=== PATIENT | female | born 1965 | race Caucasian/White ===

== ENCOUNTER 2020-11-19 19:19 | Emergency (ER) | payer MEDICARE, SELFPAY ==
--- NOTE | ~2020-11-19 | CT_ITS ---
EXAMINATION: CT abdomen pelvis w con DATE: 11/19/2020 22:54 INDICATION: Left buttock lump. TECHNIQUE: Computed tomography (CT) of the abdomen and pelvis was performed with 100 mL Omnipaque 350 intravenous contrast. Automated exposure control and iterative reconstruction technique were employe d. The dose-length product was 886.44 mGy-cm. COMPARISON: None. FINDINGS: The visualized portions of the lung bases demonstrate mild atelectasis. No pleural effusion . The heart size is normal. No pericardial effusion. The liver demonstrates focal steatosis at the ga llbladder fossa. There is a 13 mm low-attenuation lesion at posterior aspect of right hepatic lobe. T here are changes of cholecystectomy. The spleen, pancreas, and adrenal glands are normal. There is a 4 mm cyst in right kidney. Left kidney is normal. There is diverticulosis of the colon without eviden ce of diverticulitis. There are multiple ventral hernias containing fat. There is a lumboperitoneal s leroy. There are changes of posterior fusion procedure from thoracic spine to the sacrum and iliac bon es. There are changes of anterior fusion procedure from L1 to S1. There is a large distribution of fa t stranding superficial to the sacrum, consistent with fat necrosis. IMPRESSION: 1. Large distribution of fat stranding superficial to the sacrum, consistent with fat necrosis. 2. Multiple ventral hernias containing fat. 3. 13 mm low-attenuation lesion in posterior aspect of right hepatic lobe, which may be focal steatos is or scarring given the location. Consider abdomen CT with contrast in 6 months. Reviewed, dictated and finalized at location A. IMPRESSION: 1. Large distribution of fat stranding superficial to the sacrum, consistent wi th fat necrosis. 2. Multiple ventral hernias containing fat. 3. 13 mm low-attenuation lesion in posterior aspect of right hepatic lobe, whic h may be focal steatosis or scarring given the location. Consider abdomen CT wi th contrast in 6 months.
[2020-11-19 19:27] VITALS: BP 162/96; PULSE 82; RESP 16; TEMP 37.3; O2SAT 100
[2020-11-19] MEDS: MORPHINE SULFATE (*CRX) 4 MG/ML INJ IV PUSH (22:10)
[2020-11-19 22:16] LABS: Basophils Percent Auto 0.3 % (0.2-1.2); Eosinophils Absolute Auto 0.7 K/mm3 (0-0.3); Eosinophils Percent Auto 6.1 % (0-4.4); Hematocrit 38.6 % (37.0-47.0); Hemoglobin 12.5 g/dL (12.0-15.0); Immature Granulocyte Absolute 0.04 K/mm3 (0.00-0.031); Immature Granulocyte Percent A 0.3 % (0-0.5); Immature Platelet Fraction Pct 3.4 % (0.9-11.2); Lymphocytes Absolute Auto 3.22 K/mm3 (0.9-3.2); Lymphocytes Percent Auto 27.2 % (18.3-44.2); Mean Corpuscular HGB Conc 32.4 g/dl (32-36); Mean Corpuscular Hemoglobin 29.6 pg (26-34); Mean Corpuscular Volume 91.3 fl (80-100); Monocytes Absolute Auto 0.7 K/mm3 (0.1-0.6); Monocytes Percent Auto 5.5 % (2.6-8.5); Neutrophils Absolute Auto 7.2 K/mm3 (1.3-6.7); Neutrophils Percent Auto 60.6 % (45.5-73.1); Platelet Count Result 286 k/mm3 (150-375); Red Blood Count 4.23 M/mm3 (4.2-5.4); Red Cell Distribution Width 13.3 % (11.5-14.5); White Blood Count 11.9 K/mm3 (4.5-10.0)
[2020-11-19 22:32] LABS: Lactic Acid Reflex 0.9 mmol/L (0.7-2.1)
[2020-11-19 22:37] LABS: Alanine Aminotransferase 11 U/L (4-35); Albumin Level 3.9 g/dL (3.5-5.1); Alkaline Phosphatase 108 U/L (38-126); Anion Gap 8 mmol/L (8-16); Aspartate Amino Transferase 18 U/L (14-36); Bilirubin,Total 0.5 mg/dL (0.2-1.3); Blood Urea Nitrogen 10 mg/dL (7-17); Calcium 9.3 mg/dL (8.4-10.2); Carbon Dioxide 24 mmol/L (22-30); Chloride 109 mmol/L (98-107); Estimated CRCL calculation 90 ml/min; Estimated Glomerular Filt Rate > 60; Glucose 101 mg/dL (65-110); Potassium 3.9 mmol/L (3.4-5.0); Sodium 141 mmol/L (137-145)
--- NOTE | 2020-11-19 23:27 | ED.GENADULT ---
HPI - General Adult General Chief complaint: Unspecified Stated complaint: MRSA on buttock Time Seen by Provider: 11/19/20 21:03 History of Present Illness HPI narrative: Patient 55-year-old female presents emerged department with chief complaint of swelling in her gluteal area. Patient reports she had an abscess in her right gluteal region that was spontaneously draining patient reports is been treated for MRSA but those areas become more painful lately. Patient also reports in her sacral area she has had another area of swelling the patient reports that she has had no trauma to the area and denies redness of that area. Patient reports that she is supposed to see her doctors over in [place] but is currently living with a family member and has no form of transportation to [place]. Related Data Allergies Allergy/AdvReac Type Severity Reaction Status Date / Time latex Allergy Unknown Verified 11/19/20 19:33 topiramate [From Topamax] Allergy Unknown Verified 11/19/20 19:33 Review of Systems Review of Systems: A 10 system review of systems was completed on the patient and is negative except for what is stated in the HPI. Nursing and ancillary documentation was reviewed. Exam Narrative: GENERAL: Well-appearing, well-nourished, and in no acute distress. HEAD: Normocephalic, atraumatic. EYES: PERRLA and EOMI. ENT: Nares clear, no rhinorrhea or epistaxis. Mucous membranes moist. NECK: Supple. CHEST: Clear to auscultation. No respiratory distress. HEART: Regular rate and rhythm. No murmur heard. Normal peripheral pulses. ABDOMEN: Soft, nontender, nondistended, normal active bowel sounds. : The right gluteal area there is a wound that is approximately 2 cm in length that is healing there is some slight erythema in the area. In the sacral area there is a tender soft tissue nodule at the area of the sacrum there is no fluctuance present EXTREMITIES: Normal range of motion. No edema. SKIN: Warm, dry, no rash. NEURO: No focal deficits. Alert and oriented x3. PSYCH: Normal mood and affect. Course Course Emergency Course: CT scan of the abdomen pelvis showed evidence of fat necrosis in the soft tissue around the sacrum. There is no signs of abscess Vital Signs Vital signs: Vital Signs Temperature 37.3 C 11/19/20 19:27 Pulse Rate 82 11/19/20 19:27 Respiratory Rate 16 11/19/20 19:27 Blood Pressure 162/96 H 11/19/20 19:27 Pulse Oximetry 100 11/19/20 19:27 Temperature 37.3 C 11/19/20 19:27 Pulse Rate 82 11/19/20 19:27 Respiratory Rate 16 11/19/20 19:27 Blood Pressure 162/96 H 11/19/20 19:27 Pulse Oximetry 100 11/19/20 19:27 Medical Decision Making Vital Signs Vital Signs: Vital Signs Temperature 37.3 C 11/19/20 19:27 Pulse Rate 82 11/19/20 19:27 Respiratory Rate 16 11/19/20 19:27 Blood Pressure 162/96 H 11/19/20 19:27 Pulse Oximetry 100 11/19/20 19:27 Temperature 37.3 C 11/19/20 19:27 Pulse Rate 82 11/19/20 19:27 Respiratory Rate 16 11/19/20 19:27 Blood Pressure 162/96 H 11/19/20 19:27 Pulse Oximetry 100 11/19/20 19:27 Lab Data Result diagrams: 11/19/20 22:05 11/19/20 22:05 Labs: Lab Results 11/19/20 11/19/20 11/19/20 Range/Units 22:05 22:05 22:05 WBC 11.9 H (4.5-10.0) K/mm3 RBC 4.23 (4.2-5.4) M/mm3 Hgb 12.5 (12.0-15.0) g/dL Hct 38.6 (37.0-47.0) % MCV 91.3 (80-100) fl MCH 29.6 (26-34) pg MCHC 32.4 (32-36) g/dl RDW 13.3 (11.5-14.5) % Plt Count 286 (150-375) k/mm3 MPV 10.0 (7.4-10.4) fl Immature Gran % (Auto) 0.3 (0-0.5) % Neut % (Auto) 60.6 (45.5-73.1) % Lymph % (Auto) 27.2 (18.3-44.2) % [place] % (Auto) 5.5 (2.6-8.5) % Eos % (Auto) 6.1 H (0-4.4) % Baso % (Auto) 0.3 (0.2-1.2) % Lymph # (Auto) 3.22 H (0.9-3.2) K/mm3 [place] # (Auto) 0.7 H (0.1-0.6) K/mm3 Eos # (Auto) 0.7 H (0-0.3) K/mm3 Baso # (Auto) 0.0 (0.0-0.
[2020-11-19] MEDS: HYDROmorphone HCL INJ (*CRX) 1 MG/ML SYR IV PUSH (23:37)
[2020-11-19 23:40] VITALS: BP 122/60; PULSE 78; RESP 18; O2SAT 99
== END 2020-11-19 23:41 | disposition home or self-care (01) ==
PROVIDERS: Emergency Provider Emergency Medicine; PCP Internal Medicine Rheumatology
DX: L03.317 Cellulitis of buttock (principal); M79.89 Other specified soft tissue disorders
CPT/HCPCS: 36415; 74177; 80053; 83605; 85025; 85055; 96374; 96375; 99284; J1170; J2270; Q9967

== ENCOUNTER 2020-12-29 19:45 | Inpatient (IN) | payer MEDICARE, MEDICAID, SELFPAY ==
[2020-12-29] VITALS (17 sets, daily range): BP systolic 105–133; BP diastolic 69–111; PULSE 115–129; RESP 10–19; TEMP 36.8; O2SAT 92–98
--- NOTE | ~2020-12-29 | CT_ITS ---
EXAMINATION: CT BRAIN W/O DATE: 12/29/2020 21:02 INDICATION: Status post fall. Headache. TECHNIQUE: Computed tomography (CT) of the head was performed without intravenous contrast. The dose- length product was 605.33 mGy-cm. Automated exposure control and iterative reconstruction technique w ere employed. COMPARISON: No prior studies for comparison. FINDINGS: Normal brain parenchymal volume for age. Normal green-white differentiation. No acute intrac ranial hemorrhage, infarction, mass or mass effect. No ventriculomegaly or midline shift. Midline sagittal images demonstrate a normal corpus callosum, c raniovertebral junction and sella turcica. Basilar cisterns are patent. Paranasal sinuses and mastoids are pneumatized. No depressed skull fractures. There is hyperostosis f rontalis. IMPRESSION: 1. No acute intracranial abnormality. Reviewed, dictated and finalized at location A.
--- NOTE | ~2020-12-29 | XR_ITS ---
XR sacrum coccyx min 2V 12/29/2020 21:05 Indication: Status post fall. Low back pain. Procedure: 3 views of the lumbar spine Comparison: No prior studies for comparison. Findings: There are Harmon rods and spinal fusion changes extending from the lower thoracic spine through the sacrum with laminectomy changes at multiple levels. There is bone graft mass laterally i n the upper and mid lumbar spine. There is a spinal infusion catheter identified, partially visualize d. Generalized osteopenia. Sacral foramen are symmetric. No pelvic rings grossly intact. No acute fra cture is identified. Impression: 1: No acute bone or joint abnormality. Reviewed, dictated and finalized at location A. Impression: 1: No acute bone or joint abnormality.
--- NOTE | ~2020-12-29 | CT_ITS ---
EXAMINATION: CT cervical spine wo con DATE: 12/29/2020 21:02 INDICATION: Neck pain after fall TECHNIQUE: Computed tomography (CT) of the cervical spine was performed without intravenous contrast. The dose-length product was 385 mGy-cm. Automated exposure control and iterative reconstruction tech nique were employed. COMPARISON: None FINDINGS: Anterior cervical fusion and discectomy are present at C4-C7. Mild degenerative disc diseas e at C3-4. Odontoid process within normal limits. No acute fracture or traumatic malalignment. Cranio vertebral junction are normal. No evidence for perched facet. There is mild emphysema. No significant paraspinal soft tissue abnormality. IMPRESSION: 1. No acute abnormality of the cervical spine. Reviewed, dictated and finalized at location A.
--- NOTE | 2020-12-29 20:35 | ECG_ITS ---
Measurements Intervals [place] Rate: 129 P: 62 AK: 110 QRS: -28 QRSD: 78 T: 62 QT: 334 QTc: 490 Interpretive Statements SINUS TACHYCARDIA WITH SHORT AK INTERVAL EARLY PRECORDIAL R/S TRANSITION INFERIOR INFARCT, AGE INDETERMINATE BORDERLINE ST-T WAVE ABNORMALITY- HIGH LATERAL LEADS BASELINE WANDER- I, II ABNORMAL ECG Electronically Signed On 12-30-2020 5:22:57 CDT by Shelton Brown D.O.
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
--- NOTE | 2020-12-29 20:54 | PC.NURSE ---
PT is at [facility].
[2020-12-29 22:05] LABS: Basophils Absolute Auto 0.1 K/mm3 (0.0-0.1); Basophils Percent Auto 0.3 % (0.2-1.2); Eosinophils Absolute Auto 0.2 K/mm3 (0-0.3); Hematocrit 52.8 % (37.0-47.0); Immature Granulocyte Absolute 0.12 K/mm3 (0.00-0.031); Immature Granulocyte Percent A 0.6 % (0-0.5); Lymphocytes Absolute Auto 2.46 K/mm3 (0.9-3.2); Mean Corpuscular HGB Conc 32.2 g/dl (32-36); Mean Corpuscular Volume 93.3 fl (80-100); Mean Platelet Volume 10.4 fl (7.4-10.4); Monocytes Absolute Auto 1.5 K/mm3 (0.1-0.6); Monocytes Percent Auto 7.1 % (2.6-8.5); Neutrophils Absolute Auto 16.1 K/mm3 (1.3-6.7); Platelet Count Result 389 k/mm3 (150-375); Red Blood Count 5.66 M/mm3 (4.2-5.4); Red Cell Distribution Width 13.6 % (11.5-14.5); White Blood Count 20.4 K/mm3 (4.5-10.0)
[2020-12-29] MEDS: LACTATED RINGERS 1,000 ML 999 ML IV CONT (22:07)
[2020-12-29 22:25] LABS: Alanine Aminotransferase 56 U/L (4-35); Alkaline Phosphatase 159 U/L (38-126); Anion Gap 21 mmol/L (8-16); Aspartate Amino Transferase 206 U/L (14-36); Bilirubin,Total 0.8 mg/dL (0.2-1.3); Blood Urea Nitrogen 37 mg/dL (7-17); Calcium 9.5 mg/dL (8.4-10.2); Carbon Dioxide 17 mmol/L (22-30); Chloride 102 mmol/L (98-107); Estimated CRCL calculation 18 ml/min; Estimated Glomerular Filt Rate 12; Glucose 221 mg/dL (65-110); Potassium 6.1 mmol/L (3.4-5.0); Sodium 140 mmol/L (137-145)
[2020-12-29 22:39] LABS: Add Urine Microscopic? YES; Appearance Urine Cloudy (Clear); Bacteria Urine Trace /hpf; Bilirubin Urine Negative (Negative); Blood Urine 3+ (Negative); Color Urine Amber (Yellow); Glucose Urine UA 1+ mg/dL (Negative); Ketones Urine Negative (Negative); Leukocyte Esterase Ur 1+ LEU/UL (Negative); Mucus Urine Rare /lpf; Nitrate Urine Negative (Negative); Protein Urine 2+ mg/dL (Negative); Squamous Epithelial Cell Urine Moderate /hpf (Few); Urobilinogen Urine Negative mg/dL (<2.0); WBC Clumps Urine Present /HPF; WBC Urine 31-50 /hpf
[2020-12-29 22:41] LABS: Amphetamine Screen Urine Negative (Negative); Barbiturate Screen Urine Negative (Negative); Benzodiazepines Screen Urine Negative (Negative); Cannabinoid Screen Urine Negative (Negative); Cocaine Screen Urine Negative (Negative); Methadone Screen Urine Negative (Negative); Opiate Screen Urine Positive (Negative); Phencyclidine Screen Urine Negative (Negative)
--- NOTE | 2020-12-29 22:43 | PC.NURSE ---
critical lab reported to Dr Goode and Charge Nurse
[2020-12-29 23:16] LABS: Creatine Kinase 15551 U/L (30-135)
[2020-12-29 23:17] LABS: Glucose Point of Care 208 mg/dl (65-105)
[2020-12-29] MEDS: SODIUM BICARBONATE 8.4% 50 MEQ/50 ML SYRINGE IV PUSH (23:20)
[2020-12-29] MEDS: FUROSEMIDE INJ 40 MG/4 ML VIAL 20 MG IV PUSH (23:21)
[2020-12-29] MEDS: SODIUM CHLORIDE 0.9% IV 1,000 ML 999 ML IV CONT ×2 (23:21)
[2020-12-29] MEDS: INSULIN HUMAN REGULAR (*BKC) 100 UNITS/ML IV PUSH (23:21)
[2020-12-29] MEDS: DEXTROSE 50% 25 GM/50 ML SYRINGE IV PUSH (23:21)
[2020-12-29 23:32] LABS: Ethanol < 10 mg/dL (<10)
[2020-12-29 23:42] LABS: Acetaminophen < 10 ug/mL (10-30)
[2020-12-30] VITALS (19 sets, daily range): BP systolic 103–134; BP diastolic 63–90; PULSE 88–136; RESP 12–22; TEMP 36–36.9; O2SAT 94–98; BMI 29.1
[2020-12-30] MEDS: ASPIRIN 81 MG CHEWABLE TABLET 324 MG PO (00:54)
--- NOTE | 2020-12-30 01:40 | PC.NURSE ---
Attempted x3 to obtain blood for labs - unsuccessful - called lab to attempt.
--- NOTE | 2020-12-30 02:08 | PC.NURSE ---
see incident report for fall information.
--- NOTE | 2020-12-30 02:36 | PC.NURSE ---
Dr huizar aware of pt fall.
[2020-12-30 03:04] LABS: Anion Gap 16 mmol/L (8-16); Blood Urea Nitrogen 39 mg/dL (7-17); Calcium 8.6 mg/dL (8.4-10.2); Carbon Dioxide 16 mmol/L (22-30); Chloride 108 mmol/L (98-107); Estimated CRCL calculation 21 ml/min; Estimated Glomerular Filt Rate 15; Glucose 244 mg/dL (65-110); Potassium 5.4 mmol/L (3.4-5.0); Sodium 140 mmol/L (137-145)
[2020-12-30 03:04] LABS: Troponin I 0.064 ng/mL (0.000-0.034)
--- NOTE | 2020-12-30 03:16 | ADMGEN ---
This patient, Susannah Garza, was admitted to IMU Room 232-01. Patient/family oriented to hospital policies and general routines including ID bracelet, bed and alarms, visiting hours, pain management, procedures, bathroom and other care routines, personal items, smoking policy, room service/diet, and visiting hours. Information on how to activate the Rapid Response Team has been discussed. Patient/Family are encouraged to report perceived risks to care and to ask questions if they do not understand what they are told or what they should do. Mary MOORE approx [phone]
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
[2020-12-30 04:09] LABS: Alveolar/Arterial O2 Gradient 35.7 mmHg; Base Excess ABG -5.6 mEq/l (+/-2.0); Fractional Inspired Oxygen 21 %; HCO3 ABG 19.5 mEq/l (22.0-26.0); Methemoglobin ABG 0.3 %THb (0-1.5); Oxygen Content ABG 18.2 %vol (16.0-22.0); Oxygen Saturation ABG 93.3 % (95.0-100.0); Oxyhemoglobin 92.4 % THb (90.0-100.0); PCO2 ABG 36.8 mmHg (35.0-45.0); PO2 FiO2 Ratio Arterial Blood 3.33 %; Reduced Hemoglobin 6.3 %THb (0-5.0); pH ABG 7.342 (7.350-7.450)
[2020-12-30 04:10] LABS: Device ROOM AIR; Modified Allen's Test Pass; Site Drawn RIGHT RADIAL
[2020-12-30] MEDS: SODIUM BICARBONATE 8.4% 150 MEQ in DEXTROSE 5% 1,000 ML 950 ML 50 MEQ IV CONT (04:39)
[2020-12-30] MEDS: SODIUM CHLORIDE 0.9% IV 1,000 ML 999 ML IV CONT (04:40)
[2020-12-30] MEDS: SODIUM CHLORIDE 0.9% IV 1,000 ML 150 ML IV CONT ×2 (04:40→22:44)
[2020-12-30 05:16] LABS: Basophils Percent Auto 0.2 % (0.2-1.2); Eosinophils Absolute Auto 0.3 K/mm3 (0-0.3); Eosinophils Percent Auto 2.2 % (0-4.4); Hematocrit 41.5 % (37.0-47.0); Hemoglobin 13.3 g/dL (12.0-15.0); Immature Granulocyte Absolute 0.07 K/mm3 (0.00-0.031); Immature Granulocyte Percent A 0.5 % (0-0.5); Lymphocytes Absolute Auto 2.54 K/mm3 (0.9-3.2); Lymphocytes Percent Auto 18.6 % (18.3-44.2); Mean Corpuscular Hemoglobin 29.7 pg (26-34); Mean Corpuscular Volume 92.6 fl (80-100); Monocytes Absolute Auto 1.2 K/mm3 (0.1-0.6); Monocytes Percent Auto 8.8 % (2.6-8.5); Neutrophils Absolute Auto 9.5 K/mm3 (1.3-6.7); Neutrophils Percent Auto 69.7 % (45.5-73.1); Platelet Count Result 259 k/mm3 (150-375); Red Blood Count 4.48 M/mm3 (4.2-5.4); Red Cell Distribution Width 13.5 % (11.5-14.5); White Blood Count 13.7 K/mm3 (4.5-10.0)
[2020-12-30 05:33] LABS: Anion Gap 12 mmol/L (8-16); Blood Urea Nitrogen 38 mg/dL (7-17); Calcium 7.5 mg/dL (8.4-10.2); Carbon Dioxide 21 mmol/L (22-30); Chloride 106 mmol/L (98-107); Estimated CRCL calculation 24 ml/min; Estimated Glomerular Filt Rate 17; Glucose 176 mg/dL (65-110); Potassium 5.1 mmol/L (3.4-5.0); Sodium 139 mmol/L (137-145)
[2020-12-30 05:34] LABS: Alanine Aminotransferase 58 U/L (4-35); Albumin Level 3.3 g/dL (3.5-5.1); Alkaline Phosphatase 97 U/L (38-126); Aspartate Amino Transferase 240 U/L (14-36); Bilirubin,Total 0.2 mg/dL (0.2-1.3)
[2020-12-30 06:36] LABS: Hepatitis B Surface Antigen Negative (Negative)
[2020-12-30 06:42] LABS: HAV RESULT Negative (Negative); Hepatitis B Core IgM Result Negative (Negative)
[2020-12-30 06:53] LABS: Hepatitis C Virus Antibody Negative (Negative)
[2020-12-30 06:56] LABS: Creatine Kinase 15754 U/L (30-135)
[2020-12-30 08:53] LABS: Hemoglobin A1C 6.2 % (<5.7)
[2020-12-30 09:08] LABS: Glucose Point of Care 156 mg/dl (65-105)
[2020-12-30] MEDS: FAMOTIDINE 20 MG/2 ML VIAL IV PUSH ×2 (09:21→22:43)
[2020-12-30] MEDS: HEPARIN SODIUM 5,000 UNITS/ML VIAL 5000 UNITS SUB-Q ×3 (09:21→22:43)
[2020-12-30 13:42] LABS: Glucose Point of Care 158 mg/dl (65-105)
--- NOTE | 2020-12-30 14:11 | PM.IMPN ---
Progress Note: A&P Assessment and Plan (1) UTI (urinary tract infection): Code(s): N39.0 - Urinary tract infection, site not specified Status: Acute Assessment and Plan: per patient, she had some urinary frequency inc and lower abdominal pain will treat as symptomatic UTI - continue ctx, day 2, follow urine cultures (2) ROLY (acute kidney injury): Code(s): N17.9 - Acute kidney failure, unspecified Status: Acute Assessment and Plan: related to rhabdomyloysis, m/l continue IV hydration at 150/hr (3) Rhabdomyolysis: Qualifiers: Rhabdomyolysis type: non-traumatic Qualified Code(s): M62.82 - Rhabdomyolysis Code(s): M62.82 - Rhabdomyolysis Status: Acute Assessment and Plan: iv hydration as above (4) Acute hyperkalemia: Code(s): E87.5 - Hyperkalemia Status: Acute Assessment and Plan: resolved (5) Bacteriuria with pyuria: Code(s): R82.71 - Bacteriuria; R82.81 - Pyuria Status: Acute Assessment and Plan: ctx as above (6) Transaminitis: Code(s): R74.01 - Elevation of levels of liver transaminase levels Status: Acute Assessment and Plan: hepatitis panel negative so far may be related to acute inflammation just had Abdomen CT 11/19, showing steatosis - may benefit from US if not improving LFTs (7) Type 2 diabetes mellitus with hyperglycemia: Qualifiers: Diabetes mellitus superintendent terminal insulin use: unspecified superintendent terminal insulin use status Qualified Code(s): E11.65 - Type 2 diabetes mellitus with hyperglycemia Code(s): E11.65 - Type 2 diabetes mellitus with hyperglycemia Status: Acute (8) Toxic metabolic encephalopathy: Code(s): G92 - Toxic encephalopathy Status: Acute Assessment and Plan: resolving - pt likely at baseline, AOx4, and able to recount medical problems coherently Additional Plan pt says she had a fall at home - ct of head, cervical, sacrum, coccyx all negative likely precipitating event for rhabdo, and ensuing roly - currently treated with IVF, improving concurrent symptomatic UTI treated with CTX Transaminitis w/ benign abdominal exam & neg hepatitis panel; may need to obtain US - but previously documented steatosis Time Spent With Patient Time with patient: less than 15 minutes Subjective Date/time seen: 12/30/20 14:11 AOx4, pain symptoms getting better. Able to bear weight on both LE denies fevers chills abdominal pain or dysuria Review of Systems Review of Systems: All systems reviewed & are unremarkable except as noted in HPI and below Exam Const: General: no acute distress Neck: Neck: no JVD Resp: Effort & Inspection: normal respiratory effort Auscultation: clear to auscultation bilaterally Cardio: Rate: regular rate Rhythm: regular rhythm Objective Data Vital Signs Vital Signs: Vital Signs - 24 hr 12/29/20 19:46 12/29/20 21:57 12/29/20 22:00 Temperature 98.3 F Pulse Rate 127 H 129 H 128 H Respiratory Rate 19 13 10 L Blood Pressure 133/111 H Pulse Oximetry 95 12/29/20 22:01 12/29/20 22:15 12/29/20 22:30 Temperature Pulse Rate 127 H 129 H 129 H Respiratory Rate 12 14 Blood Pressure 105/69 Pulse Oximetry 95 12/29/20 22:36 12/29/20 22:37 12/29/20 22:44 Temperature Pulse Rate 128 H 128 H Respiratory Rate 12 Blood Pressure 117/80 Pulse Oximetry 12/29/20 22:45 12/29/20 22:46 12/29/20 23:00 Temperature Pulse Rate 125 H 125 H 125 H Respiratory Rate 18 Blood Pressure 119/92 H Pulse Oximetry 92 92 12/29/20 23:01 12/29/20 23:15 12/29/20 23:16 Temperature Pulse Rate 125 H 124 H 125 H Respiratory Rate Blood Pressure 124/95 H Pulse Oximetry 98 97 12/29/20 23:30 12/29/20 23:45 12/30/20 00:00 Temperature Pulse Rate 121 H 115 H 115 H Respiratory Rate 17 Blood Pressure Pulse Oximetry 95 12/30/20 00:15 12/30/20 00:30 12/30/20 00:45 Temperat
--- NOTE | 2020-12-30 16:20 | PM.CNNEP ---
Assessment and Plan Assessment and plan (1) ROLY (acute kidney injury): Code(s): N17.9 - Acute kidney failure, unspecified Status: Acute Assessment and Plan: presumably due to prerenal factors and rhabdomyolysis likely worsened by use of ARB. agree with IVF hydration follow repeat CPK may need to consider bicarb fluids but would continue current fluids for now follow trend of repeat labs and UOP (2) Hyperkalemia: Code(s): E87.5 - Hyperkalemia Status: Acute Assessment and Plan: due to ROLY, rhabdomyolysis, and use of losartan improved s/p medical therapy follow trend (3) Rhabdomyolysis: Qualifiers: Rhabdomyolysis type: non-traumatic Qualified Code(s): M62.82 - Rhabdomyolysis Code(s): M62.82 - Rhabdomyolysis Status: Acute Assessment and Plan: likely due to being found down on ground follow trend of CPK continue IVF hydration watch K+, Ca++, and Phos may need to consider urinary alkalinization if renal function worsens (4) Altered mental status: Code(s): R41.82 - Altered mental status, unspecified Status: Acute Assessment and Plan: due to medications(?) mentation seems to be improving (5) UTI (urinary tract infection): Code(s): N39.0 - Urinary tract infection, site not specified Status: Acute Assessment and Plan: as evidence of urinalysis follow-up on culture results (6) Diabetes: Code(s): E11.9 - Type 2 diabetes mellitus without complications Status: Acute Assessment and Plan: follow accuchecks glycemic control Will continue to follow. History of Present Illness Reason for Consult Consult date: 12/30/20 Reason for consult: acute renal failure Chief Complaint Chief complaint: hyperkalemia,rhabdomyolyis,roly,uti,elevated tropon History of Present Illness Narrative: The patient is a 55-year-old female with past medical history as outlined below who presented to [facility] ER from fall following a fall. Most of the information I have obtained is from review of the electronic medical record as the patient cannot recall specific details/ events that led to her presentation and subsequent admission to [facility]. Apparently, the patient has been having fluctuating living arrangements for last several months if not longer and recently moved in with her daughter a few weeks ago. Given her generalized weakness and debility, the patient most likely really needs to be in a group home or nursing facility but she does not have insurance and has not entirely clear if the patient would be willing to move into a nursing facility. In any case, over the weekend, she recently started medications that she received via mail ( chronic home medications? ) And this apparently caused significant lethargy and somnolence. Due to this change in mental status, she apparently rolled out of bed and was found on the floor. It is not a tire Geraldine clear how long she was down on the floor but reports state that she was only down for may be a few hours. What medications she received via mail, what they were for, and what they were in general is not entirely clear at all. Do the a for mentioned fall than acute mental status changes, she presented to [facility] Emergency room for further evaluation. Workup and evaluation emergency room demonstrated the patient to be hemodynamically stable but she was quite altered /lethargic on presentation. She could not give any details of how she ended up in the hospital, how she ended up on the floor, when this event occurred, or for that matter what medications that she took over the weekend. Head CT scan did not demonstrate any acute intracranial pathology but routine blood test demonstrated a significant decline in her kidney function in association with hyperkalemia. Her CBC was unremarkable but given the change in her mental status
[2020-12-30 16:54] LABS: Glucose Point of Care 154 mg/dl (65-105)
[2020-12-30 20:48] LABS: Glucose Point of Care 151 mg/dl (65-105)
[2020-12-31] VITALS (16 sets, daily range): BP systolic 117–144; BP diastolic 74–80; PULSE 95–113; RESP 12–20; TEMP 36.2–36.7; O2SAT 94–98
[2020-12-31 05:08] LABS: Basophils Percent Auto 0.2 % (0.2-1.2); Eosinophils Absolute Auto 0.2 K/mm3 (0-0.3); Eosinophils Percent Auto 1.6 % (0-4.4); Hematocrit 38.9 % (37.0-47.0); Hemoglobin 12.8 g/dL (12.0-15.0); Immature Granulocyte Absolute 0.06 K/mm3 (0.00-0.031); Immature Granulocyte Percent A 0.5 % (0-0.5); Lymphocytes Absolute Auto 2.55 K/mm3 (0.9-3.2); Lymphocytes Percent Auto 21.6 % (18.3-44.2); Mean Corpuscular HGB Conc 32.9 g/dl (32-36); Mean Corpuscular Hemoglobin 29.6 pg (26-34); Mean Platelet Volume 10.1 fl (7.4-10.4); Monocytes Absolute Auto 0.9 K/mm3 (0.1-0.6); Monocytes Percent Auto 7.2 % (2.6-8.5); Neutrophils Absolute Auto 8.1 K/mm3 (1.3-6.7); Neutrophils Percent Auto 68.9 % (45.5-73.1); Platelet Count Result 246 k/mm3 (150-375); Red Blood Count 4.32 M/mm3 (4.2-5.4); Red Cell Distribution Width 13.7 % (11.5-14.5); White Blood Count 11.8 K/mm3 (4.5-10.0)
[2020-12-31] MEDS: HEPARIN SODIUM 5,000 UNITS/ML VIAL 5000 UNITS SUB-Q ×3 (05:11→20:21)
[2020-12-31 05:25] LABS: Alanine Aminotransferase 65 U/L (4-35); Albumin Level 3.4 g/dL (3.5-5.1); Alkaline Phosphatase 113 U/L (38-126); Anion Gap 10 mmol/L (8-16); Aspartate Amino Transferase 142 U/L (14-36); Bilirubin,Total 0.6 mg/dL (0.2-1.3); Blood Urea Nitrogen 33 mg/dL (7-17); Calcium 7.8 mg/dL (8.4-10.2); Carbon Dioxide 21 mmol/L (22-30); Chloride 104 mmol/L (98-107); Estimated CRCL calculation 45 ml/min; Estimated Glomerular Filt Rate 36; Glucose 155 mg/dL (65-110); Magnesium 1.5 mg/dL (1.6-2.3); Phosphorus 3.5 mg/dL (2.5-4.5); Potassium 4.3 mmol/L (3.4-5.0); Sodium 135 mmol/L (137-145)
[2020-12-31 06:59] LABS: Thyroid Stimulating Hormone Reflex 0.426 uIU/mL (0.465-4.68)
[2020-12-31 07:06] LABS: Creatine Kinase 6687 U/L (30-135)
[2020-12-31 07:40] LABS: Free T4 Free Thyroxine Reflex 1.27 ng/dL (0.78-2.19)
--- NOTE | 2020-12-31 07:56 | PM.IMPN ---
Progress Note: A&P Assessment and Plan (1) UTI (urinary tract infection): Code(s): N39.0 - Urinary tract infection, site not specified Status: Acute Assessment and Plan: per patient, she had some urinary frequency inc and lower abdominal pain will treat as symptomatic UTI - continue ctx, day 3, follow urine cultures (2) ROLY (acute kidney injury): Code(s): N17.9 - Acute kidney failure, unspecified Status: Acute Assessment and Plan: related to rhabdomyloysis, m/l continue IV hydration at 150/hr (3) Rhabdomyolysis: Qualifiers: Rhabdomyolysis type: non-traumatic Qualified Code(s): M62.82 - Rhabdomyolysis Code(s): M62.82 - Rhabdomyolysis Status: Acute Assessment and Plan: iv hydration as above (4) Acute hyperkalemia: Code(s): E87.5 - Hyperkalemia Status: Acute Assessment and Plan: resolved (5) Bacteriuria with pyuria: Code(s): R82.71 - Bacteriuria; R82.81 - Pyuria Status: Acute Assessment and Plan: ctx as above (6) Transaminitis: Code(s): R74.01 - Elevation of levels of liver transaminase levels Status: Acute Assessment and Plan: hepatitis panel negative so far may be related to acute inflammation just had Abdomen CT 11/19, showing steatosis - may benefit from US, however LFTs improving (7) Type 2 diabetes mellitus with hyperglycemia: Qualifiers: Diabetes mellitus care home insulin use: unspecified lobsterman insulin use status Qualified Code(s): E11.65 - Type 2 diabetes mellitus with hyperglycemia Code(s): E11.65 - Type 2 diabetes mellitus with hyperglycemia Status: Acute (8) Toxic metabolic encephalopathy: Code(s): G92 - Toxic encephalopathy Status: Acute Assessment and Plan: resolving - pt likely at baseline, AOx4, and able to recount medical problems coherently Additional Plan pt says she had a fall at home - ct of head, cervical, sacrum, coccyx all negative likely precipitating event for rhabdo, and ensuing roly - currently treated with IVF, improving, renal function approaching baseline concurrent symptomatic UTI treated with CTX, pending urine culture Transaminitis w/ benign abdominal exam & neg hepatitis panel; may need to obtain US - but previously documented steatosis and also improving with hydration - may be related to inflammatory process Time Spent With Patient Time with patient: less than 15 minutes Subjective Date/time seen: 12/31/20 07:56 making good amt urine resting comfortably in bed no acute medical complaints Review of Systems Review of Systems: All systems reviewed & are unremarkable except as noted in HPI and below Exam Const: General: no acute distress Neck: Neck: no JVD Resp: Effort & Inspection: normal respiratory effort Auscultation: clear to auscultation bilaterally Cardio: Rate: regular rate Rhythm: regular rhythm GI: GI Palp: Yes Soft to palpation and No Tenderness to palpation present (GI) Objective Data Vital Signs Vital Signs: Vital Signs - 24 hr 12/30/20 08:00 12/30/20 10:00 12/30/20 12:00 Temperature 97.6 F 96.8 F L Pulse Rate 104 H 116 H 116 H Respiratory Rate 18 18 Blood Pressure 118/73 120/73 Pulse Oximetry 95 95 12/30/20 14:00 12/30/20 16:00 12/30/20 18:00 Temperature 97.2 F L Pulse Rate 117 H 119 H 114 H Respiratory Rate 22 H Blood Pressure 103/79 Pulse Oximetry 94 12/30/20 20:00 12/30/20 22:00 12/30/20 23:17 Temperature 97.6 F 98.0 F Pulse Rate 106 H 100 102 H Respiratory Rate 18 18 Blood Pressure 115/73 119/63 Pulse Oximetry 94 97 12/31/20 00:00 12/31/20 02:00 12/31/20 04:00 Temperature 97.8 F Pulse Rate 113 H 107 H 112 H Respiratory Rate 18 Blood Pressure 117/78 Pulse Oximetry 97 12/31/20 06:00 Temperature Pulse Rate 108 H Respiratory Rate Blood Pressure Pulse Oximetry Intake/Output Intake/Output: Intake & Output 09
[2020-12-31 08:07] LABS: Glucose Point of Care 158 mg/dl (65-105)
[2020-12-31] MEDS: MAGNESIUM SULF 2 GM/WATER 50ML 2 GM/50 ML BAG IVPB (08:30)
[2020-12-31] MEDS: FAMOTIDINE 20 MG/2 ML VIAL IV PUSH ×2 (08:34→20:21)
--- NOTE | 2020-12-31 10:08 | P.PNNP_ITS ---
Progress Note: A&P Assessment and Plan (1) ROLY (acute kidney injury): Code(s): N17.9 - Acute kidney failure, unspecified Status: Acute Assessment and Plan: * presumably due to prerenal factors and rhabdomyolysis * likely worsened by use of ARB. * continue IVF hydration for another 24 hours * follow trend of repeat labs and UOP (2) Hyperkalemia: Code(s): E87.5 - Hyperkalemia Status: Acute Assessment and Plan: * due to ROLY, rhabdomyolysis, and use of losartan * improved s/p medical therapy * follow trend (3) Rhabdomyolysis: Qualifiers: Rhabdomyolysis type: non-traumatic Qualified Code(s): M62.82 - Rhabdomyolysis Code(s): M62.82 - Rhabdomyolysis Status: Acute Assessment and Plan: * likely due to being found down on ground * follow trend of CPK - improving * continue IVF hydration for another day * watch K+, Ca++, and Phos (4) Altered mental status: Code(s): R41.82 - Altered mental status, unspecified Status: Acute Assessment and Plan: * due to medications(?) * mentation seems to be improving (5) UTI (urinary tract infection): Code(s): N39.0 - Urinary tract infection, site not specified Status: Acute Assessment and Plan: * suggestive by admission urinalysis * follow-up on culture results (6) Diabetes: Code(s): E11.9 - Type 2 diabetes mellitus without complications Status: Acute Assessment and Plan: * follow accuchecks * glycemic control Will continue to follow. Subjective Date/time seen: 12/31/20 10:08 Appears to be doing reasonably well at the time my visit; renal function improving with stable electrolytes; mentation seems a bit better as well; no issues/events overnight or earlier this AM. Exam Narrative: General: WD/WN female in NAD Heart: normal S1 and S2; no rub Lungs: clear to auscultation Abdomen: soft, nontender, nondistended, positive bowel sounds Extremities: no cyanosis or clubbing; trace edema Skin: warm and dry Objective Data Vital Signs Vital Signs: Vital Signs Temp Pulse Resp BP Pulse Ox 12/31/20 08:43 36.2 C L 107 H 12 122/75 95 12/31/20 06:00 108 H 12/31/20 04:00 36.6 C 112 H 18 117/78 97 12/31/20 02:00 107 H 12/31/20 00:00 113 H 12/30/20 23:17 36.7 C 102 H 18 119/63 97 12/30/20 22:00 100 12/30/20 20:00 36.4 C 106 H 18 115/73 94 12/30/20 18:00 114 H 12/30/20 16:00 36.2 C L 119 H 22 H 103/79 94 12/30/20 14:00 117 H 12/30/20 12:00 36.0 C L 116 H 18 120/73 95 Intake/Output Intake/Output: Intake & Output 12/28/20 12/29/20 12/30/20 12/31/20 23:59 23:59 23:59 23:59 Intake Total 1000 4760 100 Output Total 1000 600 Balance 1000 3760 -500 Meds/Results Medications: Active Medications Generic Name Dose Route Start Last Admin Trade Name Freq PRN Reason Stop Dose Admin Dextrose 12.5 gm 12/30/20 04:58 Dextrose 50% 25 Gm/50 Ml Syringe IV PUSH PRN PRN Hypoglycemia Protocol Famotidine 20 mg 12/30/20 09:00 12/31/20 08:34 Famotidine 20 Mg/2 Ml Vial IV PUSH 20 mg
--- NOTE | 2020-12-31 10:08 | PM.PNNEP ---
Progress Note: A&P Assessment and Plan (1) ROLY (acute kidney injury): Code(s): N17.9 - Acute kidney failure, unspecified Status: Acute Assessment and Plan: presumably due to prerenal factors and rhabdomyolysis likely worsened by use of ARB. continue IVF hydration for another 24 hours follow trend of repeat labs and UOP (2) Hyperkalemia: Code(s): E87.5 - Hyperkalemia Status: Acute Assessment and Plan: due to ROLY, rhabdomyolysis, and use of losartan improved s/p medical therapy follow trend (3) Rhabdomyolysis: Qualifiers: Rhabdomyolysis type: non-traumatic Qualified Code(s): M62.82 - Rhabdomyolysis Code(s): M62.82 - Rhabdomyolysis Status: Acute Assessment and Plan: likely due to being found down on ground follow trend of CPK - improving continue IVF hydration for another day watch K+, Ca++, and Phos (4) Altered mental status: Code(s): R41.82 - Altered mental status, unspecified Status: Acute Assessment and Plan: due to medications(?) mentation seems to be improving (5) UTI (urinary tract infection): Code(s): N39.0 - Urinary tract infection, site not specified Status: Acute Assessment and Plan: suggestive by admission urinalysis follow-up on culture results (6) Diabetes: Code(s): E11.9 - Type 2 diabetes mellitus without complications Status: Acute Assessment and Plan: follow accuchecks glycemic control Will continue to follow. Subjective Date/time seen: 12/31/20 10:08 Appears to be doing reasonably well at the time my visit; renal function improving with stable electrolytes; mentation seems a bit better as well; no issues/events overnight or earlier this AM. Exam Narrative: General: WD/WN female in NAD Heart: normal S1 and S2; no rub Lungs: clear to auscultation Abdomen: soft, nontender, nondistended, positive bowel sounds Extremities: no cyanosis or clubbing; trace edema Skin: warm and dry Objective Data Vital Signs Vital Signs: Vital Signs Temp Pulse Resp BP Pulse Ox 12/31/20 08:43 36.2 C L 107 H 12 122/75 95 12/31/20 06:00 108 H 12/31/20 04:00 36.6 C 112 H 18 117/78 97 12/31/20 02:00 107 H 12/31/20 00:00 113 H 12/30/20 23:17 36.7 C 102 H 18 119/63 97 12/30/20 22:00 100 12/30/20 20:00 36.4 C 106 H 18 115/73 94 12/30/20 18:00 114 H 12/30/20 16:00 36.2 C L 119 H 22 H 103/79 94 12/30/20 14:00 117 H 12/30/20 12:00 36.0 C L 116 H 18 120/73 95 Intake/Output Intake/Output: Intake & Output 12/28/20 12/29/20 12/30/20 12/31/20 23:59 23:59 23:59 23:59 Intake Total 1000 4760 100 Output Total 1000 600 Balance 1000 3760 -500 Meds/Results Medications: Active Medications Generic Name Dose Route Start Last Admin Trade Name Freq PRN Reason Stop Dose Admin Dextrose 12.5 gm 12/30/20 04:58 Dextrose 50% 25 Gm/50 Ml Syringe IV PUSH PRN PRN Hypoglycemia Protocol Famotidine 20 mg 12/30/20 09:00 12/31/20 08:34 Famotidine 20 Mg/2 Ml Vial IV PUSH 20 mg Q12HR CURRY Administration Glucagon 1 mg 12/30/20 04:58 Glucagon For Inj 1 Mg Vial IM PRN PRN Hypoglycemia Protocol Glucose 15 gm 12/30/20 04:58 Glucose Oral Gel 15 Gm Of Glucse In 37.5 Gm Tube PO PRN PRN Hypoglycemia Protocol Heparin Sodium (Porcine) 5,000 units 12/30/20 08:15 12/31/20 05:11 Heparin Sodium 5,000 Units/Ml Vial SUB-Q 5,000 units Q8HR CURRY Administration Sodium Bicarbonate 150 meq/ 1,100 mls @ 50 mls/hr 12/29/20 23:25 12/31/20 08:28 Dextrose IV CONT Not Given .Q22H CURRY Sodium Chloride 1,000 mls @ 150 mls/hr 12/29/20 23:55 12/31/20 08:36 Normal Saline Iv IV CONT Not Given .Q6H40M CURRY Ceftriaxone Sodium/Dextrose 1 gm in 50 mls @ 100 mls/hr 12/30/20 21:00 12/30/20 22:43 Rocephin 1 Gm/D5w 50 Ml
[2020-12-31 12:32] LABS: Glucose Point of Care 224 mg/dl (65-105)
[2020-12-31] MEDS: INSULIN ASPART (*BKC) 100 UNITS/ML SUB-Q (12:52)
[2020-12-31] MEDS: SODIUM CHLORIDE 0.9% IV 1,000 ML 150 ML IV CONT ×2 (13:06→20:24)
--- NOTE | 2020-12-31 14:56 | PCOTNOTE ---
Attempted OT treatment, despite education patient reports to tired to participate today with therapy, reports will participate tomorrow. Will follow.
[2020-12-31 16:25] LABS: Glucose Point of Care 142 mg/dl (65-105)
[2020-12-31] MEDS: SODIUM BICARBONATE 8.4% 150 MEQ in DEXTROSE 5% 1,000 ML 950 ML 50 MEQ IV CONT (17:22)
[2020-12-31 20:11] LABS: Glucose Point of Care 176 mg/dl (65-105)
[2021-01-01] VITALS (16 sets, daily range): BP systolic 143–175; BP diastolic 81–92; PULSE 89–114; RESP 18–22; TEMP 35.7–36.7; O2SAT 97–100
[2021-01-01] MEDS: HEPARIN SODIUM 5,000 UNITS/ML VIAL 5000 UNITS SUB-Q ×3 (05:51→20:35)
[2021-01-01] MEDS: SODIUM CHLORIDE 0.9% IV 1,000 ML 150 ML IV CONT ×3 (05:51→19:13)
[2021-01-01 07:02] LABS: Basophils Percent Auto 0.1 % (0.2-1.2); Eosinophils Absolute Auto 0.2 K/mm3 (0-0.3); Eosinophils Percent Auto 2.5 % (0-4.4); Hematocrit 34.1 % (37.0-47.0); Hemoglobin 11.3 g/dL (12.0-15.0); Immature Granulocyte Absolute 0.03 K/mm3 (0.00-0.031); Immature Granulocyte Percent A 0.4 % (0-0.5); Lymphocytes Absolute Auto 1.67 K/mm3 (0.9-3.2); Lymphocytes Percent Auto 23.5 % (18.3-44.2); Mean Corpuscular HGB Conc 33.1 g/dl (32-36); Mean Corpuscular Hemoglobin 29.3 pg (26-34); Mean Corpuscular Volume 88.3 fl (80-100); Mean Platelet Volume 10.1 fl (7.4-10.4); Monocytes Absolute Auto 0.6 K/mm3 (0.1-0.6); Monocytes Percent Auto 7.7 % (2.6-8.5); Neutrophils Absolute Auto 4.7 K/mm3 (1.3-6.7); Neutrophils Percent Auto 65.8 % (45.5-73.1); Platelet Count Result 199 k/mm3 (150-375); Red Blood Count 3.86 M/mm3 (4.2-5.4); Red Cell Distribution Width 13.4 % (11.5-14.5); White Blood Count 7.1 K/mm3 (4.5-10.0)
[2021-01-01 07:20] LABS: Alanine Aminotransferase 54 U/L (4-35); Alkaline Phosphatase 101 U/L (38-126); Anion Gap 7 mmol/L (8-16); Aspartate Amino Transferase 78 U/L (14-36); Bilirubin,Total 0.4 mg/dL (0.2-1.3); Blood Urea Nitrogen 18 mg/dL (7-17); Calcium 8.1 mg/dL (8.4-10.2); Carbon Dioxide 26 mmol/L (22-30); Chloride 107 mmol/L (98-107); Creatine Kinase 1585 U/L (30-135); Estimated CRCL calculation 66 ml/min; Estimated Glomerular Filt Rate 58; Glucose 181 mg/dL (65-110); Magnesium 2.2 mg/dL (1.6-2.3); Phosphorus 2.8 mg/dL (2.5-4.5); Sodium 140 mmol/L (137-145)
[2021-01-01 08:47] LABS: Glucose Point of Care 187 mg/dl (65-105)
[2021-01-01] MEDS: FAMOTIDINE 20 MG/2 ML VIAL IV PUSH ×2 (08:56→20:35)
--- NOTE | 2021-01-01 09:21 | PM.IMPN ---
Progress Note: A&P Assessment and Plan (1) UTI (urinary tract infection): Code(s): N39.0 - Urinary tract infection, site not specified Status: Acute Assessment and Plan: per patient, she had some urinary frequency inc and lower abdominal pain will treat as symptomatic UTI - continue ctx, day 4, follow urine cultures (2) ROLY (acute kidney injury): Code(s): N17.9 - Acute kidney failure, unspecified Status: Acute Assessment and Plan: related to rhabdomyloysis, m/l continue IV hydration at 150/hr (3) Rhabdomyolysis: Qualifiers: Rhabdomyolysis type: non-traumatic Qualified Code(s): M62.82 - Rhabdomyolysis Code(s): M62.82 - Rhabdomyolysis Status: Acute Assessment and Plan: iv hydration as above (4) Acute hyperkalemia: Code(s): E87.5 - Hyperkalemia Status: Acute Assessment and Plan: resolved (5) Bacteriuria with pyuria: Code(s): R82.71 - Bacteriuria; R82.81 - Pyuria Status: Acute Assessment and Plan: ctx as above (6) Transaminitis: Code(s): R74.01 - Elevation of levels of liver transaminase levels Status: Acute Assessment and Plan: hepatitis panel negative so far may be related to acute inflammation just had Abdomen CT 11/19, showing steatosis - may benefit from US, however LFTs improving (7) Type 2 diabetes mellitus with hyperglycemia: Qualifiers: Diabetes mellitus group home insulin use: unspecified termination clerk insulin use status Qualified Code(s): E11.65 - Type 2 diabetes mellitus with hyperglycemia Code(s): E11.65 - Type 2 diabetes mellitus with hyperglycemia Status: Acute (8) Toxic metabolic encephalopathy: Code(s): G92 - Toxic encephalopathy Status: Acute Assessment and Plan: resolving - pt likely at baseline, AOx4, and able to recount medical problems coherently Additional Plan improving pain, may be able to d/c soon care coordination on board, may be able to help find a good place for her Time Spent With Patient Time with patient: less than 15 minutes Subjective Date/time seen: 01/01/21 09:21 resting comfortably no acute complaints Review of Systems Review of Systems: All systems reviewed & are unremarkable except as noted in HPI and below Exam Const: General: no acute distress Neck: Neck: no JVD Resp: Effort & Inspection: normal respiratory effort Auscultation: clear to auscultation bilaterally Cardio: Rate: regular rate Rhythm: regular rhythm GI: GI Palp: Yes Soft to palpation and No Tenderness to palpation present (GI) Objective Data Vital Signs Vital Signs: Vital Signs - 24 hr 12/31/20 10:00 12/31/20 12:00 12/31/20 13:09 Temperature 97.8 F Pulse Rate 100 99 102 H Respiratory Rate 17 Blood Pressure 126/74 Pulse Oximetry 95 97 12/31/20 14:00 12/31/20 16:00 12/31/20 17:22 Temperature 97.6 F Pulse Rate 109 H 103 H 95 Respiratory Rate 20 Blood Pressure 132/77 Pulse Oximetry 95 98 12/31/20 18:00 12/31/20 20:00 12/31/20 22:00 Temperature 98.0 F Pulse Rate 106 H 112 H 105 H Respiratory Rate 18 Blood Pressure 144/80 H Pulse Oximetry 94 12/31/20 23:08 01/01/21 00:00 01/01/21 02:00 Temperature 97.8 F Pulse Rate 109 H 114 H Respiratory Rate 20 Blood Pressure 151/85 H Pulse Oximetry 95 97 01/01/21 04:00 01/01/21 06:00 01/01/21 09:02 Temperature 98.0 F 96.2 F L Pulse Rate 103 H 112 H 106 H Respiratory Rate 20 18 Blood Pressure 170/87 H 143/83 H Pulse Oximetry 97 99 Intake/Output Intake/Output: Intake & Output 12/29/20 12/30/20 12/31/20 01/01/21 23:59 23:59 23:59 23:59 Intake Total 1000 4810 4190.0 1200 Output Total 1000 1225 1500 Balance 1000 3810 2965.0 -300 Meds/Results Medications: Active Medications Generic Name Dose Route Start Last Admin Trade Name Freq PRN Reason Stop Dose Admin Dextrose 12.5 gm 12/30/20 04:58 Dextrose 50% 25 G
[2021-01-01 12:22] LABS: Glucose Point of Care 194 mg/dl (65-105)
[2021-01-01] MEDS: ACETAMINOPHEN 325 MG TABLET 650 MG PO (12:47)
[2021-01-01] MEDS: oxyCODONE HCL (*CRX) 5 MG TAB IR 15 MG PO ×2 (15:32→22:39)
[2021-01-01] MEDS: SODIUM BICARBONATE 8.4% 150 MEQ in DEXTROSE 5% 1,000 ML 950 ML 50 MEQ IV CONT (15:36)
--- NOTE | 2021-01-01 16:10 | PM.PNNEP ---
Progress Note: A&P Assessment and Plan (1) ROLY (acute kidney injury): Code(s): N17.9 - Acute kidney failure, unspecified Status: Acute Assessment and Plan: resolving presumably due to prerenal factors and rhabdomyolysis likely worsened by use of ARB. wean off IVFs follow trend of repeat labs and UOP (2) Hyperkalemia: Code(s): E87.5 - Hyperkalemia Status: Acute Assessment and Plan: due to ROLY, rhabdomyolysis, and use of losartan improved s/p medical therapy follow trend (3) Rhabdomyolysis: Qualifiers: Rhabdomyolysis type: non-traumatic Qualified Code(s): M62.82 - Rhabdomyolysis Code(s): M62.82 - Rhabdomyolysis Status: Acute Assessment and Plan: likely due to being found down on ground follow trend of CPK - improving wean off IVFs watch K+, Ca++, and Phos (4) Altered mental status: Code(s): R41.82 - Altered mental status, unspecified Status: Acute Assessment and Plan: due to medications(?) mentation seems to be improving (5) UTI (urinary tract infection): Code(s): N39.0 - Urinary tract infection, site not specified Status: Acute Assessment and Plan: suggestive by admission urinalysis however, culture results [place] (6) Diabetes: Code(s): E11.9 - Type 2 diabetes mellitus without complications Status: Acute Assessment and Plan: follow accuchecks glycemic control Not much else to offer --will continue to follow from a distance. Subjective Date/time seen: 01/01/21 16:10 No acute complaints voiced at the time of my visit; no issues/events overnight or earlier this AM; no apparent distress to report. Exam Narrative: General: WD/WN female in NAD Heart: normal S1 and S2; no rub Lungs: clear to auscultation Abdomen: soft, nontender, nondistended, positive bowel sounds Extremities: no cyanosis or clubbing; trace edema Skin: warm and intact Objective Data Vital Signs Vital Signs: Vital Signs Temp Pulse Resp BP Pulse Ox 01/01/21 16:00 96 01/01/21 14:00 104 H 01/01/21 12:27 36.4 C 97 20 173/84 H 98 01/01/21 12:00 106 H 01/01/21 10:00 105 H 01/01/21 09:02 35.7 C L 106 H 18 143/83 H 99 01/01/21 08:00 109 H 01/01/21 06:00 112 H 01/01/21 04:00 36.7 C 103 H 20 170/87 H 97 01/01/21 02:00 114 H 01/01/21 00:00 36.6 C 109 H 20 151/85 H 97 12/31/20 23:08 95 12/31/20 22:00 105 H 12/31/20 20:00 36.7 C 112 H 18 144/80 H 94 Intake/Output Intake/Output: Intake & Output 12/29/20 12/30/20 12/31/20 01/01/21 23:59 23:59 23:59 23:59 Intake Total 1000 4810 4190.0 3780 Output Total 1000 1225 3750 Balance 1000 3810 2965.0 30 Meds/Results Medications: Active Medications Generic Name Dose Route Start Last Admin Trade Name Freq PRN Reason Stop Dose Admin Acetaminophen 650 mg 01/01/21 12:37 01/01/21 12:47 Acetaminophen 325 Mg Tablet PO 650 mg Q6H PRN Administration Mild Pain (1-3) or Fever Dextrose 12.5 gm 12/30/20 04:58 Dextrose 50% 25 Gm/50 Ml Syringe IV PUSH PRN PRN Hypoglycemia Protocol Famotidine 20 mg 12/30/20 09:00 01/01/21 08:56 Famotidine 20 Mg/2 Ml Vial IV PUSH 20 mg Q12HR CURRY Administration Glucagon 1 mg 12/30/20 04:58 Glucagon For Inj 1 Mg Vial IM PRN PRN Hypoglycemia Protocol Glucose 15 gm 12/30/20 04:58 Glucose Oral Gel 15 Gm Of Glucse In 37.5 Gm Tube PO PRN PRN Hypoglycemia Protocol Heparin Sodium (Porcine) 5,000 units 12/30/20 08:15 01/01/21 15:31 Heparin Sodium 5,000 Units/Ml Vial SUB-Q 5,000 units Q8HR CURRY Administration Sodium Bicarbonate 150 meq/ 1,100 mls @ 50 mls/hr 12/29/20 23:25 01/01/21 15:36 Dextrose IV CONT 50 mls/hr .Q22H CURRY Administration Sodium Chloride 1,000 mls @ 150 mls/hr 12/29/20 23:55 01/01/21 12:45 Normal Sa
[2021-01-01 17:15] LABS: Glucose Point of Care 151 mg/dl (65-105)
[2021-01-01 20:20] LABS: Glucose Point of Care 197 mg/dl (65-105)
[2021-01-01] MEDS: hydrALAZINE HCL 20 MG/ML VIAL 10 MG IV PUSH (20:35)
[2021-01-02] VITALS (17 sets, daily range): BP systolic 155–183; BP diastolic 78–90; PULSE 75–104; RESP 16–20; TEMP 36.1–36.6; O2SAT 94–99
--- NOTE | 2021-01-02 00:15 | PC.NURSE ---
Spoke with Dr. Treviño for she gave an order for 40 of lasix
[2021-01-02] MEDS: FUROSEMIDE INJ 40 MG/4 ML VIAL IV PUSH (00:58)
[2021-01-02] MEDS: SODIUM CHLORIDE 0.9% IV 1,000 ML 150 ML IV CONT ×3 (00:58→20:27)
[2021-01-02 05:07] LABS: Basophils Percent Auto 0.2 % (0.2-1.2); Eosinophils Absolute Auto 0.3 K/mm3 (0-0.3); Hemoglobin 12.1 g/dL (12.0-15.0); Immature Granulocyte Absolute 0.09 K/mm3 (0.00-0.031); Lymphocytes Absolute Auto 2.39 K/mm3 (0.9-3.2); Lymphocytes Percent Auto 27.4 % (18.3-44.2); Mean Corpuscular HGB Conc 32.7 g/dl (32-36); Mean Corpuscular Hemoglobin 29.7 pg (26-34); Mean Corpuscular Volume 90.7 fl (80-100); Mean Platelet Volume 9.8 fl (7.4-10.4); Monocytes Absolute Auto 0.8 K/mm3 (0.1-0.6); Monocytes Percent Auto 9.5 % (2.6-8.5); Neutrophils Absolute Auto 5.1 K/mm3 (1.3-6.7); Neutrophils Percent Auto 58.9 % (45.5-73.1); Platelet Count Result 214 k/mm3 (150-375); Red Blood Count 4.08 M/mm3 (4.2-5.4); Red Cell Distribution Width 13.3 % (11.5-14.5); White Blood Count 8.7 K/mm3 (4.5-10.0)
[2021-01-02] MEDS: HEPARIN SODIUM 5,000 UNITS/ML VIAL 5000 UNITS SUB-Q ×3 (05:22→20:27)
[2021-01-02 05:38] LABS: Alanine Aminotransferase 60 U/L (4-35); Albumin Level 3.3 g/dL (3.5-5.1); Alkaline Phosphatase 98 U/L (38-126); Anion Gap 9 mmol/L (8-16); Aspartate Amino Transferase 62 U/L (14-36); Bilirubin,Total 0.5 mg/dL (0.2-1.3); Blood Urea Nitrogen 12 mg/dL (7-17); Calcium 8.5 mg/dL (8.4-10.2); Carbon Dioxide 30 mmol/L (22-30); Chloride 101 mmol/L (98-107); Creatine Kinase 759 U/L (30-135); Estimated CRCL calculation 81 ml/min; Estimated Glomerular Filt Rate > 60; Glucose 164 mg/dL (65-110); Magnesium 1.7 mg/dL (1.6-2.3); Phosphorus 3.4 mg/dL (2.5-4.5); Potassium 3.1 mmol/L (3.4-5.0); Sodium 140 mmol/L (137-145)
--- NOTE | 2021-01-02 07:45 | PM.IMPN ---
Progress Note: A&P Assessment and Plan (1) UTI (urinary tract infection): Code(s): N39.0 - Urinary tract infection, site not specified Status: Acute Assessment and Plan: per patient, she had some urinary frequency inc and lower abdominal pain will treat as symptomatic UTI - continue ctx, urine cultures not growing anything, consider switching to po abx (2) ROLY (acute kidney injury): Code(s): N17.9 - Acute kidney failure, unspecified Status: Acute Assessment and Plan: related to rhabdomyloysis, m/l continue IV hydration at 150/hr (3) Rhabdomyolysis: Qualifiers: Rhabdomyolysis type: non-traumatic Qualified Code(s): M62.82 - Rhabdomyolysis Code(s): M62.82 - Rhabdomyolysis Status: Acute Assessment and Plan: iv hydration as above (4) Acute hyperkalemia: Code(s): E87.5 - Hyperkalemia Status: Acute Assessment and Plan: resolved (5) Bacteriuria with pyuria: Code(s): R82.71 - Bacteriuria; R82.81 - Pyuria Status: Acute Assessment and Plan: ctx as above (6) Transaminitis: Code(s): R74.01 - Elevation of levels of liver transaminase levels Status: Acute Assessment and Plan: hepatitis panel negative so far may be related to acute inflammation just had Abdomen CT 11/19, showing steatosis - may benefit from US, however LFTs improving (7) Type 2 diabetes mellitus with hyperglycemia: Qualifiers: Diabetes mellitus supervisor intermediates insulin use: unspecified supervisor intermediates insulin use status Qualified Code(s): E11.65 - Type 2 diabetes mellitus with hyperglycemia Code(s): E11.65 - Type 2 diabetes mellitus with hyperglycemia Status: Acute (8) Toxic metabolic encephalopathy: Code(s): G92 - Toxic encephalopathy Status: Acute Assessment and Plan: resolving - pt likely at baseline, AOx4, and able to recount medical problems coherently Additional Plan tylenol for migraine - she says this is a freequent problem for her, tyakes oxycodone at home possibly switch from IV ceftriaxone to po abx rhabdo getting better with IV hydration care coordination for post hospital planning - family not willing to continue taking care of her Time Spent With Patient Time with patient: less than 15 minutes Subjective Date/time seen: 01/02/21 07:45 no acute complaints no urinary symtpoms, fever or chills Review of Systems Review of Systems: All systems reviewed & are unremarkable except as noted in HPI and below Exam Const: General: no acute distress Neck: Neck: no JVD Resp: Effort & Inspection: normal respiratory effort Auscultation: clear to auscultation bilaterally Cardio: Rate: regular rate Rhythm: regular rhythm GI: GI Palp: Yes Soft to palpation and No Tenderness to palpation present (GI) Objective Data Vital Signs Vital Signs: Vital Signs - 24 hr 01/01/21 08:00 01/01/21 09:02 01/01/21 10:00 Temperature 96.2 F L Pulse Rate 109 H 106 H 105 H Respiratory Rate 18 Blood Pressure 143/83 H Pulse Oximetry 99 01/01/21 12:00 01/01/21 12:27 01/01/21 14:00 Temperature 97.6 F Pulse Rate 106 H 97 104 H Respiratory Rate 20 Blood Pressure 173/84 H Pulse Oximetry 98 01/01/21 16:00 01/01/21 17:24 01/01/21 18:00 Temperature 97.3 F L Pulse Rate 96 99 89 Respiratory Rate 22 H Blood Pressure 173/92 H Pulse Oximetry 100 01/01/21 19:52 01/01/21 20:00 01/01/21 22:00 Temperature 97.9 F Pulse Rate 91 100 107 H Respiratory Rate 20 Blood Pressure 175/81 H Pulse Oximetry 97 01/02/21 00:00 01/02/21 02:00 01/02/21 04:00 Temperature 97.6 F 97.8 F Pulse Rate 93 104 H 97 Respiratory Rate 18 20 Blood Pressure 177/83 H 162/90 H Pulse Oximetry 97 99 01/02/21 06:00 Temperature Pulse Rate 96 Respiratory Rate Blood Pressure Pulse Oximetry Intake/Output Intake/Output: Intake & Output 12/30/20 12/31/20 01/01/21 01/02/21 23
[2021-01-02 08:11] LABS: Glucose Point of Care 180 mg/dl (65-105)
[2021-01-02] MEDS: POTASSIUM CHLORIDE 20 MEQ TABLET 40 MEQ PO (08:15)
[2021-01-02] MEDS: FAMOTIDINE 20 MG/2 ML VIAL IV PUSH ×2 (08:15→20:27)
[2021-01-02] MEDS: oxyCODONE HCL (*CRX) 5 MG TAB IR 15 MG PO ×3 (08:17→20:27)
[2021-01-02 11:46] LABS: Glucose Point of Care 189 mg/dl (65-105)
--- NOTE | 2021-01-02 14:29 | PC.NURSE ---
On 01/02/21, the student, [Lito Quispe ], provided care and completed [facility] documentation on this patient. I have reviewed the student's documentation and agree with the findings.
--- NOTE | 2021-01-02 14:42 | ECG_ITS ---
Measurements Intervals [place] Rate: 95 P: 50 NH: 122 QRS: -27 QRSD: 87 T: 0 QT: 324 QTc: 408 Interpretive Statements SINUS RHYTHM INFERIOR INFARCT, AGE INDETERMINATE NONSPECIFIC T-WAVE ABNORMALITY- ANTEROLATERAL LEADS BASELINE ARTIFACT- I, III, AVR, AVL, AVF, V1-V6 ABNORMAL ECG Electronically Signed On 01-02-2021 16:30:51 CDT by Shelton Brown D.O.
[2021-01-02] MEDS: ONDANSETRON INJ 4 MG/2 ML VIAL IV PUSH ×2 (17:25→20:28)
[2021-01-02 17:42] LABS: Glucose Point of Care 138 mg/dl (65-105)
[2021-01-02] MEDS: diphenhydrAMINE HCl CAP 25 MG CAPSULE 50 MG PO (20:28)
[2021-01-02 20:41] LABS: Glucose Point of Care 138 mg/dl (65-105)
[2021-01-02] MEDS: METOPROLOL TARTRATE 50 MG TAB PO (21:05)
[2021-01-03] VITALS (17 sets, daily range): BP systolic 146–180; BP diastolic 72–96; PULSE 68–94; RESP 14–20; TEMP 36.5–36.8; O2SAT 96–99
[2021-01-03] MEDS: oxyCODONE HCL (*CRX) 5 MG TAB IR 15 MG PO ×4 (03:08→21:19)
[2021-01-03] MEDS: SODIUM CHLORIDE 0.9% IV 1,000 ML 150 ML IV CONT ×2 (03:11→12:40)
[2021-01-03] MEDS: ONDANSETRON INJ 4 MG/2 ML VIAL IV PUSH ×2 (03:22→10:07)
[2021-01-03 04:49] LABS: Basophils Percent Auto 0.2 % (0.2-1.2); Eosinophils Absolute Auto 0.4 K/mm3 (0-0.3); Eosinophils Percent Auto 4.3 % (0-4.4); Hemoglobin 10.8 g/dL (12.0-15.0); Immature Granulocyte Absolute 0.07 K/mm3 (0.00-0.031); Immature Granulocyte Percent A 0.8 % (0-0.5); Lymphocytes Absolute Auto 2.85 K/mm3 (0.9-3.2); Lymphocytes Percent Auto 34.2 % (18.3-44.2); Mean Corpuscular HGB Conc 32.7 g/dl (32-36); Mean Corpuscular Hemoglobin 29.9 pg (26-34); Mean Corpuscular Volume 91.4 fl (80-100); Mean Platelet Volume 9.8 fl (7.4-10.4); Monocytes Absolute Auto 0.7 K/mm3 (0.1-0.6); Monocytes Percent Auto 8.6 % (2.6-8.5); Neutrophils Absolute Auto 4.3 K/mm3 (1.3-6.7); Neutrophils Percent Auto 51.9 % (45.5-73.1); Platelet Count Result 199 k/mm3 (150-375); Red Blood Count 3.61 M/mm3 (4.2-5.4); Red Cell Distribution Width 13.3 % (11.5-14.5); White Blood Count 8.3 K/mm3 (4.5-10.0)
[2021-01-03 05:08] LABS: Alanine Aminotransferase 45 U/L (4-35); Albumin Level 2.8 g/dL (3.5-5.1); Alkaline Phosphatase 73 U/L (38-126); Anion Gap 5 mmol/L (8-16); Aspartate Amino Transferase 40 U/L (14-36); Bilirubin,Total 0.3 mg/dL (0.2-1.3); Blood Urea Nitrogen 9 mg/dL (7-17); Calcium 8.4 mg/dL (8.4-10.2); Carbon Dioxide 29 mmol/L (22-30); Chloride 106 mmol/L (98-107); Estimated CRCL calculation 82 ml/min; Estimated Glomerular Filt Rate > 60; Glucose 140 mg/dL (65-110); Magnesium 1.5 mg/dL (1.6-2.3); Phosphorus 4.2 mg/dL (2.5-4.5); Potassium 3.4 mmol/L (3.4-5.0); Sodium 140 mmol/L (137-145)
[2021-01-03 05:16] LABS: Creatine Kinase 334 U/L (30-135)
[2021-01-03] MEDS: HEPARIN SODIUM 5,000 UNITS/ML VIAL 5000 UNITS SUB-Q ×3 (05:30→21:17)
[2021-01-03] MEDS: ACETAMINOPHEN 325 MG TABLET 650 MG PO (06:18)
[2021-01-03] MEDS: FAMOTIDINE 20 MG/2 ML VIAL IV PUSH ×2 (08:36→21:17)
[2021-01-03] MEDS: METOPROLOL TARTRATE 50 MG TAB PO ×2 (08:36→21:18)
[2021-01-03] MEDS: LOSARTAN POTASSIUM 100 MG TABLET PO (08:36)
[2021-01-03 08:58] LABS: Glucose Point of Care 129 mg/dl (65-105)
--- NOTE | 2021-01-03 10:50 | PCDIET ---
Weekly nutritional screen. Patient is tolerating current diet with adequate intake. No weight loss reported. No nutritional needs at this time.
[2021-01-03 11:42] LABS: Glucose Point of Care 178 mg/dl (65-105)
--- NOTE | 2021-01-03 15:01 | PM.DS ---
DS: Admitting Diagnosis Discharge Date January 03, 2021 Admitting Diagnosis Acute kidney injury, rhabdomyolysis, fall DS: Discharge Diagnosis Discharge Diagnosis (1) Rhabdomyolysis: Qualifiers: Rhabdomyolysis type: non-traumatic Qualified Code(s): M62.82 - Rhabdomyolysis Code(s): M62.82 - Rhabdomyolysis Status: Acute (2) ROLY (acute kidney injury): Code(s): N17.9 - Acute kidney failure, unspecified Status: Acute DS: Summary Hospital Course Hospital Course: Patient is a 55-year-old female with past medical history of high blood pressure, dyslipidemia, diabetes and chronic pain presenting to the emergency room following a fall. Appears to be a mechanical fall, and it does not appear the patient was down for excessive period of time. However on workup at [facility], found to have rhabdomyolysis and acute kidney injury. She was also found to have urinary tract infection. This was treated empirically for 5 days with IV ceftriaxone, which was switched to Bactrim on discharge, to complete a 10 day course. She was altered on admission, however after treatment for her urinary tract infection, her mentation is baseline. She is able to engage in meaningful conversation without any difficulty at this point. Nephrology service was consulted for rhabdomyolysis, and with IV hydration, the creatinine kinase dropped from about 15,000 on admission to 300 approximately at the time of discharge. ROLY also resolved with treatment of rhabdomyolysis. Patient continued to have migraine headaches, while she was admitted, this is an ongoing problem for the patient. She says she takes oxycodone at home, and this was continued, while here. Of note patient has a complicated social situation, and has been living with various acquaintances in the vicinity over the last few months. This is causing her great deal stress, and her family was contacted while she was admitted here and do not feel as though they can take care of her. They are asking for her to be sent to a nursing facility. Care coordination help contact [facility], they are willing to accept the patient, and we will send her there. Discharged to rehab center with follow-up with primary care and completing 5 more days of UTI treatment. Also another bag or so of IV fluids running at 150 cc/hour or so to finish rhabdomyolysis treatment. Will have her obtain creatinine kinase before she sees her PCP. Status at Discharge Functional status at discharge: uses cane/walker Overall status at discharge: patient is progressing back to baseline Time Spent with Patient Time attestation: Total time spent providing and/or coordinating discharge services: Time spent: Less than 30 minutes Exam Const: General: no acute distress Neck: Neck: no JVD Resp: Effort & Inspection: normal respiratory effort Auscultation: clear to auscultation bilaterally Cardio: Rate: regular rate Rhythm: regular rhythm GI: GI Palp: Yes Soft to palpation and No Tenderness to palpation present (GI) DS: Data Data Completed and Pending Labs on day of discharge: Labs from last 24 hours 01/03/21 01/03/21 01/03/21 11:14 07:53 04:37 WBC 8.3 RBC 3.61 L Hgb 10.8 L Hct 33.0 L MCV 91.4 MCH 29.9 MCHC 32.7 RDW 13.3 Plt Count 199 MPV 9.8 Immature Gran % (Auto) 0.8 H Neut % (Auto) 51.9 Lymph % (Auto) 34.2 Bremer % (Auto) 8.6 H Eos % (Auto) 4.3 Baso % (Auto) 0.2 Lymph # (Auto) 2.85 Bremer # (Auto) 0.7 H Eos # (Auto) 0.4 H Baso # (Auto) 0.0 Abs Immat Gran (auto) 0.07 H Absolute Neuts (auto) 4.3 Absolute Nucleated RBC 0.0 Nucleated RBC % 0.0 Sodium Potassium Chloride Carbon Dioxide Anion Gap BUN Creatinine Estim Creat Clear Calc Estimated GFR Glucose POC Capillary Glucose 178 H 129 H Calcium Phosphorus Magnesium Total Bilirubin AST ALT Al
[2021-01-03 16:13] LABS: EDCOVIDSCREEN Negative (Negative)
[2021-01-03 16:58] LABS: Glucose Point of Care 159 mg/dl (65-105)
[2021-01-03 22:08] LABS: Glucose Point of Care 121 mg/dl (65-105)
[2021-01-03] MEDS: diphenhydrAMINE HCl CAP 25 MG CAPSULE 50 MG PO (22:51)
[2021-01-04] VITALS: BP 164/95; PULSE 80; RESP 20; TEMP 36.6; O2SAT 97
== END 2021-01-04 01:30 | DRG 557 ==
LOC: ANHED 23:53 → ANHIMU 12-30 06:39
PROVIDERS: Internal Medicine Nephrology; Admitting Provider Internal Medicine; Emergency Provider Emergency Medicine; PCP Internal Medicine Rheumatology; Visit Provider Internal Medicine
DX: M62.82 Rhabdomyolysis (principal); G92 Toxic encephalopathy; N17.9 Acute kidney failure, unspecified; N39.0 Urinary tract infection, site not specified; T50.911A Poisoning by multiple unspecified drugs, medicaments and biological substances, accidental (unintentional), initial encounter; Z20.822 Contact with and (suspected) exposure to COVID-19; E78.5 Hyperlipidemia, unspecified; G89.29 Other chronic pain; G43.909 Migraine, unspecified, not intractable, without status migrainosus; E87.5 Hyperkalemia; I10 Essential (primary) hypertension; W06.XXXA Fall from bed, initial encounter; F17.210 Nicotine dependence, cigarettes, uncomplicated; M54.9 Dorsalgia, unspecified; E11.65 Type 2 diabetes mellitus with hyperglycemia
CPT/HCPCS: 36415; 36600; 70450; 72125; 72220; 80048; 80053; 80074; 80076; 80307; 81001; 82375; 82550; 82805; 82948; 83036; 83050; 83735; 84100; 84439; 84443; 84480; 84484; 85025; 87086; 87426; 93005; 96361; 96365; 96375; 97110; 97116; 97161; 97165; 97530; 97535; 99285; A9270; C9803; J0360; J0696; J1644; J1815; J1940; J2405; J3475; J7030; J7070; J7120

== ENCOUNTER 2021-02-05 18:56 | Observation (INO) | payer MEDICARE, MEDICAID, SELFPAY ==
[2021-02-05] VITALS (8 sets, daily range): BP systolic 94–119; BP diastolic 60–86; PULSE 98–104; RESP 11–18; TEMP 37.2; O2SAT 91–100
--- NOTE | ~2021-02-05 | CT_ITS ---
EXAMINATION: CT abdomen pelvis wo con DATE: 02/05/2021 22:41 INDICATION: Nausea vomiting and abdominal pain TECHNIQUE: Computed tomography (CT) of the abdomen and pelvis was performed without intravenous contr ast. The dose-length product (DLP) was 930.01 mGy-cm. Automated exposure control and iterative recons truction technique were employed. COMPARISON: 11/19/2020 FINDINGS: There is atelectasis of the lung bases. The heart size is normal. The gallbladder is surgic ally absent. The liver, spleen, pancreas, and adrenal glands are normal. The kidneys are unremarkable . No pathologically enlarged abdominal or pelvic lymph nodes are identified. There is calcified ather osclerosis of the aorta and many of the other arteries. There is no free intraperitoneal gas. Liquid stool is present throughout the colon to the level of the rectum. A right femoral vein catheter ends with its tip in the common iliac vein. Again seen is a large area of fat necrosis superficial to the sacrum. There are changes of posterior fusion from the thoracic spine through the sacrum and iliac zain dani. Changes of anterior fusion are noted from L1 through S1. Again noted are multiple ventral hernia s containing fat IMPRESSION: 1. Liquid stool throughout the colon to the level of the rectum, consistent with diarrhea. Reviewed, dictated and finalized at location A. IMPRESSION: 1. Liquid stool throughout the colon to the level of the rectum, consistent wit h diarrhea.
--- NOTE | 2021-02-05 19:15 | PC.NURSE ---
Pt placed on 2L NC at this time.
--- NOTE | 2021-02-05 20:56 | PC.NURSE ---
RN at bedside to assist w/ central line placement. 2100 Site verified and ERP at bedside. 2102 R femoral accessed for central line. pt. tolerated well.
[2021-02-05] MEDS: SODIUM CHLORIDE 0.9% IV 1,000 ML 150 ML IV CONT (21:30)
[2021-02-05] MEDS: ONDANSETRON INJ 4 MG/2 ML VIAL IV PUSH (21:30)
[2021-02-05 21:43] LABS: Basophils Percent Auto 0.1 % (0.2-1.2); Eosinophils Absolute Auto 0.1 K/mm3 (0-0.3); Eosinophils Percent Auto 1.6 % (0-4.4); Hematocrit 36.3 % (37.0-47.0); Hemoglobin 12.2 g/dL (12.0-15.0); Immature Granulocyte Absolute 0.03 K/mm3 (0.00-0.031); Immature Granulocyte Percent A 0.3 % (0-0.5); Lymphocytes Absolute Auto 2.06 K/mm3 (0.9-3.2); Lymphocytes Percent Auto 22.8 % (18.3-44.2); Mean Corpuscular HGB Conc 33.6 g/dl (32-36); Mean Corpuscular Hemoglobin 30.1 pg (26-34); Mean Corpuscular Volume 89.6 fl (80-100); Mean Platelet Volume 9.9 fl (7.4-10.4); Monocytes Absolute Auto 0.8 K/mm3 (0.1-0.6); Monocytes Percent Auto 8.4 % (2.6-8.5); Neutrophils Percent Auto 66.8 % (45.5-73.1); Platelet Count Result 280 k/mm3 (150-375); Red Blood Count 4.05 M/mm3 (4.2-5.4); Red Cell Distribution Width 13.3 % (11.5-14.5)
[2021-02-05 21:53] LABS: Alanine Aminotransferase 17 U/L (4-35); Albumin Level 4.2 g/dL (3.5-5.1); Alkaline Phosphatase 107 U/L (38-126); Anion Gap 9 mmol/L (8-16); Aspartate Amino Transferase 16 U/L (14-36); Bilirubin,Total 0.6 mg/dL (0.2-1.3); Blood Urea Nitrogen 70 mg/dL (7-17); Carbon Dioxide 20 mmol/L (22-30); Chloride 103 mmol/L (98-107); Estimated CRCL calculation 41 ml/min; Estimated Glomerular Filt Rate 31; Glucose 175 mg/dL (65-110); Lactic Acid Reflex 1.5 mmol/L (0.7-2.1); Lipase 21 U/L (23-300); Potassium 4.4 mmol/L (3.4-5.0); Sodium 132 mmol/L (137-145)
--- NOTE | 2021-02-05 22:16 | ED.ABDPAIN ---
HPI - Abdominal Pain General Chief Complaint: Abdominal Pain Stated Complaint: N/V/D X 2 DAYS Time Seen by Provider: 02/05/21 19:14 Source: patient Mode of arrival: EMS Limitations: no limitations History of Present Illness HPI narrative: 55-year-old jail resident with a history of hypertension, diabetes hyperlipidemia was brought in with complaints of nausea, vomiting and diarrhea for last 3 days. She feels extremely weak and tired she denies any urinary symptoms. No history of fever or chills. No recent antibiotic use. Related Data Home Medications Medication Instructions Recorded Confirmed Fetzima 120 mg PO DAILY 12/31/20 12/31/20 atorvastatin 40 mg PO DAILY 12/31/20 12/31/20 cyclobenzaprine 10 mg PO TID PRN 12/31/20 12/31/20 hydroxyzine HCl 50 mg PO TID 12/31/20 12/31/20 losartan 100 mg PO DAILY 12/31/20 12/31/20 melatonin 10 mg PO HS PRN 12/31/20 12/31/20 metformin 750 mg PO DAILY 12/31/20 12/31/20 metoprolol tartrate 50 mg PO Q12H 12/31/20 12/31/20 ondansetron HCl [Zofran] 4 mg PO Q8H PRN 12/31/20 12/31/20 oxycodone 15 mg PO Q6H PRN 12/31/20 12/31/20 pregabalin 25 mg PO TID 12/31/20 12/31/20 trazodone 100 mg PO HS 12/31/20 12/31/20 Allergies Allergy/AdvReac Type Severity Reaction Status Date / Time latex Allergy Unknown Verified 02/05/21 19:18 topiramate [From Topamax] Allergy Unknown Verified 02/05/21 19:18 Review of Systems Review of Systems: All systems reviewed & are unremarkable except as noted in HPI and below Constitutional: Constitutional: Reports fatigue and Reports lethargy Eyes: Eyes: Reports no additional eye complaints ENT: Reports system reviewed and no additional complaints, except as documented Cardiovascular: Cardiovascular: Reports no additional cardiovascular complaints Respiratory: Respiratory: Reports no additional respiratory complaints Gastrointestinal: Gastrointestinal: Reports as per HPI Genitourinary: Genitourinary: Reports no additional female genitourinary complaints Integumentary/Breasts: Skin/Breast: Reports system reviewed and no additional complaints, except as docu Neurologic: Reports system reviewed and no additional complaints, except as documented PMFSH Past Medical History Medical History Chronic back pain Continuous tobacco abuse Diabetes mellitus Essential hypertension Hyperlipidemia Surgical History Surgical History History of abdominal surgery History of back surgery Family History Family History Other Unknown family medical history Social History Social History Social History: She is currently living with her daughter after living in transient life tell living with various acquaintances. She has smoked 1 pack of cigarettes per day since she was 16. She denies any alcohol use or drug use. Smoking packs per day: 1 Smoking cigarettes per day: 20.0 Years smoked: 40 Smoking pack-years: 40.00 Smoking status: Current every day smoker Alcohol intake: never Substance use: current Substance use type: opiates Spiritual care concerns: No Exam Narrative: GENERAL:ill appearing, well-nourished, and in no acute distress. HEAD: Normocephalic, atraumatic. EYES: PERRLA and EOMI. ENT: Nares clear, no rhinorrhea or epistaxis. Mucous membranes dry NECK: Supple. CHEST: Clear to auscultation. No respiratory distress. HEART: Regular rate and rhythm. No murmur heard. Normal peripheral pulses. ABDOMEN: Soft, nontender, nondistended, normal active bowel sounds. EXTREMITIES: Normal range of motion. No edema. SKIN: Warm, dry, no rash. NEURO: No focal deficits. Alert and oriented x3. PSYCH: Normal mood and affect. Procedures Central Line Placement Right Femoral: Central Line Date: 02/05/21 Discussed w/
[2021-02-05 22:35] LABS: Creatine Kinase 35 U/L (30-135)
[2021-02-06] VITALS (7 sets, daily range): BP systolic 105–123; BP diastolic 58–73; PULSE 75–103; RESP 13–20; TEMP 36.1–36.6; O2SAT 97–100; BMI 29.5
--- NOTE | 2021-02-06 00:23 | PC.NURSE ---
Room on [facility] not clean at this time. Report given to Svitlana, waiting for call back from unit prior to taking pt upstairs.
--- NOTE | 2021-02-06 01:36 | ADMGEN ---
This patient, Susannah Garza, was admitted to Medical Room 340-01. Patient/family oriented to hospital policies and general routines including ID bracelet, bed and alarms, visiting hours, pain management, procedures, bathroom and other care routines, personal items, smoking policy, room service/diet, and visiting hours. Information on how to activate the Rapid Response Team has been discussed. Patient/Family are encouraged to report perceived risks to care and to ask questions if they do not understand what they are told or what they should do.
[2021-02-06 02:03] LABS: Glucose Point of Care 140 mg/dl (65-105)
[2021-02-06] MEDS: SODIUM CHLORIDE 0.9% IV 1,000 ML 125 ML IV CONT ×3 (02:22→18:49)
[2021-02-06] MEDS: ONDANSETRON INJ 4 MG/2 ML VIAL IV PUSH ×2 (02:24→08:18)
--- NOTE | 2021-02-06 03:27 | PM.IMHP ---
H&P: HPI History of Present Illness Date/Time: 02/06/21 03:27 Chief Complaint: Nausea vomiting diarrhea weakness Narrative: This is a 55-year-old female who presents to the hospital with complaints of nausea vomiting and diarrhea for the past week and a half along with generalized weakness. No urinary symptoms. Has bowel movement 4-5 episodes per day. She has also been feeling nauseous and also had several episodes of vomiting. However she had been noted to be holding a trash can to her face due to potential a vomiting episode. She states she has been collapsing because of generalized weakness several times. And hence came to the ER for evaluation. She denies any fever chills. He also reports he has some abdominal pain diffusely present and feels little more bloated than usual. She was recently admitted for acute kidney injury and rhabdomyolysis with subsequent resolution of for ROLY. She was also treated with ceftriaxone IV for her UTI a month ago when she was admitted to the hospital. She had some tenuous social situation and was eventually discharged to a [facility] in the last admission. She currently states she came from home. However was brought in by EMS from a [facility]. In the ER she was noted to be mildly hyponatremic at 1:32 a.m. with creatinine of 1.7 baseline being [address] abdomen showed liquid stool throughout the colon to the level of rectum consistent with diarrhea. Review of Systems Review of Systems: - CONSTITUTIONAL: Denies weight loss, fever and chills. Reports generalized weakness - HEENT: Denies changes in vision and hearing - RESPIRATORY: Denies SOB and cough. - CV: Denies palpitations and CP. - GI: Reports abdominal pain, nausea, vomiting and diarrhea. - : Denies dysuria and urinary frequency. - MSK: Denies myalgia and joint pain. - SKIN: Denies rash and pruritus. - NEUROLOGICAL: Denies headache and syncope. Reports several episodes of collapse - PSYCHIATRIC: Denies recent changes in mood. Denies anxiety and depression. All systems reviewed & are unremarkable except as noted in HPI and below Constitutional: Constitutional: Reports fatigue and Reports weakness Neurologic: Reports weakness Endocrine: Endocrine: Reports fatigue PMFSH Past Medical History Medical History Chronic back pain Continuous tobacco abuse Diabetes mellitus Essential hypertension Hyperlipidemia Surgical History Surgical History History of abdominal surgery History of back surgery Family History Family History Other Unknown family medical history Social History Social History (Updated 02/06/21 @ 02:12 by Maria Elena Diaz RN) Social History: She is currently living with her daughter after living in transient life tell living with various acquaintances. She has smoked 1 pack of cigarettes per day since she was 16. She denies any alcohol use or drug use. Smoking packs per day: 1 Smoking cigarettes per day: 20.0 Years smoked: 40 Smoking pack-years: 40.00 Smoking status: Current every day smoker Tobacco type: cigarettes Alcohol intake: never Substance use: current Substance use type: opiates Living arrangements: [facility] Spiritual care concerns: No Meds Home Medications and Allergies Home Medications Medication Instructions Recorded Confirmed Type Fetzima 120 mg PO DAILY 12/31/20 02/06/21 History atorvastatin 40 mg PO DAILY 12/31/20 02/06/21 History cyclobenzaprine 10 mg PO TID PRN 12/31/20 02/06/21 History hydroxyzine HCl 50 mg PO TID 12/31/20 02/06/21 History losartan 100 mg PO DAILY 12/31/20 02/06/21 History melatonin 10 mg PO HS PRN 12/31/20 02/06/21 History metformin 750 mg PO DAILY 12/31/20 02/06/21 History metoprolol tartrate 50 mg PO Q12H 12/31/20 02/06/21 History ondansetron H
[2021-02-06] MEDS: oxyCODONE HCL (*CRX) 5 MG TAB IR 15 MG PO ×3 (03:54→20:18)
[2021-02-06] MEDS: clonazePAM (*CRX) 0.5 MG TABLET PO ×4 (05:53→23:55)
[2021-02-06 05:54] LABS: Basophils Percent Auto 0.3 % (0.2-1.2); Eosinophils Absolute Auto 0.2 K/mm3 (0-0.3); Eosinophils Percent Auto 2.4 % (0-4.4); Hematocrit 34.4 % (37.0-47.0); Hemoglobin 11.5 g/dL (12.0-15.0); Immature Granulocyte Absolute 0.01 K/mm3 (0.00-0.031); Immature Granulocyte Percent A 0.1 % (0-0.5); Lymphocytes Absolute Auto 2.21 K/mm3 (0.9-3.2); Lymphocytes Percent Auto 27.8 % (18.3-44.2); Mean Corpuscular HGB Conc 33.4 g/dl (32-36); Mean Corpuscular Hemoglobin 29.6 pg (26-34); Mean Corpuscular Volume 88.4 fl (80-100); Mean Platelet Volume 9.8 fl (7.4-10.4); Monocytes Absolute Auto 0.9 K/mm3 (0.1-0.6); Monocytes Percent Auto 10.7 % (2.6-8.5); Neutrophils Absolute Auto 4.7 K/mm3 (1.3-6.7); Neutrophils Percent Auto 58.7 % (45.5-73.1); Platelet Count Result 248 k/mm3 (150-375); Red Blood Count 3.89 M/mm3 (4.2-5.4); Red Cell Distribution Width 13.2 % (11.5-14.5); White Blood Count 7.9 K/mm3 (4.5-10.0)
[2021-02-06 06:09] LABS: Anion Gap 10 mmol/L (8-16); Blood Urea Nitrogen 55 mg/dL (7-17); Calcium 8.6 mg/dL (8.4-10.2); Carbon Dioxide 19 mmol/L (22-30); Chloride 109 mmol/L (98-107); Estimated CRCL calculation 55 ml/min; Estimated Glomerular Filt Rate 47; Glucose 129 mg/dL (65-110); Potassium 5.1 mmol/L (3.4-5.0); Sodium 138 mmol/L (137-145)
[2021-02-06 07:50] LABS: Glucose Point of Care 150 mg/dl (65-105)
[2021-02-06 08:11] LABS: Add Urine Microscopic? YES; Appearance Urine Cloudy (Clear); Bacteria Urine Trace /hpf; Bilirubin Urine Negative (Negative); Blood Urine Negative (Negative); Color Urine Yellow (Yellow); Glucose Urine UA Negative (Negative); Ketones Urine Negative (Negative); Leukocyte Esterase Ur 2+ LEU/UL (NEGATIVE); Mucus Urine Rare /lpf; Nitrate Urine Positive (Negative); Protein Urine Negative (Negative); RBC Urine 0-2 /hpf (0-2); Specific Grav Ur 1.016 (1.001-1.035); Squamous Epithelial Cell Urine Moderate /hpf (Few); Urobilinogen Urine Negative mg/dL (<2.0); WBC Urine 51-75 /hpf (0-3)
[2021-02-06] MEDS: PREGABALIN (*CRX) 25 MG CAPSULE PO ×3 (08:15→17:02)
[2021-02-06] MEDS: HEPARIN SODIUM 5,000 UNITS/ML VIAL 5000 UNITS SUB-Q ×2 (08:20→20:14)
[2021-02-06] MEDS: ATORVASTATIN 40 MG TABLET PO (08:20)
[2021-02-06] MEDS: hydrOXYzine HCL 25 MG TABLET 50 MG PO ×3 (08:20→17:01)
[2021-02-06] MEDS: METOPROLOL TARTRATE 50 MG TAB PO ×2 (08:20→20:15)
--- NOTE | 2021-02-06 09:39 | PM.IMPN ---
Progress Note: A&P Assessment and Plan (1) Acute dehydration: Code(s): E86.0 - Dehydration Status: Acute (2) Gastroenteritis: Code(s): K52.9 - Noninfective gastroenteritis and colitis, unspecified Status: Acute (3) Diabetes: Code(s): E11.9 - Type 2 diabetes mellitus without complications Status: Acute (4) ROLY (acute kidney injury): Code(s): N17.9 - Acute kidney failure, unspecified Status: Acute (5) Type 2 diabetes mellitus with hyperglycemia: Qualifiers: Diabetes mellitus parts counterman insulin use: unspecified parts counterman insulin use status Qualified Code(s): E11.65 - Type 2 diabetes mellitus with hyperglycemia Code(s): E11.65 - Type 2 diabetes mellitus with hyperglycemia Status: Acute Additional Plan # Abdominal pain nausea vomiting diarrhea likely acute gastroenteritis recent admission for UTI and antibiotic treatment will check stool studies. # Acute kidney injury creatinine 1.7 baseline creatinine 1 recent admission for acute kidney injury due to rhabdomyolysis IV hydration continue to monitor # Acute dehydration due to all above continue IV hydration # syncope/near syncope due to above # hard stick femoral line placed in the ER # Type 2 diabetes mellitus on RIYA hold metformin SSI # Hypertension hold losartan continue metoprolol # chronic back pain home medication # anxiety depression home medication # hyperlipidemia home medication check CK level # DVT prophylaxis heparin subQ # full code status Subjective Date/time seen: 02/06/21 09:39 Interval history: I agree with current assessment and plan; will continue to monitor. Objective Data Vital Signs Vital Signs: Vital Signs - 24 hr 02/05/21 19:01 02/05/21 19:15 02/05/21 19:16 Temperature 37.2 C 37.2 C Pulse Rate 104 H 102 H 101 H Respiratory Rate 18 12 13 Blood Pressure 94/70 L 107/72 107/72 Pulse Oximetry 91 97 96 02/05/21 20:38 02/05/21 21:02 02/05/21 21:32 Temperature Pulse Rate 100 100 100 Respiratory Rate 13 12 11 L Blood Pressure 95/60 L 110/79 119/83 Pulse Oximetry 98 100 97 02/05/21 22:02 02/05/21 23:20 02/06/21 01:15 Temperature Pulse Rate 98 100 103 H Respiratory Rate 15 14 13 Blood Pressure 119/86 115/84 105/70 Pulse Oximetry 99 100 100 02/06/21 01:54 02/06/21 05:55 02/06/21 08:20 Temperature 36.3 C L 36.6 C Pulse Rate 98 80 92 Respiratory Rate 20 18 Blood Pressure 123/73 115/62 Pulse Oximetry 97 98 Intake/Output Intake/Output: Intake & Output 02/03/21 02/04/21 02/05/21 02/06/21 23:59 23:59 23:59 23:59 Intake Total 1100 Output Total 375 350 Balance -375 750 Meds/Results Medications: Active Medications Generic Name Dose Route Start Last Admin Trade Name Freq PRN Reason Stop Dose Admin Acetaminophen 650 mg 02/05/21 23:05 Acetaminophen 325 Mg Tablet PO Q4H PRN Mild Pain (1-3) or Fever Acetaminophen 650 mg 02/06/21 03:34 Acetaminophen 325 Mg Tablet PO Q6H PRN Pain (Scale Score 1-3) Atorvastatin Calcium 40 mg 02/06/21 09:00 02/06/21 08:20 Atorvastatin 40 Mg Tablet PO 40 mg DAILY CURRY Administration Clonazepam 0.5 mg 02/06/21 06:00 02/06/21 05:53 Clonazepam (*Crx) 0.5 Mg Tablet PO 0.5 mg Q6HR CURRY Administration Cyclobenzaprine HCl 10 mg 02/06/21 03:34 Cyclobenzaprine Hcl 10 Mg Tablet PO TID PRN Pain, Moderate Dextrose 12.5 gm 02/06/21 00:44 Dextrose 50% 25 Gm/50 Ml Syringe IV PUSH PRN PRN Hypoglycemia Protocol Glucagon 1 mg 02/06/21 00:44 Glucagon For Inj 1 Mg Vial IM PRN PRN Hypoglycemia Protocol Glucose 15 gm 02/06/21 00:44 Glucose Oral Gel 15 Gm Of Glucse In 37.5 Gm Tube PO PRN PRN Hypoglycemia Protocol Heparin Sodium (Porcine) 5,000 units 02/06/21 09:00 02/06/21 08:20 Heparin Sodium 5,000 Units/Ml Vial SUB-Q 5,000 units Q12HR CURRY Administration Home Med 1 each
[2021-02-06 09:54] LABS: Potassium 4.4 mmol/L (3.4-5.0)
--- NOTE | 2021-02-06 11:29 | PCOTNOTE ---
Attempted OT evaluation, patient has a femoral line at this time, RN reports patient is confused and unable to participate at this time, evaluation not completed, will follow.
--- NOTE | 2021-02-06 11:41 | PCPTNOTE ---
Addendum entered by Vivien Wilkins, PT 02/06/21 18:07: Prior to seeing patient spoke with RN who stated it was okay to get patient up but she did not want her in a chair. RN also stated that pt was unsteady earlier that morning when getting up and almost fell. Original Note: On 02/06/21, the student, Manny Alas, provided care and completed [employer] documentation on this patient. I have reviewed the student's documentation and agree with the findings.
[2021-02-06 12:04] LABS: Glucose Point of Care 115 mg/dl (65-105)
[2021-02-06 16:41] LABS: Glucose Point of Care 108 mg/dl (65-105)
[2021-02-06] MEDS: traZODone HCL 50 MG TABLET 100 MG PO (20:14)
[2021-02-06 20:51] LABS: Glucose Point of Care 113 mg/dl (65-105)
[2021-02-07] VITALS (7 sets, daily range): BP systolic 104–123; BP diastolic 66–71; PULSE 71–96; RESP 18; TEMP 36.4–36.8; O2SAT 97–98
[2021-02-07] MEDS: SODIUM CHLORIDE 0.9% IV 1,000 ML 125 ML IV CONT ×2 (02:55→10:49)
[2021-02-07] MEDS: oxyCODONE HCL (*CRX) 5 MG TAB IR 15 MG PO ×4 (03:26→23:23)
[2021-02-07] MEDS: clonazePAM (*CRX) 0.5 MG TABLET PO ×4 (05:19→23:23)
[2021-02-07 06:23] LABS: Hematocrit 30.5 % (37.0-47.0); Hemoglobin 10.1 g/dL (12.0-15.0); Mean Corpuscular HGB Conc 33.1 g/dl (32-36); Mean Corpuscular Hemoglobin 29.8 pg (26-34); Mean Platelet Volume 9.9 fl (7.4-10.4); Platelet Count Result 203 k/mm3 (150-375); Red Blood Count 3.39 M/mm3 (4.2-5.4); Red Cell Distribution Width 13.3 % (11.5-14.5); White Blood Count 4.9 K/mm3 (4.5-10.0)
[2021-02-07 06:39] LABS: Sodium 139 mmol/L (137-145)
[2021-02-07 06:50] LABS: Anion Gap 5 mmol/L (8-16); Blood Urea Nitrogen 28 mg/dL (7-17); Calcium 8.4 mg/dL (8.4-10.2); Carbon Dioxide 20 mmol/L (22-30); Chloride 114 mmol/L (98-107); Estimated CRCL calculation 73 ml/min; Estimated Glomerular Filt Rate > 60; Glucose 94 mg/dL (65-110)
[2021-02-07] MEDS: HEPARIN SODIUM 5,000 UNITS/ML VIAL 5000 UNITS SUB-Q ×2 (08:13→20:30)
[2021-02-07] MEDS: hydrOXYzine HCL 25 MG TABLET 50 MG PO ×3 (08:13→16:48)
[2021-02-07] MEDS: ATORVASTATIN 40 MG TABLET PO (08:13)
[2021-02-07] MEDS: PREGABALIN (*CRX) 25 MG CAPSULE PO ×3 (08:15→16:48)
--- NOTE | 2021-02-07 08:22 | PCOTNOTE ---
Per nurse, Pt. still has femoral line, will follow-up for evaluation when removed
[2021-02-07] MEDS: METOPROLOL TARTRATE 50 MG TAB PO ×2 (10:48→20:31)
[2021-02-07 11:52] LABS: Glucose Point of Care 97 mg/dl (65-105)
[2021-02-07] MEDS: TOLNAFTATE 1% POWDER 45 GM BTL 1 APPLIC TOPICAL ×2 (12:08→20:35)
--- NOTE | 2021-02-07 12:22 | PM.IMPN ---
Progress Note: A&P Assessment and Plan (1) Acute dehydration: Code(s): E86.0 - Dehydration Status: Acute Assessment and Plan: S/p IVF Encourage po intake BUN improving Monitor (2) Gastroenteritis: Code(s): K52.9 - Noninfective gastroenteritis and colitis, unspecified Status: Acute Assessment and Plan: Stool studies pending (3) Diabetes: Code(s): E11.9 - Type 2 diabetes mellitus without complications Status: Acute (4) ROLY (acute kidney injury): Code(s): N17.9 - Acute kidney failure, unspecified Status: Acute Assessment and Plan: Creatinine 1.7 on admission, baseline creatinine 1, recent admission for acute kidney injury due to rhabdomyolysis IV hydration continue to monitor BUN improving, Cr wnl CK wnl Continue gentle hydration with IV Monitor (5) Type 2 diabetes mellitus with hyperglycemia: Qualifiers: Diabetes mellitus usp insulin use: unspecified long term care phlebotomist insulin use status Qualified Code(s): E11.65 - Type 2 diabetes mellitus with hyperglycemia Code(s): E11.65 - Type 2 diabetes mellitus with hyperglycemia Status: Acute Assessment and Plan: Last Hgb A1c 6.2 12/30/20 Hold orals SSI, accuchecks Monitor (6) Abdominal pain: Code(s): R10.9 - Unspecified abdominal pain Status: Acute Assessment and Plan: Suspect due to acute gastroenteritis Recent admission for UTI and antibiotic treatment Stool studies pending UC pending Additional Plan # syncope/near syncope due to above # Hypertension hold losartan continue metoprolol # chronic back pain home medication # anxiety depression home medication # hyperlipidemia home medication check CK level # DVT prophylaxis heparin subQ # full code status Subjective Date/time seen: 02/07/21 12:22 Interval history: 02/06 I agree with current assessment and plan; will continue to monitor. 02/07 pt seen and evaluated; nursing staff reports foul smelling urine; pt does endorse burning with urination; pt continues with fatigue and nausea; no vomiting; she is afebrile denies any chills Review of Systems Review of Systems: All systems reviewed & are unremarkable except as noted in HPI and below Exam Const: General: no acute distress, alert and awake Orientation/consciousness: patient oriented x3 HENMT: Head: normocephalic and atraumatic Ears: hearing grossly normal bilaterally Mouth: Yes Normal oral and palatal mucosa present Eyes: EOM: EOMs intact bilaterally Neck: Neck: full ROM, trachea midline and no JVD Resp: Effort & Inspection: normal respiratory effort Auscultation: clear to auscultation bilaterally Cardio: Jugular venous distension: no JVD Rate: regular rate Rhythm: regular rhythm Heart sounds: S1 normal heart sound present and S2 normal heart sound present GI: GI Palp: Yes Soft to palpation Percussion: Yes normal to percussion Auscultation: normal bowel sounds : General: Yes no CVA tenderness Skin: General skin exam: normal color Rashes: no rashes Neuro: General: patient oriented x3 Speech: normal speech Psych: Appearance: grossly normal Affect: normal affect Judgement: Good judgement present (Psych) Objective Data Vital Signs Vital Signs: Vital Signs - 24 hr 02/06/21 14:00 02/06/21 19:50 02/06/21 20:15 Temperature 36.1 C L 36.1 C L Pulse Rate 84 93 75 Respiratory Rate 18 16 Blood Pressure 108/58 L Pulse Oximetry 97 99 02/07/21 05:26 02/07/21 10:46 02/07/21 10:48 Temperature 36.8 C Pulse Rate 96 94 94 Respiratory Rate 18 Blood Pressure 117/66 121/71 Pulse Oximetry 98 Intake/Output Intake/Output: Intake & Output 02/04/21 02/05/21 02/06/21 02/07/21 23:59 23:59 23:59 23:59 Intake Total 3710 2170 Output Total 375 350 750 Balance -375 3360 1420 Meds/Results Medications: Active Medications Generic Name Dose Route Start Last Admin Trade Name Freq PRN Reason Stop D
[2021-02-07] MEDS: SODIUM CHLORIDE 0.9% IV 1,000 ML 50 ML IV CONT (12:57)
[2021-02-07 16:48] LABS: Glucose Point of Care 120 mg/dl (65-105)
[2021-02-07] MEDS: MELATONIN 5 MG TABLET 10 MG PO (20:33)
[2021-02-07 21:03] LABS: Glucose Point of Care 108 mg/dl (65-105)
[2021-02-07] MEDS: traZODone HCL 50 MG TABLET 100 MG PO (23:24)
[2021-02-08 05:49] VITALS: BP 106/52; PULSE 71; RESP 14; TEMP 36.6; O2SAT 97
[2021-02-08] MEDS: clonazePAM (*CRX) 0.5 MG TABLET PO ×2 (06:09→11:13)
[2021-02-08] MEDS: oxyCODONE HCL (*CRX) 5 MG TAB IR 15 MG PO ×2 (06:09→12:03)
[2021-02-08 06:13] LABS: Hematocrit 34.1 % (37.0-47.0); Hemoglobin 11.2 g/dL (12.0-15.0); Mean Corpuscular HGB Conc 32.8 g/dl (32-36); Mean Corpuscular Hemoglobin 30.7 pg (26-34); Mean Corpuscular Volume 93.4 fl (80-100); Mean Platelet Volume 9.7 fl (7.4-10.4); Platelet Count Result 199 k/mm3 (150-375); Red Blood Count 3.65 M/mm3 (4.2-5.4); Red Cell Distribution Width 13.2 % (11.5-14.5); White Blood Count 6.3 K/mm3 (4.5-10.0)
[2021-02-08 06:15] LABS: Anion Gap 8 mmol/L (8-16); Blood Urea Nitrogen 18 mg/dL (7-17); Calcium 9.1 mg/dL (8.4-10.2); Carbon Dioxide 19 mmol/L (22-30); Chloride 112 mmol/L (98-107); Estimated CRCL calculation 81 ml/min; Estimated Glomerular Filt Rate > 60; Glucose 102 mg/dL (65-110); Potassium 3.9 mmol/L (3.4-5.0); Sodium 139 mmol/L (137-145)
[2021-02-08 08:14] VITALS: PULSE 78
[2021-02-08] MEDS: METOPROLOL TARTRATE 50 MG TAB PO (08:14)
[2021-02-08] MEDS: PREGABALIN (*CRX) 25 MG CAPSULE PO ×2 (08:14→12:04)
[2021-02-08] MEDS: hydrOXYzine HCL 25 MG TABLET 50 MG PO ×2 (08:14→12:04)
[2021-02-08] MEDS: HEPARIN SODIUM 5,000 UNITS/ML VIAL 5000 UNITS SUB-Q (08:15)
[2021-02-08] MEDS: ATORVASTATIN 40 MG TABLET PO (08:15)
[2021-02-08] MEDS: TOLNAFTATE 1% POWDER 45 GM BTL 1 APPLIC TOPICAL (08:15)
[2021-02-08 09:02] LABS: Glucose Point of Care 102 mg/dl (65-105)
--- NOTE | 2021-02-08 09:07 | PM.DS ---
DS: Admitting Diagnosis Discharge Date 02/08/2021 Admitting Diagnosis Nausea vomiting diarrhea DS: Discharge Diagnosis Discharge Diagnosis (1) Acute dehydration: Code(s): E86.0 - Dehydration Status: Acute Assessment and Plan: S/p IVF Encourage po intake BUN improving Monitor (2) Gastroenteritis: Code(s): K52.9 - Noninfective gastroenteritis and colitis, unspecified Status: Acute Assessment and Plan: Stool studies pending could not be obtained (3) Diabetes: Code(s): E11.9 - Type 2 diabetes mellitus without complications Status: Acute Assessment and Plan: Resume metformin at discharge (4) ROLY (acute kidney injury): Code(s): N17.9 - Acute kidney failure, unspecified Status: Acute Assessment and Plan: Creatinine 1.7 on admission, baseline creatinine 1, recent admission for acute kidney injury due to rhabdomyolysis IV hydration continue to monitor BUN improving, Cr wnl CK wnl Continue gentle hydration with IV and resolve with this. Renal function back to normal (5) Type 2 diabetes mellitus with hyperglycemia: Qualifiers: Diabetes mellitus longterm insulin use: unspecified keno terminal operator insulin use status Qualified Code(s): E11.65 - Type 2 diabetes mellitus with hyperglycemia Code(s): E11.65 - Type 2 diabetes mellitus with hyperglycemia Status: Acute Assessment and Plan: Last Hgb A1c 6.2 12/30/20 Hold orals SSI, accuchecks Monitor (6) Abdominal pain: Code(s): R10.9 - Unspecified abdominal pain Status: Acute Assessment and Plan: Suspect due to acute gastroenteritis Recent admission for UTI and antibiotic treatment Stool studies pending Urine culture no growth (7) Hypertension: Code(s): I10 - Essential (primary) hypertension Status: Acute Assessment and Plan: On losartan at home which is on hold. Will stop losartan at discharge (8) Hyperlipidemia: Code(s): E78.5 - Hyperlipidemia, unspecified Status: Acute Assessment and Plan: Resume statin (9) Anxiety and depression: Code(s): F41.9 - Anxiety disorder, unspecified; F32.A - Depression, unspecified Status: Acute Assessment and Plan: Resume home medication (10) Chronic back pain: Code(s): M54.9 - Dorsalgia, unspecified; G89.29 - Other chronic pain Status: Acute Assessment and Plan: Resume home medication DS: Summary Hospital Course Hospital Course: See above Time Spent with Patient Time attestation: Total time spent providing and/or coordinating discharge services: 40 minutes Exam Narrative: GENERAL:ill appearing, well-nourished, and in no acute distress. HEAD: Normocephalic, atraumatic. EYES: PERRLA and EOMI. ENT: Nares clear, no rhinorrhea or epistaxis. Mucous membranes dry NECK: Supple. Nontender CHEST: Clear to auscultation. No respiratory distress. HEART: Regular rate and rhythm. No murmur heard. Normal peripheral pulses. ABDOMEN: Soft, nontender, nondistended, normal active bowel sounds. EXTREMITIES: Normal range of motion. No edema. SKIN: Warm, dry, no rash. NEURO: No focal deficits. Alert and oriented x3. PSYCH: Normal mood and affect. DS: Data Data Completed and Pending Labs on day of discharge: Labs from last 24 hours 02/08/21 02/08/21 02/08/21 08:19 05:13 05:13 WBC 6.3 RBC 3.65 L Hgb 11.2 L Hct 34.1 L MCV 93.4 MCH 30.7 MCHC 32.8 RDW 13.2 Plt Count 199 MPV 9.7 Sodium 139 Potassium 3.9 Chloride 112 H Carbon Dioxide 19 L Anion Gap 8 BUN 18 H D Creatinine 0.80 Estim Creat Clear Calc 81 Estimated GFR > 60 Glucose 102 POC Capillary Glucose 102 Calcium 9.1 02/07/21 02/07/21 02/07/21 19:22 16:42 11:48 WBC RBC Hgb Hct MCV MCH MCHC RDW Plt Count MPV Sodium Potassium Chloride Carbon Dioxide Anion
[2021-02-08 11:02] LABS: Add Urine Microscopic? YES; Appearance Urine Cloudy (Clear); Bacteria Urine Trace /hpf; Bilirubin Urine Negative (Negative); Blood Urine Negative (Negative); Color Urine Yellow (Yellow); Glucose Urine UA Negative (Negative); Ketones Urine Negative (Negative); Leukocyte Esterase Ur 3+ LEU/UL (NEGATIVE); Mucus Urine Rare /lpf; Nitrate Urine Negative (Negative); Protein Urine 1+ mg/dL (Negative); Specific Grav Ur 1.019 (1.001-1.035); Squamous Epithelial Cell Urine Many /hpf (Few); Transitional Epi Cells Urine Rare /hpf (None Seen); Urobilinogen Urine Negative mg/dL (<2.0); WBC Urine >75 /hpf (0-3)
[2021-02-08 11:21] LABS: Glucose Point of Care 99 mg/dl (65-105)
== END 2021-02-08 13:00 ==
LOC: ANHED 22:40 → ANH3MED 02-06 02:34
PROVIDERS: Nurse Practitioner Adult Health; Admitting Provider Internal Medicine; Emergency Provider Family Medicine; PCP Internal Medicine Rheumatology; Visit Provider Internal Medicine
DX: E86.0 Dehydration (principal); N17.9 Acute kidney failure, unspecified; K52.9 Noninfective gastroenteritis and colitis, unspecified; R35.0 Frequency of micturition; R30.0 Dysuria; E11.65 Type 2 diabetes mellitus with hyperglycemia; E78.5 Hyperlipidemia, unspecified; F17.210 Nicotine dependence, cigarettes, uncomplicated; F41.8 Other specified anxiety disorders; G89.29 Other chronic pain; I10 Essential (primary) hypertension; M54.9 Dorsalgia, unspecified; Z79.84 Long term (current) use of oral hypoglycemic drugs
CPT/HCPCS: 36415; 51701; 74176; 80048; 80053; 81001; 82550; 82948; 83605; 83690; 84132; 85025; 85027; 87015; 87045; 87086; 87088; 87269; 87272; 87324; 87427; 87493; 89055; 96361; 96372; 96374; 97161; 97166; 99285; A9270; C1751; G0378; J1644; J2405; J7030

== ENCOUNTER 2021-12-08 15:07 | Outpatient (CLI) | payer MEDICARE, MEDICAID, SELFPAY ==
--- NOTE | ~2021-12-08 | CT_ITS ---
EXAMINATION: CT lumbar spine wo con DATE: 12/08/2021 16:02 INDICATION: Numbness and pain radiating down the legs. TECHNIQUE: Computed tomography (CT) of the lumbar spine was performed without intravenous contrast. A utomated exposure control and iterative reconstruction technique were employed. The dose-length produ ct was 1411.74 mGy-cm. COMPARISON: None FINDINGS: There are changes of cholecystectomy. There is 3 degrees levocurvature of lower lumbar spin e. There is a chronic compression fracture of T10 with 1/5 loss of height. There are changes of anter ior fusion procedures from L1 to S1 with healed interbody bone graft. Intervertebral disc heights are normal in lower thoracic spine. There are changes of posterior fusion procedure from T9 to the sacru m and iliac bones. The L2 pedicles are absent. There is an intrathecal catheter with tip at L1-L2. Th ere are laminectomies from L1 to L5. The following disc levels are specifically discussed: L1-L2: There is no facet joint hypertrophy. There is no neural foraminal stenosis. There is no centra l canal stenosis. L2-L3: There is no facet joint hypertrophy. There is no neural foraminal stenosis. There is no centra l canal stenosis. L3-L4: There is no facet joint hypertrophy. There is no neural foraminal stenosis. There is no centra l canal stenosis. L4-L5: There is mild bilateral facet joint hypertrophy. There is no neural foraminal stenosis. There is no central canal stenosis. L5-S1: There is moderate left facet joint hypertrophy. There is mild left neural foraminal stenosis. There is no central canal stenosis. IMPRESSION: 1. Anterior fusion procedure from L1 to S1 and posterior fusion procedure from T9 to the sacrum and i liac bones. Reviewed, dictated and finalized at location A. IMPRESSION: 1. Anterior fusion procedure from L1 to S1 and posterior fusion procedure from T9 to the sacrum and iliac bones.
== END 2021-12-08 15:08 | disposition home or self-care (01) ==
DX: M54.16 Radiculopathy, lumbar region (principal); Z98.1 Arthrodesis status
CPT/HCPCS: 72131

== ENCOUNTER 2022-06-24 17:10 | Inpatient (IN) | payer MEDICARE, MEDICAID, SELFPAY ==
--- NOTE | ~2022-06-24 | CT_ITS ---
EXAMINATION: CTA brain carotid DATE: 06/26/2022 13:23 INDICATION: Aphasia. TECHNIQUE: Computed tomographic angiography (CTA) of the head was performed without and with 100 mL O mnipaque-350 intravenous contrast. CTA of the neck was performed with intravenous contrast. Automated exposure control and iterative reconstruction technique were employed. The dose-length product was 1 636.50 mGy-cm. Maximum intensity projection and volume rendered 3D-reconstructions were created by joaquin ngo technologist on a separate workstation. COMPARISON: Head CT 06/24/2022 FINDINGS: HEAD CTA: There is no intracranial hemorrhage, acute infarction, or abnormal intracranial mass lesion . The ventricles are normal in size. The orbits are normal. There is mild mucosal thickening in the p aranasal sinuses. There are surgical changes of the paranasal sinuses. The mastoid air cells are norm al. The vertebral arteries are codominant. There is no significant stenosis of basilar artery or the posterior cerebral arteries. There is no significant stenosis of the intracranial internal carotid ar teries or anterior or middle cerebral arteries. Anterior communicating artery is normal. The posterio r communicating arteries are normal. There is no aneurysm. NECK CTA: There is mild emphysema. There are no pathologically enlarged lymph nodes. There is no sign ificant stenosis of the vertebral arteries. There is mild plaque in proximal left internal carotid ar terri. There is 0% stenosis of the proximal right internal carotid artery relative to normal distal a rtery lumen diameter (NASCET criteria). There is 0% stenosis of the proximal left internal carotid ar terri relative to normal distal artery lumen diameter. There are changes of anterior fusion procedure from C4 to C7. There is moderate cervical spondylosis. IMPRESSION: 1. Normal brain. No aneurysm or significant intracranial arterial stenosis. 2. 0% stenosis of the proximal internal carotid arteries relative to normal distal artery lumen diame ters (NASCET criteria). Reviewed, dictated and finalized at location A. SCAPING AND GROUNDSKEEPING LABORER IMPRESSION: 1. Normal brain. No aneurysm or significant intracranial arterial stenosis. 2. 0% stenosis of the proximal internal carotid arteries relative to normal dis lisseth artery lumen diameters (NASCET criteria).
--- NOTE | ~2022-06-24 | CT_ITS ---
EXAMINATION: CT abdomen pelvis wo con DATE: 06/24/2022 18:45 INDICATION: abd pain TECHNIQUE: Computed tomography (CT) of the abdomen and pelvis was performed without intravenous contr ast. Automated exposure control and iterative reconstruction technique were employed. The dose-length product was 1300.20 mGy-cm. COMPARISON: 02/05/2021. FINDINGS: Lower thorax: Right middle lobe and lingular scarring. Dependent left lower lobe atelectasis. Liver: Enlarged and diffusely fatty infiltrated Biliary/Gallbladder: Gallbladder is absent. No bile duct dilation. Pancreas: Atrophy. Spleen: Normal. Adrenals:No mass. Kidneys: Right kidney malrotation. No mass, stone, or hydronephrosis. GI tract: No small or large bowel dilation. Normal appendix. Diverticulosis without diverticulitis. U ncomplicated rectosigmoid anastomosis. Mesentery/Peritoneum: No ascites, mass, or free air. Retroperitoneum: No mass. Atherosclerotic abdominal aortic and/or arterial calcifications. Pelvis: Uterus surgically absent. Decompressed urinary bladder.. Soft Tissues: Abandoned stimulator wire/catheter in the right lateral subcutaneous tissues and abdome n. Multiple uncomplicated appearing fat-containing ventral hernias. Persistent, perhaps slightly impr kayla fat necrosis superficial to the sacrum. Bones: No acute osseous finding. Extensive, uncomplicated appearing thoracolumbar fusion hardware. IMPRESSION: No acute abdominal pelvic process detected. Chronic and incidental findings detailed above. Reviewed, dictated and finalized at location K. S HAND SEWER IMPRESSION: No acute abdominal pelvic process detected. Chronic and incidental findings det myron above.
--- NOTE | ~2022-06-24 | CT_ITS ---
EXAMINATION: CT brain wo con DATE: 06/24/2022 18:41 INDICATION: slurred speech . TECHNIQUE: Computed tomography (CT) of the head was performed without intravenous contrast. The mA wa s adjusted according to patient size. Iterative reconstruction technique was employed. The dose-lengt h product was 605.33 mGy-cm. COMPARISON: 12/29/2020. FINDINGS: No acute intracranial hemorrhage or extra-axial fluid collection. No hydrocephalus, mass, or herniation. No acute ischemic infarct. Unremarkable dural venous sinus attenuation. No acute osseous abnormality. Prior left maxillary sinus surgery. Mild left maxillary and ethmoid mucosal thickening, the remaining aerated spaces are clear. Mild atrophy and chronic white matter change. Atherosclerotic intracranial calcification. IMPRESSION: No acute intracranial process. Reviewed, dictated and finalized at location K. N LUMBER GRADER
[2022-06-24 17:24] VITALS: BP 150/99; PULSE 96; RESP 20; TEMP 36.9; O2SAT 97
--- NOTE | 2022-06-24 17:31 | ECG_ITS ---
Measurements Intervals [place] Rate: 94 P: 48 NC: 132 QRS: -14 QRSD: 80 T: 6 QT: 348 QTc: 436 Interpretive Statements SINUS RHYTHM INFERIOR INFARCT, AGE INDETERMINATE BORDERLINE T WAVE ABNORMALITY- ANTERIOR LEADS BASELINE ARTIFACT- I, II, III, AVR, AVL ABNORMAL ECG COMPARED TO ECG 01/02/2021 14:54:37 NO SIGNIFICANT CHANGES Electronically Signed On 06-24-2022 18:59:44 LOADER OPERATOR by Shelton Brown D.O.
--- NOTE | 2022-06-24 17:49 | ED.GENADULT ---
HPI - General Adult General Chief complaint: Headache Stated complaint: headache Time Seen by Provider: 06/24/22 17:49 Source: patient and EMS Mode of arrival: EMS Limitations: no limitations History of Present Illness HPI narrative: Patient is 56 years old white female [facility] because of stuttering, migraine headache, abdominal pain, flareup of chronic back pain, sciatica. Patient reports at 9:30 AM start stuttering, history of similar symptoms numerous of time in the past and was told secondary to TIA. Patient have trouble sleeping for months. Patient reported having left frontal headaches similar to her previous history of migraine headache. She denied any fever, chills, vomiting, diarrhea, constipation, urinary symptoms, chest pain or shortness of breath. Related Data Home Medications Medication Instructions Recorded Confirmed atorvastatin 40 mg tablet 40 mg PO DAILY 12/31/20 02/06/21 cyclobenzaprine 10 mg tablet 10 mg PO TID PRN Pain, Moderate 12/31/20 02/06/21 hydroxyzine HCl 50 mg tablet 50 mg PO TID 12/31/20 02/06/21 levomilnacipran 120 mg capsule,24 120 mg PO DAILY 12/31/20 02/06/21 hr,extended release (Fetzima) melatonin 10 mg tablet 10 mg PO HS PRN Insomnia 12/31/20 02/06/21 metformin 750 mg tablet,extended 750 mg PO DAILY 12/31/20 02/06/21 release 24 hr metoprolol tartrate 50 mg tablet 50 mg PO Q12H 12/31/20 02/06/21 ondansetron HCl 4 mg tablet 4 mg PO Q8H PRN Nausea 12/31/20 02/06/21 (Zofran) oxycodone 15 mg tablet 15 mg PO Q6H PRN Pain, Severe 12/31/20 02/06/21 pregabalin 25 mg capsule 25 mg PO TID 12/31/20 02/06/21 trazodone 100 mg tablet 100 mg PO HS 12/31/20 02/06/21 acetaminophen 650 mg tablet 650 mg PO Q6H PRN Pain (Scale 02/06/21 02/06/21 Score 1-3) clonazepam 0.5 mg tablet 0.5 mg PO Q6H 02/06/21 02/06/21 Allergies Allergy/AdvReac Type Severity Reaction Status Date / Time latex Allergy Unknown Verified 02/06/21 01:43 topiramate [From Topamax] Allergy Unknown Verified 02/06/21 01:43 Review of Systems Review of Systems: All systems reviewed & are unremarkable except as noted in HPI and below PMFSH Past Medical History Medical History Chronic back pain Continuous tobacco abuse Diabetes mellitus Essential hypertension Hyperlipidemia Surgical History Surgical History History of abdominal surgery History of back surgery Family History Family History Other Unknown family medical history Social History Social History Social History: She is currently living with her daughter after living in transient life tell living with various acquaintances. She has smoked 1 pack of cigarettes per day since she was 16. She denies any alcohol use or drug use. Smoking packs per day: 1 Smoking cigarettes per day: 20.0 Years smoked: 40 Smoking pack-years: 40.00 Smoking status: Current every day smoker Tobacco type: cigarettes Alcohol intake: never Substance use: current Substance use type: opiates Living arrangements: prison Spiritual care concerns: No Exam Narrative: General appearance: Well-developed, well-nourished, intermittent stuttering Skin: Normal color Head: Normocephalic, nontraumatic Eyes: Clear conjunctiva ENT: Oropharynx normal, ears normal, nose normal Neck: Supple, nontender Chest and respiratory: Airway patent, no respiratory distress, no accessory muscle use Heart: Regular rate/rhythm Abdomen: Soft, diffuse abdominal pain, no organomegaly, quiet bowel sounds Vascular: Normal peripheral pulses, normal capillary refill. 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
[2022-06-24 18:01] LABS: Basophils Percent Auto 0.3 % (0.2-1.2); Eosinophils Absolute Auto 0.1 K/mm3 (0-0.3); Eosinophils Percent Auto 1.9 % (0-4.4); Hematocrit 37.8 % (37.0-47.0); Hemoglobin 12.7 g/dL (12.0-15.0); Immature Granulocyte Absolute 0.03 K/mm3 (0.00-0.031); Immature Granulocyte Percent A 0.4 % (0-0.5); Lymphocytes Absolute Auto 2.61 K/mm3 (0.9-3.2); Lymphocytes Percent Auto 35.1 % (18.3-44.2); Mean Corpuscular HGB Conc 33.6 g/dl (32-36); Mean Corpuscular Hemoglobin 29.7 pg (26-34); Mean Corpuscular Volume 88.3 fl (80-100); Mean Platelet Volume 9.8 fl (7.4-10.4); Monocytes Absolute Auto 0.5 K/mm3 (0.1-0.6); Monocytes Percent Auto 6.9 % (2.6-8.5); Neutrophils Absolute Auto 4.1 K/mm3 (1.3-6.7); Neutrophils Percent Auto 55.4 % (45.5-73.1); Platelet Count Result 250 k/mm3 (150-375); Red Blood Count 4.28 M/mm3 (4.2-5.4); Red Cell Distribution Width 13.1 % (11.5-14.5); White Blood Count 7.4 K/mm3 (4.5-10.0)
[2022-06-24 18:05] VITALS: BP 134/102; PULSE 96; RESP 14; O2SAT 97
[2022-06-24 18:06] LABS: Glucose Point of Care 194 mg/dl (65-105)
[2022-06-24] MEDS: SODIUM CHLORIDE 0.9% IV 1,000 ML 999 ML IV CONT (18:09)
[2022-06-24] MEDS: HYDROmorphone HCL INJ (*CRX) 1 MG/ML SYR 0.5 MG IV PUSH (18:10)
[2022-06-24] MEDS: diphenhydrAMINE HCl INJ 50 MG/ML VIAL IV PUSH (18:10)
[2022-06-24] MEDS: METOCLOPRAMIDE HCL INJ 10 MG/2 ML VIAL IV PUSH (18:10)
[2022-06-24 18:22] LABS: Alanine Aminotransferase 33 U/L (6-35); Albumin Level 4.2 g/dL (3.5-5.1); Alkaline Phosphatase 100 U/L (38-126); Anion Gap 7 mmol/L (8-16); Aspartate Amino Transferase 34 U/L (14-36); Bilirubin,Total 0.6 mg/dL (0.2-1.3); Blood Urea Nitrogen 13 mg/dL (7-17); Calcium 8.6 mg/dL (8.4-10.2); Carbon Dioxide 28 mmol/L (22-30); Chloride 104 mmol/L (98-107); Estimated CRCL calculation 128 ml/min; Estimated Glomerular Filt Rate > 60; Glucose 206 mg/dL (65-110); Potassium 4.6 mmol/L (3.4-5.0); Sodium 139 mmol/L (137-145)
[2022-06-24 18:27] LABS: Prothrombin Time 12.8 Seconds (11.1-14.7)
[2022-06-24 18:28] LABS: Partial Thromboplastin Time 27.9 SECONDS (22.3-36.8)
[2022-06-24 18:31] LABS: Troponin I < 0.012 ng/mL (0.000-0.034)
[2022-06-24 18:32] LABS: Appearance Urine Cloudy (Clear); Bacteria Urine 4+ /hpf; Bilirubin Urine Negative (Negative); Blood Urine Negative (Negative); Color Urine Yellow (Yellow); Glucose Urine UA Negative (Negative); Ketones Urine Trace mg/dL (Negative); Leukocyte Esterase Ur 3+ LEU/UL (Negative); Nitrate Urine Positive (Negative); Non Pathogenic Casts 0-2; Protein Urine 1+ mg/dL (Negative); RBC Urine 0-2 /hpf (0-2); Specific Grav Ur 1.025 (1.001-1.035); Squamous Epithelial Cell Urine Few /hpf (Few); WBC Urine >100 /hpf
[2022-06-24 18:47] LABS: Add Urine Microscopic? YES
[2022-06-24] MEDS: diazePAM INJ (*CRX) 10 MG/2 ML SYRINGE 5 MG IV PUSH (19:11)
[2022-06-24] MEDS: SODIUM CHLORIDE 0.9% IV 1,000 ML 125 ML IV CONT (19:50)
[2022-06-24 19:51] VITALS: BP 124/80; PULSE 86; RESP 18; O2SAT 96
--- NOTE | 2022-06-24 19:52 | PM.IMHP ---
H&P: HPI History of Present Illness Date/Time: 06/24/22 19:52 Chief Complaint: Stuttering Narrative: This is a 56-year-old female with past medical history significant for dyslipidemia, chronic pain syndrome, on chronic opioids, type diabetes mellitus, essential hypertension, chronic back pain. Patient is a [facility] resident she was brought to the emergency room due to tremors not feeling well stuttering anxious. Patient states that she has been having pain or burning with urination lower abdominal discomfort as well she has had the urgency, frequency and tenesmus, has had nausea but no vomiting, denies chills fevers or rigors. In emergency room patient was found to have a urinalysis positive for numerous WBCs present patient is been admitted for further evaluation management and treatment. Review of Systems Review of Systems: Generalize anxiety, tremors, stuttering, pain and burning with urination, urgency, frequency, tenesmus, nausea. Constitutional: Constitutional: Denies chills, Reports fatigue, Denies fever(s), Reports malaise, Reports poor appetite and Reports weakness Eyes: Eyes: Denies change in vision ENT: Denies dysphagia and Denies odynophagia Cardiovascular: Cardiovascular: Denies chest pain and Denies edema Respiratory: Respiratory: Denies chest congestion, Denies cough and Denies dyspnea Gastrointestinal: Gastrointestinal: Denies dyspepsia, Denies heartburn, Denies diarrhea, Denies loose stools, Reports nausea and Denies vomiting Genitourinary: Genitourinary: Reports nocturia, Reports dysuria, Reports urinary hesitancy and Reports urinary urgency Musculoskeletal: Musculoskeletal: Reports back pain Integumentary/Breasts: Skin/Breast: Denies rash Neurologic: Denies vertigo, Denies dizziness, Denies focal weakness and Denies Sensory deficit (Neuro) Psychiatric: Psychiatric: Reports no additional psychiatric complaints and Reports as per HPI Endocrine: Endocrine: Denies cold intolerance, Denies fatigue, Denies flushing, Denies heat intolerance, Denies polyphagia, Denies polydipsia and Denies palpitations Hematologic/Lymphatic: Hematologic/Lymphatic: Reports no additional hematologic/lymphatic complaints and Reports as per HPI Allergic/Immunologic: Allergic/Immunologic: Reports no additional allergic/immunologic complaints and Reports as per HPI PMF Past Medical History Medical History (Updated 06/24/22 @ 23:30 by Mao Treviño MD) Chronic back pain Continuous tobacco abuse Diabetes mellitus Essential hypertension Hyperlipidemia Surgical History Surgical History History of abdominal surgery History of back surgery Family History Family History Other Unknown family medical history Social History Social History Social History: She is currently living with her daughter after living in transient life tell living with various acquaintances. She has smoked 1 pack of cigarettes per day since she was 16. She denies any alcohol use or drug use. Smoking packs per day: 1.5 Smoking cigarettes per day: 30.0 Years smoked: 35 Smoking pack-years: 52.50 Smoking status: Former smoker Tobacco type: cigarettes Alcohol intake: never Substance use: never Substance use type: opiates Lack of Transportation: No Lack of Food: Never True Current Housing: I Have Housing Concerned About Future Housing: No Difficulty Paying Gas/Electric Bills: No Difficulty Paying for Meds: No Currently Unemployed: No Education: Don't Know Difficulty w/ Childcare or Family Care: No Living arrangements: [facility] Spiritual care concerns: No Meds Home Medications and Allergies Home Medications Medication Instructions Recorded Confirmed Type atorvastatin 40 mg tablet 40 mg PO DAILY 12/31/20 06/24/22 History hydroxyzine H
[2022-06-24 20:23] VITALS: BP 112/63; PULSE 83; RESP 18; TEMP 36.4; O2SAT 97
[2022-06-24 20:24] VITALS: BMI 34.4
--- NOTE | 2022-06-24 21:48 | PC.NURSE ---
This patient, Susannah Garza, was admitted to Medical Room 344-01. Patient/family oriented to hospital policies and general routines including ID bracelet, bed and alarms, visiting hours, pain management, procedures, bathroom and other care routines, personal items, smoking policy, room service/diet, and visiting hours. Information on how to activate the Rapid Response Team has been discussed. Patient/Family are encouraged to report perceived risks to care and to ask questions if they do not understand what they are told or what they should do.
[2022-06-24] MEDS: oxyCODONE HCL (*CRX) 5 MG TAB IR 10 MG PO (22:52)
[2022-06-25] VITALS (7 sets, daily range): BP systolic 130–153; BP diastolic 72–88; PULSE 71–94; RESP 16–18; TEMP 36.4–36.6; O2SAT 95–98
[2022-06-25] MEDS: PROPRANOLOL HCL 20 MG TABLET PO ×3 (00:05→20:14)
[2022-06-25] MEDS: traZODone HCL 50 MG TABLET PO ×2 (00:05→20:14)
[2022-06-25] MEDS: MELATONIN 5 MG TABLET 10 MG PO ×2 (01:29→20:14)
[2022-06-25] MEDS: SODIUM CHLORIDE 0.9% IV 1,000 ML 125 ML IV CONT ×3 (04:00→22:44)
[2022-06-25 08:30] LABS: Glucose Point of Care 160 mg/dl (65-105)
--- NOTE | 2022-06-25 08:31 | PM.IMPN ---
Progress Note: A&P Assessment and Plan (1) Urinary tract infection: Qualifiers: Urinary tract infection type: acute cystitis Hematuria presence: without hematuria Qualified Code(s): N30.00 - Acute cystitis without hematuria Code(s): N39.0 - Urinary tract infection, site not specified Status: Acute Assessment and Plan: UA positive nitrates, 3+ leukocytes, greater than 75 wbc's, 4+ bacteria, and rare epi cells. Suprapubic tenderness present on admission. Rocephin 1 g IV Q 24 hours and adjust per urine cultures Monitor for leukocytosis, WBC currently 7.4 without bandemia (2) Adult stuttering: Code(s): F98.5 - Adult onset fluency disorder Status: Acute Assessment and Plan: Patient presented with new onset of stuttering, that started yesterday at 0930. She has HTN, HLD, obesity and is a former smoker 52 pack-year history. She endorses mini-strokes. Rule out stroke: Head CT negative EKG SR with twave abnormality anterior leads A1c 6.8% Lipid panel triglycerides 298, LDL 62, HDL 26. Continue statin. Add lovaza Check MRI brain She denies head injury or new medications. She has h/o PTSD, anxiety, depression and is very tearful today and may have a psychological component. Continue current anti-anxiety and anti-depressant medications. H/O migraines and reports one prior episode of stuttering following starting Topamax 15 years ago. Consult Neurology for evaluation. Consult Speech for communication evaluation. (3) Anxiety and depression: Code(s): F41.9 - Anxiety disorder, unspecified; F32.A - Depression, unspecified Status: Chronic Assessment and Plan: Chronic, not in remission. Fetzima not on formulary; will have patient attempt to bring from home. Continue scheduled clonidine and propranolol. Increase hydroxyzine 25 mg TID. Consider Psychiatry evaluation. She denies suicidal ideation. She reports urge to hurt medical providers only when they don't believe that I'm hurting. Monitor mood. (4) Chronic back pain: Qualifiers: Back pain location: low back pain Sciatica presence: with sciatica Code(s): M54.9 - Dorsalgia, unspecified; G89.29 - Other chronic pain Status: Chronic Assessment and Plan: Continue home meds- tizanidine and oxycodone PRN (5) Hypertension: Qualifiers: Hypertension type: primary hypertension Qualified Code(s): I10 - Essential (primary) hypertension Code(s): I10 - Essential (primary) hypertension Status: Chronic Assessment and Plan: Continue propranolol Stable. (6) Diabetes: Qualifiers: Diabetes mellitus type: type 2 Diabetes mellitus residential insulin use: without exterminator use Diabetes mellitus complication status: with hyperglycemia Qualified Code(s): E11.65 - Type 2 diabetes mellitus with hyperglycemia Code(s): E11.9 - Type 2 diabetes mellitus without complications Status: Acute Assessment and Plan: Chronic, A1c 6.8%. Hold metformin inpatient. Accu-checks AC/HS with sliding scale insulin and hypoglycemic protocol. (7) Continuous tobacco abuse: Code(s): Z72.0 - Tobacco use Status: Chronic Assessment and Plan: Nicotine patch as needed Time Spent With Patient Time: 40 minutes time spent for patient assessment and education, treatment plan, review of imaging, labs, vitals and nursing documentation. Subjective Date/time seen: 06/25/22 08:31 Interval history: Patient found lying in bed sleeping. She c/o persistent stuttering and headache to the front on both sides. She reports headaches occur multiple times per week and typically improved with Excedrin or acetaminophen, however acetaminophen has not been working this hospital stay. She also reports being increasingly tearful for the past 3 months and does see a mental health provider, however she thinks this provider is out for [facility]
[2022-06-25] MEDS: ONDANSETRON INJ 4 MG/2 ML VIAL IV PUSH ×2 (09:15→22:42)
[2022-06-25] MEDS: ASCORBIC ACID 500 MG TABLET PO ×3 (09:17→16:13)
[2022-06-25] MEDS: ATORVASTATIN 40 MG TABLET PO (09:17)
[2022-06-25] MEDS: hydrOXYzine HCL 25 MG TABLET PO ×2 (09:17→16:13)
[2022-06-25] MEDS: GABAPENTIN 300 MG CAPSULE PO ×3 (09:17→16:13)
[2022-06-25] MEDS: MULTIVITAMINS THERAPEUTIC TAB (*BKC) 1 TABLET PO (09:18)
[2022-06-25] MEDS: oxyCODONE HCL (*CRX) 5 MG TAB IR 10 MG PO ×3 (09:18→22:42)
[2022-06-25] MEDS: clonazePAM (*CRX) 0.5 MG TABLET PO ×3 (09:18→16:13)
[2022-06-25 09:50] LABS: Cholesterol 127 mg/dL (0-200); HDL Direct 26 mg/dL; Triglycerides 298 mg/dL (<150)
[2022-06-25 10:00] LABS: LDL Cholesterol Direct 62 mg/dL
[2022-06-25 10:42] LABS: Hemoglobin A1C 6.8 % (<5.7)
[2022-06-25 12:54] LABS: Glucose Point of Care 146 mg/dl (65-105)
[2022-06-25] MEDS: TIZANIDINE HCL 2 MG TABLET PO (13:22)
[2022-06-25] MEDS: ACETAMINOPHEN 325 MG TABLET 650 MG PO ×2 (13:22→20:14)
[2022-06-25 17:12] LABS: Glucose Point of Care 163 mg/dl (65-105)
[2022-06-25] MEDS: ASPIRIN 81 MG ENTERIC TABLET PO (19:28)
[2022-06-25 20:24] LABS: Glucose Point of Care 207 mg/dl (65-105)
[2022-06-26] MEDS: ACETAMINOPHEN/ASPIRIN/CAFFEINE 250-250-65 MG TABLET 1 TABLET PO (03:55)
[2022-06-26] MEDS: ONDANSETRON INJ 4 MG/2 ML VIAL IV PUSH ×2 (03:58→07:54)
[2022-06-26 04:58] VITALS: BP 158/89; PULSE 79; RESP 18; TEMP 36.6; O2SAT 97
--- NOTE | 2022-06-26 08:09 | PM.IMPN ---
Progress Note: A&P Assessment and Plan (1) Urinary tract infection: Qualifiers: Hematuria presence: without hematuria Urinary tract infection type: acute cystitis Qualified Code(s): N30.00 - Acute cystitis without hematuria Code(s): N39.0 - Urinary tract infection, site not specified Status: Acute Assessment and Plan: UA positive nitrates, 3+ leukocytes, greater than 75 wbc's, 4+ bacteria, and rare epi cells. Suprapubic tenderness present on admission. Treated with IV rocephin initially. Urine culture shows 100,000 CFU e.coli ESBL. Changed to primaxin and found to be sensitive to Ertapenem on 06/26. Patient is stable at this time. Concerns for pyelonephritis due to CVA tenderness. Blood cultures drawn and pending. Can consider changing to DS Bactrim PO pending blood culture results. (2) Adult stuttering: Code(s): F98.5 - Adult onset fluency disorder Status: Acute Assessment and Plan: Patient presented with new onset of stuttering, that started yesterday at 0930. She has HTN, HLD, obesity and is a former smoker 52 pack-year history. She endorses mini-strokes. Rule out stroke: Head CT negative EKG SR with twave abnormality anterior leads A1c 6.8% Lipid panel triglycerides 298, LDL 62, HDL 26. Continue statin. Add lovaza Unable to obtain MRI due to old nerve stimulator. CTA head and neck without infarct. She denies head injury or new medications. She has h/o PTSD, anxiety, depression and is very tearful today and may have a psychological component. Continue current anti-anxiety and anti-depressant medications. H/O migraines and reports one prior episode of stuttering following starting Topamax 15 years ago. Consult Neurology for evaluation. Consult Speech for communication evaluation; exercises given. (3) Anxiety and depression: Code(s): F41.9 - Anxiety disorder, unspecified; F32.A - Depression, unspecified Status: Chronic Assessment and Plan: Chronic, not in remission. Fetzima not on formulary; will have patient attempt to bring from home. Continue propranolol. Increased hydroxyzine 25 mg TID on 06/25/22. Increase clonazepam 1 mg TID. Consider Psychiatry evaluation. She denies suicidal ideation. She reports urge to hurt medical providers only when they don't believe that I'm hurting. Monitor mood. (4) Chronic back pain: Qualifiers: Back pain location: low back pain Sciatica presence: with sciatica Code(s): M54.9 - Dorsalgia, unspecified; G89.29 - Other chronic pain Status: Chronic Assessment and Plan: Continue home meds- tizanidine and oxycodone PRN (5) Hypertension: Qualifiers: Hypertension type: primary hypertension Qualified Code(s): I10 - Essential (primary) hypertension Code(s): I10 - Essential (primary) hypertension Status: Chronic Assessment and Plan: Continue propranolol Stable. (6) Diabetes: Qualifiers: Diabetes mellitus complication status: with hyperglycemia Diabetes mellitus skilled nursing insulin use: without intermediate designer use Diabetes mellitus type: type 2 Qualified Code(s): E11.65 - Type 2 diabetes mellitus with hyperglycemia Code(s): E11.9 - Type 2 diabetes mellitus without complications Status: Acute Assessment and Plan: Chronic, A1c 6.8%. Hold metformin inpatient at least 72 hours due to recent contrast exam. Accu-checks AC/HS with sliding scale insulin and hypoglycemic protocol. (7) Continuous tobacco abuse: Code(s): Z72.0 - Tobacco use Status: Chronic Assessment and Plan: Nicotine patch as needed Plan CODE STATUS: FULL CODE Disposition: from SNF. Plan to return when medically stable for discharge. Time Spent With Patient Time: 40 minutes time spent with patient assessment, patient education, consultation with cardiology on imaging, review of labs, vitals and nursing documentation. Subj
[2022-06-26 08:43] LABS: Basophils Percent Auto 0.4 % (0.2-1.2); Eosinophils Absolute Auto 0.2 K/mm3 (0-0.3); Eosinophils Percent Auto 2.6 % (0-4.4); Hematocrit 37.5 % (37.0-47.0); Hemoglobin 12.5 g/dL (12.0-15.0); Immature Granulocyte Absolute 0.04 K/mm3 (0.00-0.031); Immature Granulocyte Percent A 0.6 % (0-0.5); Lymphocytes Absolute Auto 2.42 K/mm3 (0.9-3.2); Lymphocytes Percent Auto 35.5 % (18.3-44.2); Mean Corpuscular HGB Conc 33.3 g/dl (32-36); Mean Corpuscular Hemoglobin 30.3 pg (26-34); Mean Corpuscular Volume 90.8 fl (80-100); Monocytes Absolute Auto 0.4 K/mm3 (0.1-0.6); Monocytes Percent Auto 6.5 % (2.6-8.5); Neutrophils Absolute Auto 3.7 K/mm3 (1.3-6.7); Neutrophils Percent Auto 54.4 % (45.5-73.1); Platelet Count Result 228 k/mm3 (150-375); Red Blood Count 4.13 M/mm3 (4.2-5.4); Red Cell Distribution Width 13.1 % (11.5-14.5); White Blood Count 6.8 K/mm3 (4.5-10.0)
[2022-06-26 08:55] LABS: Anion Gap 6 mmol/L (8-16); Blood Urea Nitrogen 9 mg/dL (7-17); Calcium 8.4 mg/dL (8.4-10.2); Carbon Dioxide 27 mmol/L (22-30); Chloride 108 mmol/L (98-107); Estimated CRCL calculation 133 ml/min; Estimated Glomerular Filt Rate > 60; Glucose 154 mg/dL (65-110); Magnesium 1.7 mg/dL (1.6-2.3); Potassium 4.2 mmol/L (3.4-5.0); Sodium 141 mmol/L (137-145)
[2022-06-26] MEDS: ASCORBIC ACID 500 MG TABLET PO ×3 (09:01→16:58)
[2022-06-26 09:04] VITALS: PULSE 80
[2022-06-26] MEDS: ATORVASTATIN 40 MG TABLET PO (09:04)
[2022-06-26] MEDS: PROPRANOLOL HCL 20 MG TABLET PO ×2 (09:04→22:10)
[2022-06-26] MEDS: clonazePAM (*CRX) 0.5 MG TABLET PO (09:04)
[2022-06-26] MEDS: GABAPENTIN 300 MG CAPSULE PO ×3 (09:04→16:59)
[2022-06-26] MEDS: hydrOXYzine HCL 25 MG TABLET PO ×3 (09:04→16:58)
[2022-06-26] MEDS: MULTIVITAMINS THERAPEUTIC TAB (*BKC) 1 TABLET PO (09:04)
[2022-06-26 09:09] LABS: Glucose Point of Care 158 mg/dl (65-105)
[2022-06-26] MEDS: INSULIN ASPART (*BKC) 100 UNITS/ML SUB-Q ×3 (09:12→17:41)
[2022-06-26 09:25] LABS: Thyroid Stimulating Hormone Reflex 0.576 uIU/mL (0.465-4.68)
[2022-06-26 09:58] LABS: Folic Acid 15.8 ng/mL (2.76->20)
[2022-06-26] MEDS: TIZANIDINE HCL 2 MG TABLET PO (10:39)
[2022-06-26] MEDS: ASPIRIN 81 MG ENTERIC TABLET PO (10:39)
--- NOTE | 2022-06-26 12:01 | WPDNEURCNPN ---
Consult date: 06/26/22 HPI: Susannah Garza is a 56 year old female admitted to the hospital through the emergency room with the complaints of headache. Patient was brought to the emergency room by ambulance from half-way because of the ongoing observation for stuttering with migraine headache abdominal pain and flaring up of the chronic back pain with radiculopathy reportedly his stuttering started at 9:30 a.m. with the information that she has had the same times in the past which was at times attributed to TIA she has been experiencing trouble with sleep for a month she complained of left frontal headache Sineff gave no history of any other problems at the time of admission to the ER patient had been taking cyclobenzaprine 10 mg 3 times a day p.r.n., hydroxyzine 50 mg 3 times a day, metformin 750 mg daily, metoprolol 50 mg q.12 hours, oxycodone 15 mg q.6 hours p.r.n., Lyrica 25 mg 3 times a day trazodone 100 mg at night and clonazepam 0.5 mg q.6 hours p.r.n.' patient does have ongoing history of continuous tobacco abuse, diabetes mellitus, hypertension, and has undergone abdominal and back surgery in the past initial evaluation in the emergency room revealed her to have blood pressure of 150/99 otherwise normal vital signs normal routine lab with glucose of 2 6 and 3+ leukocyte esterase with with nitrate positive and more than 100 urine WBC, initial CT scan of the head negative for the bleed PMFSH Past Medical History Medical History (Updated 06/25/22 @ 16:39 by Medina Olea APRN) Chronic back pain Continuous tobacco abuse Diabetes mellitus Essential hypertension Hyperlipidemia Surgical History Surgical History History of abdominal surgery History of back surgery Family History Family History Other Unknown family medical history Social History Social History Social History: She is currently living with her daughter after living in transient life tell living with various acquaintances. She has smoked 1 pack of cigarettes per day since she was 16. She denies any alcohol use or drug use. Smoking packs per day: 1.5 Smoking cigarettes per day: 30.0 Years smoked: 35 Smoking pack-years: 52.50 Smoking status: Former smoker Tobacco type: cigarettes Alcohol intake: never Substance use: never Substance use type: opiates Lack of Transportation: No Lack of Food: Never True Current Housing: I Have Housing Concerned About Future Housing: No Difficulty Paying Gas/Electric Bills: No Difficulty Paying for Meds: No Currently Unemployed: No Education: Don't Know Difficulty w/ Childcare or Family Care: No Living arrangements: half-way Spiritual care concerns: No Meds Home Medications and Allergies Home Medications Medication Instructions Recorded Confirmed Type atorvastatin 40 mg tablet 40 mg PO DAILY 12/31/20 06/24/22 History hydroxyzine HCl 50 mg tablet 25 mg PO BID 12/31/20 06/24/22 History levomilnacipran 120 mg capsule,24 120 mg PO DAILY 12/31/20 06/24/22 History hr,extended release (Fetzima) melatonin 10 mg tablet 10 mg PO HS PRN Insomnia 12/31/20 06/24/22 History metformin 750 mg tablet,extended 750 mg PO DAILY 12/31/20 06/24/22 History release 24 hr ondansetron HCl 4 mg tablet 4 mg PO Q8H PRN Nausea 12/31/20 06/24/22 History (Zofran) oxycodone 15 mg tablet 10 mg PO Q6H PRN Pain, Severe 12/31/20 06/24/22 History trazodone 100 mg tablet 50 mg PO HS 12/31/20 06/24/22 History acetaminophen 650 mg tablet 650 mg PO Q6H PRN Pain (Scale 02/06/21 06/24/22 History Score 1-3) clonazepam 0.5 mg tablet 0.5 mg PO TID 02/06/21 06/24/22 History Aspercreme 1 inch topical BID PRN Pain 06/24/22 06/24/22 History ascorbic acid (vitamin C) 500 mg 500 mg PO TID 06/24/22 06/24/22 History tablet gabapentin 300 mg capsule 300 mg PO
[2022-06-26] MEDS: LORazepam INJ (*CRX) 2 MG/ML VIAL 1 MG IV PUSH (12:47)
[2022-06-26 12:51] LABS: Glucose Point of Care 158 mg/dl (65-105)
[2022-06-26] MEDS: ERTAPENEM 1 GM/NS 50 ML 1 GM/50 ML BAG IVPB (13:26)
[2022-06-26 14:00] VITALS: BP 152/69; PULSE 66; RESP 20; TEMP 36; O2SAT 98
[2022-06-26] MEDS: oxyCODONE HCL (*CRX) 5 MG TAB IR 10 MG PO ×2 (15:33→22:11)
--- NOTE | 2022-06-26 16:17 | PHAR ---
pt's home med fetzima ER 120 mg capsules verified by pharmacy
[2022-06-26] MEDS: TOLNAFTATE 1% POWDER 45 GM BTL 1 APPLIC TOPICAL ×2 (16:57→22:10)
[2022-06-26] MEDS: clonazePAM (*CRX) 0.5 MG TABLET 1 MG PO ×2 (16:58→22:10)
[2022-06-26 17:28] LABS: Glucose Point of Care 143 mg/dl (65-105)
[2022-06-26 21:16] VITALS: BP 117/85; PULSE 98; RESP 22; TEMP 36.6; O2SAT 100
[2022-06-26 21:23] LABS: Glucose Point of Care 148 mg/dl (65-105)
[2022-06-26 22:10] VITALS: PULSE 64
[2022-06-26] MEDS: traZODone HCL 50 MG TABLET PO (22:10)
[2022-06-27] VITALS (7 sets, daily range): BP systolic 145–150; BP diastolic 82–96; PULSE 81–98; RESP 18–20; TEMP 36.4–36.5; O2SAT 96–100
[2022-06-27] MEDS: ACETAMINOPHEN/ASPIRIN/CAFFEINE 250-250-65 MG TABLET 1 TABLET PO ×2 (06:08→13:36)
[2022-06-27] MEDS: ONDANSETRON INJ 4 MG/2 ML VIAL IV PUSH ×2 (08:33→13:40)
[2022-06-27 08:34] LABS: Glucose Point of Care 172 mg/dl (65-105)
[2022-06-27] MEDS: ASCORBIC ACID 500 MG TABLET PO ×3 (09:07→17:18)
[2022-06-27] MEDS: GABAPENTIN 300 MG CAPSULE PO ×3 (09:07→17:18)
[2022-06-27] MEDS: ASPIRIN 81 MG ENTERIC TABLET PO (09:07)
[2022-06-27] MEDS: PROPRANOLOL HCL 20 MG TABLET PO ×2 (09:08→22:00)
[2022-06-27] MEDS: ATORVASTATIN 40 MG TABLET PO (09:08)
[2022-06-27] MEDS: MULTIVITAMINS THERAPEUTIC TAB (*BKC) 1 TABLET PO (09:08)
[2022-06-27] MEDS: TOLNAFTATE 1% POWDER 45 GM BTL 1 APPLIC TOPICAL ×2 (09:10→22:00)
[2022-06-27] MEDS: hydrOXYzine HCL 25 MG TABLET PO ×3 (09:21→17:18)
[2022-06-27] MEDS: clonazePAM (*CRX) 0.5 MG TABLET 1 MG PO ×3 (09:21→22:01)
[2022-06-27] MEDS: ERTAPENEM 1 GM/NS 50 ML 1 GM/50 ML BAG IVPB (09:24)
[2022-06-27 12:39] LABS: Glucose Point of Care 162 mg/dl (65-105)
--- NOTE | 2022-06-27 13:55 | PM.IMPN ---
Progress Note: A&P Assessment and Plan (1) Urinary tract infection: Qualifiers: Hematuria presence: without hematuria Urinary tract infection type: acute cystitis Qualified Code(s): N30.00 - Acute cystitis without hematuria Code(s): N39.0 - Urinary tract infection, site not specified Status: Acute Assessment and Plan: UA positive nitrates, 3+ leukocytes, greater than 75 wbc's, 4+ bacteria, and rare epi cells. Suprapubic tenderness present on admission. Treated with IV rocephin initially, stopped 06/26. Urine culture shows 100,000 CFU e.coli ESBL. Changed to Ertapenem on 06/26. Patient is stable at this time. Concerns for pyelonephritis due to CVA tenderness. Blood cultures drawn and negative to date. If blood cultures remain negative, can transition to oral DS Bactrim PO BID x 7 days at discharge (2) Adult stuttering: Code(s): F98.5 - Adult onset fluency disorder Status: Acute Assessment and Plan: Patient presented with new onset of stuttering, that started yesterday at 0930. She has HTN, HLD, obesity and is a former smoker 52 pack-year history. She endorses mini-strokes. Rule out stroke: Head CT negative EKG SR with twave abnormality anterior leads A1c 6.8% Lipid panel triglycerides 298, LDL 62, HDL 26. Continue statin. Add lovaza Unable to obtain MRI due to old nerve stimulator. CTA head and neck without infarct. She denies head injury or new medications. She has h/o PTSD, anxiety, depression and is very tearful today and may have a psychological component. Continue current anti-anxiety and anti-depressant medications. H/O migraines and reports one prior episode of stuttering following starting Topamax 15 years ago. Consult Neurology for evaluation. Consult Speech for communication evaluation; exercises given. 06/27 patient is calmer today and less tearful. Stuttering less noticeable. (3) Anxiety and depression: Code(s): F41.9 - Anxiety disorder, unspecified; F32.A - Depression, unspecified Status: Chronic Assessment and Plan: Chronic, not in remission. Fetzima not on formulary; will have patient attempt to bring from home. Continue propranolol. Increased hydroxyzine 25 mg TID on 06/25/22. Increase clonazepam 1 mg TID. She denies suicidal ideation. She reports urge to hurt medical providers only when they don't believe that I'm hurting. Monitor mood. Improved on medication changes. Continue outpatient psychiatry appointments. (4) Chronic back pain: Qualifiers: Back pain location: low back pain Sciatica presence: without sciatica Back pain laterality: right Qualified Code(s): M54.50 - Low back pain, unspecified; G89.29 - Other chronic pain Code(s): M54.9 - Dorsalgia, unspecified; G89.29 - Other chronic pain Status: Chronic Assessment and Plan: Continue home meds- tizanidine and oxycodone PRN (5) Hypertension: Qualifiers: Hypertension type: primary hypertension Qualified Code(s): I10 - Essential (primary) hypertension Code(s): I10 - Essential (primary) hypertension Status: Chronic Assessment and Plan: Continue propranolol Stable. (6) Diabetes: Qualifiers: Diabetes mellitus complication status: with hyperglycemia Diabetes mellitus rat exterminator insulin use: without custodial use Diabetes mellitus type: type 2 Qualified Code(s): E11.65 - Type 2 diabetes mellitus with hyperglycemia Code(s): E11.9 - Type 2 diabetes mellitus without complications Status: Acute Assessment and Plan: Chronic, A1c 6.8%. Hold metformin inpatient at least 72 hours due to recent contrast exam. Accu-checks AC/HS with sliding scale insulin and hypoglycemic protocol. (7) Continuous tobacco abuse: Code(s): Z72.0 - Tobacco use Status: Chronic Assessment and Plan: Nicotine patch as needed Plan CODE STATUS: FULL CODE Disposition: from SNF. Plan
[2022-06-27 16:48] LABS: Glucose Point of Care 180 mg/dl (65-105)
[2022-06-27] MEDS: oxyCODONE HCL (*CRX) 5 MG TAB IR 10 MG PO (17:22)
[2022-06-27 21:07] LABS: Glucose Point of Care 173 mg/dl (65-105)
[2022-06-27] MEDS: traZODone HCL 50 MG TABLET PO (22:01)
[2022-06-27] MEDS: TIZANIDINE HCL 2 MG TABLET PO (23:00)
--- NOTE | 2022-06-28 04:06 | PC.NURSE ---
Daylight Savings Time For Daylight Savings Time Ending in the Fall - Clocks are moved back. For Daylight Savings Time Beginning in the Spring - Clocks are moved ahead. For [facility], the time of change occurs at 0200 hrs. Time is taken from the product strategy director. This entry on the patient's chart recognizes the change in time reflected during documentation. Example: 2 entries for vital signs may be charted for 0200 hrs.
[2022-06-28 04:55] VITALS: BP 133/71; PULSE 69; RESP 18; TEMP 36.5; O2SAT 97
[2022-06-28] MEDS: oxyCODONE HCL (*CRX) 5 MG TAB IR 10 MG PO ×2 (05:05→12:52)
[2022-06-28 05:57] LABS: Basophils Percent Auto 0.5 % (0.2-1.2); Eosinophils Absolute Auto 0.2 K/mm3 (0-0.3); Hematocrit 36.4 % (37.0-47.0); Hemoglobin 11.9 g/dL (12.0-15.0); Immature Granulocyte Absolute 0.02 K/mm3 (0.00-0.031); Immature Granulocyte Percent A 0.2 % (0-0.5); Immature Platelet Fraction Pct 3.7 % (0.9-11.2); Lymphocytes Absolute Auto 3.19 K/mm3 (0.9-3.2); Lymphocytes Percent Auto 38.1 % (18.3-44.2); Mean Corpuscular HGB Conc 32.7 g/dl (32-36); Mean Corpuscular Hemoglobin 30.5 pg (26-34); Mean Corpuscular Volume 93.3 fl (80-100); Mean Platelet Volume 9.8 fl (7.4-10.4); Monocytes Absolute Auto 0.6 K/mm3 (0.1-0.6); Monocytes Percent Auto 7.6 % (2.6-8.5); Neutrophils Absolute Auto 4.3 K/mm3 (1.3-6.7); Neutrophils Percent Auto 51.6 % (45.5-73.1); Platelet Count Result 259 k/mm3 (150-375); Red Cell Distribution Width 13.2 % (11.5-14.5); White Blood Count 8.4 K/mm3 (4.5-10.0)
[2022-06-28 06:10] LABS: Alanine Aminotransferase 29 U/L (6-35); Albumin Level 3.6 g/dL (3.5-5.1); Alkaline Phosphatase 70 U/L (38-126); Anion Gap 7 mmol/L (8-16); Aspartate Amino Transferase 39 U/L (14-36); Bilirubin,Total 0.7 mg/dL (0.2-1.3); Blood Urea Nitrogen 14 mg/dL (7-17); Calcium 8.4 mg/dL (8.4-10.2); Carbon Dioxide 22 mmol/L (22-30); Chloride 105 mmol/L (98-107); Estimated CRCL calculation 133 ml/min; Estimated Glomerular Filt Rate > 60; Glucose 174 mg/dL (65-110); Potassium 3.8 mmol/L (3.4-5.0); Sodium 134 mmol/L (137-145)
[2022-06-28 08:00] VITALS: PULSE 80; RESP 16; O2SAT 97
[2022-06-28] MEDS: GABAPENTIN 300 MG CAPSULE PO ×3 (08:40→16:25)
[2022-06-28] MEDS: hydrOXYzine HCL 25 MG TABLET PO ×3 (08:40→16:25)
[2022-06-28] MEDS: ASCORBIC ACID 500 MG TABLET PO ×3 (08:40→16:25)
[2022-06-28] MEDS: ASPIRIN 81 MG ENTERIC TABLET PO (08:40)
[2022-06-28] MEDS: clonazePAM (*CRX) 0.5 MG TABLET 1 MG PO ×2 (08:40→16:24)
[2022-06-28] MEDS: TOLNAFTATE 1% POWDER 45 GM BTL 1 APPLIC TOPICAL (08:41)
[2022-06-28] MEDS: ATORVASTATIN 40 MG TABLET PO (08:41)
[2022-06-28 08:42] VITALS: PULSE 82
[2022-06-28] MEDS: PROPRANOLOL HCL 20 MG TABLET PO (08:42)
[2022-06-28] MEDS: MULTIVITAMINS THERAPEUTIC TAB (*BKC) 1 TABLET PO (08:43)
[2022-06-28 08:56] LABS: Glucose Point of Care 150 mg/dl (65-105)
--- NOTE | 2022-06-28 09:44 | PM.DS ---
DS: Admitting Diagnosis Discharge Date 06/28/22 Admitting Diagnosis Urinary tract infection Dorsalgia, unspecified, chronic Anxiety and depression Hypertension Type 2 diabetes mellitus without complications DS: Discharge Diagnosis Discharge Diagnosis (1) Urinary tract infection: Qualifiers: Hematuria presence: without hematuria Urinary tract infection type: acute cystitis Qualified Code(s): N30.00 - Acute cystitis without hematuria Code(s): N39.0 - Urinary tract infection, site not specified Status: Acute Assessment and Plan: UA positive nitrates, 3+ leukocytes, greater than 75 wbc's, 4+ bacteria, and rare epi cells. Suprapubic tenderness present on admission. Treated with IV rocephin initially 06/25 and stopped 06/26. Urine culture shows 100,000 CFU e.coli ESBL. Changed to Ertapenem on 06/26. Patient is stable at this time. Concerns for pyelonephritis due to CVA tenderness. Blood cultures drawn and negative to date. 06/28 blood cultures negative x 48 hours, transitioned to oral DS Bactrim PO BID x 7 days and continued at discharge. (2) Adult stuttering: Code(s): F98.5 - Adult onset fluency disorder Status: Acute Assessment and Plan: Patient presented with new onset of stuttering, that started 0930 on the day of admission. She has HTN, HLD, obesity and is a former smoker 52 pack-year history. She endorsed mini-strokes. stroke work up showed: Head CT negative, EKG SR with twave abnormality anterior leads. A1c 6.8%, Lipid panel triglycerides 298, LDL 62, HDL 26- continued statin and add lovaza. Unable to obtain MRI due to old nerve stimulator. CTA head and neck without infarct. She denied head injury or new medications. She has h/o PTSD, anxiety, depression and very tearful during hospitalization suggesting psychological component. Continue current anti-anxiety and anti-depressant medications. H/O migraines and reported one prior episode of stuttering following starting Topamax 15 years ago. Consulted Neurology for evaluation. Consulted Speech for communication evaluation; exercises given; continue speech therapy outpatient. Stuttering improved with increased clonazepam and speech evaluation. Follow up outpatient with neurology (3) Anxiety and depression: Code(s): F41.9 - Anxiety disorder, unspecified; F32.A - Depression, unspecified Status: Chronic Assessment and Plan: Chronic, not in remission. Fetzima not on formulary; will have patient attempt to bring from home. Continued propranolol. Increased hydroxyzine 25 mg TID on 06/25/22. Increased clonazepam 1 mg TID. She denied suicidal ideation. She reported urge to hurt medical providers only when they don't believe that I'm hurting but denied urge to hurt bystanders. Mood improved on medication changes. Follow-up outpatient with psychiatry. (4) Chronic back pain: Qualifiers: Back pain laterality: right Back pain location: low back pain Sciatica presence: without sciatica Qualified Code(s): M54.50 - Low back pain, unspecified; G89.29 - Other chronic pain Code(s): M54.9 - Dorsalgia, unspecified; G89.29 - Other chronic pain Status: Chronic Assessment and Plan: Continue home meds- tizanidine and oxycodone PRN (5) Hypertension: Qualifiers: Hypertension type: primary hypertension Qualified Code(s): I10 - Essential (primary) hypertension Code(s): I10 - Essential (primary) hypertension Status: Chronic Assessment and Plan: Continue propranolol Stable. (6) Diabetes: Qualifiers: Diabetes mellitus complication status: with hyperglycemia Diabetes mellitus longshore equipment operator insulin use: without assisted use Diabetes mellitus type: type 2 Qualified Code(s): E11.65 - Type 2 diabetes mellitus with hyperglycemia Code(s): E11.9 - Type 2 diabetes mellitus without complications Status: Acute Assessment and Plan: Chronic, A1c 6.8%. Resume
[2022-06-28 12:01] LABS: Glucose Point of Care 153 mg/dl (65-105)
[2022-06-28] MEDS: SULFAMETHOXAZOLE/TRIMETHOPRIM 800/160 MG DS TABLET 1 TAB PO (12:51)
[2022-06-28] MEDS: TIZANIDINE HCL 2 MG TABLET PO (12:51)
[2022-06-28 14:00] VITALS: BP 135/77; PULSE 80; RESP 16; TEMP 35.6; O2SAT 97
[2022-06-28 16:21] LABS: EDCOVIDSCREEN Negative (Negative)
[2022-06-28 17:14] LABS: Glucose Point of Care 165 mg/dl (65-105)
--- NOTE | 2022-06-30 12:25 | WPDNEUROLOGY ---
Neurology EEG Report General Information Date of Study: 06/26/22 TEST Routine EEG DIAGNOSIS Stuttering and aphasia CONDITION OF RECORDING Awake and drowsy EEG NUMBER [id number] CLINICAL HISTORY She was admitted to the hospital due to concerns for tremors, not feeling well, stuttering and anxiety.? EEG DESCRIPTION During the awake state with eyes closed the background consists of 8 Hz posterior dominant rhythm which attenuates appropriately with eye opening. The recording is continuous. There is a well developed anterior-posterior gradient. No significant asymmetries of background activities are noted. With drowsiness there is waxing and waning of the dominant rhythm with eventual replacement by a mixture of beta, alpha, and theta activity. Patient did not enter stage II sleep. There are no epileptiform discharges or seizures during this recording. Hyperventilation and photic stimulation were not performed. IMPRESSION This is a normal routine EEG recorded in awake and drowsy states. There are no electrographic seizures identified, nor are there any epileptiform discharges. Please note that a normal EEG cannot exclude a seizure disorder. Clinical correlation is recommended.
== END 2022-06-28 19:25 | DRG 690 ==
LOC: ANHED 19:17 → ANH3MED 20:04
PROVIDERS: Admitting Provider Internal Medicine; Emergency Provider Emergency Medicine; Visit Provider Nurse Practitioner Family
DX: N39.0 Urinary tract infection, site not specified (principal); Z16.12 Extended spectrum beta lactamase (ESBL) resistance; R47.01 Aphasia; B96.20 Unspecified Escherichia coli [E. coli] as the cause of diseases classified elsewhere; I10 Essential (primary) hypertension; Z20.822 Contact with and (suspected) exposure to COVID-19; E78.5 Hyperlipidemia, unspecified; F17.210 Nicotine dependence, cigarettes, uncomplicated; R29.700 NIHSS score 0; G89.4 Chronic pain syndrome; M54.9 Dorsalgia, unspecified; E11.65 Type 2 diabetes mellitus with hyperglycemia; R25.1 Tremor, unspecified; F41.9 Anxiety disorder, unspecified; F32.A Depression, unspecified; F98.5 Adult onset fluency disorder; E66.01 Morbid (severe) obesity due to excess calories; Z68.34 Body mass index [BMI] 34.0-34.9, adult; Z79.84 Long term (current) use of oral hypoglycemic drugs
CPT/HCPCS: 36415; 70450; 70496; 70498; 74176; 80048; 80053; 80061; 81001; 82607; 82746; 82948; 83036; 83735; 84443; 84484; 85025; 85055; 85610; 85730; 87040; 87077; 87086; 87186; 87426; 92523; 93005; 95816; 96361; 96365; 96367; 96374; 96375; 96376; 97161; 97165; 99285; A9270; C9803; G0378; J0696; J1170; J1200; J1335; J1815; J2060; J2405; J2765; J3360; J7030; Q9967

== ENCOUNTER 2022-12-14 04:58 | Emergency (ER) | payer MEDICARE, MEDICAID, SELFPAY ==
--- NOTE | ~2022-12-14 | CT_ITS ---
EXAMINATION: CT abdomen pelvis w con DATE: 12/14/2022 08:19 INDICATION: Abdominal pain, urinary frequency and burning TECHNIQUE: Computed tomography (CT) of the abdomen and pelvis was performed with 100 mL Omnipaque-350 intravenous contrast. Automated exposure control and iterative reconstruction technique were employe d. The dose-length product was 1456.69 mGy-cm. COMPARISON: 06/24/2022 and 11/19/2020 FINDINGS: Mild dependent atelectasis in the bilateral lower lobes with additional basilar atelectasis at the in ferior lingula and right middle lobe. Heart size is normal. Atherosclerotic coronary artery calcific lesion. No pericardial or pleural effusion. Small sliding-type hiatal hernia. Cholecystectomy clips the gallbladder fossa. Diffuse hepatic steato sis. Spleen, pancreas and right adrenal gland are normal. 9 mm nodule at the body of the left adrenal gland, unchanged since 11/19/2020 most consistent with an adenoma. A couple gas and fluid-filled diver ticula along side the head and uncinate process of the pancreas. Bilateral kidneys are normal with no hydronephrosis. Excreted contrast extends caudally along the normal bilateral ureters and into the p artially decompressed bladder. The uterus is not identified and has likely been surgically resected. Postoperative change of likely prior sigmoidectomy with anastomotic suture line along the short sigmo id colon. There are scattered colonic diverticula without adjacent comparison to suggest diverticulit is. No bowel obstruction.. The appendix is not visualized. No pericecal inflammatory change to sugges t acute appendicitis. No free intraperitoneal gas or fluid. No pathologically enlarged abdominal or p elvic lymphadenopathy. Postoperative changes along the spine including L1-L5 laminectomies, L1-S1 anterior spinal fusion wit h multiple bone graft cages and instrumented posterior spinal fusion with bilateral vertical rods and pedicle screws extending from T9 through S1 sparing the pedicle screws at L2 and including bilateral iliac screws. There is a small retained catheter versus lead I and coiled immediately deep to the an terior abdominal wall the right lower quadrant and the second and positioned in the deep aspect of th e central canal of the upper lumbar spine, partially obscured by streak artifact from the spinal fusi on instrumentation. There are multiple small fat-containing ventral hernias along a midline abdominal scar. IMPRESSION: 1. No acute intra-abdominal/pelvic process. 2. Small sliding-type hiatal hernia. 3. Multiple postoperative changes detailed above. Reviewed, dictated and finalized at location A.
[2022-12-14 04:56] VITALS: BP 154/104; PULSE 77; RESP 15; TEMP 36.4; O2SAT 99
[2022-12-14 05:25] LABS: Alanine Aminotransferase 32 U/L (6-35); Albumin Level 4.4 g/dL (3.5-5.1); Alkaline Phosphatase 108 U/L (38-126); Anion Gap 9 mmol/L (8-16); Aspartate Amino Transferase 36 U/L (14-36); Bilirubin,Total 1.1 mg/dL (0.2-1.3); Blood Urea Nitrogen 15 mg/dL (7-17); Calcium 9.4 mg/dL (8.4-10.2); Carbon Dioxide 24 mmol/L (22-30); Chloride 101 mmol/L (98-107); Estimated CRCL calculation 108 ml/min; Estimated Glomerular Filt Rate > 60; Glucose 248 mg/dL (65-110); Lipase 29 U/L (23-300); Potassium 4.9 mmol/L (3.4-5.0); Sodium 134 mmol/L (137-145)
[2022-12-14 05:50] LABS: Basophils Percent Auto 0.3 % (0.2-1.2); Eosinophils Absolute Auto 0.2 K/mm3 (0-0.3); Eosinophils Percent Auto 2.2 % (0-4.4); Hematocrit 40.7 % (37.0-47.0); Hemoglobin 13.8 g/dL (12.0-15.0); Immature Granulocyte Absolute 0.04 K/mm3 (0.00-0.031); Immature Granulocyte Percent A 0.4 % (0-0.5); Immature Platelet Fraction Pct 2.6 % (0.9-11.2); Lymphocytes Absolute Auto 2.51 K/mm3 (0.9-3.2); Lymphocytes Percent Auto 24.5 % (18.3-44.2); Mean Corpuscular HGB Conc 33.9 g/dl (32-36); Mean Corpuscular Hemoglobin 29.7 pg (26-34); Mean Corpuscular Volume 87.7 fl (80-100); Mean Platelet Volume 9.7 fl (7.4-10.4); Monocytes Absolute Auto 0.5 K/mm3 (0.1-0.6); Monocytes Percent Auto 5.3 % (2.6-8.5); Neutrophils Absolute Auto 6.9 K/mm3 (1.3-6.7); Neutrophils Percent Auto 67.3 % (45.5-73.1); Platelet Count Result 308 k/mm3 (150-375); Red Blood Count 4.64 M/mm3 (4.2-5.4); Red Cell Distribution Width 12.6 % (11.5-14.5); White Blood Count 10.3 K/mm3 (4.5-10.0)
--- NOTE | 2022-12-14 06:13 | ED.GENADULT ---
HPI - General Adult General Chief complaint: Abdominal Pain <Zion Arreguin MD - Last Filed: 12/14/22 07:03> Stated complaint: dysuria <iZon Arreguin MD - Last Filed: 12/14/22 07:03> Time Seen by Provider: 12/14/22 05:10 <Zion Arreguin MD - Last Filed: 12/14/22 07:03> History of Present Illness HPI narrative: Patient 57-year-old female who presents the emergency department with chief complaint of abdominal pain. Patient reports for the last 2 weeks she been having some dysuria and abdominal discomfort. The patient reports that they did urine testing and an x-ray at the facility where she lives at and reports that she was told that she was just having bladder spasms. The patient reports the pain has been getting worse and reports she is not able to get comfortable. Patient reports she had multiple intra-abdominal surgeries in the past patient reports that she had no fever reports symptoms or not improved by anything. <Zion Arreguin MD - Last Filed: 12/14/22 07:03> Related Data Home medications: Home Medications Medication Instructions Recorded Confirmed atorvastatin 40 mg tablet 40 mg PO DAILY 12/31/20 06/24/22 levomilnacipran 120 mg capsule,24 120 mg PO DAILY 12/31/20 06/24/22 hr,extended release (Fetzima) melatonin 10 mg tablet 10 mg PO HS PRN Insomnia 12/31/20 06/24/22 metformin 750 mg tablet,extended 750 mg PO DAILY 12/31/20 06/24/22 release 24 hr ondansetron HCl 4 mg tablet 4 mg PO Q8H PRN Nausea 12/31/20 06/24/22 (Zofran) oxycodone 15 mg tablet 10 mg PO Q6H PRN Pain, Severe 12/31/20 06/24/22 trazodone 100 mg tablet 50 mg PO HS 12/31/20 06/24/22 acetaminophen 650 mg tablet 650 mg PO Q6H PRN Pain (Scale 02/06/21 06/24/22 Score 1-3) Aspercreme 1 inch topical BID PRN Pain 06/24/22 06/24/22 ascorbic acid (vitamin C) 500 mg 500 mg PO TID 06/24/22 06/24/22 tablet multivitamin (Daily Multi-Vitamin 1 tablet PO DAILY 06/24/22 06/24/22 tablet) propranolol 20 mg tablet 20 mg PO Q12H 06/24/22 06/24/22 tizanidine 2 mg capsule (Zanaflex) 2 mg PO Q8H PRN Muscle Spasm 06/24/22 06/24/22 <Zion Arreguin MD - Last Filed: 12/14/22 07:03> Allergies/adverse reactions: Allergies Allergy/AdvReac Type Severity Reaction Status Date / Time latex Allergy Unknown Verified 12/14/22 05:02 topiramate [From Topamax] Allergy Unknown Verified 12/14/22 05:02 <Zion Arreguin MD - Last Filed: 12/14/22 07:03> Review of Systems Review of Systems: A 10 system review of systems was completed on the patient and is negative except for what is stated in the HPI. Nursing and ancillary documentation was reviewed. <Zion Arreguin MD - Last Filed: 12/14/22 07:03> [facility] Past Medical History Medical History: Medical History Chronic back pain Continuous tobacco abuse Diabetes mellitus Essential hypertension Hyperlipidemia <Zion Arreguin MD - Last Filed: 12/14/22 07:03> Surgical History Surgical History: Surgical History History of abdominal surgery History of back surgery <Zion Arreguin MD - Last Filed: 12/14/22 07:03> Family History Family History: Family History Other Unknown family medical history <Zion Arreguin MD - Last Filed: 12/14/22 07:03> Social History Social History: Social History Social History: She is currently living with her daughter after living in transient life tell living with various acquaintances. She has smoked 1 pack of cigarettes per day since she was 16. She denies any alcohol use or drug use. Smoking packs per day: 1.5 Smoking cigarettes per day: 30.0 Years smoked: 35 Smoking pack-ye
[2022-12-14 07:03] LABS: Appearance Urine Turbid (Clear); Bacteria Urine 4+ /hpf; Bilirubin Urine Negative (Negative); Blood Urine 2+ (Negative); Color Urine Yellow (Yellow); Glucose Urine UA Negative (Negative); Ketones Urine Trace mg/dL (Negative); Leukocyte Esterase Ur 3+ LEU/UL (Negative); Need Manual Microscopic Reviewed; Nitrate Urine Positive (Negative); Non Pathogenic Casts 0-2; Protein Urine 1+ mg/dL (Negative); RBC Urine 51-100 /hpf (0-2); Specific Grav Ur 1.023 (1.001-1.035); Squamous Epithelial Cell Urine None seen /hpf (Few); WBC Urine >100 /hpf
[2022-12-14 07:04] LABS: Add Urine Microscopic? YES
[2022-12-14] MEDS: SODIUM CHLORIDE 0.9% IV 1,000 ML 999 ML IV CONT (07:40)
[2022-12-14 07:41] VITALS: BP 157/114; PULSE 84; RESP 18; O2SAT 95
[2022-12-14] MEDS: MORPHINE SULFATE (*CRX) 4 MG/ML INJ IV PUSH (07:51)
[2022-12-14] MEDS: ONDANSETRON INJ 4 MG/2 ML VIAL IV PUSH (07:51)
[2022-12-14] MEDS: fentaNYL CITRATE INJ (*CRX) 100 MCG/2 ML VIAL 12.5 MCG IV PUSH (08:54)
[2022-12-14] MEDS: NITROFURANTOIN MONOHYD MACROCR 100 MG CAP PO (08:54)
[2022-12-14 09:00] VITALS: BP 169/99; PULSE 97; RESP 18; O2SAT 96
[2022-12-14 09:25] VITALS: PULSE 93; RESP 16; O2SAT 95
== END 2022-12-14 09:28 | disposition home or self-care (01) ==
PROVIDERS: Emergency Medicine; Emergency Provider Emergency Medicine; PCP Hospitalist
DX: N39.0 Urinary tract infection, site not specified (principal); E11.9 Type 2 diabetes mellitus without complications; I10 Essential (primary) hypertension; E78.5 Hyperlipidemia, unspecified; Z87.891 Personal history of nicotine dependence
CPT/HCPCS: 36415; 74177; 80053; 81001; 83690; 85025; 85055; 87077; 87086; 87186; 96361; 96365; 96375; 99284; A9270; J0696; J2270; J2405; J3010; J7030; Q9967

== ENCOUNTER 2023-04-15 18:09 | Emergency (ER) | payer MEDICARE, MEDICAID, SELFPAY ==
[2023-04-15] VITALS (11 sets, daily range): BP systolic 131–156; BP diastolic 72–88; PULSE 101–110; RESP 12–18; TEMP 36.6; O2SAT 95–96
--- NOTE | ~2023-04-15 | CT_ITS ---
EXAMINATION: CTA brain carotid DATE: 04/15/2023 19:53 INDICATION: left side numbness, slurred speech TECHNIQUE: Computed tomographic angiography (CTA) of the head and neck was performed with 100 mL Omni paque-350 intravenous contrast. Automated exposure control and iterative reconstruction technique wer e employed. . The dose-length product was 1179.47 mGy-cm. Maximum intensity projection and volume re ndered 3D-reconstructions were created by the technologist on a separate workstation. COMPARISON: CT brain same date; CTA brain carotid 06/26/2022. FINDINGS: CT BRAIN: No acute large vessel infarct, intracranial hemorrhage, mass, or hydrocephalus. Atherosclerotic calci fication of the cavernous portions of the carotids without significant stenosis. Symmetric parenchyma l enhancement. Patent cerebral veins. CTA HEAD: No large vessel occlusion, aneurysm, high flow vascular malformation, nidus or extravasation. CTA NECK: Aortic arch and proximal great vessels: Normal arch anatomy. Mild arch calcification. Right common carotid, carotid bifurcation, and internal carotid artery: No calcification.There is 0% stenosis of the proximal right internal carotid artery relative to normal distal artery lumen diamete r (NASCET criteria). Left common carotid, carotid bifurcation, and internal carotid artery: Minimal opacification at the b ifurcation.There is 0% stenosis of the proximal left internal carotid artery relative to normal dista l artery lumen diameter (NASCET criteria). Vertebral arteries: No significant plaque or stenosis. Other findings: Bilateral anterior cervical chain lymphadenopathy. Uncomplicated appearing cervical f usion hardware. IMPRESSION: No large vessel occlusion. No significant carotid or vertebral artery stenosis. Bilateral anterior cervical chain lymphadenopathy. Reviewed, dictated and finalized at location K. LAYER
--- NOTE | ~2023-04-15 | CT_ITS ---
EXAMINATION: CT brain wo con DATE: 04/15/2023 19:20 INDICATION: CVA . TECHNIQUE: Computed tomography (CT) of the head was performed without intravenous contrast. The mA wa s adjusted according to patient size. Iterative reconstruction technique was employed. The dose-lengt h product was 1210.67 mGy-cm. COMPARISON: 06/24/2022. FINDINGS: No acute intracranial hemorrhage or extra-axial fluid collection. No hydrocephalus, mass, or herniation. No acute ischemic infarct. Unremarkable dural venous sinus attenuation. No acute osseous abnormality. Prior left maxillary sinus surgery. Mucosal thickening and aerated secretions in the left maxillary s inus, mild ethmoid mucosal thickening, the remaining aerated spaces are clear. Mild atrophy and chronic white matter change. Atherosclerotic intracranial calcification. IMPRESSION: No acute intracranial process. Aerated secretions in the left maxillary sinus may represent acute sinusitis in the appropriate clini kriss context. Results reported telephonically to Dr. Arreguin by Dr. Diaz at 7:25 PM on 04/07/2023. Reviewed, dictated and finalized at location K. SPORT AIDE IMPRESSION: No acute intracranial process. Aerated secretions in the left maxillary sinus may represent acute sinusitis in the appropriate clinical context. Results reported telephonically to Dr. Arreguin by Dr. Diaz at 7:25 PM on .
--- NOTE | ~2023-04-15 | XR_ITS ---
EXAMINATION: XR chest 2V Exam Date/Time: 04/15/2023 18:30 CRAB CATCHER HISTORY: chest pain radiating to left arm, HTN Comparison: CT abdomen and pelvis 12/06/2022 and 06/24/2022. RESULT: Lines, tubes, and devices: Partially visualized thoracolumbar fusion hardware. Lungs and pleura: Left lower lung calcified granuloma and adjacent somewhat nodular appearing scarri ng, stable. Bibasilar atelectasis/scar. Cardiomediastinal silhouette: Stable. Other: No acute osseous or upper abdominal finding. Old left posterior rib fracture. IMPRESSION: No acute cardiopulmonary process. Reviewed, dictated and finalized at location K. CATCHER
--- NOTE | 2023-04-15 18:11 | ECG_ITS ---
Measurements Intervals [place] Rate: 101 P: 48 [place]: 134 QRS: -20 QRSD: 84 T: 42 QT: 336 QTc: 436 Interpretive Statements SINUS TACHYCARDIA OLD INFERIOR INFARCT COMPARED TO ECG 06/24/2022 17:59:54 SINUS TACHYCARDIA NOW PRESENT Electronically Signed On 04-16-2023 16:30:08 NURSE RECEPTIONIST by Louie Colbert M.D.
--- NOTE | 2023-04-15 19:00 | ECG_ITS ---
Measurements Intervals [place] Rate: 97 P: 50 CO: 129 QRS: -24 QRSD: 78 T: 20 QT: 328 QTc: 418 Interpretive Statements SINUS RHYTHM INFERIOR MYOCARDIAL INFARCTION , PROBABLY OLD COMPARED TO ECG 04/15/2023 18:18:22 SINUS RHYTHM NOW PRESENT Electronically Signed On 04-16-2023 16:30:55 FORESTRY FIRE AID by Louie Colbert M.D.
--- NOTE | 2023-04-15 19:07 | PC.NURSE ---
Patient presents to the intake desk with complaints of left sided arm numbness that began within the last 10 minutes. Patient brought into triage and stroke scale performed by this RN. Patient was having numbness and decreased sensation to the left side and began stuttering and slurring her words. This RN called a code stroke and took patient to stroke stop for evaluation.
[2023-04-15 19:09] LABS: Glucose Point of Care 283 mg/dl (65-105)
--- NOTE | 2023-04-15 19:10 | ED.NEUROSD ---
HPI - Neuro Symptoms/Deficit General Chief Complaint: Suspected CVA Stated Complaint: chest pain x 1 week Time Seen by Provider: 04/15/23 19:07 History of Present Illness HPI Narrative: Patient is a 57-year-old female who presents to emergency department with chief complaint of stroke-like symptoms. The patient initially checked into triage with complaint of discomfort in her chest for 1 week of the patient also is concerned that she may have had a urinary tract infection. The patient does have history of TIAs and has been on low-dose aspirin as an outpatient. While waiting in the lobby the patient had sudden onset of difficulty with speech and also tingling on the left side of her body. The patient reports that the tingling in her left leg is so difficult that she is unable to lift her leg up. Related Data Home Medications Medication Instructions Recorded Confirmed atorvastatin 40 mg tablet 40 mg PO DAILY 12/31/20 06/24/22 levomilnacipran 120 mg capsule,24 120 mg PO DAILY 12/31/20 06/24/22 hr,extended release (Fetzima) melatonin 10 mg tablet 10 mg PO HS PRN Insomnia 12/31/20 06/24/22 metformin 750 mg tablet,extended 750 mg PO DAILY 12/31/20 06/24/22 release 24 hr ondansetron HCl 4 mg tablet 4 mg PO Q8H PRN Nausea 12/31/20 06/24/22 (Zofran) oxycodone 15 mg tablet 10 mg PO Q6H PRN Pain, Severe 12/31/20 06/24/22 trazodone 100 mg tablet 50 mg PO HS 12/31/20 06/24/22 acetaminophen 650 mg tablet 650 mg PO Q6H PRN Pain (Scale 02/06/21 06/24/22 Score 1-3) Aspercreme 1 inch topical BID PRN Pain 06/24/22 06/24/22 ascorbic acid (vitamin C) 500 mg 500 mg PO TID 06/24/22 06/24/22 tablet multivitamin (Daily Multi-Vitamin 1 tablet PO DAILY 06/24/22 06/24/22 tablet) propranolol 20 mg tablet 20 mg PO Q12H 06/24/22 06/24/22 tizanidine 2 mg capsule (Zanaflex) 2 mg PO Q8H PRN Muscle Spasm 06/24/22 06/24/22 Allergies Allergy/AdvReac Type Severity Reaction Status Date / Time latex Allergy Unknown Verified 12/14/22 05:02 topiramate [From Topamax] Allergy Unknown Verified 12/14/22 05:02 Review of Systems Review of Systems: A 10 system review of systems was completed on the patient and is negative except for what is stated in the HPI. Nursing and ancillary documentation was reviewed. PMFSH Past Medical History Medical History Chronic back pain Continuous tobacco abuse Diabetes mellitus Essential hypertension Hyperlipidemia Surgical History Surgical History History of abdominal surgery History of back surgery Family History Family History Other Unknown family medical history Social History Social History Social History: She is currently living with her daughter after living in transient life tell living with various acquaintances. She has smoked 1 pack of cigarettes per day since she was 16. She denies any alcohol use or drug use. Smoking packs per day: 1.5 Smoking cigarettes per day: 30.0 Years smoked: 35 Smoking pack-years: 52.50 Smoking status: Former smoker Tobacco type: cigarettes Alcohol intake: never Substance use: never Substance use type: opiates Lack of Transportation: No Lack of Food: Never True Current Housing: I Have Housing Concerned About Future Housing: No Difficulty Paying Gas/Electric Bills: No Difficulty Paying for Meds: No Currently Unemployed: No Education: Don't Know Difficulty w/ Childcare or Family Care: No Living arrangements: snf Spiritual care concerns: No Course Vital Signs Vital signs: Vital Signs Temperature 36.6 C 04/15/23 18:12 Pulse Rate 105 H 04/15/23 18:12 Respiratory Rate 18 04/15/23 18:12 Blood Pressure 148/86 H 04/15/23 18:12 Pulse Oximetry 95
[2023-04-15 19:40] LABS: Basophils Percent Auto 0.3 % (0.2-1.2); Eosinophils Absolute Auto 0.2 K/mm3 (0-0.3); Eosinophils Percent Auto 1.9 % (0-4.4); Hemoglobin 13.6 g/dL (12.0-15.0); Immature Granulocyte Absolute 0.04 K/mm3 (0.00-0.031); Immature Granulocyte Percent A 0.3 % (0-0.5); Lymphocytes Percent Auto 31.1 % (18.3-44.2); Mean Corpuscular HGB Conc 32.4 g/dl (32-36); Mean Corpuscular Hemoglobin 29.4 pg (26-34); Mean Corpuscular Volume 90.9 fl (80-100); Mean Platelet Volume 9.9 fl (7.4-10.4); Monocytes Absolute Auto 0.7 K/mm3 (0.1-0.6); Monocytes Percent Auto 5.6 % (2.6-8.5); Neutrophils Absolute Auto 7.2 K/mm3 (1.3-6.7); Neutrophils Percent Auto 60.8 % (45.5-73.1); Platelet Count Result 322 k/mm3 (150-375); Red Blood Count 4.62 M/mm3 (4.2-5.4); Red Cell Distribution Width 13.8 % (11.5-14.5); White Blood Count 11.9 K/mm3 (4.5-10.0)
[2023-04-15] MEDS: PROCHLORPERAZINE EDISYLATE 10 MG/2 ML VIAL IV PUSH (19:41)
[2023-04-15] MEDS: diphenhydrAMINE HCl INJ 50 MG/ML VIAL IV PUSH (19:41)
[2023-04-15 19:45] LABS: Estimated CRCL calculation 108 ml/min; Estimated Glomerular Filt Rate > 60
[2023-04-15 19:50] LABS: INR 0.9; Prothrombin Time 12.6 Seconds (11.1-14.7)
[2023-04-15 19:51] LABS: Partial Thromboplastin Time 27.3 SECONDS (22.3-36.8)
[2023-04-15 19:52] LABS: Alanine Aminotransferase 30 U/L (6-35); Albumin Level 4.3 g/dL (3.5-5.1); Alkaline Phosphatase 155 U/L (38-126); Anion Gap 11 mmol/L (8-16); Aspartate Amino Transferase 32 U/L (14-36); Bilirubin,Total 0.8 mg/dL (0.2-1.3); Blood Urea Nitrogen 17 mg/dL (7-17); Calcium 9.5 mg/dL (8.4-10.2); Carbon Dioxide 28 mmol/L (22-30); Chloride 98 mmol/L (98-107); Estimated CRCL calculation 108 ml/min; Estimated Glomerular Filt Rate > 60; Glucose 283 mg/dL (65-110); Lipase 36 U/L (23-300); Sodium 137 mmol/L (137-145)
[2023-04-15 20:03] LABS: Troponin I < 0.012 ng/mL (0.000-0.034)
[2023-04-15] MEDS: SODIUM CHLORIDE 0.9% IV 1,000 ML 999 ML IV CONT (20:17)
[2023-04-15 20:26] LABS: Appearance Urine Turbid (Clear); Bacteria Urine 4+ /hpf; Bilirubin Urine Negative (Negative); Blood Urine 1+ (Negative); Color Urine Yellow (Yellow); Glucose Urine UA Negative (Negative); Ketones Urine Negative (Negative); Leukocyte Esterase Ur 3+ LEU/UL (Negative); Nitrate Urine Positive (Negative); Non Pathogenic Casts 0-2; Protein Urine 1+ mg/dL (Negative); RBC Urine 0-2 /hpf (0-2); Squamous Epithelial Cell Urine None seen /hpf (Few); WBC Urine >100 /hpf; pH Urine 5.5 (5.0-9.0)
[2023-04-15 20:35] LABS: Specific Grav Ur 1.039 (1.001-1.035)
[2023-04-15 20:38] LABS: Add Urine Microscopic? YES
[2023-04-15] MEDS: LORazepam INJ (*CRX) 2 MG/ML VIAL 0.5 MG IV PUSH (21:10)
[2023-04-15] MEDS: MORPHINE SULFATE (*CRX) 2 MG/ML INJ IV PUSH (21:54)
--- NOTE | 2023-04-15 22:42 | PC.NURSE ---
pt's weight was initially estimated in triage. Dosing in JUN for Activase was based on that weight. This RN obtained weight on a weigh bed which was 110.3 kg. Used the Activase Dosing Regimen for Acute Ischemic Stroke in the Clot box for dosing. According to the dosing chart the total dose is 90mg. 10mg was discarded. A 9mg bolus dose was given over 1 minute and an infusion dose of 81mg was given over 60 minutes. Bolus dose was given at 2055 and the infusion dose was started at 2100. This was verified by 2nd RN, Claudia Graf. Report was called to [facility] ED and spoke with Ivelisse MOORE. Activase was finished before getting transferred to [facility].
--- NOTE | 2023-04-15 22:58 | PC.NURSE ---
This RN verified TPA w/ Lana Escobar RN, pt weight was actual and changed from verbal weight to weigh bed. 10 mls of TPA wasted, 9 given over one minute by this RN at 5, remainder of 81mg was administered over 60 mins and infused prior to pt transport.
== END 2023-04-15 22:20 | disposition short-term general hospital (02) ==
PROVIDERS: Emergency Medicine; Emergency Provider Emergency Medicine; PCP Hospitalist
DX: I63.9 Cerebral infarction, unspecified (principal); R29.705 NIHSS score 5; I10 Essential (primary) hypertension; E11.9 Type 2 diabetes mellitus without complications; E78.5 Hyperlipidemia, unspecified; Z86.73 Personal history of transient ischemic attack (TIA), and cerebral infarction without residual deficits; Z79.84 Long term (current) use of oral hypoglycemic drugs; Z79.82 Long term (current) use of aspirin; F17.210 Nicotine dependence, cigarettes, uncomplicated
CPT/HCPCS: 36415; 37195; 70450; 70496; 70498; 71046; 80053; 81001; 82948; 83690; 84484; 85025; 85610; 85730; 87077; 87086; 87186; 93005; 96361; 96374; 96375; 99285; J0780; J1200; J2060; J2270; J2997; J7030; Q9967

== ENCOUNTER 2023-04-27 19:20 | Observation (INO) | payer MEDICARE, MEDICAID, SELFPAY ==
[2023-04-27] VITALS (22 sets, daily range): BP systolic 95–103; BP diastolic 60–78; PULSE 92–108; RESP 11–17; TEMP 36.9; O2SAT 91–98
--- NOTE | ~2023-04-27 | CT_ITS ---
EXAMINATION: CT abdomen pelvis wo con DATE: 04/27/2023 22:23 INDICATION: abdominal pain, diarrhea TECHNIQUE: Computed tomography (CT) of the abdomen and pelvis was performed without intravenous contr ast. Automated exposure control and iterative reconstruction technique were employed. The dose-length product was 1514.97 mGy-cm. COMPARISON: 12/14/2022. FINDINGS: Lower thorax: Left basilar scar/atelectasis. Coronary artery calcification. Liver: Mildly enlarged. Diffuse fatty infiltration. Biliary/Gallbladder: Gallbladder is absent. No bile duct dilation. Pancreas: Pancreatic atrophy. Spleen: Normal. Adrenals:Left adrenal adenoma. Kidneys: No suspicious mass, obstructing stone, or hydronephrosis. GI tract: Uncomplicated duodenal diverticulum. Uncomplicated rectosigmoid anastomosis. No small or la rge bowel dilation. Appendix not confidently visualized. Diverticulosis without diverticulitis. Mesentery/Peritoneum: No ascites, mass, or free air. Retroperitoneum: No mass. Atherosclerotic abdominal aortic and/or arterial calcifications. Pelvis: Absent uterus. Moderate bladder wall inflammation. Soft Tissues: Multiple uncomplicated fat-containing ventral hernias. Retained catheter or lead, coile d in the right mid abdomen and extending into the upper lumbar canal. Bones: No acute osseous finding. Uncomplicated appearing thoracolumbar fusion hardware. Multilevel l aminectomies. IMPRESSION: Hepatomegaly and steatosis. Cystitis. Reviewed, dictated and finalized at location K. KLOAD OWNER OPERATOR
--- NOTE | ~2023-04-27 | CT_ITS ---
EXAMINATION: CT brain wo con DATE: 04/27/2023 22:14 INDICATION: fall head injury . TECHNIQUE: Computed tomography (CT) of the head was performed without intravenous contrast. The mA wa s adjusted according to patient size. Iterative reconstruction technique was employed. The dose-lengt h product was 605.33 mGy-cm. COMPARISON: 04/07/2023. FINDINGS: Study limited by motion artifact and nonstandard positioning. No acute intracranial hemorrhage or extra-axial fluid collection. No hydrocephalus, mass, or herniation. No acute ischemic infarct. Unremarkable dural venous sinus attenuation. No acute osseous abnormality in the skull. Comminuted, depressed and displaced nasal bone fractures. Ethmoid and left maxillary mucosal thickening. Prior left maxillary sinus surgery. The remaining aera makayla spaces are clear. Mild atrophy and chronic white matter change. Atherosclerotic intracranial calcifications. IMPRESSION: No acute intracranial process. Nasal bone fractures. Reviewed, dictated and finalized at location K. HES DRIER REPAIRER
--- NOTE | ~2023-04-27 | XR_ITS ---
EXAM: XR knee RT 3V DATE: 04/27/2023 22:29 HISTORY: pain status post fall . COMPARISON: None available. FINDINGS: Decreased mineralization. No fracture or dislocation. No lytic or blastic lesion. Tricompa rtmental osteoarthritis, moderate in the medial and patellofemoral compartments. No erosion or perios teal change. Soft tissues within normal limits. IMPRESSION: No acute osseous finding in the right knee. Reviewed, dictated and finalized at location K. S EDGER
--- NOTE | ~2023-04-27 | CT_ITS ---
EXAMINATION: CT facial & cervical spine wo DATE: 04/27/2023 22:18 INDICATION: facial trauma TECHNIQUE: Computed tomography (CT) of the maxillofacial region and cervical spine was performed with out intravenous contrast. Automated exposure control and iterative reconstruction technique were empl oyed. The dose-length product was 569.83 mGy-cm. COMPARISON: CT C-spine 12/29/2020 FINDINGS: CERVICAL: Vertebral Body Alignment: Intact. Craniocervical and atlantoaxial alignment: Mild degenerative change. Alignment intact. Osseous structures/fracture: No evidence of a lytic or blastic process in the visualized spine. No e vidence of acute fracture. Uncomplicated appearing ACDF hardware spanning C4-C7. Cervical soft tissues: The paraspinal soft tissues planes are maintained. Enlarged right submandibula r gland. Septal thickening and mild emphysematous change in the lung apices. Degenerative changes: Degenerative changes, without severe neural foraminal or central canal narrowin g. FACE: Soft Tissues: Soft tissue swelling over the nose. Facial bones: Comminuted, mildly depressed and mildly displaced nasal bone fractures. Fracture of th e osseous nasal septum. No septal hematoma. No lytic or blastic process. Eyes: The globes are intact. The soft tissue planes of the orbits are maintained. Paranasal Sinuses: Left antral window. Mucosal thickening in the left maxillary and ethmoid sinuses. Foreign Bodies: No radiopaque foreign bodies. Other Findings: Extensive dental caries. The right maxillary central incisor is posteriorly displaced , without obvious fracture. IMPRESSION: No acute fracture or traumatic malalignment in the cervical spine. Enlarged right submandibular gland. Mild pulmonary edema. Comminuted, mildly depressed and mildly displaced nasal bone fractures. Fracture of the anterior osse ous septum. Posterior displacement of the right maxillary central incisor, probably a chronic finding, correlate for pain or loosening. Extensive dental caries. Reviewed, dictated and finalized at [facility] IMPRESSION: No acute fracture or traumatic malalignment in the cervical spine. Enlarged right submandibular gland. Mild pulmonary edema. Comminuted, mildly depressed and mildly displaced nasal bone fractures. Fractur e of the anterior osseous septum. Posterior displacement of the right maxillary central incisor, probably a chron ic finding, correlate for pain or loosening. Extensive dental caries.
[2023-04-27 19:28] LABS: Glucose Point of Care 147 mg/dl (65-105)
--- NOTE | 2023-04-27 19:29 | ECG_ITS ---
Measurements Intervals [place] Rate: 100 P: 39 [place]: 127 QRS: -24 QRSD: 86 T: -6 QT: 326 QTc: 422 Interpretive Statements SINUS TACHYCARDIA ATRIAL PREMATURE COMPLEX INFERIOR INFARCT, AGE INDETERMINATE BORDERLINE T WAVE ABNORMALITY- ANTERIOR LEADS BASELINE ARTIFACT- I, II, III, AVR, AVF, V1 ABNORMAL ECG COMPARED TO ECG 04/15/2023 19:23:36 SINUS TACHYCARDIA NOW PRESENT Electronically Signed On 04-29-2023 6:22:29 PAPER PATTERN FOLDER by Shelton Brown D.O.
[2023-04-27] MEDS: SODIUM CHLORIDE 0.9% IV 1,000 ML 999 ML IV CONT ×2 (20:10→22:03)
[2023-04-27 21:17] LABS: Basophils Percent Auto 0.2 % (0.2-1.2); Eosinophils Absolute Auto 0.2 K/mm3 (0-0.3); Eosinophils Percent Auto 1.2 % (0-4.4); Hematocrit 38.1 % (37.0-47.0); Hemoglobin 12.1 g/dL (12.0-15.0); Immature Granulocyte Absolute 0.06 K/mm3 (0.00-0.031); Immature Granulocyte Percent A 0.5 % (0-0.5); Lymphocytes Absolute Auto 2.82 K/mm3 (0.9-3.2); Lymphocytes Percent Auto 21.9 % (18.3-44.2); Mean Corpuscular HGB Conc 31.8 g/dl (32-36); Mean Corpuscular Hemoglobin 29.4 pg (26-34); Mean Corpuscular Volume 92.7 fl (80-100); Monocytes Absolute Auto 0.8 K/mm3 (0.1-0.6); Monocytes Percent Auto 6.5 % (2.6-8.5); Neutrophils Percent Auto 69.7 % (45.5-73.1); Platelet Count Result 302 k/mm3 (150-375); Red Blood Count 4.11 M/mm3 (4.2-5.4); Red Cell Distribution Width 14.3 % (11.5-14.5); White Blood Count 12.9 K/mm3 (4.5-10.0)
[2023-04-27 21:39] LABS: Prothrombin Time 13.9 Seconds (11.1-14.7)
[2023-04-27 21:40] LABS: Lipase 12 U/L (23-300); Magnesium 1.2 mg/dL (1.6-2.3)
[2023-04-27 21:40] LABS: Alanine Aminotransferase 25 U/L (6-35); Albumin Level 3.1 g/dL (3.5-5.1); Alkaline Phosphatase 74 U/L (38-126); Anion Gap 15 mmol/L (8-16); Aspartate Amino Transferase 37 U/L (14-36); Bilirubin,Total 0.7 mg/dL (0.2-1.3); Blood Urea Nitrogen 33 mg/dL (7-17); Calcium 6.7 mg/dL (8.4-10.2); Carbon Dioxide 16 mmol/L (22-30); Chloride 104 mmol/L (98-107); Estimated CRCL calculation 22 ml/min; Estimated Glomerular Filt Rate 14; Glucose 147 mg/dL (65-110); Partial Thromboplastin Time 23.7 SECONDS (22.3-36.8); Potassium 4.2 mmol/L (3.4-5.0); Sodium 135 mmol/L (137-145)
[2023-04-27 21:46] LABS: Troponin I < 0.012 ng/mL (0.000-0.034)
[2023-04-27 21:54] LABS: Influenza A QL RT-PCR Negative (Negative); Influenza B QL RT-PCR Negative (Negative); RSV RNA, RT-PCR Negative (Negative); SARS-CoV-2 RNA PCR Negative (Negative)
[2023-04-27 21:58] LABS: Procalcitonin 0.3 ng/mL
[2023-04-27] MEDS: MAGNESIUM SULF 2 GM/WATER 50ML 2 GM/50 ML BAG IVPB (22:02)
[2023-04-27 22:18] LABS: Appearance Urine Turbid (Clear); Bilirubin Urine 1+ (Negative); Blood Urine 2+ (Negative); Color Urine Dark Yellow (Yellow); Glucose Urine UA Negative (Negative); Ketones Urine 1+ mg/dL (Negative); Leukocyte Esterase Ur 3+ LEU/UL (Negative); Nitrate Urine Positive (Negative); Protein Urine 3+ mg/dL (Negative); Specific Grav Ur 1.016 (1.001-1.035)
[2023-04-27 22:30] LABS: Add Urine Microscopic? YES
[2023-04-27 22:31] LABS: Squamous Epithelial Cell Urine Few /hpf (Few); WBC Urine >100 /hpf (0-3)
[2023-04-27 22:32] LABS: Bacteria Urine 2+ /hpf
--- NOTE | 2023-04-27 23:38 | ED.GENADULT ---
HPI - General Adult General Chief complaint: Syncope Stated complaint: Syncope Time Seen by Provider: 04/27/23 19:56 History of Present Illness HPI narrative: Patient is a 57-year-old female who presents emergency department with chief complaint of generalized weakness. The patient reports that she fell while feeling lightheaded but had no syncope the patient states she has been having diarrhea throughout the day and reports that she had an abrasion to her right knee area. Patient reports that she feels very weak and run down the patient was recently transferred to [facility] after she had a acute stroke in the lobby of the emergency department and was thrombolysis at that time. Related Data Home Medications Medication Instructions Recorded Confirmed atorvastatin 40 mg tablet 40 mg PO DAILY 12/31/20 06/24/22 levomilnacipran 120 mg capsule,24 120 mg PO DAILY 12/31/20 06/24/22 hr,extended release (Fetzima) melatonin 10 mg tablet 10 mg PO HS PRN Insomnia 12/31/20 06/24/22 metformin 750 mg tablet,extended 750 mg PO DAILY 12/31/20 06/24/22 release 24 hr ondansetron HCl 4 mg tablet 4 mg PO Q8H PRN Nausea 12/31/20 06/24/22 (Zofran) oxycodone 15 mg tablet 10 mg PO Q6H PRN Pain, Severe 12/31/20 06/24/22 trazodone 100 mg tablet 50 mg PO HS 12/31/20 06/24/22 acetaminophen 650 mg tablet 650 mg PO Q6H PRN Pain (Scale 02/06/21 06/24/22 Score 1-3) Aspercreme 1 inch topical BID PRN Pain 06/24/22 06/24/22 ascorbic acid (vitamin C) 500 mg 500 mg PO TID 06/24/22 06/24/22 tablet multivitamin (Daily Multi-Vitamin 1 tablet PO DAILY 06/24/22 06/24/22 tablet) propranolol 20 mg tablet 20 mg PO Q12H 06/24/22 06/24/22 tizanidine 2 mg capsule (Zanaflex) 2 mg PO Q8H PRN Muscle Spasm 06/24/22 06/24/22 Allergies Allergy/AdvReac Type Severity Reaction Status Date / Time latex Allergy Unknown Verified 12/14/22 05:02 topiramate [From Topamax] Allergy Unknown Verified 12/14/22 05:02 Review of Systems Review of Systems: A 10 system review of systems was completed on the patient and is negative except for what is stated in the HPI. Nursing and ancillary documentation was reviewed. PMFSH Past Medical History Medical History Chronic back pain Continuous tobacco abuse Diabetes mellitus Essential hypertension Hyperlipidemia Surgical History Surgical History History of abdominal surgery History of back surgery Family History Family History Other Unknown family medical history Social History Social History Social History: She is currently living with her daughter after living in transient life tell living with various acquaintances. She has smoked 1 pack of cigarettes per day since she was 16. She denies any alcohol use or drug use. Smoking packs per day: 1.5 Smoking cigarettes per day: 30.0 Years smoked: 35 Smoking pack-years: 52.50 Smoking status: Former smoker Tobacco type: cigarettes Alcohol intake: never Substance use: never Substance use type: opiates Lack of Transportation: No Lack of Food: Never True Current Housing: I Have Housing Concerned About Future Housing: No Difficulty Paying Gas/Electric Bills: No Difficulty Paying for Meds: No Currently Unemployed: No Education: Don't Know Difficulty w/ Childcare or Family Care: No Living arrangements: [facility] Spiritual care concerns: No Exam Narrative: GENERAL: Well-appearing, well-nourished, and in no acute distress. HEAD: Normocephalic, atraumatic. EYES: PERRLA and EOMI. ENT: Nares clear, no rhinorrhea or epistaxis. Mucous membranes moist. There is bruising present to the bridge of the nose NECK: Supple. CHEST: Clear to auscultation. No respiratory dis
[2023-04-28] VITALS (27 sets, daily range): BP systolic 100–127; BP diastolic 50–81; PULSE 84–102; RESP 10–18; TEMP 36.3–36.8; O2SAT 93–100
[2023-04-28] MEDS: MAGNESIUM SULF 2 GM/WATER 50ML 2 GM/50 ML BAG IVPB (00:14)
[2023-04-28] MEDS: SODIUM CHLORIDE 0.9% IV 1,000 ML 999 ML IV CONT (00:14)
--- NOTE | 2023-04-28 01:41 | ADMGEN ---
This patient, Susannah Garza, was admitted to Medical Room 241-01. Patient/family oriented to hospital policies and general routines including ID bracelet, bed and alarms, visiting hours, pain management, procedures, bathroom and other care routines, personal items, smoking policy, room service/diet, and visiting hours. Information on how to activate the Rapid Response Team has been discussed. Patient/Family are encouraged to report perceived risks to care and to ask questions if they do not understand what they are told or what they should do.
[2023-04-28] MEDS: SODIUM CHLORIDE 0.9% IV 1,000 ML 125 ML IV CONT ×3 (02:21→18:20)
[2023-04-28] MEDS: ACETAMINOPHEN 325 MG TABLET 650 MG PO (04:48)
[2023-04-28 06:24] LABS: Magnesium 2.7 mg/dL (1.6-2.3)
[2023-04-28 08:45] LABS: Basophils Percent Auto 0.3 % (0.2-1.2); Eosinophils Absolute Auto 0.1 K/mm3 (0-0.3); Eosinophils Percent Auto 1.4 % (0-4.4); Hematocrit 36.5 % (37.0-47.0); Hemoglobin 11.5 g/dL (12.0-15.0); Immature Granulocyte Absolute 0.04 K/mm3 (0.00-0.031); Immature Granulocyte Percent A 0.4 % (0-0.5); Lymphocytes Absolute Auto 2.33 K/mm3 (0.9-3.2); Lymphocytes Percent Auto 25.3 % (18.3-44.2); Mean Corpuscular HGB Conc 31.5 g/dl (32-36); Mean Corpuscular Hemoglobin 29.6 pg (26-34); Mean Corpuscular Volume 94.1 fl (80-100); Mean Platelet Volume 10.1 fl (7.4-10.4); Monocytes Absolute Auto 0.8 K/mm3 (0.1-0.6); Monocytes Percent Auto 8.3 % (2.6-8.5); Neutrophils Absolute Auto 5.9 K/mm3 (1.3-6.7); Neutrophils Percent Auto 64.3 % (45.5-73.1); Platelet Count Result 297 k/mm3 (150-375); Red Blood Count 3.88 M/mm3 (4.2-5.4); Red Cell Distribution Width 14.3 % (11.5-14.5); White Blood Count 9.2 K/mm3 (4.5-10.0)
--- NOTE | 2023-04-28 08:58 | PM.IMHP ---
H&P: HPI History of Present Illness Date/Time: 04/28/23 08:58 Chief Complaint: Weakness Narrative: This 57 year female patient who presents to [facility] has been status post CVA 2 weeks ago with residual left-sided weakness presented through the emergency room last evening generalized weakness. She indicates that she was attempting to ambulate to the restroom after her call light was not answered and she fell, landing 1st on her right knee and then falling forward onto her face. She endorses feeling lightheaded prior to. She also endorses having 2-3 days previous of nausea, vomiting and diarrhea that she believes led to her increased weakness. She was evaluated in the emergency room and was found to have acute kidney injury with creatinine of 3.3 and BUN of 33, elevated white blood cell count 12.9, an acute urinary tract infection with 3+ leukocyte esterase, positive nitrates and greater than 100 wbc's in the urine, hypo magnesemia at 1.2 and imaging was significant for a nasal bone fracture. Patient was started on Rocephin empirically for urinary tract infection pending culture, received magnesium supplementation and was admitted to the floor. Patient has had stable vital signs since admission and does continue to report some pain in her right knee. She denies any chest pain, dyspnea, further nausea vomiting or diarrhea and no headache, lightheadedness or dizziness. She does have a left-sided residual which is her new baseline. Review of Systems Review of Systems: All systems reviewed & are unremarkable except as noted in HPI and below PMFSH Past Medical History Medical History (Updated 04/28/23 @ 09:20 by HEATHER Sparks) Anxiety Chronic back pain Continuous tobacco abuse CVA (cerebral vascular accident) Depression Diabetes mellitus Essential hypertension Hyperlipidemia Hypomagnesemia Migraines Surgical History Surgical History History of abdominal surgery History of back surgery Family History Family History Father Diabetes mellitus Congestive heart failure Mother Unknown family medical history Social History Social History Social History: She is currently living with her daughter after living in transient life tell living with various acquaintances. She has smoked 1 pack of cigarettes per day since she was 16. She denies any alcohol use or drug use. Smoking packs per day: 1 Smoking cigarettes per day: 20.0 Years smoked: 35 Smoking pack-years: 35.00 Smoking status: Former smoker Tobacco type: cigarettes Additional smoking assessment comments: hx of smoking up to 4 packs per day Alcohol intake: never Substance use: never Substance use type: does not use Do You Feel Safe in your Home?: Yes Lack of Transportation: No Lack of Food: Never True Current Housing: I Have Housing Concerned About Future Housing: No Difficulty Paying Gas/Electric Bills: No Difficulty Paying for Meds: No Currently Unemployed: No Education: High School Diploma/GED Difficulty w/ Childcare or Family Care: No Living arrangements: residential Spiritual care concerns: No Meds Home Medications and Allergies Home Medications Medication Instructions Recorded Confirmed Type atorvastatin 40 mg tablet 40 mg PO DAILY 12/31/20 04/28/23 History levomilnacipran 120 mg capsule,24 120 mg PO DAILY 12/31/20 04/28/23 History hr,extended release (Fetzima) melatonin 10 mg tablet 10 mg PO HS PRN Insomnia 12/31/20 04/28/23 History metformin 750 mg tablet,extended 1,000 mg PO DAILY 12/31/20 04/28/23 History release 24 hr ondansetron HCl 4 mg tablet 4 mg PO Q8H PRN Nausea 12/31/20 04/28/23 History (Zofran) oxycodone 15 mg tablet 10 mg PO Q6H PRN Pain, Severe 12/31/20 04/28/23 History acetaminophen 650 mg tab
[2023-04-28 09:17] LABS: Alanine Aminotransferase 24 U/L (6-35); Alkaline Phosphatase 92 U/L (38-126); Anion Gap 14 mmol/L (8-16); Aspartate Amino Transferase 35 U/L (14-36); Bilirubin,Total 0.6 mg/dL (0.2-1.3); Blood Urea Nitrogen 29 mg/dL (7-17); Carbon Dioxide 19 mmol/L (22-30); Chloride 106 mmol/L (98-107); Estimated CRCL calculation 34 ml/min; Estimated Glomerular Filt Rate 24; Glucose 121 mg/dL (65-110); Potassium 3.9 mmol/L (3.4-5.0); Sodium 139 mmol/L (137-145)
[2023-04-28 10:00] LABS: Hemoglobin A1C 9.5 % (<5.7)
[2023-04-28] MEDS: ATORVASTATIN 40 MG TABLET PO (10:03)
[2023-04-28] MEDS: ASCORBIC ACID 500 MG TABLET PO ×3 (10:03→17:20)
[2023-04-28] MEDS: ASPIRIN 81 MG ENTERIC TABLET PO (10:03)
[2023-04-28] MEDS: CITALOPRAM HYDROBROMIDE 20 MG TABLET PO (10:03)
[2023-04-28] MEDS: ARIPiprazole 10 MG TABLET PO (10:03)
[2023-04-28] MEDS: TIZANIDINE HCL 2 MG TABLET PO ×2 (10:04→17:21)
[2023-04-28] MEDS: MULTIVITAMINS THERAPEUTIC TAB (*BKC) 1 TABLET PO (10:04)
[2023-04-28] MEDS: clonazePAM (*CRX) 0.5 MG TABLET 1 MG PO (10:04)
[2023-04-28] MEDS: oxyBUTYnin CHLORIDE 5 MG TABLET PO ×2 (10:04→17:21)
[2023-04-28] MEDS: GABAPENTIN 400 MG CAPSULE PO ×2 (10:04→17:20)
[2023-04-28] MEDS: OMEGA 3 POLYUNSAT FATTY ACIDS 1 GM CAP PO ×2 (10:04→17:21)
[2023-04-28] MEDS: PROPRANOLOL HCL 20 MG TABLET PO ×2 (10:06→21:14)
[2023-04-28] MEDS: lisinopriL 20 MG TABLET PO (10:06)
[2023-04-28] MEDS: ENOXAPARIN 40 MG/0.4 ML SYRINGE SUB-Q (10:12)
[2023-04-28] MEDS: ONDANSETRON INJ 4 MG/2 ML VIAL IV PUSH ×2 (10:24→21:13)
[2023-04-28] MEDS: LORazepam (*CRX) 1 MG TABLET PO ×3 (12:29→21:14)
[2023-04-28 12:32] LABS: Glucose Point of Care 188 mg/dl (65-105)
[2023-04-28] MEDS: oxyCODONE HCL (*CRX) 5 MG TAB IR 10 MG PO ×2 (13:05→21:14)
[2023-04-28 17:35] LABS: Glucose Point of Care 192 mg/dl (65-105)
[2023-04-28] MEDS: MELATONIN 5 MG TABLET 10 MG PO (21:14)
[2023-04-28] MEDS: ZOLPIDEM TARTRATE (*CRX) 5 MG TABLET 10 MG PO (21:14)
[2023-04-28] MEDS: INSULIN GLARGINE (*BKC) 100 UNITS/ML 30 UNITS SUB-Q (21:18)
[2023-04-28 21:40] LABS: Glucose Point of Care 186 mg/dl (65-105)
[2023-04-29] VITALS (11 sets, daily range): BP systolic 130–148; BP diastolic 65–72; PULSE 73–92; RESP 12–17; TEMP 36.2–36.9; O2SAT 97–100; BMI 34.7
[2023-04-29] MEDS: SODIUM CHLORIDE 0.9% IV 1,000 ML 125 ML IV CONT ×3 (02:19→22:28)
[2023-04-29] MEDS: traMADol HCL (*CRX) 50 MG TABLET PO (04:59)
[2023-04-29 05:39] LABS: Basophils Percent Auto 0.3 % (0.2-1.2); Eosinophils Absolute Auto 0.1 K/mm3 (0-0.3); Eosinophils Percent Auto 1.7 % (0-4.4); Hematocrit 32.3 % (37.0-47.0); Hemoglobin 10.4 g/dL (12.0-15.0); Immature Granulocyte Absolute 0.03 K/mm3 (0.00-0.031); Immature Granulocyte Percent A 0.4 % (0-0.5); Lymphocytes Absolute Auto 2.12 K/mm3 (0.9-3.2); Lymphocytes Percent Auto 29.4 % (18.3-44.2); Mean Corpuscular HGB Conc 32.2 g/dl (32-36); Mean Corpuscular Hemoglobin 29.2 pg (26-34); Mean Corpuscular Volume 90.7 fl (80-100); Mean Platelet Volume 9.7 fl (7.4-10.4); Monocytes Absolute Auto 0.6 K/mm3 (0.1-0.6); Monocytes Percent Auto 8.6 % (2.6-8.5); Neutrophils Absolute Auto 4.3 K/mm3 (1.3-6.7); Neutrophils Percent Auto 59.6 % (45.5-73.1); Platelet Count Result 296 k/mm3 (150-375); Red Blood Count 3.56 M/mm3 (4.2-5.4); Red Cell Distribution Width 13.5 % (11.5-14.5); White Blood Count 7.2 K/mm3 (4.5-10.0)
[2023-04-29 05:53] LABS: Anion Gap 5 mmol/L (8-16); Blood Urea Nitrogen 12 mg/dL (7-17); Calcium 7.9 mg/dL (8.4-10.2); Carbon Dioxide 25 mmol/L (22-30); Chloride 110 mmol/L (98-107); Estimated CRCL calculation 110 ml/min; Estimated Glomerular Filt Rate > 60; Glucose 135 mg/dL (65-110); Potassium 3.8 mmol/L (3.4-5.0); Sodium 140 mmol/L (137-145)
[2023-04-29] MEDS: LORazepam (*CRX) 1 MG TABLET PO (06:15)
[2023-04-29] MEDS: ASCORBIC ACID 500 MG TABLET PO ×3 (08:26→17:32)
[2023-04-29] MEDS: clonazePAM (*CRX) 0.5 MG TABLET 1 MG PO (08:26)
[2023-04-29] MEDS: GABAPENTIN 400 MG CAPSULE PO ×2 (08:26→17:32)
[2023-04-29] MEDS: MULTIVITAMINS THERAPEUTIC TAB (*BKC) 1 TABLET PO (08:26)
[2023-04-29] MEDS: ASPIRIN 81 MG ENTERIC TABLET PO (08:27)
[2023-04-29] MEDS: OMEGA 3 POLYUNSAT FATTY ACIDS 1 GM CAP PO ×2 (08:27→17:32)
[2023-04-29] MEDS: TIZANIDINE HCL 2 MG TABLET PO ×2 (08:27→17:32)
[2023-04-29] MEDS: CITALOPRAM HYDROBROMIDE 20 MG TABLET PO (08:27)
[2023-04-29] MEDS: oxyBUTYnin CHLORIDE 5 MG TABLET PO ×2 (08:27→17:32)
[2023-04-29] MEDS: ATORVASTATIN 40 MG TABLET PO (08:28)
[2023-04-29] MEDS: ARIPiprazole 10 MG TABLET PO (08:28)
[2023-04-29] MEDS: ENOXAPARIN 40 MG/0.4 ML SYRINGE SUB-Q (08:29)
[2023-04-29] MEDS: PROPRANOLOL HCL 20 MG TABLET PO ×2 (08:29→20:59)
[2023-04-29 08:31] LABS: Glucose Point of Care 102 mg/dl (65-105)
[2023-04-29] MEDS: lisinopriL 20 MG TABLET PO (08:32)
[2023-04-29] MEDS: oxyCODONE HCL (*CRX) 5 MG TAB IR 10 MG PO ×2 (08:37→17:32)
--- NOTE | 2023-04-29 10:16 | P.PNIM_ITS ---
Progress Note: A&P Assessment and Plan (1) Acute kidney injury: Code(s): N17.9 - Acute kidney failure, unspecified Status: Resolved Assessment and Plan: * Baseline renal function normal at 0.5 to 0.8. * Creatinine at time of admission 3.3. * Continue IV hydration with normal saline at 125 mL per hour * Monitor intake and output * Trend labs and vital signs * Resolved this AM with Creatinine of 0.60 and BUN of 12. (2) UTI (urinary tract infection): Code(s): N39.0 - Urinary tract infection, site not specified Status: Acute Assessment and Plan: * As noted per urinalysis positive nitrates, 3+ leukocyte esterase and greater than 100 wbc's. * Urine culture currently pending. * Continue empiric Rocephin 1 g every 24 hours. * Monitor vital signs and trend labs. * Pt has hx of ESBL E.coli and with limited abx sensitivity, that may require half-way abx. We will continue to await urine culture results and sensitivity. (3) Fall from ground level: Code(s): W18.30XA - Fall on same level, unspecified, initial encounter Status: Acute Assessment and Plan: * Fall precautions * PT and OT evaluations * Suspect fall was exacerbated by previous CVA with residual left-sided weakness. * Bed alarm (4) Fracture closed, nasal bone: Qualifiers: Encounter type: initial encounter Qualified Code(s): S02.2XXA - Fracture of nasal bones, initial encounter for closed fracture Code(s): S02.2XXA - Fracture of nasal bones, initial encounter for closed fracture Status: Acute Assessment and Plan: * Secondary to ground level fall. * Pain meds p.r.n. (5) Diabetes: Qualifiers: Diabetes mellitus type: type 2 Diabetes mellitus intermodal customer service insulin use: without residential use Diabetes mellitus complication status: with hyperglycemia Qualified Code(s): E11.65 - Type 2 diabetes mellitus with hyperglycemia Code(s): E11.9 - Type 2 diabetes mellitus without complications Status: Chronic Assessment and Plan: * Hypoglycemic protocol * Glucose checks a.c. and HS * Continue home dose of Lantus 30 units at bedtime * Initiate sliding scale low-dose NovoLog * Hold oral hypoglycemics or other injectables. * Heart healthy diet (6) Hyperlipidemia: Qualifiers: Hyperlipidemia type: unspecified Qualified Code(s): E78.5 - Hyperlipidemia, unspecified Code(s): E78.5 - Hyperlipidemia, unspecified Status: Chronic Assessment and Plan: * Heart healthy diet * Continue home medications (7) Hypertension: Qualifiers: Hypertension type: primary hypertension Qualified Code(s): I10 - Essential (primary) hypertension Code(s): I10 - Essential (primary) hypertension Status: Chronic Assessment and Plan: * Heart healthy diet * Continue home medications * Monitor labs and trend vitals adjusting protocol as needed (8) Hypomagnesemia: Code(s): E83.42 - Hypomagnesemia Status: Resolved Assessment and Plan: * Initially low at 1.2 emergency room. Patient received magnesium rider and this morning magnesium is 2.7 * Continue telemetry (9) CVA (cerebral vascular accident): Code(s): I63.9 - Cerebral infarction, unspecified Status: Chronic Assessment and Plan: * March 2023 * Residual left-sided weakness is present. * PT and OT evaluation and treat * Fall risk, initiate fall precautions (10) Migraines: Code(s): G43.909 - Migraine, unspecified, not intractable, without status migrainosus
--- NOTE | 2023-04-29 10:16 | PM.IMPN ---
Progress Note: A&P Assessment and Plan (1) Acute kidney injury: Code(s): N17.9 - Acute kidney failure, unspecified Status: Resolved Assessment and Plan: Baseline renal function normal at 0.5 to 0.8. Creatinine at time of admission 3.3. Continue IV hydration with normal saline at 125 mL per hour Monitor intake and output Trend labs and vital signs Resolved this AM with Creatinine of 0.60 and BUN of 12. (2) UTI (urinary tract infection): Code(s): N39.0 - Urinary tract infection, site not specified Status: Acute Assessment and Plan: As noted per urinalysis positive nitrates, 3+ leukocyte esterase and greater than 100 wbc's. Urine culture currently pending. Continue empiric Rocephin 1 g every 24 hours. Monitor vital signs and trend labs. Pt has hx of ESBL E.coli and with limited abx sensitivity, that may require [facility] abx. We will continue to await urine culture results and sensitivity. (3) Fall from ground level: Code(s): W18.30XA - Fall on same level, unspecified, initial encounter Status: Acute Assessment and Plan: Fall precautions PT and OT evaluations Suspect fall was exacerbated by previous CVA with residual left-sided weakness. Bed alarm (4) Fracture closed, nasal bone: Qualifiers: Encounter type: initial encounter Qualified Code(s): S02.2XXA - Fracture of nasal bones, initial encounter for closed fracture Code(s): S02.2XXA - Fracture of nasal bones, initial encounter for closed fracture Status: Acute Assessment and Plan: Secondary to ground level fall. Pain meds p.r.n. (5) Diabetes: Qualifiers: Diabetes mellitus type: type 2 Diabetes mellitus skilled nursing insulin use: without skilled nursing use Diabetes mellitus complication status: with hyperglycemia Qualified Code(s): E11.65 - Type 2 diabetes mellitus with hyperglycemia Code(s): E11.9 - Type 2 diabetes mellitus without complications Status: Chronic Assessment and Plan: Hypoglycemic protocol Glucose checks a.c. and HS Continue home dose of Lantus 30 units at bedtime Initiate sliding scale low-dose NovoLog Hold oral hypoglycemics or other injectables. Heart healthy diet (6) Hyperlipidemia: Qualifiers: Hyperlipidemia type: unspecified Qualified Code(s): E78.5 - Hyperlipidemia, unspecified Code(s): E78.5 - Hyperlipidemia, unspecified Status: Chronic Assessment and Plan: Heart healthy diet Continue home medications (7) Hypertension: Qualifiers: Hypertension type: primary hypertension Qualified Code(s): I10 - Essential (primary) hypertension Code(s): I10 - Essential (primary) hypertension Status: Chronic Assessment and Plan: Heart healthy diet Continue home medications Monitor labs and trend vitals adjusting protocol as needed (8) Hypomagnesemia: Code(s): E83.42 - Hypomagnesemia Status: Resolved Assessment and Plan: Initially low at 1.2 emergency room. Patient received magnesium rider and this morning magnesium is 2.7 Continue telemetry (9) CVA (cerebral vascular accident): Code(s): I63.9 - Cerebral infarction, unspecified Status: Chronic Assessment and Plan: March 2023 Residual left-sided weakness is present. PT and OT evaluation and treat Fall risk, initiate fall precautions (10) Migraines: Code(s): G43.909 - Migraine, unspecified, not intractable, without status migrainosus Status: Chronic Assessment and Plan: Continue home medications as needed (11) Depression: Code(s): F32.A - Depression, unspecified Status: Chronic Assessment and Plan: Continue home medications (12) Anxiety: Code(s): F41.9 - Anxiety disorder, unspecified Status: Chronic Assessment and Plan: Continue home medications Plan I do not feel comfortable arranging dischar
[2023-04-29 12:04] LABS: Glucose Point of Care 186 mg/dl (65-105)
[2023-04-29 16:57] LABS: Glucose Point of Care 110 mg/dl (65-105)
[2023-04-29] MEDS: ONDANSETRON INJ 4 MG/2 ML VIAL IV PUSH (17:10)
[2023-04-29] MEDS: MELATONIN 5 MG TABLET 10 MG PO (20:59)
[2023-04-29] MEDS: ZOLPIDEM TARTRATE (*CRX) 5 MG TABLET 10 MG PO (20:59)
[2023-04-29] MEDS: INSULIN GLARGINE (*BKC) 100 UNITS/ML 30 UNITS SUB-Q (21:00)
[2023-04-29 21:03] LABS: Glucose Point of Care 200 mg/dl (65-105)
[2023-04-30] VITALS (7 sets, daily range): BP systolic 138–177; BP diastolic 67–87; PULSE 80–100; RESP 16; TEMP 36.7; O2SAT 94
[2023-04-30] MEDS: traMADol HCL (*CRX) 50 MG TABLET PO (00:28)
[2023-04-30] MEDS: LORazepam (*CRX) 1 MG TABLET PO ×2 (05:17→13:55)
[2023-04-30] MEDS: SODIUM CHLORIDE 0.9% IV 1,000 ML 125 ML IV CONT (05:57)
[2023-04-30 06:15] LABS: Basophils Percent Auto 0.3 % (0.2-1.2); Eosinophils Absolute Auto 0.1 K/mm3 (0-0.3); Hematocrit 31.2 % (37.0-47.0); Hemoglobin 10.2 g/dL (12.0-15.0); Immature Granulocyte Absolute 0.04 K/mm3 (0.00-0.031); Immature Granulocyte Percent A 0.6 % (0-0.5); Lymphocytes Absolute Auto 2.23 K/mm3 (0.9-3.2); Lymphocytes Percent Auto 33.9 % (18.3-44.2); Mean Corpuscular HGB Conc 32.7 g/dl (32-36); Mean Corpuscular Hemoglobin 29.4 pg (26-34); Mean Corpuscular Volume 89.9 fl (80-100); Mean Platelet Volume 9.2 fl (7.4-10.4); Monocytes Absolute Auto 0.5 K/mm3 (0.1-0.6); Monocytes Percent Auto 7.6 % (2.6-8.5); Neutrophils Absolute Auto 3.7 K/mm3 (1.3-6.7); Neutrophils Percent Auto 55.6 % (45.5-73.1); Platelet Count Result 271 k/mm3 (150-375); Red Blood Count 3.47 M/mm3 (4.2-5.4); Red Cell Distribution Width 13.6 % (11.5-14.5); White Blood Count 6.6 K/mm3 (4.5-10.0)
[2023-04-30] MEDS: ONDANSETRON INJ 4 MG/2 ML VIAL IV PUSH (06:17)
[2023-04-30 06:25] LABS: Alanine Aminotransferase 25 U/L (6-35); Albumin Level 2.9 g/dL (3.5-5.1); Alkaline Phosphatase 99 U/L (38-126); Anion Gap 5 mmol/L (8-16); Aspartate Amino Transferase 28 U/L (14-36); Bilirubin,Total 0.4 mg/dL (0.2-1.3); Blood Urea Nitrogen 6 mg/dL (7-17); Calcium 7.9 mg/dL (8.4-10.2); Carbon Dioxide 26 mmol/L (22-30); Chloride 113 mmol/L (98-107); Estimated CRCL calculation 112 ml/min; Estimated Glomerular Filt Rate > 60; Glucose 95 mg/dL (65-110); Magnesium 1.7 mg/dL (1.6-2.3); Potassium 3.3 mmol/L (3.4-5.0); Sodium 144 mmol/L (137-145)
[2023-04-30] MEDS: POTASSIUM CHLORIDE 20 MEQ PACKET (FOR LIQUID) PO (06:56)
[2023-04-30] MEDS: ATORVASTATIN 40 MG TABLET PO (08:19)
[2023-04-30] MEDS: ASPIRIN 81 MG ENTERIC TABLET PO (08:19)
[2023-04-30] MEDS: OMEGA 3 POLYUNSAT FATTY ACIDS 1 GM CAP PO (08:19)
[2023-04-30] MEDS: TIZANIDINE HCL 2 MG TABLET PO (08:19)
[2023-04-30] MEDS: GABAPENTIN 400 MG CAPSULE PO (08:20)
[2023-04-30] MEDS: ASCORBIC ACID 500 MG TABLET PO ×2 (08:20→12:29)
[2023-04-30] MEDS: MULTIVITAMINS THERAPEUTIC TAB (*BKC) 1 TABLET PO (08:20)
[2023-04-30] MEDS: lisinopriL 20 MG TABLET PO (08:20)
[2023-04-30] MEDS: ARIPiprazole 10 MG TABLET PO (08:21)
[2023-04-30] MEDS: CITALOPRAM HYDROBROMIDE 20 MG TABLET PO (08:21)
[2023-04-30] MEDS: oxyBUTYnin CHLORIDE 5 MG TABLET PO (08:21)
[2023-04-30] MEDS: PROPRANOLOL HCL 20 MG TABLET PO (08:21)
[2023-04-30] MEDS: clonazePAM (*CRX) 0.5 MG TABLET 1 MG PO (08:21)
[2023-04-30] MEDS: ENOXAPARIN 40 MG/0.4 ML SYRINGE SUB-Q (08:23)
[2023-04-30 08:28] LABS: Glucose Point of Care 92 mg/dl (65-105)
[2023-04-30 12:05] LABS: Glucose Point of Care 163 mg/dl (65-105)
--- NOTE | 2023-04-30 12:46 | P.DS_ITS ---
DS: Admitting Diagnosis Discharge Date 04/30/23 Admitting Diagnosis ROLY Acute UTI Weakness DS: Discharge Diagnosis Discharge Diagnosis (1) Acute kidney injury: Code(s): N17.9 - Acute kidney failure, unspecified Status: Resolved Assessment and Plan: * Baseline renal function normal at 0.5 to 0.8. * Creatinine at time of admission 3.3. * Continue IV hydration with normal saline at 125 mL per hour * Monitor intake and output * Trend labs and vital signs * Resolved this AM with Creatinine of 0.60 and BUN of 12. * 04/30/23, Date of discharge: Resolved (2) UTI (urinary tract infection): Code(s): N39.0 - Urinary tract infection, site not specified Status: Acute Assessment and Plan: * As noted per urinalysis positive nitrates, 3+ leukocyte esterase and greater than 100 wbc's. * Urine culture currently pending. * Continue empiric Rocephin 1 g every 24 hours. * Monitor vital signs and trend labs. * Pt has hx of ESBL E.coli and with limited abx sensitivity, that may require retirement abx. We will continue to await urine culture results and sensitivity. * 04/30/23, Date of discharge: Urine culture grew out E.coli with sensitivity to oral agents of Bactrim DS and Nitrofurantoin. [facility] further management of the UTI. She is not meeting Sepsis criteria at time of discharge, and is overall stable. (3) Fall from ground level: Code(s): W18.30XA - Fall on same level, unspecified, initial encounter Status: Acute Assessment and Plan: * Fall precautions * PT and OT evaluations * Suspect fall was exacerbated by previous CVA with residual left-sided weakness. * Bed alarm * 04/30/23, Date of discharge, suspect this is a new chronic issue for pt as she is s/p CVA with residual weakness. Same precautions should apply at receiving facility. (4) Fracture closed, nasal bone: Qualifiers: Encounter type: initial encounter Qualified Code(s): S02.2XXA - Fracture of nasal bones, initial encounter for closed fracture Code(s): S02.2XXA - Fracture of nasal bones, initial encounter for closed fracture Status: Acute Assessment and Plan: * Secondary to ground level fall. * Pain meds p.r.n. * 04/30/23, Date of discharge: PRN meds for pain (5) Diabetes: Qualifiers: Diabetes mellitus type: type 2 Diabetes mellitus retirement insulin use: without retirement use Diabetes mellitus complication status: with hyperglycemia Qualified Code(s): E11.65 - Type 2 diabetes mellitus with hyperglycemia Code(s): E11.9 - Type 2 diabetes mellitus without complications Status: Chronic Assessment and Plan: * Hypoglycemic protocol * Glucose checks a.c. and HS * Continue home dose of Lantus 30 units at bedtime * Initiate sliding scale low-dose NovoLog * Hold oral hypoglycemics or other injectables. * Heart healthy diet * 04/30/23, Date of discharge: Continue home regimen upon discharge (6) Hyperlipidemia: Qualifiers: Hyperlipidemia type: unspecified Qualified Code(s): E78.5 - Hyperlipidemia, unspecified Code(s): E78.5 - Hyperlipidemia, unspecified Status: Chronic Assessment and Plan: * Heart healthy diet * Continue home medications * 04/30/23, Date of Discharge: Continue home medications and heart healthy diet. (7) Hypertension: Qualifiers: Hypertension type: primary hypertension Qualified Code(s): I10 - Essential (primary) hypertension Code(s): I10 - Essential (primary) hypertension
--- NOTE | 2023-04-30 12:46 | PM.DS ---
DS: Admitting Diagnosis Discharge Date 04/30/23 Admitting Diagnosis ROLY Acute UTI Weakness DS: Discharge Diagnosis Discharge Diagnosis (1) Acute kidney injury: Code(s): N17.9 - Acute kidney failure, unspecified Status: Resolved Assessment and Plan: Baseline renal function normal at 0.5 to 0.8. Creatinine at time of admission 3.3. Continue IV hydration with normal saline at 125 mL per hour Monitor intake and output Trend labs and vital signs Resolved this AM with Creatinine of 0.60 and BUN of 12. 04/30/23, Date of discharge: Resolved (2) UTI (urinary tract infection): Code(s): N39.0 - Urinary tract infection, site not specified Status: Acute Assessment and Plan: As noted per urinalysis positive nitrates, 3+ leukocyte esterase and greater than 100 wbc's. Urine culture currently pending. Continue empiric Rocephin 1 g every 24 hours. Monitor vital signs and trend labs. Pt has hx of ESBL E.coli and with limited abx sensitivity, that may require intermediate abx. We will continue to await urine culture results and sensitivity. 04/30/23, Date of discharge: Urine culture grew out E.coli with sensitivity to oral agents of Bactrim DS and Nitrofurantoin. [facility] for further management of the UTI. She is not meeting Sepsis criteria at time of discharge, and is overall stable. (3) Fall from ground level: Code(s): W18.30XA - Fall on same level, unspecified, initial encounter Status: Acute Assessment and Plan: Fall precautions PT and OT evaluations Suspect fall was exacerbated by previous CVA with residual left-sided weakness. Bed alarm 04/30/23, Date of discharge, suspect this is a new chronic issue for pt as she is s/p CVA with residual weakness. Same precautions should apply at receiving facility. (4) Fracture closed, nasal bone: Qualifiers: Encounter type: initial encounter Qualified Code(s): S02.2XXA - Fracture of nasal bones, initial encounter for closed fracture Code(s): S02.2XXA - Fracture of nasal bones, initial encounter for closed fracture Status: Acute Assessment and Plan: Secondary to ground level fall. Pain meds p.r.n. 04/30/23, Date of discharge: PRN meds for pain (5) Diabetes: Qualifiers: Diabetes mellitus type: type 2 Diabetes mellitus terminal supervisor insulin use: without terminal supervisor use Diabetes mellitus complication status: with hyperglycemia Qualified Code(s): E11.65 - Type 2 diabetes mellitus with hyperglycemia Code(s): E11.9 - Type 2 diabetes mellitus without complications Status: Chronic Assessment and Plan: Hypoglycemic protocol Glucose checks a.c. and HS Continue home dose of Lantus 30 units at bedtime Initiate sliding scale low-dose NovoLog Hold oral hypoglycemics or other injectables. Heart healthy diet 04/30/23, Date of discharge: Continue home regimen upon discharge (6) Hyperlipidemia: Qualifiers: Hyperlipidemia type: unspecified Qualified Code(s): E78.5 - Hyperlipidemia, unspecified Code(s): E78.5 - Hyperlipidemia, unspecified Status: Chronic Assessment and Plan: Heart healthy diet Continue home medications 04/30/23, Date of Discharge: Continue home medications and heart healthy diet. (7) Hypertension: Qualifiers: Hypertension type: primary hypertension Qualified Code(s): I10 - Essential (primary) hypertension Code(s): I10 - Essential (primary) hypertension Status: Chronic Assessment and Plan: Heart healthy diet Continue home medications Monitor labs and trend vitals adjusting protocol as needed 04/30/23, Date of discharge: Continue home medications and heart healthy diet. (8) Hypomagnesemia: Code(s): E83.42 - Hypomagnesemia Status: Resolved Assessment and Plan: Initially low at 1.2 emergency room. Patient received magnesium ride
[2023-04-30] MEDS: SULFAMETHOXAZOLE/TRIMETHOPRIM 800/160 MG DS TABLET 1 TAB PO (13:56)
[2023-04-30 14:16] LABS: SARS-CoV-2 RNA PCR Negative (Negative)
== END 2023-04-30 15:21 ==
LOC: ANHED 23:41 → ANH3MEDSUR 04-28 00:48 → ANH2MED 04-28 01:03
PROVIDERS: Emergency Medicine; Admitting Provider Internal Medicine; Emergency Provider Emergency Medicine; PCP Hospitalist; Visit Provider Nurse Practitioner Adult Health
DX: N17.9 Acute kidney failure, unspecified (principal); N39.0 Urinary tract infection, site not specified; B96.20 Unspecified Escherichia coli [E. coli] as the cause of diseases classified elsewhere; S02.2XXA Fracture of nasal bones, initial encounter for closed fracture; S80.211A Abrasion, right knee, initial encounter; W18.30XA Fall on same level, unspecified, initial encounter; E83.42 Hypomagnesemia; K76.0 Fatty (change of) liver, not elsewhere classified; G89.29 Other chronic pain; M54.9 Dorsalgia, unspecified; Z20.822 Contact with and (suspected) exposure to COVID-19; E11.65 Type 2 diabetes mellitus with hyperglycemia; I69.354 Hemiplegia and hemiparesis following cerebral infarction affecting left non-dominant side; G43.909 Migraine, unspecified, not intractable, without status migrainosus; F32.A Depression, unspecified; F41.9 Anxiety disorder, unspecified; I10 Essential (primary) hypertension; E78.5 Hyperlipidemia, unspecified; G47.00 Insomnia, unspecified; Z87.891 Personal history of nicotine dependence; Z79.1 Long term (current) use of non-steroidal anti-inflammatories (NSAID); Z79.84 Long term (current) use of oral hypoglycemic drugs; Z79.891 Long term (current) use of opiate analgesic; Z79.899 Other long term (current) drug therapy; Z83.3 Family history of diabetes mellitus
CPT/HCPCS: 36415; 70450; 70486; 72125; 73562; 74176; 80048; 80053; 81001; 82948; 83036; 83605; 83690; 83735; 84145; 84484; 85025; 85610; 85730; 87077; 87086; 87186; 87635; 87637; 93005; 96361; 96365; 96366; 96367; 96372; 96375; 96376; 97161; 97165; 99285; A9270; G0378; J0696; J1650; J1815; J2405; J3475; J7030

== ENCOUNTER 2023-09-01 17:12 | Observation (INO) | payer MEDICARE, MEDICAID, SELFPAY ==
[2023-09-01] VITALS (9 sets, daily range): BP systolic 129–154; BP diastolic 77–114; PULSE 110–125; RESP 14–18; TEMP 36.6–36.8; O2SAT 93–99; BMI 31.1
--- NOTE | ~2023-09-01 | US_ITS ---
Limited Abdominal Sonogram: Real-time sonographic imaging of the right upper quadrant was performed. Clinical History: Abdominal pain Findings: The liver appears normal with no evidence of mass lesion or bile duct dilatation. Main por lisseth vein demonstrates normal direction of flow. The gallbladder is absent, compatible prior cholecyst ectomy. The common bile duct measures 4 mm. The visualized pancreas, aorta, and IVC are unremarkable . Impression: Status post cholecystectomy, otherwise unremarkable exam. Reviewed, dictated and finalized at location M. Impression: Status post cholecystectomy, otherwise unremarkable exam.
--- NOTE | ~2023-09-01 | XR_ITS ---
Portable chest x-ray Comparison: 04/15/2023 Clinical History: Right upper quadrant pain Findings: Lungs are clear, without focal consolidation or pleural effusion. Cardiomediastinal silho uette is stable. Thoracolumbar spinal fixation hardware is unchanged. Cervical spinal fixation hardwa re is also unchanged. Impression: Clear lungs. Reviewed, dictated and finalized at location . Impression: Clear lungs.
--- NOTE | ~2023-09-01 | CT_ITS ---
EXAMINATION: CT abdomen pelvis w con DATE: 09/01/2023 18:35 INDICATION: Right upper quadrant abdominal pain. TECHNIQUE: Computed tomography (CT) of the abdomen and pelvis was performed with 100 mL Omnipaque 350 intravenous contrast. Automated exposure control and iterative reconstruction technique were employe d. The dose-length product was 804.76 mGy-cm. COMPARISON: CT abdomen and pelvis 04/27/2023 FINDINGS: The visualized portions of the lung bases demonstrate mild atelectasis. No pleural effusion . The heart size is normal. There are coronary artery calcifications. No pericardial effusion. There is a small sliding hiatal hernia. The liver and spleen are normal. There are changes of cholecystecto my. The pancreas, adrenal glands, and right kidney are normal. There is a 10 mm cyst in left kidney. There is anastomosis in the sigmoid colon. There is diverticulosis of the colon without evidence of d iverticulitis. There are no dilated loops of bowel. The appendix is not visualized. There are diverti cula of the proximal duodenum. There is calcified atherosclerosis of the aorta and many of the other arteries. There are no pathologically enlarged lymph nodes. There is no free intraperitoneal fluid. T here are bilateral inguinal hernias containing fat. There are multiple supraumbilical ventral hernias containing fat. There are changes of anterior fusion procedure from L1 to S1 with healed interbody b one graft. There is mild chronic anterior wedging of T9 and T10 vertebral bodies. There are changes o f posterior fusion procedure from T9 to S1 and the iliac bones. There is a catheter from the thecal s ac to the peritoneum. IMPRESSION: 1. Ventral hernias and bilateral inguinal hernias containing fat. 2. Small sliding hiatal hernia. Reviewed, dictated and finalized at location E.
[2023-09-01 17:52] LABS: Basophils Percent Auto 0.3 % (0.2-1.2); Eosinophils Absolute Auto 0.2 K/mm3 (0-0.3); Eosinophils Percent Auto 1.6 % (0-4.4); Hematocrit 39.1 % (37.0-47.0); Hemoglobin 13.1 g/dL (12.0-15.0); Immature Granulocyte Absolute 0.05 K/mm3 (0.00-0.031); Immature Granulocyte Percent A 0.4 % (0-0.5); Lymphocytes Absolute Auto 3.91 K/mm3 (0.9-3.2); Lymphocytes Percent Auto 27.8 % (18.3-44.2); Mean Corpuscular HGB Conc 33.5 g/dl (32-36); Mean Corpuscular Hemoglobin 29.6 pg (26-34); Mean Corpuscular Volume 88.3 fl (80-100); Mean Platelet Volume 9.6 fl (7.4-10.4); Monocytes Absolute Auto 0.7 K/mm3 (0.1-0.6); Monocytes Percent Auto 5.1 % (2.6-8.5); Neutrophils Absolute Auto 9.1 K/mm3 (1.3-6.7); Neutrophils Percent Auto 64.8 % (45.5-73.1); Platelet Count Result 409 k/mm3 (150-375); Red Blood Count 4.43 M/mm3 (4.2-5.4); Red Cell Distribution Width 13.3 % (11.5-14.5)
[2023-09-01] MEDS: HYDROmorphone HCL INJ (*CRX) 1 MG/ML SYR 0.5 MG IV PUSH ×3 (17:56→21:57)
[2023-09-01] MEDS: SODIUM CHLORIDE 0.9% IV 1,000 ML 999 ML IV CONT (17:57)
[2023-09-01 18:04] LABS: Alanine Aminotransferase 17 U/L (6-35); Albumin Level 4.7 g/dL (3.5-5.1); Alkaline Phosphatase 178 U/L (38-126); Anion Gap 12 mmol/L (4-12); Aspartate Amino Transferase 20 U/L (14-36); Bilirubin,Total 0.7 mg/dL (0.2-1.3); Blood Urea Nitrogen 17 mg/dL (7-17); Calcium 9.5 mg/dL (8.4-10.2); Carbon Dioxide 23 mmol/L (22-30); Chloride 103 mmol/L (98-107); Estimated CRCL calculation 128 ml/min; Estimated Glomerular Filt Rate > 60; Glucose 176 mg/dL (65-110); Potassium 3.9 mmol/L (3.4-5.0); Sodium 138 mmol/L (137-145)
[2023-09-01 19:09] LABS: Appearance Urine Clear (Clear); Bacteria Urine None Seen /hpf; Bilirubin Urine Negative (Negative); Blood Urine Negative (Negative); Color Urine Yellow (Yellow); Glucose Urine UA Negative (Negative); Ketones Urine 1+ mg/dL (Negative); Leukocyte Esterase Ur 1+ LEU/UL (Negative); Nitrate Urine Negative (Negative); Non Pathogenic Casts 0-2; Protein Urine Negative (Negative); RBC Urine 0-2 /hpf (0-2); Squamous Epithelial Cell Urine None Seen /hpf (Few); pH Urine 5.5 (5.0-9.0)
--- NOTE | 2023-09-01 19:19 | ED.BACK ---
HPI - Back Pain/Injury General Chief Complaint: Back Pain/Injury <William Nicholson MD - Last Filed: 09/02/23 12:15> Stated Complaint: right side flank pain <William Nicholson MD - Last Filed: 09/02/23 12:15> Time Seen by Provider: 09/01/23 17:16 <William Nicholson MD - Last Filed: 09/02/23 12:15> History of Present Illness HPI Narrative: 57-year-old female present to the emergency department from local nursing for evaluation of right upper quadrant abdominal pain. Patient states pain has been ongoing for the last few days. Patient states she has a urinary tract infection and is currently on antibiotics. Patient reports prior history of cholecystectomy, appendectomy, hysterectomy and partial colectomy. <William Nicholson MD - Last Filed: 09/02/23 12:15> Related Data Home Medications: Home Medications Medication Instructions Recorded Confirmed atorvastatin 40 mg tablet 40 mg PO DAILY 12/31/20 09/01/23 levomilnacipran 120 mg capsule,24 120 mg PO DAILY 12/31/20 09/01/23 hr,extended release (Fetzima) ondansetron HCl 4 mg tablet 4 mg PO Q8H PRN Nausea 12/31/20 09/01/23 (Zofran) acetaminophen 650 mg tablet 650 mg PO Q8H PRN Pain (Scale 02/06/21 09/01/23 Score 1-3) Aspercreme 1 inch topical BID PRN Pain 06/24/22 09/01/23 ascorbic acid (vitamin C) 500 mg 500 mg PO TID 06/24/22 09/01/23 tablet multivitamin (Daily Multi-Vitamin 1 tablet PO DAILY 06/24/22 09/01/23 tablet) propranolol 20 mg tablet 20 mg PO Q12H 06/24/22 09/01/23 tizanidine 2 mg capsule (Zanaflex) 2 mg PO BID Muscle Spasm 06/24/22 09/01/23 aripiprazole 10 mg tablet (Abilify) 10 mg PO DAILY 04/28/23 09/01/23 citalopram 20 mg tablet (Celexa) 20 mg PO DAILY 04/28/23 09/01/23 clonazepam 0.5 mg tablet 1 mg PO DAILY 04/28/23 09/01/23 gabapentin 400 mg capsule 400 mg PO BID 04/28/23 09/01/23 galcanezumab-gnlm 120 mg/mL 120 mg subcut MONTHLY 04/28/23 09/01/23 subcutaneous pen injector (Emgality Pen) guaifenesin 100 mg/5 mL oral 100 mg PO Q4H PRN Cough 04/28/23 09/01/23 liquid (Faiza-Tussin) insulin glargine 100 unit/mL (3 30 unit subcut HS 04/28/23 09/01/23 mL) subcutaneous pen lisinopril 20 mg tablet 20 mg PO DAILY 04/28/23 09/01/23 loperamide 2 mg tablet 2 mg PO QID PRN Diarrhea 04/28/23 09/01/23 lorazepam 1 mg tablet (Ativan) 1 mg PO BID Anxiety 04/28/23 09/01/23 oxybutynin chloride 5 mg tablet 5 mg PO BID 04/28/23 09/01/23 rizatriptan 10 mg tablet 10 mg PO DAILY PRN Migraine 04/28/23 09/01/23 Headache tramadol 50 mg tablet 50 mg PO Q8H PRN Pain (Scale Score 04/28/23 09/01/23 4-6) zolpidem 10 mg tablet (Ambien) 10 mg PO HS 04/28/23 09/01/23 amlodipine 10 mg tablet 10 mg PO DAILY 09/01/23 09/01/23 meclizine 25 mg capsule 25 mg PO Q8H PRN Dizziness 09/01/23 09/01/23 melatonin 5 mg PO HS 09/01/23 09/01/23 metformin 1,000 mg tablet 1,000 mg PO DAILY 09/01/23 09/01/23 nitrofurantoin 100 mg capsule 100 mg PO BID 09/01/23 09/01/23 oxycodone 10 mg tablet 10 mg PO Q6H 09/01/23 09/01/23 primidone 50 mg tablet 25 mg PO HS 09/01/23 09/01/23 <William Nicholson MD - Last Filed: 09/02/23 12:15> Allergies/Adverse Reactions: Allergies Allergy/AdvReac Type Severity Reaction Status Date / Time latex Allergy Unknown Verified 12/14/22 05:02 topiramate [From Topamax] Allergy Unknown Verified 12/14/22 05:02 <William Nicholson MD - Last Filed: 09/02/23 12:15> Review of Systems Review of Systems: All systems reviewed & are unremarkable except as noted in HPI and below <William Nicholson MD - Last Filed: 09/02/23 12:15> [facility] Past Medical History Medical History: Medical History (Updated 09/01/23 @ 20:10 by Zion Arreguin MD) Anxiety Chronic back pain Continuous tobacco abuse CVA (cerebral vascular accident) Depression Diabetes mellitus Essential hypertension Hyperlipidemia Hypomagnesemia Migraines <William Nicholson MD - Last Filed: 09/02/23 12:15> Surgical History Surgical History: Surg
[2023-09-01 19:28] LABS: Add Urine Microscopic? YES; Specific Grav Ur 1.031 (1.001-1.035)
--- NOTE | 2023-09-01 20:02 | PM.IMHP ---
H&P: HPI History of Present Illness Date/Time: 09/01/23 20:02 Chief Complaint: RUQ pain Narrative: this is a 57-year-old female with past medical history significant for type diabetes mellitus, stroke, chronic back pain, tobacco dependence, hypertension, dyslipidemia, migraine headache. Patient resides at [facility] facility, was brought for evaluation due to right upper quadrant pain. patient can not really provide much history points to her right upper quadrant and rates her pain at 8/10. Preliminary workup was significant for urinalysis with numerous WBCs present. A CT of abdomen and pelvis showed ventral hernias and bilateral inguinal hernias. Patient has been admitted for further evaluation management and treatment. EXAMINATION: CT abdomen pelvis w con DATE: 09/01/2023 18:35 INDICATION: Right upper quadrant abdominal pain. TECHNIQUE: Computed tomography (CT) of the abdomen and pelvis was performed with 100 mL Omnipaque 350 intravenous contrast. Automated exposure control and iterative reconstruction technique were employed. The dose-length product was 804.76 mGy-cm. COMPARISON: CT abdomen and pelvis 04/27/2023 FINDINGS: The visualized portions of the lung bases demonstrate mild atelectasis. No pleural effusion. The heart size is normal. There are coronary artery calcifications. No pericardial effusion. There is a small sliding hiatal hernia. The liver and spleen are normal. There are changes of cholecystectomy. The pancreas, adrenal glands, and right kidney are normal. There is a 10 mm cyst in left kidney. There is anastomosis in the sigmoid colon. There is diverticulosis of the colon without evidence of diverticulitis. There are no dilated loops of bowel. The appendix is not visualized. There are diverticula of the proximal duodenum. There is calcified atherosclerosis of the aorta and many of the other arteries. There are no pathologically enlarged lymph nodes. There is no free intraperitoneal fluid. There are bilateral inguinal hernias containing fat. There are multiple supraumbilical ventral hernias containing fat. There are changes of anterior fusion procedure from L1 to S1 with healed interbody bone graft. There is mild chronic anterior wedging of T9 and T10 vertebral bodies. There are changes of posterior fusion procedure from T9 to S1 and the iliac bones. There is a catheter from the thecal sac to the peritoneum. IMPRESSION: 1. Ventral hernias and bilateral inguinal hernias containing fat. 2. Small sliding hiatal hernia. Review of Systems Review of Systems: Right upper quadrant pain PMFSH Past Medical History Medical History (Updated 09/01/23 @ 20:10 by Zion Arreguin MD) Anxiety Chronic back pain Continuous tobacco abuse CVA (cerebral vascular accident) Depression Diabetes mellitus Essential hypertension Hyperlipidemia Hypomagnesemia Migraines Surgical History Surgical History History of abdominal surgery History of back surgery Family History Family History Father Diabetes mellitus Congestive heart failure Mother Unknown family medical history Social History Social History Social History: She is currently living with her daughter after living in transient life tell living with various acquaintances. She has smoked 1 pack of cigarettes per day since she was 16. She denies any alcohol use or drug use. Smoking packs per day: 1 Smoking cigarettes per day: 20.0 Years smoked: 35 Smoking pack-years: 35.00 Smoking status: Former smoker Tobacco type: cigarettes Additional smoking assessment comments: hx of smoking up to 4 packs per day Alcohol intake: never Substance use: never Substance use type: does not use Do You Feel Safe in your Home?: Yes Lack of Transportation: No Lack of Food:
[2023-09-01] MEDS: ONDANSETRON INJ 4 MG/2 ML VIAL IV PUSH (20:13)
--- NOTE | 2023-09-01 20:23 | PC.NURSE ---
Scanner in room 8 is not working, medications are being charted manually. Name, date of , route, dose, and medication verified before administration.
--- NOTE | 2023-09-01 21:14 | PC.NURSE ---
attempted to call report at [phone]. 3rd medical nurse stated room was not clean yet, and they would call back for report when room is clean.
--- NOTE | 2023-09-01 22:12 | ADMGEN ---
This patient, Susannah Garza, was admitted to Medical Room 345-01. Patient/family oriented to hospital policies and general routines including ID bracelet, bed and alarms, visiting hours, pain management, procedures, bathroom and other care routines, personal items, smoking policy, room service/diet, and visiting hours. Information on how to activate the Rapid Response Team has been discussed. Patient/Family are encouraged to report perceived risks to care and to ask questions if they do not understand what they are told or what they should do.
[2023-09-02] VITALS (10 sets, daily range): BP systolic 99–122; BP diastolic 52–87; PULSE 82–110; RESP 12–18; TEMP 36.6–37.2; O2SAT 91–97
[2023-09-02] MEDS: ZOLPIDEM TARTRATE (*CRX) 5 MG TABLET 10 MG PO ×2 (00:42→20:45)
[2023-09-02] MEDS: PROPRANOLOL HCL 20 MG TABLET PO ×3 (00:42→20:45)
[2023-09-02 00:46] LABS: Glucose Point of Care 182 mg/dl (65-105)
[2023-09-02] MEDS: INSULIN GLARGINE (*BKC) 100 UNITS/ML 30 UNITS SUB-Q ×2 (00:47→20:51)
[2023-09-02] MEDS: PRIMIDONE 25 MG TABLET PO ×2 (00:58→20:43)
[2023-09-02] MEDS: oxyCODONE HCL (*CRX) 5 MG TAB IR 10 MG PO (02:14)
--- NOTE | 2023-09-02 07:43 | PM.IMPN ---
Progress Note: A&P Assessment and Plan (1) UTI (urinary tract infection): Code(s): N39.0 - Urinary tract infection, site not specified Status: Acute Assessment and Plan: - UA: clear appearance with 1+ ketones, 1+ leukocytes, 11-20 WBC and no bacteria - UC obtained on 08/31 pending - previous micro reviewed 04/27/23: Ecoli with ESBL resistance - started on ceftriaxone, but switched to meropenem due to prior resistance (2) Hypertension: Qualifiers: Hypertension type: primary hypertension Qualified Code(s): I10 - Essential (primary) hypertension Code(s): I10 - Essential (primary) hypertension Status: Chronic Assessment and Plan: Stable on home medications. - Amlodipine 10 mg daily - Lisinopril 20 mg daily (3) Anxiety and depression: Code(s): F41.9 - Anxiety disorder, unspecified; F32.A - Depression, unspecified Status: Chronic Assessment and Plan: continue home medications (4) Chronic back pain: Qualifiers: Back pain laterality: right Back pain location: low back pain Sciatica presence: without sciatica Qualified Code(s): M54.50 - Low back pain, unspecified; G89.29 - Other chronic pain Code(s): M54.9 - Dorsalgia, unspecified; G89.29 - Other chronic pain Status: Chronic Assessment and Plan: Well controlled on home medications - Tylenol p.r.n. (5) Type 2 diabetes mellitus with hyperglycemia: Qualifiers: Diabetes mellitus intermediate insulin use: unspecified intermediate insulin use status Qualified Code(s): E11.65 - Type 2 diabetes mellitus with hyperglycemia Code(s): E11.65 - Type 2 diabetes mellitus with hyperglycemia Status: Acute Assessment and Plan: - hypoglycemia protocol - POC blood glucose ACHS - home medication - metformin 1g daily and lantus 30 units HS - correct regimen ordered -continue lantus 30 units HS and low dose SSI TIDWM - A1C 04/28/23: 9.5 (6) Right upper quadrant pain: Code(s): R10.11 - Right upper quadrant pain Status: Acute Assessment and Plan: She continues to endorse RUQ pain without associated nausea/vomiting and diarrhea. Abdominal US was unremarkable. She does have ventral hernia and bilateral inguinal hernias containing fat on CT abdomen/pelvis. No hernia felt on palpation. - Continue to monitor Time Spent With Patient Time with patient: 25 - 35 minutes Subjective Date/time seen: 09/02/23 07:43 Interval history: Patient is pleasant lying comfortably in bed. She is AOx4 at this time. She continues to endorse RUQ pain without associated nausea/vomiting and diarrhea. Abdominal US was unremarkable. She does have ventral hernia and bilateral inguinal hernias containing fat on CT abdomen/pelvis. No hernia felt on palpation. Patient is no longer having urinary symptoms. She denies urgency, burning, dysuria, and hematuria. Review of Systems Review of Systems: All systems reviewed & are unremarkable except as noted in HPI and below Exam Narrative: AF HR 88 RR 18 SpO2 97 BP 122/87 General: female in no acute respiratory distress who is nontoxic appearing, lying semi recumbent in bed. HEENT: Normocephalic. Atraumatic. Pupils equal round reactive to light. Extraocular movement intact. Sclera clear and anicteric. No facial asymmetry. Chest: Lungs are clear to auscultation bilaterally. No wheezes or crackles. CV: Heart was regular rate and rhythm. S1-S2. No murmurs, gallops, or rubs. Abd: Abdomen was soft. Tenderness to palpation to the RUQ. Nondistended. Positive bowel sounds. No organomegaly or masses. Ext: No clubbing, cyanosis, or edema. 2+ DP pulses bilaterally. Neuro: Patient is alert and oriented x4. Speech is clear. Psych: Normal mood and affect. Patient is pleasant and cooperative. Skin: Warm and dry. No rashes noted. Objective Data Vital Signs Vital Signs: Vital Signs - 24 hr 09/01/23 17:13 09/01/23 17:31 09/01/23 17:
[2023-09-02] MEDS: MEROPENEM 1 GM/NS 100 ML 1 GM/100 ML BAG IVPB ×3 (08:07→23:03)
[2023-09-02 08:17] LABS: Basophils Percent Auto 0.3 % (0.2-1.2); Eosinophils Absolute Auto 0.2 K/mm3 (0-0.3); Eosinophils Percent Auto 2.4 % (0-4.4); Hematocrit 37.4 % (37.0-47.0); Hemoglobin 12.5 g/dL (12.0-15.0); Immature Granulocyte Absolute 0.03 K/mm3 (0.00-0.031); Immature Granulocyte Percent A 0.3 % (0-0.5); Lymphocytes Absolute Auto 2.31 K/mm3 (0.9-3.2); Lymphocytes Percent Auto 24.8 % (18.3-44.2); Mean Corpuscular HGB Conc 33.4 g/dl (32-36); Mean Corpuscular Hemoglobin 29.9 pg (26-34); Mean Corpuscular Volume 89.5 fl (80-100); Mean Platelet Volume 9.4 fl (7.4-10.4); Monocytes Absolute Auto 0.5 K/mm3 (0.1-0.6); Monocytes Percent Auto 5.2 % (2.6-8.5); Neutrophils Absolute Auto 6.2 K/mm3 (1.3-6.7); Platelet Count Result 358 k/mm3 (150-375); Red Blood Count 4.18 M/mm3 (4.2-5.4); Red Cell Distribution Width 13.3 % (11.5-14.5); White Blood Count 9.3 K/mm3 (4.5-10.0)
[2023-09-02] MEDS: ACETAMINOPHEN 325 MG TABLET 650 MG PO (08:19)
[2023-09-02] MEDS: clonazePAM (*CRX) 0.5 MG TABLET 1 MG PO (08:21)
[2023-09-02 08:47] LABS: Alanine Aminotransferase 14 U/L (6-35); Albumin Level 4.5 g/dL (3.5-5.1); Alkaline Phosphatase 155 U/L (38-126); Anion Gap 9 mmol/L (4-12); Aspartate Amino Transferase 18 U/L (14-36); Bilirubin,Total 0.7 mg/dL (0.2-1.3); Blood Urea Nitrogen 10 mg/dL (7-17); Calcium 9.1 mg/dL (8.4-10.2); Carbon Dioxide 22 mmol/L (22-30); Chloride 105 mmol/L (98-107); Estimated CRCL calculation 152 ml/min; Estimated Glomerular Filt Rate > 60; Glucose 188 mg/dL (65-110); Potassium 4.2 mmol/L (3.4-5.0); Sodium 136 mmol/L (137-145)
[2023-09-02] MEDS: ASPIRIN 81 MG ENTERIC TABLET PO (09:58)
[2023-09-02] MEDS: CITALOPRAM HYDROBROMIDE 20 MG TABLET PO (09:58)
[2023-09-02] MEDS: oxyBUTYnin CHLORIDE 5 MG TABLET PO ×2 (09:58→16:03)
[2023-09-02] MEDS: ATORVASTATIN 40 MG TABLET PO (09:58)
[2023-09-02] MEDS: ARIPiprazole 10 MG TABLET PO (09:59)
[2023-09-02] MEDS: amLODIPine BESYLATE 5 MG TABLET 10 MG PO (09:59)
[2023-09-02] MEDS: lisinopriL 20 MG TABLET PO (09:59)
[2023-09-02] MEDS: TIZANIDINE HCL 2 MG TABLET PO ×2 (09:59→20:43)
[2023-09-02] MEDS: GABAPENTIN 400 MG CAPSULE PO ×2 (09:59→16:03)
[2023-09-02] MEDS: traMADol HCL (*CRX) 50 MG TABLET PO (16:05)
[2023-09-02 21:43] LABS: Glucose Point of Care 137 mg/dl (65-105)
[2023-09-03] VITALS: PULSE 84
[2023-09-03 04:00] VITALS: PULSE 92
[2023-09-03] MEDS: oxyCODONE HCL (*CRX) 5 MG TAB IR 10 MG PO (04:15)
[2023-09-03 06:00] VITALS: BP 147/88; PULSE 96; RESP 18; TEMP 36.1; O2SAT 97
[2023-09-03 06:15] LABS: Basophils Percent Auto 0.3 % (0.2-1.2); Eosinophils Absolute Auto 0.1 K/mm3 (0-0.3); Eosinophils Percent Auto 1.2 % (0-4.4); Hematocrit 38.7 % (37.0-47.0); Hemoglobin 12.7 g/dL (12.0-15.0); Immature Granulocyte Absolute 0.04 K/mm3 (0.00-0.031); Immature Granulocyte Percent A 0.4 % (0-0.5); Immature Platelet Fraction Pct 2.6 % (0.9-11.2); Lymphocytes Absolute Auto 2.41 K/mm3 (0.9-3.2); Lymphocytes Percent Auto 24.5 % (18.3-44.2); Mean Corpuscular HGB Conc 32.8 g/dl (32-36); Mean Corpuscular Hemoglobin 29.8 pg (26-34); Mean Corpuscular Volume 90.8 fl (80-100); Mean Platelet Volume 9.6 fl (7.4-10.4); Monocytes Absolute Auto 0.5 K/mm3 (0.1-0.6); Monocytes Percent Auto 4.7 % (2.6-8.5); Neutrophils Absolute Auto 6.8 K/mm3 (1.3-6.7); Neutrophils Percent Auto 68.9 % (45.5-73.1); Platelet Count Result 360 k/mm3 (150-375); Red Blood Count 4.26 M/mm3 (4.2-5.4); Red Cell Distribution Width 13.2 % (11.5-14.5); White Blood Count 9.8 K/mm3 (4.5-10.0)
[2023-09-03 06:32] LABS: Alanine Aminotransferase 13 U/L (6-35); Albumin Level 4.1 g/dL (3.5-5.1); Alkaline Phosphatase 138 U/L (38-126); Anion Gap 8 mmol/L (4-12); Aspartate Amino Transferase 16 U/L (14-36); Bilirubin,Total 0.6 mg/dL (0.2-1.3); Blood Urea Nitrogen 11 mg/dL (7-17); Calcium 8.6 mg/dL (8.4-10.2); Carbon Dioxide 22 mmol/L (22-30); Chloride 108 mmol/L (98-107); Estimated CRCL calculation 125 ml/min; Estimated Glomerular Filt Rate > 60; Glucose 177 mg/dL (65-110); Potassium 3.7 mmol/L (3.4-5.0); Sodium 138 mmol/L (137-145)
[2023-09-03] MEDS: MEROPENEM 1 GM/NS 100 ML 1 GM/100 ML BAG IVPB (06:47)
[2023-09-03 07:52] LABS: Lipase 65 U/L (23-300)
[2023-09-03 08:00] VITALS: PULSE 94
[2023-09-03 08:12] VITALS: PULSE 86
[2023-09-03] MEDS: oxyBUTYnin CHLORIDE 5 MG TABLET PO (08:12)
[2023-09-03] MEDS: lisinopriL 20 MG TABLET PO (08:12)
[2023-09-03] MEDS: ASPIRIN 81 MG ENTERIC TABLET PO (08:12)
[2023-09-03] MEDS: CITALOPRAM HYDROBROMIDE 20 MG TABLET PO (08:12)
[2023-09-03] MEDS: clonazePAM (*CRX) 0.5 MG TABLET 1 MG PO (08:12)
[2023-09-03] MEDS: ATORVASTATIN 40 MG TABLET PO (08:12)
[2023-09-03] MEDS: PROPRANOLOL HCL 20 MG TABLET PO (08:12)
[2023-09-03] MEDS: GABAPENTIN 400 MG CAPSULE PO (08:12)
[2023-09-03] MEDS: amLODIPine BESYLATE 5 MG TABLET 10 MG PO (08:12)
[2023-09-03] MEDS: TIZANIDINE HCL 2 MG TABLET PO (08:12)
[2023-09-03] MEDS: ARIPiprazole 10 MG TABLET PO (08:12)
[2023-09-03] MEDS: ONDANSETRON INJ 4 MG/2 ML VIAL IV PUSH (08:14)
[2023-09-03 08:26] LABS: Glucose Point of Care 167 mg/dl (65-105)
[2023-09-03 09:12] LABS: Hepatitis B Surface Antigen Negative (Negative)
[2023-09-03 09:18] LABS: HAV RESULT Negative (Negative); Hepatitis B Core IgM Result Negative (Negative)
[2023-09-03 09:29] LABS: Hepatitis C Virus Antibody Negative (Negative)
[2023-09-03] MEDS: PANTOPRAZOLE 40 MG TABLET PO (10:54)
[2023-09-03 12:00] VITALS: PULSE 98
[2023-09-03] MEDS: traMADol HCL (*CRX) 50 MG TABLET PO (12:07)
[2023-09-03 12:10] LABS: Glucose Point of Care 142 mg/dl (65-105)
--- NOTE | 2023-09-03 12:29 | PM.DS ---
DS: Admitting Diagnosis Discharge Date 09/03/23 Admitting Diagnosis UTI Hypertension Anxiety Low back pain Diabetes Right upper quadrant pain DS: Discharge Diagnosis Discharge Diagnosis (1) UTI (urinary tract infection): Code(s): N39.0 - Urinary tract infection, site not specified Status: Acute (2) Hypertension: Qualifiers: Hypertension type: primary hypertension Qualified Code(s): I10 - Essential (primary) hypertension Code(s): I10 - Essential (primary) hypertension Status: Chronic (3) Anxiety and depression: Code(s): F41.9 - Anxiety disorder, unspecified; F32.A - Depression, unspecified Status: Chronic (4) Chronic back pain: Qualifiers: Back pain location: low back pain Back pain laterality: right Sciatica presence: without sciatica Qualified Code(s): M54.50 - Low back pain, unspecified; G89.29 - Other chronic pain Code(s): M54.9 - Dorsalgia, unspecified; G89.29 - Other chronic pain Status: Chronic (5) Type 2 diabetes mellitus with hyperglycemia: Qualifiers: Diabetes mellitus ferry terminal supervisor insulin use: unspecified ferry terminal supervisor insulin use status Qualified Code(s): E11.65 - Type 2 diabetes mellitus with hyperglycemia Code(s): E11.65 - Type 2 diabetes mellitus with hyperglycemia Status: Acute (6) Right upper quadrant pain: Code(s): R10.11 - Right upper quadrant pain Status: Acute DS: Summary Hospital Course Reason for hospitalization: UTI Hypertension Anxiety Low back pain Diabetes Right upper quadrant pain Hospital Course: 57-year-old female with past medical history significant for type diabetes mellitus, stroke, chronic back pain, tobacco dependence, hypertension, dyslipidemia, migraine headache presents to the hospital from a nursing facility for right upper quadrant pain. Patient was initially started on antibiotics for possible UTI, however they were discontinued when cultures were negative. CT abdomen/pelvis with ventral hernia and bilateral inguinal hernia containing fat. Small sliding hiatal hernia. No hernias felt on palpation and patient continues to have regular bowel movements. Abdominal US obtained and unremarkable. Hepatitis panel negative. Patient states pain is improving and reports mild abdominal pain more centrally located. Started on Protonix with plan to follow up with PCP in 1 week. Patient discharged back to facility in a stable condition. She will follow up with her PCP in 1 week. Status at Discharge Functional status at discharge: wheelchair bound Time Spent with Patient Time attestation: Total time spent providing and/or coordinating discharge services: Time spent: Greater than 30 minutes Exam Narrative: AF HR 96 RR 18 SpO2 97 BP 147/88 General: female in no acute respiratory distress who is nontoxic appearing, lying semi recumbent in bed. HEENT: Normocephalic. Atraumatic. Pupils equal round reactive to light. Extraocular movement intact. Sclera clear and anicteric. No facial asymmetry. Chest: Lungs are clear to auscultation bilaterally. No wheezes or crackles. CV: Heart was regular rate and rhythm. S1-S2. No murmurs, gallops, or rubs. Abd: Abdomen was soft. Mild tenderness to palpation to the RUQ. Nondistended. Positive bowel sounds. No organomegaly or masses. Ext: No clubbing, cyanosis, or edema. 2+ DP pulses bilaterally. Neuro: Patient is alert and oriented x4. Speech is clear. Psych: Normal mood and affect. Patient is pleasant and cooperative. Skin: Warm and dry. No rashes noted. DS: Data Data Completed and Pending Completed studies during hospitalization: Abdomen/pelvis CT Chest XR Abdomen US Labs on day of discharge: Labs from last 24 hours 09/03/23 09/03/23 09/03/23 12:03 08:23 06:02 WBC 9.8 RBC 4.26 Hgb 12.7 Hct 38.7 MCV 90.8 MCH 29.8 MCHC 32.8 RDW 13.2 Plt Count 360 MPV 9.6 Immature Gran % (Auto) 0.4 Neut % (A
[2023-09-03 14:39] LABS: SARS-CoV-2 RNA PCR Negative (Negative)
== END 2023-09-03 16:06 ==
LOC: ANHED 20:10 → ANH3MED 21:51
PROVIDERS: Emergency Medicine; Student in an Organized Health Care Education/Training Program; Admitting Provider Internal Medicine; Emergency Provider Emergency Medicine; PCP Hospitalist; Visit Provider Internal Medicine
DX: N39.0 Urinary tract infection, site not specified (principal); R41.82 Altered mental status, unspecified; E11.65 Type 2 diabetes mellitus with hyperglycemia; K43.9 Ventral hernia without obstruction or gangrene; K40.20 Bilateral inguinal hernia, without obstruction or gangrene, not specified as recurrent; M54.9 Dorsalgia, unspecified; G89.29 Other chronic pain; I10 Essential (primary) hypertension; E11.9 Type 2 diabetes mellitus without complications; E78.5 Hyperlipidemia, unspecified; F41.9 Anxiety disorder, unspecified; F32.A Depression, unspecified; Z11.52 Encounter for screening for COVID-19; Z86.73 Personal history of transient ischemic attack (TIA), and cerebral infarction without residual deficits; Z87.891 Personal history of nicotine dependence; Z90.49 Acquired absence of other specified parts of digestive tract; Z79.4 Long term (current) use of insulin; Z79.84 Long term (current) use of oral hypoglycemic drugs; Z79.891 Long term (current) use of opiate analgesic
CPT/HCPCS: 36415; 71045; 74177; 76705; 80053; 80074; 81001; 82948; 83690; 85025; 85055; 87086; 87635; 96361; 96365; 96375; 96376; 99285; A9270; G0378; J0696; J1170; J1815; J2185; J2405; J7030; Q9967

== ENCOUNTER 2023-09-14 10:51 | Emergency (ER) | payer MEDICARE, MEDICAID, SELFPAY ==
--- NOTE | ~2023-09-14 | CT_ITS ---
EXAMINATION: CT abdomen pelvis w con DATE: 09/14/2023 13:11 INDICATION: Abdominal distention. Hernia pain. TECHNIQUE: Computed tomography (CT) of the abdomen and pelvis was performed with 100 mL Omnipaque 350 intravenous contrast. Automated exposure control and iterative reconstruction technique were employe d. The dose-length product was 907.64 mGy-cm. COMPARISON: CT abdomen pelvis 09/01/23 FINDINGS: The visualized portions of the lung bases demonstrate mild atelectasis. No pleural effusion . The heart size is normal. No pericardial effusion. There are coronary artery calcifications. The li bhavana and spleen are normal. There are changes of cholecystectomy. The pancreas and adrenal glands are normal. There are cysts in the kidneys measuring up to 8 mm on the left. There is calcified atheroscl erosis of the aorta and many of the other arteries. There is diffuse bladder wall thickening, consist ent with cystitis. There is an anastomosis in the sigmoid colon. There are multiple supraumbilical ve ntral hernias containing fat. There are bilateral inguinal hernias containing fat. There are no patho logically enlarged lymph nodes. There is no free intraperitoneal fluid. There are changes of posterio r fusion procedure from the thoracic spine to the sacrum and iliac bones. There are changes of anteri or fusion procedures from L1 to S1. There is a catheter from the thecal sac to the peritoneum. IMPRESSION: 1. Ventral hernias and bilateral inguinal hernias containing fat. 2. Small sliding hiatal hernia. 3. Cystitis. Reviewed, dictated and finalized at location A.
[2023-09-14 11:10] VITALS: BP 131/81; PULSE 85; RESP 17; O2SAT 98
--- NOTE | 2023-09-14 12:05 | ED.ABDPAIN ---
HPI - Abdominal Pain General Chief Complaint: Abdominal Pain Stated Complaint: abd pain Time Seen by Provider: 09/14/23 11:43 Source: patient Mode of arrival: ambulatory Limitations: no limitations History of Present Illness HPI narrative: This is a 57-year-old female with PMH of CVA, HTN, DM, HLD who presents to the ED via EMS from [facility] for chief complaint of abdominal distension a started this morning. Reports her abdomen feels bloated and like she is having hernia pain. She reports that she was told she had hernias in her abdomen and groin. She feels that these are bladder giving her the pain today. She had tramadol Tylenol around 0 900 this morning with minimal relief. Patient has secondary complaints of urinary burning this started yesterday. Endorses constipation as well, with last bowel movement 2 days ago Denies fevers, chills, nausea, vomiting, chest pain, shortness of breath, cough. Related Data Home Medications Medication Instructions Recorded Confirmed atorvastatin 40 mg tablet 40 mg PO DAILY 12/31/20 09/01/23 levomilnacipran 120 mg capsule,24 120 mg PO DAILY 12/31/20 09/01/23 hr,extended release (Fetzima) acetaminophen 650 mg tablet 650 mg PO Q8H PRN Pain (Scale 02/06/21 09/01/23 Score 1-3) Aspercreme 1 inch topical BID PRN Pain 06/24/22 09/01/23 ascorbic acid (vitamin C) 500 mg 500 mg PO TID 06/24/22 09/01/23 tablet multivitamin (Daily Multi-Vitamin 1 tablet PO DAILY 06/24/22 09/01/23 tablet) propranolol 20 mg tablet 20 mg PO Q12H 06/24/22 09/01/23 tizanidine 2 mg capsule (Zanaflex) 2 mg PO BID Muscle Spasm 06/24/22 09/01/23 aripiprazole 10 mg tablet (Abilify) 10 mg PO DAILY 04/28/23 09/01/23 citalopram 20 mg tablet (Celexa) 20 mg PO DAILY 04/28/23 09/01/23 clonazepam 0.5 mg tablet 1 mg PO DAILY 04/28/23 09/01/23 gabapentin 400 mg capsule 400 mg PO BID 04/28/23 09/01/23 galcanezumab-gnlm 120 mg/mL 120 mg subcut MONTHLY 04/28/23 09/01/23 subcutaneous pen injector (Emgality Pen) guaifenesin 100 mg/5 mL oral 100 mg PO Q4H PRN Cough 04/28/23 09/01/23 liquid (Faiza-Tussin) insulin glargine 100 unit/mL (3 30 unit subcut HS 04/28/23 09/01/23 mL) subcutaneous pen lisinopril 20 mg tablet 20 mg PO DAILY 04/28/23 09/01/23 loperamide 2 mg tablet 2 mg PO QID PRN Diarrhea 04/28/23 09/01/23 oxybutynin chloride 5 mg tablet 5 mg PO BID 04/28/23 09/01/23 rizatriptan 10 mg tablet 10 mg PO DAILY PRN Migraine 04/28/23 09/01/23 Headache tramadol 50 mg tablet 50 mg PO Q8H PRN Pain (Scale Score 04/28/23 09/01/23 4-6) zolpidem 10 mg tablet (Ambien) 10 mg PO HS 04/28/23 09/01/23 amlodipine 10 mg tablet 10 mg PO DAILY 09/01/23 09/01/23 meclizine 25 mg capsule 25 mg PO Q8H PRN Dizziness 09/01/23 09/01/23 melatonin 5 mg PO HS 09/01/23 09/01/23 metformin 1,000 mg tablet 1,000 mg PO DAILY 09/01/23 09/01/23 oxycodone 10 mg tablet 10 mg PO Q6H 09/01/23 09/01/23 primidone 50 mg tablet 25 mg PO HS 09/01/23 09/01/23 Allergies Allergy/AdvReac Type Severity Reaction Status Date / Time latex Allergy Unknown Verified 12/14/22 05:02 topiramate [From Topamax] Allergy Unknown Verified 12/14/22 05:02 olanzapine [From Zyprexa] AdvReac Unknown Unverified 09/14/23 11:16 Review of Systems Review of Systems: All systems as dictated in [facility] Past Medical History Medical History (Updated 09/14/23 @ 14:44 by Faustino Mcdermott PA-C) Anxiety Chronic back pain Continuous tobacco abuse CVA (cerebral vascular accident) Depression Diabetes mellitus Essential hypertension Hyperlipidemia Hypomagnesemia Migraines Surgical History Surgical History History of abdominal surgery History of back surgery Family History Family History Father Diabetes mellitus Congestive heart failure Mother Unknown family medical history Social History Social History (Reviewed 04/28/23 @ 0
[2023-09-14 12:07] LABS: Basophils Percent Auto 0.4 % (0.2-1.2); Eosinophils Absolute Auto 0.3 K/mm3 (0-0.3); Eosinophils Percent Auto 2.7 % (0-4.4); Hematocrit 37.6 % (37.0-47.0); Hemoglobin 12.2 g/dL (12.0-15.0); Immature Granulocyte Absolute 0.04 K/mm3 (0.00-0.031); Immature Granulocyte Percent A 0.4 % (0-0.5); Lymphocytes Absolute Auto 3.27 K/mm3 (0.9-3.2); Lymphocytes Percent Auto 29.3 % (18.3-44.2); Mean Corpuscular HGB Conc 32.4 g/dl (32-36); Mean Corpuscular Hemoglobin 29.3 pg (26-34); Mean Corpuscular Volume 90.2 fl (80-100); Mean Platelet Volume 9.9 fl (7.4-10.4); Monocytes Absolute Auto 0.6 K/mm3 (0.1-0.6); Monocytes Percent Auto 5.6 % (2.6-8.5); Neutrophils Absolute Auto 6.9 K/mm3 (1.3-6.7); Neutrophils Percent Auto 61.6 % (45.5-73.1); Platelet Count Result 379 k/mm3 (150-375); Red Blood Count 4.17 M/mm3 (4.2-5.4); Red Cell Distribution Width 13.3 % (11.5-14.5); White Blood Count 11.2 K/mm3 (4.5-10.0)
[2023-09-14 12:16] LABS: Alanine Aminotransferase 12 U/L (6-35); Albumin Level 4.1 g/dL (3.5-5.1); Alkaline Phosphatase 121 U/L (38-126); Anion Gap 6 mmol/L (4-12); Aspartate Amino Transferase 17 U/L (14-36); Bilirubin,Total 0.6 mg/dL (0.2-1.3); Blood Urea Nitrogen 17 mg/dL (7-17); Calcium 9.1 mg/dL (8.4-10.2); Carbon Dioxide 29 mmol/L (22-30); Chloride 102 mmol/L (98-107); Estimated CRCL calculation 107 ml/min; Estimated Glomerular Filt Rate > 60; Glucose 187 mg/dL (65-110); Lipase 27 U/L (23-300); Potassium 4.2 mmol/L (3.4-5.0); Sodium 137 mmol/L (137-145)
[2023-09-14] MEDS: ONDANSETRON INJ 4 MG/2 ML VIAL IV PUSH (12:35)
[2023-09-14] MEDS: HYDROmorphone HCL INJ (*CRX) 1 MG/ML SYR 0.5 MG IV PUSH ×2 (12:35→13:42)
[2023-09-14 13:10] LABS: Appearance Urine Turbid (Clear); Bacteria Urine 4+ /hpf; Bilirubin Urine Negative (Negative); Blood Urine 2+ (Negative); Color Urine Yellow (Yellow); Glucose Urine UA Negative (Negative); Ketones Urine Negative (Negative); Leukocyte Esterase Ur 3+ LEU/UL (Negative); Need Manual Microscopic Reviewed; Nitrate Urine Positive (Negative); Protein Urine 1+ mg/dL (Negative); RBC Urine 0-2 /hpf (0-2); Specific Grav Ur 1.012 (1.001-1.035); Squamous Epithelial Cell Urine Few /hpf (Few); Urobilinogen Urine 0.2 mg/dL (<2.0); WBC Urine >100 /hpf (0-3); pH Urine 5.5 (5.0-9.0)
[2023-09-14 13:14] LABS: Add Urine Microscopic? YES
[2023-09-14 13:48] VITALS: BP 102/71; PULSE 85; RESP 14; O2SAT 98
[2023-09-14] MEDS: KETOROLAC 15 MG/ML VIAL (*BKC) IV PUSH (14:49)
[2023-09-14] MEDS: MEROPENEM 1 GM/NS 100 ML 1 GM/100 ML BAG IVPB (14:49)
[2023-09-14 14:56] VITALS: BP 116/72; PULSE 80; RESP 13; O2SAT 95
--- NOTE | 2023-09-14 15:20 | PC.NURSE ---
attempted to call report back to [facility] twice. no answer. no option to leave voicemail.
--- NOTE | 2023-09-16 14:15 | PC.NURSE ---
The labor relations worker notified this ED director that the urine culture that was obtained on 09/14/23 was not able to be processed by [facility]. Tania MCDANIELS on duty today reviewed the chart per our request to see if she felt the culture was still needed. Tania stated that she felt that is would be beneficial to still obtain a new specimen. This director called [facility] and spoke to Toyin MOORE, who is currently caring for Ms Garza to let her know about the urine culture. She stated that she would let her provider know.
== END 2023-09-14 18:00 ==
PROVIDERS: Emergency Medicine; Emergency Provider Physician Assistant; PCP Hospitalist
DX: K40.20 Bilateral inguinal hernia, without obstruction or gangrene, not specified as recurrent (principal); K43.9 Ventral hernia without obstruction or gangrene; K44.9 Diaphragmatic hernia without obstruction or gangrene; N30.90 Cystitis, unspecified without hematuria; I10 Essential (primary) hypertension; E78.5 Hyperlipidemia, unspecified; E11.9 Type 2 diabetes mellitus without complications; F41.9 Anxiety disorder, unspecified; F32.A Depression, unspecified; Z86.73 Personal history of transient ischemic attack (TIA), and cerebral infarction without residual deficits; Z87.891 Personal history of nicotine dependence; Z79.4 Long term (current) use of insulin; Z79.84 Long term (current) use of oral hypoglycemic drugs; Z79.899 Other long term (current) drug therapy
CPT/HCPCS: 36415; 74177; 80053; 81001; 83690; 85025; 87086; 96365; 96375; 96376; 99284; J1170; J1885; J2185; J2405; Q9967

== ENCOUNTER 2023-11-29 14:13 | Emergency (ER) | payer MEDICARE, MEDICAID, SELFPAY ==
[2023-11-29] VITALS (8 sets, daily range): BP systolic 118–158; BP diastolic 79–107; PULSE 90–107; RESP 16–18; TEMP 36.5; O2SAT 92–96
--- NOTE | ~2023-11-29 | CT_ITS ---
EXAMINATION: CT abdomen pelvis w con DATE: 11/29/2023 17:18 INDICATION: generalized abdominal pain TECHNIQUE: Computed tomography (CT) of the abdomen and pelvis was performed with 100 mL Omnipaque-350 intravenous contrast. Automated exposure control and iterative reconstruction technique were employe d. The dose-length product was 854.80 mGy-cm. COMPARISON: 09/14/2023. FINDINGS: Lower thorax: Bibasilar scar/atelectasis. Coronary artery calcification. Liver: Stable hepatomegaly. Biliary/Gallbladder: Gallbladder is absent. No bile duct dilation. Pancreas: Moderate fatty atrophy. Spleen: Normal. Adrenals:Left adrenal adenoma. Normal right adrenal. Kidneys: No suspicious mass, obstructing stone, or hydronephrosis. Simple left lower pole cyst. Bilat eral subcentimeter hypodensities, too small to characterize but most likely represent cysts. GI tract: Uncomplicated duodenal diverticulum. No small or large bowel dilation. Appendix not confide ntly visualized. Uncomplicated rectosigmoid anastomosis. Mesentery/Peritoneum: No ascites, mass, or free air. Retroperitoneum: No mass. Atherosclerotic abdominal aortic and/or arterial calcifications. Pelvis: Urinary bladder wall stranding. Absent uterus. Normal bilateral ovaries. Soft Tissues: Uncomplicated supraumbilical fat-containing hernias. Catheter extending from the thecal sac to the peritoneum. Stable fat necrosis superior to the sacrum. Bones: No acute osseous finding. Uncomplicated appearing thoracolumbar fusion hardware. IMPRESSION: Possible cystitis, correlate with urinalysis. Otherwise, no acute abdominopelvic process detected. Reviewed, dictated and finalized at location K.
--- NOTE | 2023-11-29 16:15 | ED.ABDPAIN ---
HPI - Abdominal Pain General Chief Complaint: Abdominal Pain <Rosana Landeros MICHAEL JensenN - Last Filed: 12/01/23 16:58> Stated Complaint: abd pain <Rosana AnjelNakia Jensen APRN - Last Filed: 12/01/23 16:58> Time Seen by Provider: 11/29/23 16:20 <Rosana HobbsNakia Jensen APRN - Last Filed: 12/01/23 16:58> Focused HPI: Pt is a 58-year-old female who presents to the ER with abdominal pain that started about six months ago, but has worsened since Wednesday. Pt endorses nausea, RUQ pain, generalized abdominal pain, dizziness, and pain with urination. GENERAL: Well-appearing, well-nourished, and in no acute distress. HEAD: Normocephalic, atraumatic. CHEST: Clear to auscultation. ?No respiratory distress. ABDOMEN: Pain in all four quadrants with palpation. Pt reports her last bowel movement was 8/. Decreased appetite. Vomiting on Wednesday. HEART: Regular rate and rhythm.? NEURO: ?Alert and oriented x3. Patient screened in triage and initial orders placed.? ?Additional care and disposition to be based upon?diagnostic testing and treatment. <Rosana Landeros MICHAEL JensenN - Last Filed: 12/01/23 16:58> Focused HPI: Pt is a 58-year-old female who presents to the ER with abdominal pain that started about six months ago, but has worsened since Wednesday. Pt endorses nausea, generalized abdominal pain, dizziness, and pain with urination. GENERAL: Well-appearing, well-nourished, and in no acute distress. HEAD: Normocephalic, atraumatic. CHEST: Clear to auscultation. ?No respiratory distress. ABDOMEN: Pain in all four quadrants with palpation. Pt reports her last bowel movement was 8/11. Decreased appetite. Vomiting on Wednesday. HEART: Regular rate and rhythm.? NEURO: ?Alert and oriented x3. Patient screened in triage and initial orders placed.? ?Additional care and disposition to be based upon?diagnostic testing and treatment. <Tania Gold PA-C - Last Filed: 11/30/23 01:31> Source: patient <Rosana Tigre Jensen APRN - Last Filed: 12/01/23 16:58> Mode of arrival: wheelchair <Rosana Jensen APRN - Last Filed: 12/01/23 16:58> Limitations: no limitations <Rosana Jensen APRN - Last Filed: 12/01/23 16:58> Related Data Home Medications: Home Medications Medication Instructions Recorded Confirmed atorvastatin 40 mg tablet 40 mg PO DAILY 12/31/20 11/15/23 levomilnacipran 120 mg capsule,24 120 mg PO DAILY 12/31/20 11/15/23 hr,extended release (Fetzima) acetaminophen 650 mg tablet 650 mg PO Q8H PRN Pain (Scale 02/06/21 11/15/23 Score 1-3) Aspercreme 1 inch topical BID PRN Pain 06/24/22 11/15/23 ascorbic acid (vitamin C) 500 mg 500 mg PO TID 06/24/22 11/15/23 tablet multivitamin (Daily Multi-Vitamin 1 tablet PO DAILY 06/24/22 11/15/23 tablet) propranolol 20 mg tablet 20 mg PO Q12H 06/24/22 11/15/23 tizanidine 2 mg capsule (Zanaflex) 2 mg PO BID Muscle Spasm 06/24/22 11/15/23 aripiprazole 10 mg tablet (Abilify) 10 mg PO DAILY 04/28/23 11/15/23 citalopram 20 mg tablet (Celexa) 20 mg PO DAILY 04/28/23 11/15/23 clonazepam 0.5 mg tablet 1 mg PO DAILY 04/28/23 11/15/23 gabapentin 400 mg capsule 400 mg PO BID 04/28/23 11/15/23 galcanezumab-gnlm 120 mg/mL 120 mg subcut MONTHLY 04/28/23 11/15/23 subcutaneous pen injector (Emgality Pen) guaifenesin 100 mg/5 mL oral 100 mg PO Q4H PRN Cough 04/28/23 11/15/23 liquid (Faiza-Tussin) insulin glargine 100 unit/mL (3 30 unit subcut HS 04/28/23 11/15/23 mL) subcutaneous pen lisinopril 20 mg tablet 20 mg PO DAILY 04/28/23 11/15/23 loperamide 2 mg tablet 2 mg PO QID PRN Diarrhea 04/28/23 11/15/23 oxybutynin chloride 5 mg tablet 5 mg PO BID 04/28/23 11/15/23 rizatriptan 10 mg tablet 10 mg PO DAILY PRN Migraine 04/28/23 11/15/23 Headache tramadol 50 mg tablet 50 mg PO Q8H PRN Pain (Scale Score 04/28/23 11/15/23 4-6) zolpidem 10 mg tablet (Hank) 10 mg PO HS 04/28/23 11/15/23 amlodipine 10 mg tablet 10 mg PO DAILY 09/01/23 11/15/23 meclizine 2
[2023-11-29 17:05] LABS: Basophils Percent Auto 0.3 % (0.2-1.2); Eosinophils Absolute Auto 0.3 K/mm3 (0-0.3); Eosinophils Percent Auto 1.9 % (0-4.4); Hematocrit 42.3 % (37.0-47.0); Hemoglobin 14.2 g/dL (12.0-15.0); Immature Granulocyte Absolute 0.04 K/mm3 (0.00-0.031); Immature Granulocyte Percent A 0.3 % (0-0.5); Lymphocytes Absolute Auto 4.33 K/mm3 (0.9-3.2); Mean Corpuscular HGB Conc 33.6 g/dl (32-36); Mean Corpuscular Hemoglobin 29.5 pg (26-34); Mean Corpuscular Volume 87.9 fl (80-100); Mean Platelet Volume 9.6 fl (7.4-10.4); Monocytes Absolute Auto 0.7 K/mm3 (0.1-0.6); Neutrophils Absolute Auto 7.8 K/mm3 (1.3-6.7); Neutrophils Percent Auto 59.5 % (45.5-73.1); Platelet Count Result 433 k/mm3 (150-375); Red Blood Count 4.81 M/mm3 (4.2-5.4); Red Cell Distribution Width 13.5 % (11.5-14.5); White Blood Count 13.1 K/mm3 (4.5-10.0)
[2023-11-29 17:17] LABS: Alanine Aminotransferase 15 U/L (6-35); Albumin Level 4.8 g/dL (3.5-5.1); Alkaline Phosphatase 136 U/L (38-126); Anion Gap 15 mmol/L (4-12); Aspartate Amino Transferase 21 U/L (14-36); Bilirubin,Total 0.7 mg/dL (0.2-1.3); Blood Urea Nitrogen 20 mg/dL (7-17); Calcium 9.6 mg/dL (8.4-10.2); Carbon Dioxide 27 mmol/L (22-30); Chloride 96 mmol/L (98-107); Estimated CRCL calculation 112 ml/min; Estimated Glomerular Filt Rate > 60; Glucose 169 mg/dL (65-110); Lipase 34 U/L (23-300); Potassium 3.8 mmol/L (3.4-5.0); Sodium 138 mmol/L (137-145)
[2023-11-29 17:28] LABS: Troponin I < 0.012 ng/mL (0.000-0.034)
[2023-11-29] MEDS: SODIUM CHLORIDE 0.9% IV 500 ML 999 ML IV CONT (18:46)
[2023-11-29] MEDS: PANTOPRAZOLE SODIUM IV 40 MG VIAL IV PUSH (18:46)
[2023-11-29] MEDS: MORPHINE SULFATE (*CRX) 4 MG/ML INJ IV PUSH (20:08)
[2023-11-29 20:53] LABS: Add Urine Microscopic? YES; Appearance Urine Turbid (Clear); Bacteria Urine 4+ /hpf; Bilirubin Urine Negative (Negative); Blood Urine 1+ (Negative); Color Urine Yellow (Yellow); Glucose Urine UA Negative (Negative); Ketones Urine 1+ mg/dL (Negative); Leukocyte Esterase Ur 2+ LEU/UL (Negative); Need Manual Microscopic Reviewed; Nitrate Urine Negative (Negative); Non Pathogenic Casts 0-2; Protein Urine 1+ mg/dL (Negative); Specific Grav Ur > 1.045 (1.001-1.035); Squamous Epithelial Cell Urine Few /hpf (Few); WBC Urine >100 /hpf (0-3)
[2023-11-29] MEDS: SULFAMETHOXAZOLE/TRIMETHOPRIM 800/160 MG DS TABLET 1 TAB PO (21:54)
[2023-11-29] MEDS: oxyCODONE HCL (*CRX) 5 MG TAB IR PO (22:06)
[2023-11-29] MEDS: ONDANSETRON INJ 4 MG/2 ML VIAL IV PUSH (22:45)
== END 2023-11-30 ==
PROVIDERS: Registered Nurse; Emergency Provider Physician Assistant
DX: N39.0 Urinary tract infection, site not specified (principal); E86.0 Dehydration; I10 Essential (primary) hypertension; E11.9 Type 2 diabetes mellitus without complications; E78.5 Hyperlipidemia, unspecified; F41.9 Anxiety disorder, unspecified; F32.A Depression, unspecified; F17.210 Nicotine dependence, cigarettes, uncomplicated; Z86.73 Personal history of transient ischemic attack (TIA), and cerebral infarction without residual deficits; Z79.84 Long term (current) use of oral hypoglycemic drugs; Z79.899 Other long term (current) drug therapy; Z79.4 Long term (current) use of insulin
CPT/HCPCS: 36415; 74177; 80053; 81001; 83690; 84484; 85025; 87077; 87086; 87088; 87186; 96361; 96374; 96375; 99284; A9270; J2270; J2405; J2470; J7040; Q9967

== ENCOUNTER 2024-01-18 10:06 | Outpatient (CLI) | payer MEDICARE, MEDICAID, SELFPAY ==
--- NOTE | ~2024-01-18 | NM_ITS ---
EXAMINATION: NM michel stress w perfusion DATE: 01/18/2024 13:04 INDICATION: Abnormal EKG. TECHNIQUE: Rest images were obtained following intravenous administration of 8.0 mCi Tc99m tetrofosmi n (Myoview). The patient was infused intravenously with Lexiscan (Regadenoson). Then, 86.0 mCi Tc99m tetrofosmin (Myoview) was administered intravenously, and stress images were obtained. Data was recon structed into short axis and horizontal and vertical long axis SPECT images. Gated SPECT images were also obtained. COMPARISON: None. FINDINGS: Largely reversible mild to moderate perfusion defect on the stress images at the mid infero lateral, basilar inferolateral, apical inferior and mid inferior and mid inferoapical segments. There is some persistent fixed decreased perfusion on the rest images at the mid inferior and mid inferose ptal segments consistent with infarct. There is normal left ventricular chamber size, wall motion an d ejection fraction. Left ventricular ejection fraction measures >70%. IMPRESSION: 1. Mild to moderate largely reversible perfusion defect consistent with ischemia involving portions o f the right coronary artery and circumflex coronary artery vascular distributions with small mild non reversible component consistent with infarct at the mid inferoseptal and mid inferior segments. 2. Left ventricular ejection fraction measuring >70%. Reviewed, dictated and finalized at location A. IMPRESSION: 1. Mild to moderate largely reversible perfusion defect consistent with ischemi a involving portions of the right coronary artery and circumflex coronary arter y vascular distributions with small mild nonreversible component consistent wit h infarct at the mid inferoseptal and mid inferior segments. 2. Left ventricular ejection fraction measuring >70%.
--- NOTE | 2024-01-18 10:42 | EST_ITS ---
Patient Info Name: Susannah Garza Age: 58 years : 1965 Gender: Female Ht: 68 in Wt: 211 lbs BSA: 2.17 m2 HR: 90 bpm BP: 137 / 96 mmHg Exam Date: 01/18/2024 11:57 AM Exam Location: [facility] Patient Status: Outpatient Admit Date: 01/18/2024 Staff Ordering Physician: Nguyễn Pena MD Attending Provider: Nguyễn Pena MD Exercise Technologist: Cate Torres CT Exercise Physician: Shelton Brown DO Exam Type: CA stress michel w NM Study Info A regadenoson stress test was performed. Summary 1. 1. Negative lexiscan stress test for ischemic ST changes by ECG criteria. 2. 2. Stable hemodynamics throughout the test. 3. 3. Nuclear scan to follow and will be reported separately. Please correlate with it. 4. 4. Patient informed of the above results. Protocol: Lexiscan Stress ECG Details Stage: REST Duration (min): 13 min : 47 sec HR (bpm): 74 SBP (mmHg): 137 DBP (mmHg): 96 Stage: STAGE 1 Duration (min): 1 min : 0 sec HR (bpm): 108 SBP (mmHg): 128 DBP (mmHg): 101 Stage: RECOVERY Duration (min): 1 min : 0 sec HR (bpm): 108 SBP (mmHg): 128 DBP (mmHg): 101 Stage: RECOVERY Duration (min): 2 min : 0 sec HR (bpm): 105 SBP (mmHg): 128 DBP (mmHg): 101 Stage: RECOVERY Duration (min): 3 min : 0 sec HR (bpm): 101 SBP (mmHg): 136 DBP (mmHg): 95 Stage: RECOVERY Duration (min): 3 min : 9 sec HR (bpm): 98 SBP (mmHg): 136 DBP (mmHg): 95 Rest HR: 74 bpm Peak HR: 108 bpm Rest Sys BP: 137 mmHg Peak Sys BP: 136 mmHg Max Pred HR: 163 bpm % Max Pred HR: 66 % Target HR: 139 bpm Max RPP: 14,688 bpm*mmHg Termination Reason: Completed protocol Cardiac Symptoms: Shortness of breath Total Time: 1 min : 0 sec Rest Thomas BP: 96 mmHg Peak Thomas BP: 95 mmHg Total Dose: 0.4 mg Resting ECG Sinus rhythm, low voltage in diffuse leads, consider inferior infarct, age indeterminate. Stress ECG No ST changes. Arrhythmias None. Report Signatures
== END 2024-01-18 10:07 | disposition home or self-care (01) ==
LOC: ANHCARD 10:11
PROVIDERS: PCP Internal Medicine; Visit Provider Surgery
DX: K43.0 Incisional hernia with obstruction, without gangrene (principal); R94.31 Abnormal electrocardiogram [ECG] [EKG]; R94.39 Abnormal result of other cardiovascular function study
CPT/HCPCS: 78452; 93017; A9502; J2785

== ENCOUNTER 2024-08-14 14:43 | Inpatient (IN) | payer MEDICARE, MEDICAID, SELFPAY ==
[2024-08-14] VITALS (8 sets, daily range): BP systolic 112–129; BP diastolic 56–70; PULSE 89–109; RESP 15–20; TEMP 36.7–37.6; O2SAT 85–98; BMI 32.5
--- NOTE | ~2024-08-14 | US_ITS ---
EXAMINATION: US thyroid DATE: 08/17/2024 08:57 INDICATION: Abnormal thyroid levels. TECHNIQUE: Multiple ultrasound images of the thyroid were obtained. COMPARISON: None. FINDINGS: The right thyroid lobe measures 4.4 x 1.4 x 1.5 cm. The left thyroid lobe measures 4.0 x 1.3 x 1.1 c m. Wider than tall 1.7 cm solid hypoechoic nodule with smooth margins, increased vascular flow on co kai Doppler but without echogenic foci at the left side of the thyroid isthmus. (TI-RADS 4, moderatel y suspicious , FNA if >=1.5 cm, annual followup is >=1 cm) There is otherwise normal echotexture, e chogenicity and vascular flow throughout the thyroid gland. IMPRESSION: 1. 1.7 cm TI RADS 4 nodule at the left-sided thyroid isthmus for which ultrasound-guided biopsy would be recommended. Reviewed, dictated and finalized at location B. IMPRESSION: 1. 1.7 cm TI RADS 4 nodule at the left-sided thyroid isthmus for which ultrasou nd-guided biopsy would be recommended.
--- NOTE | ~2024-08-14 | XR_ITS ---
EXAMINATION: XR chest 1V portable Exam Date/Time: 08/14/2024 17:50 CDT HISTORY: cough Comparison: 09/01/2023. RESULT: Lines, tubes, and devices: Cervical and thoracolumbar fusion hardware. Lungs and pleura: Lordotic positioning with rotation. Segmental left basilar and subsegmental right basilar airspace disease. Minimal bilateral costophrenic angle blunting. Cardiomediastinal silhouette: Stable. Other: No acute osseous or upper abdominal finding. IMPRESSION: Segmental left basilar and subsegmental right basilar atelectasis/consolidation. Possible trace bilat eral pleural effusions. Reviewed, dictated and finalized at location K. IMPRESSION: Segmental left basilar and subsegmental right basilar atelectasis/consolidation . Possible trace bilateral pleural effusions.
[2024-08-14 15:59] LABS: Influenza A QL RT-PCR Negative (Negative); Influenza B QL RT-PCR Negative (Negative); RSV RNA, RT-PCR Negative (Negative); SARS-CoV-2 RNA PCR Negative (Negative)
[2024-08-14] MEDS: ALBUTEROL SULFATE NEB 2.5 MG/3 ML INH 15 MG INHALATION (16:10)
[2024-08-14] MEDS: IPRATROPIUM BR 0.02% INH SOLN 0.5 MG/2.5 ML VIAL 1.5 MG INHALATION (16:11)
--- NOTE | 2024-08-14 16:31 | PC.NURSE ---
multiple attempts made to draw labs on the patient, phlebotomy contacted to obtain labwork
[2024-08-14] MEDS: ACETAMINOPHEN 325 MG TABLET 650 MG PO (16:53)
--- NOTE | 2024-08-14 17:37 | ED.GENADULT ---
HPI - General Adult General Chief complaint: Upper Respiratory Infection <Kevon Jameson MD - Last Filed: 08/14/24 19:10> Stated complaint: cough/congestion x 1 week <Kevon Jameson MD - Last Filed: 08/14/24 19:10> Time Seen by Provider: 08/14/24 15:43 <Kevon Jameson MD - Last Filed: 08/14/24 19:10> History of Present Illness HPI narrative: Patient is a 58-year-old female who presents ER with cough. Worsening over last week. Reports that is more productive and wet. She has increased dyspnea. Found to be hypoxic on arrival here. No chest pain or chest pressure. Resides in a [facility]. Denies history of heart failure. She smokes 3 cigarettes a day. <Kevon Jameson MD - Last Filed: 08/14/24 19:10> Related Data Home medications: Home Medications ?Medication ?Instructions ?Recorded ?Confirmed ?Last Taken ?Type atorvastatin 40 mg tablet 40 mg PO DAILY 12/31/20 11/15/23 Unknown History levomilnacipran 120 mg capsule,24 120 mg PO DAILY 12/31/20 11/15/23 Unknown History hr,extended release (Fetzima) acetaminophen 650 mg tablet 650 mg PO Q8H PRN Pain (Scale 02/06/21 11/15/23 Unknown History Score 1-3) Aspercreme 1 inch topical BID PRN Pain 06/24/22 11/15/23 Unknown History ascorbic acid (vitamin C) 500 mg 500 mg PO TID 06/24/22 11/15/23 Unknown History tablet multivitamin (Daily Multi-Vitamin 1 tablet PO DAILY 06/24/22 11/15/23 Unknown History tablet) propranolol 20 mg tablet 20 mg PO Q12H 06/24/22 11/15/23 Unknown History tizanidine 2 mg capsule (Zanaflex) 2 mg PO BID Muscle Spasm 06/24/22 11/15/23 Unknown History aripiprazole 10 mg tablet (Abilify) 10 mg PO DAILY 04/28/23 11/15/23 Unknown History citalopram 20 mg tablet (Celexa) 20 mg PO DAILY 04/28/23 11/15/23 Unknown History clonazepam 0.5 mg tablet 1 mg PO DAILY 04/28/23 11/15/23 Unknown History gabapentin 400 mg capsule 400 mg PO BID 04/28/23 11/15/23 Unknown History galcanezumab-gnlm 120 mg/mL 120 mg subcut MONTHLY 04/28/23 11/15/23 04/19/23 History subcutaneous pen injector (Emgality Pen) guaifenesin 100 mg/5 mL oral 100 mg PO Q4H PRN Cough 04/28/23 11/15/23 Unknown History liquid (Faiza-Tussin) insulin glargine 100 unit/mL (3 30 unit subcut HS 04/28/23 11/15/23 Unknown History mL) subcutaneous pen lisinopril 20 mg tablet 20 mg PO DAILY 04/28/23 11/15/23 Unknown History loperamide 2 mg tablet 2 mg PO QID PRN Diarrhea 04/28/23 11/15/23 Unknown History oxybutynin chloride 5 mg tablet 5 mg PO BID 04/28/23 11/15/23 Unknown History rizatriptan 10 mg tablet 10 mg PO DAILY PRN Migraine 04/28/23 11/15/23 Unknown History Headache tramadol 50 mg tablet 50 mg PO Q8H PRN Pain (Scale Score 04/28/23 11/15/23 Unknown History 4-6) zolpidem 10 mg tablet (Ambien) 10 mg PO HS 04/28/23 11/15/23 Unknown History amlodipine 10 mg tablet 10 mg PO DAILY 09/01/23 11/15/23 Unknown History meclizine 25 mg capsule 25 mg PO Q8H PRN Dizziness 09/01/23 11/15/23 Unknown History melatonin 5 mg PO HS 09/01/23 11/15/23 Unknown History metformin 1,000 mg tablet 1,000 mg PO DAILY 09/01/23 11/15/23 Unknown History oxycodone 10 mg tablet 10 mg PO Q6H 09/01/23 11/15/23 Unknown History primidone 50 mg tablet 25 mg PO HS 09/01/23 11/15/23 Unknown History <Kevon Jameson MD - Last Filed: 08/14/24 19:10> Allergies/adverse reactions: Allergies Allergy/AdvReac Type Severity Reaction Status Date / Time latex Allergy Unknown Verified 11/29/23 19:25 topiramate (From Topamax) Allergy Unknown Verified 11/29/23 19:25 olanzapine (From Zyprexa) AdvReac Unknown Verified 11/29/23 19:25 <Kevon Jameson MD - Last Filed: 08/14/24 19:10> Review of Systems Review of Systems: All systems reviewed & are unremarkable except as noted in HPI and below <Kevon Jameson MD - Last Filed: 08/14/24 19:10> Constitutional: Constitutional: Reports no additional constitutional complaints <Kevon Jameson MD - Last Filed: 08/14/24 19:10> ENT: Reports system reviewed and no additional complaints, except as documented <Kevon Jameson MD - Last Filed: 08/14/24 19:10> Cardiovascular: Cardiovascular: Reports no additional cardiovascular complaints <Kevon Jameson MD - Last Filed: 08/14/24 19:10> Respiratory: Respiratory: Reports no additional respiratory complaints <Kevon Jameson MD - Last Filed: 08/14/24 19:10> Neurologic: Reports system reviewed and no additional complaints, except as documented <Kevon Jameson MD - Last Filed: 08/14/24 19:10> PMFSH Past Medical History Medical History: Medical History Anxiety Chronic back pain Continuous tobacco abuse CVA (cerebral vascular accident) Depression Diabetes mellitus Essential hypertension Hyperlipidemia Hypomagnesemia Migraines <Kevon Jameson MD - Last Filed: 08/14/24 19:10> Surgical History Surgical History: Surgical History History of abdominal surgery History of back surgery <Kevon Jameson MD - Last Filed: 08/14/24 19:10> Family History Family History: Family History Father Diabetes mellitus Congestive heart failure Mother Unknown family medical history <Kevon Jameson MD - Last Filed: 08/14/24 19:10> Social History Social History: Social History Social History: She is currently living with her daughter after living in transient life tell living with various acquaintances. She has smoked 1 pack of cigarettes per day since she was 16. She denies any alcohol use or drug use. Smoking packs per day: 1 Smoking cigarettes per day: 20.0 Years smoked: 35 Smoking pack-years: 35.00 Smoking status: Former smoker Tobacco type: cigarettes Additional smoking assessment comments: hx of smoking up to 4 packs per day Alcohol intake: never Substance use: never Substance use type: does not use Do You Feel Safe in your Home?: Yes Lack of Transportation: No Lack of Food: Never True Current Housing: I Have Housing Concerned About Future Housing: No Difficulty Paying Gas/Electric Bills: No Difficulty Paying for Meds: No Currently Unemployed: No Education: High School Diploma/GED Difficulty w/ Childcare or Family Care: No Living arrangements: [facility] Spiritual care concerns: No <Kevon Jameson MD - Last Filed: 08/14/24 19:10> Exam Narrative: GENERAL: Chronically ill-appearing, well-nourished, and in no acute distress. HEAD: Normocephalic, atraumatic. ENT: Mucous membranes moist. NECK: Supple. CHEST: Clear to auscultation. No respiratory distress. Wet cough. HEART: Regular rate and rhythm. Normal peripheral pulses. ABDOMEN: Soft, nontender, nondistended. EXTREMITIES: Normal range of motion. No edema. SKIN: Warm, dry, no rash. NEURO: Alert and oriented x3. PSYCH: Normal mood and affect. <Kevon Jameson MD - Last Filed: 08/14/24 19:10> Course Course Emergency Course: Patient is still on supplemental oxygen after hour long breathing treatment does improve the patient's cough and dyspnea. Temperature elevated. Negative viral swab. Patient started on IV antibiotics and will require admission. WAN to Dr. Almaguer. <Kevon Jameson MD - Last Filed: 08/14/24 19:10> Patient is still on supplemental oxygen after hour long breathing treatment does improve the patient's cough and dyspnea. Temperature elevated. Negative viral swab. Patient started on IV antibiotics and will require admission. WAN to Dr. Almaguer. Assume patient care from Dr. Jameson at 7:00 p.m.. Patient is resting comfortably, requiring 2 L nasal cannula to maintain 94% saturation. She does not wear oxygen at home. Patient was treated with some nebulization inhalers with improvement her shortness of breath. She has a pneumonia on chest x-ray and will be admitted with IV antibiotics. Spoke to the hospitalist currently being covered by the midlevel provider Pallavi who accepted the patient to a medical-surgical bed. Patient was re-evaluated and comfortable with plan of care. <Pranav Almaguer MD - Last Filed: 08/14/24 19:51> Vital Signs Vital signs: Vital Signs Temperature 36.9 C 08/14/24 14:48 Pulse Rate 103 H 08/14/24 14:48 Respiratory Rate 18 08/14/24 14:48 Blood Pressure 129/70 08/14/24 14:48 Pulse Oximetry 85 L 08/14/24 14:48 Oxygen Delivery Room Air 08/14/24 14:48 Temperature 37.6 C H 08/14/24 14:56 Pulse Rate 89 08/14/24 18:09 Respiratory Rate 20 08/14/24 18:09 Blood Pressure 116/57 L 08/14/24 18:09 Pulse Oximetry 88 L 08/14/24 18:09 Oxygen Delivery Room Air 08/14/24 14:51 Oxygen Flow Rate 3 08/14/24 14:51 <Kevon Jameson MD - Last Filed: 08/14/24 19:10> Vital Signs Temperature 36.9 C 08/14/24 14:48 Pulse Rate 103 H 08/14/24 14:48 Respiratory Rate 18 08/14/24 14:48 Blood Pressure 129/70 08/14/24 14:48 Pulse Oximetry 85 L 08/14/24 14:48 Oxygen Delivery Room Air 08/14/24 14:48 Temperature 37.6 C H 08/14/24 14:56 Pulse Rate 89 08/14/24 18:09 Respiratory Rate 20 08/14/24 18:09 Blood Pressure 116/57 L 08/14/24 18:09 Pulse Oximetry 88 L 08/14/24 18:09 Oxygen Delivery Room Air 08/14/24 14:51 Oxygen Flow Rate 3 08/14/24 14:51 <Pranav Almaguer MD - Last Filed: 08/14/24 19:51> Medical Decision Making Vital Signs Vital Signs: Vital Signs Temperature 36.9 C 08/14/24 14:48 Pulse Rate 103 H 08/14/24 14:48 Respiratory Rate 18 08/14/24 14:48 Blood Pressure 129/70 08/14/24 14:48 Pulse Oximetry 85 L 08/14/24 14:48 Oxygen Delivery Room Air 08/14/24 14:48 Temperature 37.6 C H 08/14/24 14:56 Pulse Rate 89 08/14/24 18:09 Respiratory Rate 20 08/14/24 18:09 Blood Pressure 116/57 L 08/14/24 18:09 Pulse Oximetry 88 L 08/14/24 18:09 Oxygen Delivery Room Air 08/14/24 14:51 Oxygen Flow Rate 3 08/14/24 14:51 <Kevon Jameson MD - Last Filed: 08/14/24 19:10> Vital Signs Temperature 36.9 C 08/14/24 14:48 Pulse Rate 103 H 08/14/24 14:48 Respiratory Rate 18 08/14/24 14:48 Blood Pressure 129/70 08/14/24 14:48 Pulse Oximetry 85 L 08/14/24 14:48 Oxygen Delivery Room Air 08/14/24 14:48 Temperature 37.6 C H 08/14/24 14:56 Pulse Rate 89 08/14/24 18:09 Respiratory Rate 20 08/14/24 18:09 Blood Pressure 116/57 L 08/14/24 18:09 Pulse Oximetry 88 L 08/14/24 18:09 Oxygen Delivery Room Air 08/14/24 14:51 Oxygen Flow Rate 3 08/14/24 14:51 <Pranav Almaguer MD - Last Filed: 08/14/24 19:51> Lab Data Result diagrams: 08/14/24 17:47 08/14/24 17:47 <Kevon Jameson MD - Last Filed: 08/14/24 19:10> Labs: Lab Results 08/14/24 08/14/24 Range/Units 15:15 17:47 WBC 15.5 H (4.5-10.0) K/mm3 RBC 3.76 L (4.2-5.4) M/mm3 Hgb 10.5 L D (12.0-15.0) g/dL Hct 33.2 L (37.0-47.0) % MCV 88.3 (80-100) fl MCH 27.9 (26-34) pg MCHC 31.6 L (32-36) g/dl RDW 14.5 (11.5-14.5) % Plt Count 290 (150-375) k/mm3 MPV 10.4 (7.4-10.4) fl Immature Gran % (Auto) Not Reportable Neut % (Auto) Not Reportable Lymph % (Auto) Not Reportable [place] % (Auto) Not Reportable Eos % (Auto) Not Reportable Baso % (Auto) Not Reportable Lymph # (Auto) Not Reportable [place] # (Auto) Not Reportable Eos # (Auto) Not Reportable Baso # (Auto) Not Reportable Abs Immat Gran (auto) Not Reportable Absolute Neuts (auto) Not Reportable Absolute Nucleated RBC Not Reportable Total Counted 100 Neutrophils % (Manual) 66 (46-73) % Band Neutrophils % 11 H (0-6) % Lymphocytes % (Manual) 18.0 (18-44) % Monocytes % (Manual) 4 (3-9) % Eosinophils % (Manual) 1 (0-4) % Nucleated RBC % Not Reportable Abs Neuts (Manual) 11.93 H (1.7-7.2) K/mm3 Abs Lymphs (Manual) 2.79 (1.1-4.5) K/mm3 Abs Monocytes (Manual) 0.62 (0.1-0.90) K/mm3 Absolute Eos (Manual) 0.15 (0.02-0.50) K/mm3 Platelet Estimate Adequate (Adequate) % Immature Plt Fraction 3.6 (0.9-11.2) % Hypochromasia 1+ Schistocytes None seen Sodium 137 (137-145) mmol/L Potassium 3.6 (3.4-5.0) mmol/L Chloride 102 (98-107) mmol/L Carbon Dioxide 27 (22-30) mmol/L Anion Gap 8 (4-12) mmol/L BUN 15 D (7-17) mg/dL Creatinine 0.65 L (0.7-1.0) mg/dL Estim Creat Clear Calc 102 ml/min Estimated GFR > 60 (59 - ) Glucose 133 H (65-110) mg/dL Calcium 8.1 L (8.4-10.2) mg/dL Total Bilirubin 0.7 (0.2-1.3) mg/dL AST 18 (14-36) U/L ALT 12 (6-35) U/L Alkaline Phosphatase 110 (38-126) U/L Total Protein 7.0 (6.3-8.2) g/dL Albumin 3.6 (3.5-5.1) g/dL Influenza A (RT-PCR) Negative (Negative) Influenza B (RT-PCR) Negative (Negative) RSV (RT-PCR) Negative (Negative) SARS-CoV-2 RNA (RT-PCR) Negative (Negative) <Kevon Jameson MD - Last Filed: 08/14/24 19:10> Lab Results 08/14/24 08/14/24 Range/Units 15:15 17:47 WBC 15.5 H (4.5-10.0) K/mm3 RBC 3.76 L (4.2-5.4) M/mm3 Hgb 10.5 L D (12.0-15.0) g/dL Hct 33.2 L (37.0-47.0) % MCV 88.3 (80-100) fl MCH 27.9 (26-34) pg MCHC 31.6 L (32-36) g/dl RDW 14.5 (11.5-14.5) % Plt Count 290 (150-375) k/mm3 MPV 10.4 (7.4-10.4) fl Immature Gran % (Auto) Not Reportable Neut % (Auto) Not Reportable Lymph % (Auto) Not Reportable [place] % (Auto) Not Reportable Eos % (Auto) Not Reportable Baso % (Auto) Not Reportable Lymph # (Auto) Not Reportable [place] # (Auto) Not Reportable Eos # (Auto) Not Reportable Baso # (Auto) Not Reportable Abs Immat Gran (auto) Not Reportable Absolute Neuts (auto) Not Reportable Absolute Nucleated RBC Not Reportable Total Counted 100 Neutrophils % (Manual) 66 (46-73) % Band Neutrophils % 11 H (0-6) % Lymphocytes % (Manual) 18.0 (18-44) % Monocytes % (Manual) 4 (3-9) % Eosinophils % (Manual) 1 (0-4) % Nucleated RBC % Not Reportable Abs Neuts (Manual) 11.93 H (1.7-7.2) K/mm3 Abs Lymphs (Manual) 2.79 (1.1-4.5) K/mm3 Abs Monocytes (Manual) 0.62 (0.1-0.90) K/mm3 Absolute Eos (Manual) 0.15 (0.02-0.50) K/mm3 Platelet Estimate Adequate (Adequate) % Immature Plt Fraction 3.6 (0.9-11.2) % Hypochromasia 1+ Schistocytes None seen Sodium 137 (137-145) mmol/L Potassium 3.6 (3.4-5.0) mmol/L Chloride 102 (98-107) mmol/L Carbon Dioxide 27 (22-30) mmol/L Anion Gap 8 (4-12) mmol/L BUN 15 D (7-17) mg/dL Creatinine 0.65 L (0.7-1.0) mg/dL Estim Creat Clear Calc 102 ml/min Estimated GFR > 60 (59 - ) Glucose 133 H (65-110) mg/dL Calcium 8.1 L (8.4-10.2) mg/dL Total Bilirubin 0.7 (0.2-1.3) mg/dL AST 18 (14-36) U/L ALT 12 (6-35) U/L Alkaline Phosphatase 110 (38-126) U/L Total Protein 7.0 (6.3-8.2) g/dL Albumin 3.6 (3.5-5.1) g/dL Influenza A (RT-PCR) Negative (Negative) Influenza B (RT-PCR) Negative (Negative) RSV (RT-PCR) Negative (Negative) SARS-CoV-2 RNA (RT-PCR) Negative (Negative) <Pranav Almaguer MD - Last Filed: 08/14/24 19:51> Discharge Plan Discharge Clinical Impression: Pneumonia, Hypoxia <Kevon Jameson MD - Last Filed: 08/14/24 19:10> Patient Disposition: Still a Patient <Kevon Jameson MD - Last Filed: 08/14/24 19:10> Condition: Stable <Kevon Jameson MD - Last Filed: 08/14/24 19:10> Patient Language: Welsh <Kevon Jameson MD - Last Filed: 08/14/24 19:10> Prescriptions: No Action lisinopril 20 mg Tablet 20 mg PO DAILY rizatriptan 10 mg Tablet 10 mg PO DAILY PRN (Reason: Migraine Headache) loperamide 2 mg Tablet 2 mg PO QID PRN (Reason: Diarrhea) tramadol 50 mg Tablet 50 mg PO Q8H PRN (Reason: Pain (Scale Score 4-6)) guaifenesin [Faiza-Tussin] 100 mg/5 mL Liquid 100 mg PO Q4H PRN (Reason: Cough) citalopram [Celexa] 20 mg Tablet 20 mg PO DAILY zolpidem [Ambien] 10 mg Tablet 10 mg PO HS oxybutynin chloride 5 mg Tablet 5 mg PO BID aripiprazole [Abilify] 10 mg Tablet 10 mg PO DAILY insulin glargine 100 unit/mL (3 mL) Insulin Pen 30 unit SUBCUT HS Emgality Pen 120 mg/mL Pen Injector 120 mg SUBCUT MONTHLY Rx Instructions: takes on the 1st of each month clonazepam 0.5 mg tablet 1 mg PO DAILY gabapentin 400 mg capsule 400 mg PO BID amlodipine 10 mg Tablet 10 mg PO DAILY primidone 50 mg Tablet 25 mg PO HS meclizine 25 mg Capsule 25 mg PO Q8H PRN (Reason: Dizziness) metformin 1,000 mg Tablet 1,000 mg PO DAILY oxycodone 10 mg Tablet 10 mg PO Q6H melatonin 5 mg PO HS pantoprazole 40 mg Tablet,Delayed Release (Dr/Ec) 40 mg PO QAM Qty: 30 0RF cefpodoxime 100 mg tablet 100 mg PO BID Qty: 14 0RF Rx Instructions: must administer with a meal/food atorvastatin 40 mg Tablet 40 mg PO DAILY Fetzima 120 mg Capsule,Extended Release 24 Hr 120 mg PO DAILY acetaminophen 650 mg Tablet 650 mg PO Q8H PRN (Reason: Pain (Scale Score 1-3)) Aspercreme 1 inch topical BID PRN (Reason: Pain) Rx Instructions: apply to feet multivitamin [Daily Multi-Vitamin] Tablet 1 tablet PO DAILY ascorbic acid (vitamin C) 500 mg Tablet 500 mg PO TID Rx Instructions: With meals propranolol 20 mg Tablet 20 mg PO Q12H Rx Instructions: Hold if B/P <100/50 tizanidine [Zanaflex] 2 mg Capsule 2 mg PO BID aspirin 81 mg Tablet,Delayed Release (Dr/Ec) 81 mg PO QAM Qty: 30 0RF omega-3 acid ethyl esters [Lovaza] 1 gram capsule 1 cap PO BID Qty: 60 0RF sulfamethoxazole-trimethoprim 800-160 mg tablet 1 tablet PO Q12H 3 Days Qty: 6 0RF <Kevon Jameson MD - Last Filed: 08/14/24 19:10> Follow-up/Referrals: Baljinder,MD Nguyễn [Primary Care Provider] - <Kevon Jameson MD - Last Filed: 08/14/24 19:10>
--- OUTSIDE RECORDS SUMMARY | 2024-08-14 17:59 | XMS_ITS | Referral Summary ---
[facility] Organization [facility] Address [address] [place] [address] Care Team Providers Care Computer Service Technician Name Role Phone Brian Hodges MD Primary Care Provider [phone] Encounters Date Type Department Care Team Description 07/27/2024 1:06 PM CDT - 07/27/2024 11:59 PM CDT Hospital Encounter [facility] [address] [place] [address] Abdominal hernia without obstruction and without gangrene, recurrence not specified, unspecified hernia type Discharge Disposition: Discharge to home or self care 07/26/2024 Telephone [facility] [address] [place] [address] Shagufta Lamb 06/13/2024 Telephone [facility] ([facility]) - [facility] [place] Minimally Invasive Surgery [address] [place] [address] [facility] 12th Floor, [place] [address] Rojelio Herrera MD Medical Question/Miscellane ous from Last 3 Months Allergies Active Allergy Reactions Criticality Noted Date Comments Adhesive Other (See comments) Low 08/30/2009 Red area on skin Azithromycin Unknown 09/20/2002 Gabapentin Rash Medium 11/21/2019 Per patient Latex Rash Medium 05/26/2017 rash Nsaids (Non-Steroidal Anti-Inflammatory Drug) Unknown 12/08/2012 Topiramate Nausea only,Vomiting,Mental status changes,Other (See comments) Medium 01/20/2017 Reaction: Nausea, Vomiting, confusion Confusion Medications traZODone (DESYREL) 100 mg tablet take 1.5 tablet by oral route at bedtime 0 0 10/16/19 16 Active morphine ER (MS CONTIN) 60 mg 12 hr tablet take 1 tablet by oral route TID 0 0 10/16/19 16 Active oxyCODONE (ROXICODONE) 30 mg immediate release tablet take 1-2 tablet by oral route every 4- 6 hours 0 0 10/16/19 16 Active eszopiclone (LUNESTA) 2 mg tablet take 1 tablet by oral route every day at bedtime 0 0 10/16/19 16 Active Additional Information Patient not taking.Reported on 12/31/2016 venlafaxine XR (EFFEXOR XR) 75 mg 24 hr capsule take 1 capsule by oral route at night 0 0 10/16/19 16 Active ALPRAZolam (XANAX) 1 mg tablet take 1 tablet by oral route 3 times a day 0 0 10/16/19 16 Active Additional Information Patient not taking.Reported on 12/29/2022 venlafaxine XR (EFFEXOR XR) 150 mg 24 hr capsule take 1 capsule by oral route in the morning 0 0 10/16/19 16 Active morphine ER (MS CONTIN) 15 mg 12 hr tablet take 1 tablet by oral route TID 0 0 10/16/19 16 Active ARIPiprazole (ABILIFY) 10 mg tablet take 1 tablet by oral route every bedtime 0 0 10/16/19 16 Active Additional Information Patient not taking.Reported on 12/29/2022 QUEtiapine (SEROquel) 100 mg tabletIndications: Unknown how many MG Take by mouth nightly. Active primidone (MYSOLINE) 50 mg tablet Take 1 tablet (50 mg total) by mouth 2 (two) times a day. 90 tablet 01/01/20 17 Active atenolol (TENORMIN) 25 mg tablet Take 1 tablet (25 mg total) by mouth 2 (two) times a day. 90 tablet 01/01/20 17 Active SUMAtriptan (IMITREX) 100 mg tabletIndications: Migraine Take one tablet at onset of headache, Repeat in 2 hours if needed. Max 2 /24 hours. 9 tablet 01/01/20 17 Active prochlorperazine (COMPAZINE) 10 mg tablet Take 1 tablet (10 mg total) by mouth 3 (three) times a day as needed for nausea. 30 tablet 5 01/01/20 17 Active venlafaxine XR (EFFEXOR-XR) 75 mg 24 hr capsule Take 1 capsule (75 mg total) by mouth daily 06/19/19 18 Active venlafaxine XR (EFFEXOR-XR) 150 mg 24 hr capsule Take 1 capsule (150 mg total) by mouth daily 06/20/19 18 Active traZODone (DESYREL) 50 mg tablet 99 01/09/20 23 Active traZODone (DESYREL) 100 mg tablet Take 1 tablet (100 mg total) by mouth nightly as needed 06/19/19 18 Active SUMAtriptan (IMITREX) 50 mg tablet Take 1 tablet (50 mg total) by mouth 2 (two) times a day as needed 06/06/19 21 Active QUEtiapine (SEROquel) 200 mg tablet Take 1 tablet (200 mg total) by mouth nightly Active primidone (MYSOLINE) 50 mg tablet Take 1 tablet (50 mg total) by mouth 2 (two) times a day 06/19/19 18 Active oxyCODONE (ROXICODONE) 10 mg tablet 0 01/05/20 23 Active oxyCODONE (ROXICODONE) 5 mg immediate release tablet Take 1-2 tablets (5-10 mg total) by mouth every 6 (six) hours as needed 11/23/19 20 Active morphine ER (MS CONTIN) 60 mg 12 hr tablet Take 1 tablet (60 mg total) by mouth 3 (three) times a day Active morphine ER (MS CONTIN) 15 mg 12 hr tablet Take 2 tablets (30 mg total) by mouth 3 (three) times a day Active atenoloL (TENORMIN) 25 mg tablet Take 1 tablet (25 mg total) by mouth daily 06/20/19 18 Active ARIPiprazole (ABILIFY) 5 mg tablet 99 12/20/19 23 Active ALPRAZolam (XANAX) 0.5 mg tablet Take 1 tablet (0.5 mg total) by mouth 3 (three) times a day as needed Active zolpidem (AMBIEN) 5 mg tablet 0 12/29/19 23 Active vortioxetine (TRINTELLIX) 10 mg tablet Take 1 tablet (10 mg total) by mouth daily Active traMADoL (ULTRAM) 50 mg tablet 0 11/18/19 23 Active topiramate (TOPAMAX) 25 mg tablet 99 11/12/19 23 Active tiZANidine (ZANAFLEX) 2 mg tablet 99 12/31/19 23 Active tiZANidine (ZANAFLEX) 4 mg tablet Take 1 tablet (4 mg total) by mouth 3 (three) times a day as needed 11/26/19 20 Active sodium phosphates 19-7 gram/197 mL enema Insert 1 enema into the rectum daily as needed Active senna-docusate (PERICOLACE) 8.6-50 mg Take 1 tablet by mouth 2 (two) times a day 05/01/19 21 Active senna (SENOKOT) 8.6 mg tablet Take 1 tablet by mouth nightly 06/09/19 18 Active risperiDONE (RisperDAL) 0.5 mg tablet Take 1 tablet (0.5 mg total) by mouth 2 (two) times a day 05/12/19 21 Active pregabalin (LYRICA) 75 mg capsule Take 1 capsule (75 mg total) by mouth 3 (three) times a day Active pregabalin (LYRICA) 25 mg capsule Take 1 capsule (25 mg total) by mouth daily 05/17/19 21 Active polyethylene glycol (MIRALAX) 17 gram/dose bulk powder Take 17 g by mouth daily as needed 06/10/19 18 Active OXcarbazepine (TRILEPTAL) 300 mg tablet Take 1.5 tablets (450 mg total) by mouth 2 (two) times a day 05/12/19 21 Active pen needle, diabetic 31 gauge x 5/16 needle Use to administer insulin twice a day 05/13/19 21 Active orphenadrine ER (NORFLEX) 100 mg 12 hr tablet Take 1 tablet (100 mg total) by mouth every 12 (twelve) hours as needed 09/01/19 19 Active OLANZapine (ZyPREXA ZYDIS) [address] 1 tablet (5 mg total) under the tongue 2 (two) times a day as needed 05/08/19 21 Active naloxone (NARCAN) 4 mg/actuation spray,non-aerosol EMERGENCY USE ONLY: Administer 1 spray (4 mg) in one nostril one time. May repeat in alternating nostrils every 2-3 min until responsive or EMS arrives. 11/23/19 20 Active mirtazapine (REMERON) 30 mg tablet Take 1 tablet (30 mg total) by mouth nightly Active mirtazapine (REMERON) 15 mg tablet Take 1 tablet (15 mg total) by mouth daily 05/12/19 21 Active metoprolol tartrate (LOPRESSOR) 50 mg immediate release tablet Take 1 tablet (50 mg total) by mouth 2 (two) times a day 05/20/19 21 Active metoprolol XL (TOPROL-XL) 50 mg extended release tablet Take 1 tablet (50 mg total) by mouth daily Active metFORMIN (GLUCOPHAGE) 500 mg tablet Take 1 tablet (500 mg total) by mouth 05/29/19 21 Active meloxicam (MOBIC) 7.5 mg tablet Take 2 tablets (15 mg total) by mouth daily Active melatonin tablet Take 1 tablet (3 mg total) by mouth daily 05/01/19 21 Active magnesium hydroxide (MILK OF MAGNESIA) suspension 400 mg/5 mL Take 15 mL by mouth as needed Active levomilnacipran ER (FETZIMA) 120 mg capsule,extended release 24 hr Take 1 capsule (120 mg total) by mouth daily Active lidocaine (LIDODERM) 5 % Place 1 patch on the skin daily 09/01/19 19 Active LORazepam (ATIVAN) 1 mg tablet 0 01/02/20 23 Active levETIRAcetam (KEPPRA) 250 mg tablet Take 1 tablet (250 mg total) by mouth 2 (two) times a day Active lancets 30 gauge misc 1 each 05/13/19 21 Active Lactobacillus acidoph-L.bulgar (LACTINEX) 100 million cell Take 1 packet by mouth 2 (two) times a day 06/11/19 21 Active galcanezumab-gnlm 120 mg/mL pen injector Inject 120 mg under the skin every 30 (thirty) days Gave loading dose as sample 120 mL 11 02/20/20 23 Active Active Problems Problem Noted Date Diagnosed Date Migraine without aura, not i ntractable, without status migrainosus 12/31/2016 Tremor 11/26/2015 Overview (07/23/2016): Tremor Social History Tobacco Use Types Packs/Day Years Used Date Smoking Tobacco: Former Cigarettes Q uit: 11/17/2022 Alcohol Use Standard Drinks/Week Comments No 0 (1 standard drink = 0.6 oz pur e alcohol) Comments Unknown Sex and Gender Information Value Date Recorded Sex Assigned at Not on file 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 Gender Identity Not on file Sexual Orientation Not on file Last Filed Vital Signs Vital Sign Reading Time Taken Comments Blood Pressure 125/75 03/01/2023 10:02 AM POWER PLANT TECHNICIAN Pulse 95 03/01/2023 10:02 AM POWER PLANT TECHNICIAN Temperature - - Respiratory Rate 20 12/29/2022 10:26 AM CDT Oxygen Saturation 96% 03/01/2023 10:02 AM POWER PLANT TECHNICIAN Inhaled Oxygen Concentration - - Weight 98.9 kg (218 lb) 03/01/2023 10:02 AM POWER PLANT TECHNICIAN Height 172.7 cm (5' 8 ) 03/01/2023 10:02 AM POWER PLANT TECHNICIAN Body Mass Index 33.15 03/01/2023 10:02 AM POWER PLANT TECHNICIAN Plan of Treatment Not on file Procedures Procedure Name Priority Date/Time Associated Diagnosis Comments CT ABDOMEN PELVIS W CONTRAST Schedule Routine, Read Routine (OP Routine) 07/27/2024 2:03 PM CDT Abdominal hernia without obstruction and without gangrene, recurrence not specified, unspecified hernia type from Last 3 Months Results * CT Abdomen Pelvis W Contrast (07/27/2024 2:03 PM CDT) Anatomical Region Laterality Modality Body N/A Computed Tomogra phy 08/05/2024 9:35 AM CDT Narrative 08/05/2024 9:39 AM CDT EXAM DESCRIPTION: CT ABDOMEN PELVIS W CONTRAST REASON FOR STUDY: K43.9 Pt present today with Herniations in abdomen pelvis region, Pt said pain has been worse in the last 6 months but has been present for 3yrs No surgeries yet TECHNIQUE: CT scan of the abdomen and pelvis performed with intravenous and without oral contrast using helical scanning technique with dynamic intravenous contrast injection. Reconstructed coronal and sagittal MPR images reviewed. All images stored on PACS. Automated exposure control was used as a dose optimization technique for this examination. CONTRAST TYPE/DOSE: 75mL of IOVERSOL 350 MG IODINE/ML INTRAVENOUS SYRINGE injected via intravenous COMPARISON: None. FINDINGS: LOWER CHEST: Lung bases are predominantly clear. There is curvilinear atelectasis in the lung bases. There is no pleural effusion. LIVER: Liver size and contour normal. The portal and hepatic veins are patent. GALLBLADDER: Surgically absent. BILE DUCTS: No biliary ductal dilation. SPLEEN: Spleen size normal. No focal splenic lesion. PANCREAS: No pancreatic mass or inflammatory change. ADRENALS: Normal right adrenal gland. There is some mild nodularity of the left adrenal gland which measures up to 1.1 cm, 34 Hounsfield units. KIDNEYS/URINARY TRACT: No hydronephrosis or hydroureter. There is excretion of contrast from the right kidney. There is some excretion of contrast from the left kidney. There is a low-density lesion mid left kidney 1.1 cm, this is 10 Hounsfield units meets criteria as a cyst. Fluid is present urinary bladder which is moderately distended. No urinary bladder mass or calculus. GI: The terminal ileum is normal. There is moderate amount of fecal material in the colon. The stomach and duodenal are normal. There are large diverticula of the second and 3rd portions of the duodenum. No pneumatosis is seen. There is a fat containing scratch the fat containing supraumbilical hernias are noted of the abdominal wall. PERITONEUM: No ascites or free air. There is no mesenteric mass or lymphadenopathy. RETROPERITONEUM: No retroperitoneal mass or lymphadenopathy is seen. REPRODUCTIVE: Status post hysterectomy. There is no adnexal mass. There is a small amount of fluid in the right hemipelvis. VASCULATURE: Abdominal aorta is nonaneurysmal. There is moderate atheromatous calcifications of the distal abdominal aorta and iliac arteries. MUSCULOSKELETAL: Postsurgical changes are seen throughout the thoracic and lumbar spine. There are no acute or aggressive osseous abnormalities. Postsurgical changes of laminectomy. Leads which may be from a previous spinal stimulator. OTHER: No other abnormality. IMPRESSION: No evidence of an acute abnormality of the abdomen and pelvis. Fat containing supraumbilical hernias. Cholecystectomy and hysterectomy. Mild nodularity of the left adrenal gland 1.1 cm. Left renal cyst. Large duodenal diverticula. THIS IS AN ELECTRONICALLY VERIFIED FINAL REPORT 08/05/2024 9:39 AM - Electronically signed by Lobito Schwarz M.D. CH: PEDRO PABLO Report ID: [id number] Reading Location: [id number] Procedure Note Lobito Schwarz Jr., MD - 08/05/2024 EXAM DESCRIPTION: CT ABDOMEN PELVIS W CONTRAST REASON FOR STUDY: K43.9 Pt present today with Herniations in abdomen pelvis region, Pt said painhas been worse in the last 6 months but has been present for 3yrs Nosurgeries yet TECHNIQUE: CT scan of the abdomen and pelvis performed with intravenousand without oral contrast using helical scanning technique with dynamic intravenous contrast injection. Reconstructed coronal and sagittal MPRimages reviewed. All images stored on PACS. Automated exposure control was usedas a dose optimization technique for this examination. CONTRAST TYPE/DOSE: 75mL of IOVERSOL 350 MG IODINE/ML INTRAVENOUSSYRINGE injected via intravenous COMPARISON: None. FINDINGS: LOWER CHEST: Lung bases are predominantly clear. There is curvilinear atelectasis in the lung bases. There is no pleural effusion. LIVER: Liver size and contour normal. The portal and hepatic veins are patent. GALLBLADDER: Surgically absent. BILE DUCTS: No biliary ductal dilation. SPLEEN: Spleen size normal. No focal splenic lesion. PANCREAS: No pancreatic mass or inflammatory change. ADRENALS: Normal right adrenal gland. There is some mild nodularity ofthe left adrenal gland which measures up to 1.1 cm, 34 Hounsfield units. KIDNEYS/URINARY TRACT: No hydronephrosis or hydroureter. There isexcretion of contrast from the right kidney. There is some excretion of contrastfrom the left kidney. There is a low-density lesion mid left kidney 1.1 cm,this is 10 Hounsfield units meets criteria as a cyst. Fluid is presenturinary bladder which is moderately distended. No urinary bladder mass orcalculus. GI: The terminal ileum is normal. There is moderate amount of fecal material in the colon. The stomach and duodenal are normal. There arelarge diverticula of the second and 3rd portions of the duodenum. Nopneumatosis is seen. There is a fat containing scratch the fat containing supraumbilical hernias are noted of the abdominal wall. PERITONEUM: No ascites or free air. There is no mesenteric mass or lymphadenopathy. RETROPERITONEUM: No retroperitoneal mass or lymphadenopathy is seen. REPRODUCTIVE: Status post hysterectomy. There is no adnexal mass.There is a small amount of fluid in the right hemipelvis. VASCULATURE: Abdominal aorta is nonaneurysmal. There is moderate atheromatous calcifications of the distal abdominal aorta and iliacarteries. MUSCULOSKELETAL: Postsurgical changes are seen throughout the thoracicand lumbar spine. There are no acute or aggressive osseous abnormalities. Postsurgical changes of laminectomy. Leads which may be from a previous spinal stimulator. OTHER: No other abnormality. IMPRESSION: No evidence of an acute abnormality of the abdomen and pelvis. Fat containing supraumbilical hernias. Cholecystectomy and hysterectomy. Mild nodularity of the left adrenal gland 1.1 cm. Left renal cyst. Large duodenal diverticula. THIS IS AN ELECTRONICALLY VERIFIED FINAL REPORT 08/05/2024 9:39 AM - Electronically signed by Lobito Schwarz M.D. CH: PEDRO PABLO Report ID: [id number] Reading Location: [place] [address] Brian Hodges MD IMG CT PROCEDURES Final Result from Last 3 Months Insurance [facility] MEDICARE [facility] Address: [address] [address] [place] [address] [facility] [place] [address] [place] [address] [facility] MEDICARE Care Teams Computer Service Technician Relationship Specialty Start Date End Date Brian Hodges MD [address] [facility] [place] [address] PCP - General 07/27/24
--- OUTSIDE RECORDS SUMMARY | 2024-08-14 17:59 | XMS_ITS | Clinical Summary ---
Author Organization [facility] Address [address] [place] [address] Care Team Providers Care Rubber Off Name Role Phone Brian Hodges MD Primary Care Provider [phone] Allergies Active Allergy Reactions Criticality Noted Date [...] day as needed for nausea. 30 tablet 01/01/20 17 Active venlafaxine XR (EFFEXOR-XR) 75 [...] 18 Active ARIPiprazole (ABILIFY) 5 mg tablet 12/20/19 23 Active ALPRAZolam (XANAX) 0.5 mg tablet Take 1 tablet (0.5 mg total) by mouth 3 (three) times a day as needed Active zolpidem (AMBIEN) 5 mg tablet 0 12/29/19 23 Active vortioxetine (TRINTELLIX) 10 mg tablet Take 1 tablet (10 mg total) by mouth daily Active traMADoL (ULTRAM) 50 mg tablet 0 11/18/19 23 Active topiramate (TOPAMAX) 25 mg tablet 11/12/19 23 Active tiZANidine (ZANAFLEX) 2 mg tablet 12/31/19 23 Active tiZANidine (ZANAFLEX) 4 mg [...] migrainosus 12/31/2016 Tremor 11/26/2015 Overview (07/23/2016): Tremor Encounters Date Type Department Care Team Description 07/27/2024 1:06 PM CDT - 07/27/2024 11:59 PM CDT Hospital Encounter [facility] [address] [place] [address] Abdominal hernia without obstruction and without gangrene, recurrence not specified, unspecified hernia type Discharge Disposition: Discharge to home or self care 07/26/2024 Telephone [facility] [address] [place] [id number] Shagufta Lamb 06/13/2024 Telephone [facility] ([facility]) - [facility] Minimally Invasive Surgery [address] [facility] Advanced Medicine 12th Floor, [place] [address] Rojelio Herrera MD Medical Question/Miscellane ous from Last 3 Months Surgical History Surgery Date Site/Laterality Comments FOOT SURGERY Foot surgery OTHER SURGICAL HISTORY Nasal surgery x 2 OTHER SURGICAL HISTORY C- sections x2 PARTIAL HYSTERECTOMY Partial Hysterectomy COLON SURGERY Colon resection NECK SURGERY Neck surgery BACK SURGERY Back surgery OTHER SURGICAL HISTORY Bladder sling put in , then removed APPENDECTOMY Appendectomy CHOLECYSTECTOMY Cholecystectomy Medical History Medical History Date Comments Depression Depression Parkinson's disease (HCC) 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 Family History Medical History Relation Name Comments Diabetes type II Brother Diabetes me llitus type 2; Multiple sclerosis Brother Multiple sclerosis; Diabetes type II Father 2 Diabetes me llitus type 2; Heart disease Father 2 Heart disease; Other Father 2 Staph infection ; Cause of : Staph infection Car Accident Mother 2 Car accident; C ause of : Car accident Depression Mother 2 Depression; Seizures Son 2 Seizure disorde r; Cause of : Seizure disorder Relation Name Status Comments Brother Father 1 Father 2 Mother 1 Mother 2 Son 1 Son 2 Social History Tobacco Use Types Packs/Day Years Used Date Smoking Tobacco: Former Cigarettes Q uit: 11/17/2022 Alcohol Use Standard Drinks/Week Comments No 0 (1 standard drink = 0.6 oz pur e alcohol) Comments Unknown Sex and Gender Information Value Date Recorded Sex Assigned at Not on file 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 Gender Identity Not on file Sexual Orientation Not on file Obstetrics History Last Filed Vital Signs Vital Sign Reading Time Taken Comments Blood Pressure 125/75 03/01/2023 10:02 AM WAREHOUSE SHIPPING RECEIVING CLERK Pulse 95 03/01/2023 10:02 AM WAREHOUSE SHIPPING RECEIVING CLERK Temperature - - Respiratory Rate 20 12/29/2022 10:26 AM CDT Oxygen Saturation 96% 03/01/2023 10:02 AM WAREHOUSE SHIPPING RECEIVING CLERK Inhaled Oxygen Concentration - - Weight 98.9 kg (218 lb) 03/01/2023 10:02 AM WAREHOUSE SHIPPING RECEIVING CLERK Height 172.7 cm (5' 8 ) 03/01/2023 10:02 AM WAREHOUSE SHIPPING RECEIVING CLERK Body Mass Index 33.15 03/01/2023 10:02 AM WAREHOUSE SHIPPING RECEIVING CLERK Plan of Treatment Health Maintenance Due Date Last Done Comments Breast Cancer Screening-Mammogram 1966 Cervical Cancer Screening 1966 Colon Cancer Screening-Colonoscopy 1966 Depression Screening 1966 Hepatitis C Screening 1966 DTaP/Tdap/Td Vaccine (1 - Tdap) 1977 Hepatitis B Screening 1984 Regular Well Visit/Exam 18-64 1984 Zoster Vaccine (1 of 2) 2016 Covid-19 Vaccine ( season) 2023 04/01/2022, 04/29/2021, 11/23/2020, Additional history exists Influenza Vaccine (Season Ended) 2024 04/30/2020, 04/19/2018, 02/13/2015, Additional history exists Pneumococcal vaccine <65 Aged Out 05/12/2013 No longer eligible based on patient's age to complete this topic Procedures Procedure Name Priority Date/Time Associated Diagnosis [...] Electronically signed by Lobito Schwarz M.D. CH: Report ID: [id number] Reading Location: [id number] Procedure Note Lobito Schwarz Jr., MD - [...] Schwarz M.D. CH: PEDRO PABLO Report ID: [id number] Reading Location: [place] [address] Brian Hodges MD IMG CT PROCEDURES Final Result from Last 3 Months Insurance [facility] MEDICARE ADVANTAGE [facility] MEDICARE IDPA IDPA MEDICARE Care Teams Rubber Off Relationship Specialty Start Date End Date Brian Hodges MD [address] [facility] [place] [address] PCP - General 07/27/24
--- OUTSIDE RECORDS SUMMARY | 2024-08-14 18:00 | XMS_ITS | Clinical Summary ---
Author Organization [facility] Address [address] [address] Care Team Providers Care [employer] Vine Fruit Crop Farmer Name Role Phone Hitesh Bell MD Primary Care Provider Unavailab francis Source Comments [facility],non-owned Affiliates and Associated Physician Practices is amultiple site organization consisting of ambulatory clinics and hospital sitesin [place], [place], [place] and [place]. This disclosure is being madepursuant to the Care Everywhere program and may not contain all information available regarding this patient. Last updated 18.[facility] [employer] Allergies Active Allergy Reactions Criticality Noted Date Comments Adhesive Sensitivity Other Low 08/30/2009 Red area on skin Red area on skin Red area on skin Azithromycin Unknown 09/20/2002 Latex Rash,Unknown Medium 05/26/2017 rash rash Nsaids Unknown 12/08/2012 Topiramate Psychiatric,MERCHANDISE EXECUTION LEADER Dysfunction,Other,Unk nown,Vomiting Medium 01/20/2017 confusion Reaction: Nausea, Vomiting, confusion Confusion Medications * Be aware that medications may not be up to date on this document. Alwaysverify current medications with the patient. clonazePAM (KLONOPIN) 0.5 MG tablet Take 1 (one) tablet by mouth at bedtime Active levomilnacipran ER (FETZIMA) 120 MG capsule Take 1 (one) capsule by mouth once daily Active atorvastatin (LIPITOR) 40 MG tablet Take 1 (one) tablet by mouth at bedtime Active tiZANidine (Zanaflex) 2 MG tablet Take 1 (one) tablet by mouth once daily 12/31/19 23 Active zolpidem (Ambien) 5 MG tablet Take 1 (one) tablet by mouth at bedtime 12/29/19 23 Active Galcanezumab-gnl m (Emgality) 120 MG/ML auto-injector pen Inject 1 mL subcutaneously every 30 days 02/20/20 23 Active lisinopril (Prinivil; Zestril) 20 MG tabletIndication s:Hypertension Take 1 (one) tablet by mouth once daily Reasons: High Blood Pressure Disorder 04/19/19 24 Active insulin glargine (Lantus/Semglee) 100 units/mL pen Inject 30 (thirty) Units subcutaneously at bedtime 04/20/19 24 Active metFORMIN ER 24hr (Glucophage XR) 500 MG tablet Take 2 (two) tablets by mouth every evening 04/20/19 24 Active aspirin (Aspirin) 81 MG chew tabletIndication s:Cerebrovascula r accident (CVA), unspecified mechanism (HCC) Take 1 (one) tablet by mouth once daily 100 tablet 4 08/12/19 24 Active gabapentin (Neurontin) 300 MG capsuleIndicatio ns:Cerebrovascul ar accident (CVA), unspecified mechanism (HCC) Take 1 (one) capsule by mouth 2 times daily 15 capsule 08/12/19 24 Active [place]-3 Fatty Acids ([place]-3 Fish Oil) 1000 MG capsuleIndicatio ns:Type 2 diabetes mellitus with hyperglycemia, with long-term current use of insulin (HCC) Take 1 (one) capsule by mouth 2 times daily with morning and evening meal 08/12/19 24 Active propranolol (Inderal) 20 MG tabletIndication s:Essential hypertension Take 1 (one) tablet by mouth 2 times daily 60 tablet 08/12/19 24 Active citalopram (CeleXA) 20 MG tabletIndication s:Cerebrovascula r accident (CVA), unspecified mechanism (HCC) Take 1 (one) tablet by mouth once daily 90 tablet 4 08/12/19 24 Active oxyBUTYnin (Ditropan) 5 MG tabletIndication s:Cerebrovascula r accident (CVA), unspecified mechanism (HCC) Take 1 (one) tablet by mouth 2 times daily 180 tablet 4 08/12/19 24 Active ARIPiprazole (Abilify) 10 MG tabletIndication s:Cerebrovascula r accident (CVA), unspecified mechanism (HCC) Take 1 (one) tablet by mouth once daily 08/12/19 24 Active amLODIPine (Norvasc) 10 MG tabletIndication s:Essential hypertension Take 1 (one) tablet by mouth once daily 90 tablet 4 08/12/19 24 Active furosemide (Lasix) 20 MG tabletIndication s:Essential hypertension Take 1 (one) tablet by mouth once daily 90 tablet 4 08/12/19 24 Active primidone (Mysoline) 50 MG tabletIndication s:Cerebrovascula r accident (CVA), unspecified mechanism (HCC) Take 0.5 (one-half) tablet by mouth 3 times daily 90 tablet 08/12/19 24 Active rizatriptan, disintegrating, (Maxalt RUBBER THREAD SPOOLER) 10 MG tabletIndication s:Cerebrovascula r accident (CVA), unspecified mechanism (HCC) Take 1 tab by mouth once at first sign of migraine. May repeat one time after 2 hours if needed. 9 tablet 08/12/19 24 Active dulaglutide (Trulicity) 0.75 MG/0.5ML injection Inject 0.75 (three-quarters) mg subcutaneously every 7 days 2 mL 11 08/12/19 24 Active Active Problems Problem Noted Date Diagnosed Date History of transient ischemic attack (TIA) 04/1804/18/2023 Received intravenous tissue plasminogen activator (tPA) in emergency department 04/17/2023 Former smoker 04/15/2023 Hyperlipidemia 02/26/2021 Major neurocognitive disorder due to multiple et iologies 05/08/2020 Diverticulosis 12/08/2019 04/18/2023 Acute metabolic encephalopathy 08/21/2019 1 Lumbar post-laminectomy syndrome 06/09/2017 04/18/2023 Postural kyphosis of lumbar region 05/26/2017 Migraine without aura and wi thout status migrainosus, not intractable 12/31/2016 04/18/2023 Chronic back pain 05/12/2013 04/18/2023 Accidental drug overdose 05/12/2013 023 CVA (cerebral vascular accident) 05/11/2013 Major depressive disorder, recurrent episode, mo derate 11/08/2011 Benign hypertension 11/08/2011 Spinal stenosis 11/08/2011 04/18/2023 Morbid obesity 11/08/2011 04/18/2023 Lower GI bleed 11/08/2011 04/18/2023 Resolved Problems Problem Noted Date Diagnosed Date Resolved Date UTI (urinary tract infection) 04/16/2023 05/02/2023 Immunizations Immunization Administration Dates Next Due INFLUENZA VACCINE, TRIV. (AF LURIA, FLUZONE TRIVALENT; 6MO+) (IIV3) 05/12/2013 Covid Moderna primary monovalent 12+ yr 0.5mL INFLUENZA VACCINE 05/12/2013 INFLUENZA VACCINE, QUADR. (F LUZONE; FLULAVAL; FLUARIX; AFLURIA QUADRIVALENT; 6MO+), 0.5 ML (IIV4) 04/30/2020,04/19/2018 INFLUENZA VACCINE, TRIV. (FL UZONE; FLULAVAL; FLUARIX; AFLURIA TRIVALENT; 6MO+), 0.5 ML (IIV3) 02/13/2015 PNEUMOCOCCAL PPSV23 05/12/2013 Family History Medical History Relation Name Comments Brain Tumor Mother Relation Name Status Comments Father Mother Social History Tobacco Use Types Packs/Day Years Used Date Smoking Tobacco: Every Day Cigarettes 0.5 29.2 Started: 05/26/1995 Smokeless Tobacco: Never Tobacco Cessation:Ready to Q uit: No; Counseling Given: Yes Alcohol Use Standard Drinks/Week Comments No 0 (1 standard drink = 0.6 oz pur e alcohol) AUDIT-C Answer Date Recorded Q1: How often do you have a drink containing alcohol? Never 04/16/2023 Q2: How many drinks containi ng alcohol do you have on a typical day when you are drinking? Patient does not drink Q3: How often do you have si x or more drinks on one occasion? Never 04/16/2023 Overall Financial Resource Strain (CARDIA) Answe r Date Recorded How hard is it for you to pa y for the very basics like food, housing, medical care, and heating? Somewhat hard 04/16/2023 PHQ-2 Answer Date Recorded Patient Health Questionnaire-2 Score 0 04/17/2023 [facility] [place] - Occupational Stress Questionnaire Answer Date Recorded Do you feel stress - tense, restless, nervous, or anxious, or unable to sleep at night because your mind is troubled all the time - these days? Rather much 04/16/2023 Hunger Vital Sign Answer Date Recorded Within the past 12 months, y ou worried that your food would run out before you got the money to buy more. Never true 04/16/20 23 Within the past 12 months, t he food you bought just didn't last and you didn't have money to get more. Never true 04/16/2023 PRAPARE - Transportation Answer Date Re corded In the past 12 months, has l ack of transportation kept you from medical appointments or from getting medications? No 03/20 In the past 12 months, has l ack of transportation kept you from meetings, work, or from getting things needed for daily living? No 04/16/2023 Housing Stability Vital Sign Answer Terrence e Recorded In the last 12 months, was t here a time when you were not able to pay the mortgage or rent on time? No 04/16/2023 In the last 12 months, how many places have you lived? 1 04/16/2023 In the last 12 months, was t here a time when you did not have a steady place to sleep or slept in a alf (including now)? No 04/16/2023 Comments No Sex and Gender Information Value Date Recorded Sex Assigned at Not on file Legal Sex Female 6:07 AM RIBBON CLEANER Gender Identity Not on file Sexual Orientation Not on file Last Filed Vital Signs Vital Sign Reading Time Taken Comments Blood Pressure 120/83 08/12/2023 3:20 PM CDT Pulse 99 08/12/2023 3:20 PM CDT Temperature 36.8 C (98.3 F) 04/20/2023 8:00 AM RIBBON CLEANER Respiratory Rate 19 04/20/2023 2:00 PM RIBBON CLEANER Oxygen Saturation 92% 08/12/2023 3:20 PM CDT Inhaled Oxygen Concentration - - Weight 102.5 kg (226 lb) 04/16/2023 12:30 AM RIBBON CLEANER Height 172.7 cm (5' 8 ) 08/12/2023 3:20 PM CDT Body Mass Index 37.61 04/16/2023 12:30 AM RIBBON CLEANER Plan of Treatment Health Maintenance Due Date Last Done Comments COLOGUARD (AGES 45-75) - COLON CA SCREENING 1966 COLON MONITORING 1966 COLONOSCOPY - COLON CA SCREENING 1966 CT COLONOGRAPHY - COLON CA SCREENING 1966 Colorectal Cancer Screening 1966 FIT - COLON CA SCREENING 1966 FLEX SIG - COLON CA SCREENING 1966 MAMMOGRAM 1966 HIV SCREENING 1981 DTAP/TDAP/TD VACCINES (1 - Tdap) 1985 HEPATITIS B VACCINE (1 of 3 - 19+ 3-dose series) 1985 PNEUMOCOCCAL VACCINE 50+ (2 of 2 - PCV) 05/12/2014 05/12/2013 ZOSTER VACCINE (1 of 2) 2016 DIABETES RETINOPATHY SCREENING 04/15/2023 DIABETES-FOOT EXAM WITH MONOFILAMENT 04/15/2023 DIABETES-HGB A1C 07/16/2023 04/16/2023, 04/23/2020 COVID-19 VACCINE ( season) 2023 04/01/2022, 04/29/2021, 11/23/2020, Additional history exists DEPRESSION SCREENING 04/19/2024 DIABETES - URINE PROTEIN SCREENING 04/19/2024 MEDICARE AW CALENDAR YEAR 2024 DIABETES-SERUM CREATININE 04/20/20242023, 04/19/2023, 04/18/2023, Additional history exists INFLUENZA VACCINE (Season Ended) 2024 04/30/2020, 04/19/2018, 02/13/2015, Additional history exists HEPATITIS C SCREENING Completed 04/09/2018, 018 HIB VACCINE Aged Out No longer eligi ble based on patient's age to complete this topic HPV VACCINE Aged Out No longer eligi ble based on patient's age to complete this topic MENINGOCOCCAL (Group B) VACCINE SHARED DECISION-MAKING Aged Out No longer eligible based on patient's age to complete this topic MENINGOCOCCAL GROUPS A/C/Y/W VACCINE Aged Out No longer eligible based on patient's age to complete this topic Medical Devices Implanted Type Area Test Operator Device Identifier Shelf Expiration Date Model / Serial / Lot Floseal 10ml Implanted:Qty: 1 on 05/26/2017 by Nguyễn Lott MD at [facility] Spine Lumbar [employer] 09/29/2018 [id number] / / [id number] 6.5 X 45mm Firebird Screw Implanted:Qty: 6 on 05/26/2017 by Nguyễn Lott MD at [facility] Spine Lumbar [employer] Inc [id number] / / 6.5 X 50 Mm Firebird Screw Implanted:Qty: 1 on 05/26/2017 by Nguyễn Lott MD at [facility] Lumbar [employer] [id number] / / 7.5 X 40mm Firedbird Screw Implanted:Qty: 4 on 05/26/2017 by Nguyễn Lott MD at [facility] Lumbar [employer] [id number] / / 7.5 X 45mm Firebird Screw Implanted:Qty: 2 on 05/26/2017 by Nguyễn Lott MD at [facility] Lumbar [employer] [id number] / / 8.5 X 80 Mm Illiac Screw Implanted:Qty: 2 on 05/26/2017 by Nguyễn Lott MD at [facility] Lumbar [employer] [id number] / / Top Loading Body Implanted:Qty: 20 on 05/26/2017 by Nguyễn Lott MD at [facility] Lumbar [employer] [id number] / / Set Screws Implanted:Qty: 20 on 05/26/2017 by Nguyễn Lott MD at [facility] Lumbar [employer] [id number] / / 10mm Pilar Tl Vbr Implanted:Qty: 1 on 05/26/2017 by Nguyễn Lott MD at [facility] Lumbar [employer] [id number] / / 450mm Hex End Hector Implanted:Qty: 3 on 05/26/2017 by Nguyễn Lott MD at [facility] Lumbar [employer] [id number] / / Hector To Hector Connectors Implanted:Qty: 8 on 05/26/2017 by Nguyễn Lott MD at [facility] Lumbar [employer] [id number] / / Floseal 10ml Implanted:Qty: 1 on 05/26/2017 by Nguyễn Lott MD at [facility] Spine Lumbar [employer] 08/09/2018 [id number] / / [id number] Graft Bone Canc 30ml Frzdr Crsh 1-4mm Implanted:Qty: 1 on 05/26/2017 by Nguyễn Lott MD at [facility] Lumbar [employer] 02/04/2022 [id number] / / [id number] Graft Bone Canc 30ml Frzdr Crsh 1-4mm Implanted:Qty: 1 on 05/26/2017 by Nguyễn Lott MD at [facility] Lumbar [employer] 02/07/2022 [id number] / / [id number] 21mm Cross Connector Implanted:Qty: 1 on 05/26/2017 by Nguyễn Lott MD at [facility] Lumbar [employer] [id number] / / 30mm Cross Connector Implanted:Qty: 1 on 05/26/2017 by Nguyễn Lott MD at [facility] Lumbar [employer] [id number] / / Graft Bone Canc 30ml Frzdr Crsh 1-4mm Implanted:Qty: 1 on 05/26/2017 by Nguyễn Lott MD at [facility] Lumbar [employer] 02/07/2022 [id number] / / [id number] Graft Tissue Drgn + Bvn Clgn Mtrx 3x3in Implanted:Qty: 1 on 05/26/2017 by Nguyễn Lott MD at [facility] Spine Lumbar Integra [employer] 10/17/2019 [id number] / / [id number] Re-Live Multi-Point Structural Allograft Implanted:Qty: 1 on 05/26/2017 by Nguyễn Lott MD at [facility] Spine Lumbar [employer] 12/24/2021 [id number] / / [id number] Re-Live Multi-Point Structural Allograft Implanted:Qty: 1 on 05/26/2017 by Nguyễn Lott MD at [facility] Spine Lumbar [employer] 12/18/2021 [id number] / / [id number] Re-Live Multi-Point Structural Allograft Implanted:Qty: 1 on 05/26/2017 by Nguyễn Lott MD at [facility] Spine Lumbar [employer] 12/18/2021 [id number] / / [id number] Re-Live Multi-Point Structural Allograft Implanted:Qty: 1 on 05/26/2017 by Nguyễn Lott MD at [facility] Sp[facility] Lumbar [employer] 12/18/2021 [id number] / / [id number] Allofuse Fibers 10ml Implanted:Qty: 1 on 05/26/2017 by Nguyễn Lott MD at [facility] Sp[facility] Lumbar [employer] 02/23/2019 [id number] / / [id number] 6.5x40mm Firebird Screw Implanted:Qty: 5 on 05/26/2017 by Nguyễn Lott MD at [facility] Lumbar [employer] [id number] / / Sys Cath Ps Mdcl Lmbprtnl [id number] 2o 84 Implanted:Qty: 1 on 06/04/2017 by Nguyễn Lott MD at [facility] N/A: Spine Med[employer] 09/16/2020 [id number] / / [id number] Procedures Procedure Name Priority Date/Time Associated Diagnosis Comments BASIC METABOLIC PANEL (CALCIUM TOTAL) Routine 04/20/2023 3:38 AM RIBBON CLEANER HEMOGLOBIN A1C Add on 04/16/2023 1:14 AM RIBBON CLEANER from Last 3 Months or Most Recently Relevant to Health Maintenance Results * (ABNORMAL) BASIC METABOLIC PANEL (CALCIUM TOTAL) (04/20/2023 3:38 AM RIBBON CLEANER) [facility] BUN 17 7 - 26 mg/dL 04/20/2023 4:19 AM RIBBON CLEANER [facility] Creatinine 0.50(L) 0.56 - 0.96 mg/dL 04/20/2023 4:19 AM [facility] Sodium 139 136 - 145 mmol/L 04/20/2023 4:19 AM [facility] Potassium 3.8 3.5 - 4.5 mmol/L 04/20/2023 4:19 AM [facility] Chloride 104 98 - 107 mmol/L 04/20/2023 4:19 AM [facility] CO2 26 22 - 29 mmol/L 04/20/2023 4:19 AM [facility] Glucose 282(H) 70 - 115 mg/dL 04/20/2023 4:19 AM [facility] Calcium 9.2 8.4 - 10.2 mg/dL 04/20/2023 4:19 AM [facility] Anion Gap 9 6 - 16 04/20/2023 4:19 AM [facility] BUN/Creatinine Ratio 34(H) 7 - 23 04/20/2023 4:19 AM [facility] Osmolality Calculated 300(H) 275 - 295 mOsm/kg 04/20/2023 4:19 AM [facility] eGFR by CKD-EPI >90 >=90 mL/min/1.7 3 m2 04/20/2023 4:19 AM [facility] Blood BLOOD SPECIMEN / Unknown Venipuncture / Unknown 04/20/2023 3:38 AM RIBBON CLEANER 04/20/2023 3:49 AM [facility] Delmer Horn MD LAB - CHEMISTRY ORDERABLES Fin al Result Performing Organization Address City/State/[facility] Co de Phone Number [facility] [address] [place] [id number], [facility] [phone] * (ABNORMAL) HEMOGLOBIN A1C (04/16/2023 1:14 AM [facility]) Hemoglobin A1c 9.2(H) <=5.6 % 04/16/2023 8:50 AM [facility] Estimated Average Glucose 217 mg/dL 04/16/2023 8:50 AM [facility] Comment: HbA1c Interpretation: Normal : < 5.7% Pre-diabetes: 5.7-6.4% Diabetes: Equal to or greater than 6.5% Test results diagnostic of diabetes should be repeated for confirmation. Treatment target values recommended by ADA and other clinical organizations should be used to evaluate metabolic control in patients. Reference: [place] Diabetes Association, Standards of Care in Diabetes -2020 In patients 70 years and older consider HbA1c target range of 7.0-7.5% (Reference: Mihir Jones et al. JAMDA. 2012) The Sebia assay for the measurement of HbA1c is a National Glycohemoglobin Standardization Program (NGSP) certified method. Blood BLOOD SPECIMEN / Unknown Venipuncture / Unknown 04/16/2023 1:14 AM RIBBON CLEANER 04/16/2023 1:31 AM RIBBON CLEANER Rishabh Savage MD LAB - CHEMISTRY ORDERABLES F inal Result [id number] [place] [address], [facility] [phone] from Last 3 Months or Most Recently Relevant to Health Maintenance Insurance MANAGED MEDICARE ADV MANAGED MEDICARE ADV Advance Directives * Full Code (Latest Code Status on File) Date Activated Date Inactivated Comments 04/15/2023 11:25 PM 04/20/2023 4:31 PM * Full Code Date Activated Date Inactivated Comments 06/09/2017 5:28 PM 06/19/2017 12:47 PM * Full Code Date Activated Date Inactivated Comments 06/04/2017 9:20 PM 06/09/2017 5:27 PM * Full Code Date Activated Date Inactivated Comments 05/26/2017 10:58 PM 06/04/2017 9:20 PM * FULL RESUSCITATION Date Activated Date Inactivated Comments 11/22/2010 12:10 AM 11/25/2010 3:41 AM Care Teams [employer] Fruit Crop Farmer Relationship Specialty Start Date End Date Hitesh Bell MD PCP - General Internal Medicine 05/08/20
--- OUTSIDE RECORDS SUMMARY | 2024-08-14 18:00 | XMS_ITS | Clinical Summary ---
Author Organization [facility] Address [address] [place] [id number] Phone Care Team Providers Care Reconditioning Associate Name Role Phone Nguyễn Gale MD Primary Care Provider [phone] Allergies Active Allergy Reactions Criticality Noted Date Comments Latex Unknown 02/26/2021 Topiramate Unknown 02/26/2021 Medications hydrOXYzine (ATARAX) 50 MG tablet TAKE 1 TABLET (50 MG) BY MOUTH EVERY 8 HOURS NEEDED 12/27/2020 Active Fetzima 120 MG capsule sustained-relea se 24 hr TAKE 1 CAPSULE (120 MG) BY MOUTH DAILY 01/23/2021 Active losartan (COZAAR) 100 MG tablet TAKE 1 TABLET (100 MG) BY MOUTH DAILY. 12/27/2020 Active mirtazapine (REMERON) 45 MG tablet TAKE 1 TABLET (45 MG) BY MOUTH DAILY AT BEDTIME 12/27/2020 Active ondansetron (ZOFRAN) 4 MG tablet Take 4 mg by mouth 3 (three) times a day if needed 12/27/2020 Active traZODone (DESYREL) 100 MG tablet TAKE 1 TABLET (100 MG) BY MOUTH DAILY NEEDED AT BEDTIME 12/27/2020 Active Active Problems Problem Noted Date Diagnosed Date Hypertension 02/26/2021 Hyperlipidemia 02/26/2021 Diabetes mellitus 02/26/2021 Immunizations Immunization Administration Dates Next Due Sars-cov-2, Unspecified 07/27/2020 Family History Medical History Relation Comments Kidney disease Neg Hx Nephrolithiasis Neg Hx Social History Tobacco Use Types Packs/Day Years Used Date Smoking Tobacco: Every Day Cigarettes 1 40 Smokeless Tobacco: Never Tobacco Cessation:Ready to Q uit: No; Counseling Given: Yes Alcohol Use Standard Drinks/Week Comments Never 0 (1 standard drink = 0.6 oz pur e alcohol) Comments Unknown Sex and Gender Information Value Date Recorded Sex Assigned at Not on file Legal Sex Female 10:18 AM MDT Gender Identity Not on file Sexual Orientation Not on file Last Filed Vital Signs Vital Sign Reading Time Taken Comments Blood Pressure 136/72 02/26/2021 2:39 PM GROUP HOME SUPERVISOR Pulse - - Temperature 36.5 C (97.7 F) 02/26/2021 2:39 PM GROUP HOME SUPERVISOR Respiratory Rate 18 02/26/2021 2:39 PM GROUP HOME SUPERVISOR Oxygen Saturation - - Inhaled Oxygen Concentration - - Weight 88.9 kg (196 lb) 02/26/2021 2:39 PM GROUP HOME SUPERVISOR Height 172.7 cm (5' 8 ) 02/26/2021 2:39 PM GROUP HOME SUPERVISOR Body Mass Index 29.8 02/26/2021 2:39 PM GROUP HOME SUPERVISOR Plan of Treatment Health Maintenance Due Date Last Done Comments Influenza Vaccine (Season Ended) 2024 Insurance MEDICAID - [place] [employer] MEDICARE Care Teams Reconditioning Associate Relationship Specialty Start Date End Date Nguyễn Gale MD [address] [place] [address] PCP - General Internal Medicine 02/03/21
--- OUTSIDE RECORDS SUMMARY | 2024-08-14 18:00 | XMS_ITS ---
Author Name Auto Generated, Auto Generated Organization [facility] Address [address] [place] [address] Phone [phone] Functional Status No Results Mental Status No Results Allergies and Intolerances Name Onset Date Reaction Severity TOPAMAX (Allergy) WedMay 05 07:00:00 2018 Other o r Unspecified Severe TAPE (Allergy) WedMay 05:00:00 2018 Rash/Hives Moderate Problems Active Concerns * Major depressive disorder, recurrent, moderate* Code: [id number] * Start Date: WedMay 05 07:00:00 2018 * End Date: * Text: * PTSD (post-traumatic stress disorder)* Code: [id number] * Start Date: WedMay 05 07:00:00 2018 * End Date: * Text: * DIXIE (generalised anxiety disorder)* Code: [id number] * Start Date: WedMay 05 07:00:00 2018 * End Date: * Text: * Insomnia, psychophysiological* Code: [id number] * Start Date: WedMay 05 07:00:00 2018 * End Date: * Text: * Tobacco dependence* Code: [id number] * Start Date: WedMay 05 07:00:00 2018 * End Date: * Text: * Essential (primary) hypertension* Code: 69892496 * Start Date: WedMay 05 07:00:00 2018 * End Date: * Text: * Transient cerebral ischemic attack, unspecified* Code: [id number] * Start Date: WedMay 05 07:00:00 2018 * End Date: * Text: * Chronic migraine* Code: [id number] * Start Date: WedMay 05 07:00:00 2018 * End Date: * Text: * Chronic back pain greater than 3 months duration* Code: 573899570 * Start Date: WedMay 05 07:00:00 2018 * End Date: * Text: * Essential tremor* Code: 631801364 * Start Date: WedMay 05 07:00:00 2018 * End Date: * Text: * Diverticulosis of colon* Code: [id number] * Start Date: WedMay 05 07:00:00 2018 * End Date: * Text: Reason for Referral Past Medical History
[2024-08-14 18:04] LABS: Hematocrit 33.2 % (37.0-47.0); Hemoglobin 10.5 g/dL (12.0-15.0); Immature Platelet Fraction Pct 3.6 % (0.9-11.2); Mean Corpuscular HGB Conc 31.6 g/dl (32-36); Mean Corpuscular Hemoglobin 27.9 pg (26-34); Mean Corpuscular Volume 88.3 fl (80-100); Mean Platelet Volume 10.4 fl (7.4-10.4); Platelet Count Result 290 k/mm3 (150-375); Red Blood Count 3.76 M/mm3 (4.2-5.4); Red Cell Distribution Width 14.5 % (11.5-14.5); White Blood Count 15.5 K/mm3 (4.5-10.0)
[2024-08-14 18:14] LABS: Alanine Aminotransferase 12 U/L (6-35); Albumin Level 3.6 g/dL (3.5-5.1); Alkaline Phosphatase 110 U/L (38-126); Anion Gap 8 mmol/L (4-12); Aspartate Amino Transferase 18 U/L (14-36); Bilirubin,Total 0.7 mg/dL (0.2-1.3); Blood Urea Nitrogen 15 mg/dL (7-17); Calcium 8.1 mg/dL (8.4-10.2); Carbon Dioxide 27 mmol/L (22-30); Chloride 102 mmol/L (98-107); Estimated CRCL calculation 102 ml/min; Estimated Glomerular Filt Rate > 60; Glucose 133 mg/dL (65-110); Potassium 3.6 mmol/L (3.4-5.0); Sodium 137 mmol/L (137-145)
[2024-08-14 18:40] LABS: Band Neutrophils Percent 11 % (0-6); Eosinophils Absolute Manual 0.15 K/mm3 (0.02-0.50); Eosinophils Percent Manual 1 % (0-4); Lymphocytes Absolute Manual 2.79 K/mm3 (1.1-4.5); Monocytes Absolute Manual 0.62 K/mm3 (0.1-0.90); Monocytes Percent Manual 4 % (3-9); Neutrophils Absolute Manual 11.93 K/mm3 (1.7-7.2); Neutrophils Percent Manual 66 % (46-73); Platelet Estimate Adequate (Adequate); Total Cells Counted 100
[2024-08-14 18:41] LABS: Hypochromasia 1+; Schistocytes None Seen
--- NOTE | 2024-08-14 20:07 | PC.NURSE ---
called [address] [place] [address] for report and was unable to get in touch with the RN taking the patient, waiting for rn to return call at this time
--- NOTE | 2024-08-14 20:20 | ADMGEN ---
This patient, Susannah Garza, was admitted to Medical Room 259-01. Patient/family oriented to hospital policies and general routines including ID bracelet, bed and alarms, visiting hours, pain management, procedures, bathroom and other care routines, personal items, smoking policy, room service/diet, and visiting hours. Information on how to activate the Rapid Response Team has been discussed. Patient/Family are encouraged to report perceived risks to care and to ask questions if they do not understand what they are told or what they should do.
[2024-08-14] MEDS: AZITHROMYCIN 500 MG/NS 250 ML 500 MG/250 ML BAG 250 MG IVPB (21:39)
--- NOTE | 2024-08-14 22:19 | PM.IMHP ---
H&P: HPI History of Present Illness Date/Time: 08/14/24 22:19 Chief Complaint: Cough and congestion Narrative: 58-year-old female with a past medical history prior CVA, type 2 diabetes mellitus, migraines, essential hypertension, tobacco dependence GERD, urge urinary incontinence and major depressive disorder who is been in a prison since December 2020 due to inability to care for self who presented to the ER for cough and congestion for 1 week. She reports that the cough has been getting worse over the last week. She feels as if something is stuck in her upper airway. She feels like if she could just cough harder she could get the mucus up. She has become more short of breath as the week has progressed. She was found to be hypoxic on arrival to the ER. She is not on oxygen at the prison. She denies any chest pain, orthopnea or paroxysmal nocturnal dyspnea. She denies any lower extremity swelling. She still is smoking but has cut back from 2-3 packs per day down to 3-4 cigarettes per day. She denies any unusual headaches besides her chronic migraines. She has not had any confusion. She resides in a prison so of is likely that she has had at least some ill contacts. Review of Systems Review of Systems: 12 systems were reviewed with pertinent positives and negatives per HPI. Except as documented in the HPI, all other systems were reviewed and are negative. 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 Hypomagnesemia Continuous tobacco abuse Hyperlipidemia Essential hypertension Surgical History Surgical History (Updated 08/14/24 @ 22:34 by Anni Ponce DO) History of hysterectomy History of sinus surgery H/O cervical spine surgery History of bowel resection Due to diverticulitis/colitis History of back surgery X2 Family History Family History Father Diabetes mellitus Congestive heart failure Mother Unknown family medical history Social History Social History (Updated 08/15/24 @ 08:45 by Anni Ponce DO) Social History: Patient is resided at [facility] since December 2020 when she was brought here to be care for after living a transient lifestyle and not being able to take care of herself. She has smoked anywhere between 1-4 packs of cigarettes per day since she was 16 but has cut back to 3-4 cigarettes a day since moving to the prison. She denies any alcohol use or drug use. She did have a history of opiate dependence due to chronic pain. She reports that she can ambulate around her bed at the prison to use the bedside commode but to go any further she uses a wheelchair. Code status: Full code Surrogate decision maker: Amanda San (stepmother) Smoking packs per day: 1 Smoking cigarettes per day: 20.0 Years smoked: 40 Smoking pack-years: 40.00 Smoking status: Current every day smoker Tobacco type: cigarettes Additional smoking assessment comments: hx of smoking up to 4 packs per day Alcohol intake: never Substance use: never Substance use type: does not use Do You Feel Safe in your Home?: Yes Lack of Transportation: No Lack of Food: Never True Current Housing: I Have Housing Concerned About Future Housing: No Difficulty Paying Gas/Electric Bills: No Difficulty Paying for Meds: No Currently Unemployed: No Education: High School Diploma/GED Difficulty w/ Childcare or Family Care: No Living arrangements: prison Spiritual care concerns: No Meds Home Medications and Allergies Home Medications ?Medication ?Instructions ?Recorded ?Confirmed ?Type atorvastatin 40 mg tablet 40 mg PO DAILY 12/31/20 08/14/24 History levomilnacipran 120 mg capsule,24 120 mg PO DAILY 12/31/20 08/14/24 History hr,extended release (Fetzima) acetaminophen 650 mg tablet 650 mg PO Q8H PRN Pain (Scale 02/06/21 08/14/24 History Score 1-3) ascorbic acid (vitamin C) 500 mg 500 mg PO TID 06/24/22 08/14/24 History tablet multivitamin (Daily Multi-Vitamin 1 tablet PO DAILY 06/24/22 08/14/24 History tablet) propranolol 20 mg tablet 20 mg PO Q12H 06/24/22 08/14/24 History aspirin 81 mg tablet,delayed 81 mg PO QAM #30 tabs 06/28/22 08/14/24 Rx release omega-3 acid ethyl esters 1 gram 1 cap PO BID #60 caps 06/28/22 08/14/24 Rx capsule (Lovaza) gabapentin 400 mg capsule 400 mg PO BID 04/28/23 08/14/24 History galcanezumab-gnlm 120 mg/mL 120 mg subcut MONTHLY 04/28/23 08/14/24 History subcutaneous pen injector (Emgality Pen) insulin glargine 100 unit/mL (3 30 unit subcut HS 04/28/23 08/14/24 History mL) subcutaneous pen lisinopril 20 mg tablet 20 mg PO DAILY 04/28/23 08/14/24 History oxybutynin chloride 5 mg tablet 5 mg PO TID 04/28/23 08/14/24 History tramadol 50 mg tablet 100 mg PO Q8H PRN Pain (Scale 04/28/23 08/14/24 History Score 4-6) amlodipine 10 mg tablet 10 mg PO DAILY 09/01/23 08/14/24 History melatonin 3 mg PO HS 09/01/23 08/14/24 History metformin 1,000 mg tablet 1,000 mg PO DAILY 09/01/23 08/14/24 History primidone 50 mg tablet 25 mg PO HS 09/01/23 08/14/24 History calcium carbonate (Tums) 400 mg PO QID PRN dyspepsia 08/14/24 08/14/24 History clonazepam 1 mg tablet 1 mg PO Q12H 08/14/24 08/14/24 History clotrimazole 1 % topical cream 1 applic topical Q12H 08/14/24 08/14/24 History fluticasone propionate 50 1 spray intranasal Q12H 08/14/24 08/14/24 History mcg/actuation nasal spray,suspension furosemide 20 mg tablet 20 mg PO DAILY 08/14/24 08/14/24 History guaifenesin 600 mg tablet, 600 mg PO BID 08/14/24 08/14/24 History extended release 12 hr (Mucinex) hydroxyzine HCl 50 mg tablet 50 mg PO BID 08/14/24 08/14/24 History loratadine 10 mg tablet (Claritin) 10 mg PO DAILY 08/14/24 08/14/24 History meloxicam 7.5 mg tablet 7.5 mg PO HS 08/14/24 08/14/24 History omeprazole 20 mg capsule,delayed 20 mg PO DAILY 08/14/24 08/14/24 History release sumatriptan succinate 50 mg tablet 50 mg PO DAILY PRN migraine 08/14/24 08/14/24 History headache trazodone 100 mg tablet 100 mg PO HS 08/14/24 08/14/24 History Allergies Allergy/AdvReac Type Severity Reaction Status Date / Time latex Allergy Unknown Verified 11/29/23 19:25 topiramate (From Topamax) Allergy Unknown Verified 11/29/23 19:25 olanzapine (From Zyprexa) AdvReac Unknown Verified 11/29/23 19:25 Vital Signs Vital Signs - 24 hr 08/14/24 14:48 08/14/24 14:51 08/14/24 14:51 Temperature 98.5 F Pulse Rate 103 H Respiratory Rate 18 Blood Pressure 129/70 Pulse Oximetry 85 L 94 95 Oxygen Delivery Room Air Nasal Cannula Room Air Oxygen Flow Rate 3 Fraction of Inspired Oxygen 08/14/24 14:56 08/14/24 18:09 08/14/24 20:11 Temperature 99.7 F H Pulse Rate 101 H 89 100 Respiratory Rate 15 20 18 Blood Pressure 122/66 116/57 L 112/56 L Pulse Oximetry 93 88 L 98 Oxygen Delivery Oxygen Flow Rate Fraction of Inspired Oxygen 08/14/24 20:42 08/14/24 20:42 Temperature Pulse Rate 95 Respiratory Rate 20 Blood Pressure Pulse Oximetry 93 93 Oxygen Delivery Nasal Cannula Nasal Cannula Oxygen Flow Rate 2 2 Fraction of Inspired Oxygen 28 Exam Narrative: Weight 97.2 kg BMI 32.6 Const: Other: Appears older than stated age, mildly ill-appearing, obese HENMT: Other: Mucous membranes are tacky, no oral pharyngeal erythema, poor dentition with multiple teeth broken at the gumline, no erythema around the base of the dental caries Eyes: Other: Pupils are equal and reactive, no scleral icterus, mild conjunctival pallor Neck: Other: Trachea midline, possible thyroid enlargement, large neck circumference Resp: Other: Crackles bilateral bases left greater than right, no tachypnea, no accessory muscle use Cardio: Other: Mild sinus tachycardia, 2+ bilateral radial pedal pulses, no murmur, no edema GI: Other: Soft, nontender, nondistended, normoactive bowel sounds Skin: Other: Warm to touch, non jaundice, no pallor Neuro: Other: Alert oriented x4, speech is clear, no facial asymmetry, no localizing neurologic deficits noted during the course of conversation Extrem: Other: No clubbing, cyanosis or edema, patient is able to plantar flex the right foot but only has 2/5 strength she is unable to dorsiflex due to her history of right-sided CVA 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 and 5/5 on the left Psych: Other: Appropriate mood and affect, pleasant and cooperative, judgment and insight intact H&P: Results Labs Labs: Laboratory Tests 08/14/24 17:47 08/14/24 17:47 08/14/24 08/14/24 08/14/24 15:15 17:47 22:33 WBC 15.5 H RBC 3.76 L Hgb 10.5 L D Hct 33.2 L MCV 88.3 MCH 27.9 MCHC 31.6 L RDW 14.5 Plt Count 290 MPV 10.4 Immature Gran % (Auto) Not Reportable Neut % (Auto) Not Reportable Lymph % (Auto) Not Reportable [place] % (Auto) Not Reportable Eos % (Auto) Not Reportable Baso % (Auto) Not Reportable Lymph # (Auto) Not Reportable [place] # (Auto) Not Reportable Eos # (Auto) Not Reportable Baso # (Auto) Not Reportable Abs Immat Gran (auto) Not Reportable Absolute Neuts (auto) Not Reportable Absolute Nucleated RBC Not Reportable Total Counted 100 Neutrophils % (Manual) 66 Band Neutrophils % 11 H Lymphocytes % (Manual) 18.0 Monocytes % (Manual) 4 Eosinophils % (Manual) 1 Nucleated RBC % Not Reportable Abs Neuts (Manual) 11.93 H Abs Lymphs (Manual) 2.79 Abs Monocytes (Manual) 0.62 Absolute Eos (Manual) 0.15 Platelet Estimate Adequate % Immature Plt Fraction 3.6 Hypochromasia 1+ Schistocytes None seen Sodium 137 Potassium 3.6 Chloride 102 Carbon Dioxide 27 Anion Gap 8 BUN 15 D Creatinine 0.65 L Estim Creat Clear Calc 102 Estimated GFR > 60 Glucose 133 H POC Capillary Glucose 134 H Calcium 8.1 L Total Bilirubin 0.7 AST 18 ALT 12 Alkaline Phosphatase 110 Total Protein 7.0 Albumin 3.6 Influenza A (RT-PCR) Negative Influenza B (RT-PCR) Negative RSV (RT-PCR) Negative SARS-CoV-2 RNA (RT-PCR) Negative Impressions Chest X-Ray 08/14/24 18:40 IMPRESSION: Segmental left basilar and subsegmental right basilar atelectasis/consolidation. Possible trace bilateral pleural effusions. Assessment and Plan Assessment and plan (1) Pneumonia: Qualifiers: Laterality: bilateral Lung location: lower lobe of lung Pneumonia type: due to unspecified organism Qualified Code(s): J18.9 - Pneumonia, unspecified organism Code(s): J18.9 - Pneumonia, unspecified organism Status: Acute (2) Hypoxia: Code(s): R09.02 - Hypoxemia Status: Acute (3) Sepsis: Qualifiers: Sepsis acute organ dysfunction status: without acute organ dysfunction Sepsis type: sepsis due to unspecified organism Qualified Code(s): A41.9 - Sepsis, unspecified organism Code(s): A41.9 - Sepsis, unspecified organism Status: Acute (4) Insulin dependent diabetes mellitus: Status: Acute (5) Continuous tobacco abuse: Code(s): Z72.0 - Tobacco use Status: Chronic (6) Acute anemia: Code(s): D64.9 - Anemia, unspecified Status: Acute Plan Patient has been started on antibiotic therapy for likely pneumonia resulting in acute hypoxic respiratory failure.. She meet sepsis criteria with tachycardia, tachypnea leukocytosis with bandemia. Blood cultures have been obtained and are pending. Will check urine Legionella and pneumococcal antigen. Viral pneumonia ruled out with negative PCRs. Will wean oxygen as tolerated. Patient has been encouraged to completely cease quit smoking. She has made great strides in cutting back in tobacco use. She was congratulated on her efforts. The patient does have anemia with hemoglobin drop from prior values. Will check iron studies and TSH. Will resume the patient's home antihypertensives psychiatric medications and migraine medications.. Quality VTE Prophylaxis VTE prophylaxis: pharmacologic ordered (Lovenox 40 mg subQ daily.) Hospitalist [facility] Advance Care Plan I have confirmed that the patient's Advanced Care Plan is present, code status is documented, or surrogate decision maker is listed in patient medical record.: Yes Medication Reconciliation I have utilized all available resources to obtain, update and review the patients current medications (includes all prescriptions, OTC, herbals, cannabis, and nutritional supplements).: Yes
[2024-08-14 22:36] LABS: Glucose Point of Care 134 mg/dl (65-105)
[2024-08-14] MEDS: FLUTICASONE PROPIONATE 0.05% NA SPR 16 GM BTL (*BKC) 1 SPRAY NASAL (23:06)
[2024-08-14] MEDS: hydrOXYzine HCL 25 MG TABLET 50 MG PO (23:07)
[2024-08-14] MEDS: MELOXICAM 7.5 MG TABLET PO (23:07)
[2024-08-14] MEDS: clonazePAM (*CRX) 0.5 MG TABLET 1 MG PO (23:08)
[2024-08-14] MEDS: guaiFENesin 12 HR 600 MG TABCR PO (23:08)
[2024-08-14] MEDS: traZODone HCL 50 MG TABLET 100 MG PO (23:08)
[2024-08-14] MEDS: oxyBUTYnin CHLORIDE 5 MG TABLET PO (23:08)
[2024-08-14] MEDS: OMEGA 3 POLYUNSAT FATTY ACIDS 1 GM CAP PO (23:08)
[2024-08-14] MEDS: PROPRANOLOL HCL 20 MG TABLET PO (23:09)
[2024-08-14] MEDS: MELATONIN 3 MG TABLET PO (23:09)
[2024-08-14] MEDS: GABAPENTIN 400 MG CAPSULE PO (23:09)
[2024-08-14] MEDS: PRIMIDONE 25 MG TABLET PO (23:17)
[2024-08-14] MEDS: SODIUM CHLORIDE 0.9% IV 1,000 ML 999 ML IV CONT (23:18)
[2024-08-14] MEDS: MICONAZOLE NITRATE 2% CREAM 30 GM TUBE 1 APPLIC TOPICAL (23:18)
[2024-08-15] VITALS (10 sets, daily range): BP systolic 94–127; BP diastolic 50–72; PULSE 77–107; RESP 16–20; TEMP 36.6–36.7; O2SAT 92–100
[2024-08-15] MEDS: INSULIN GLARGINE (*BKC) 100 UNITS/ML 15 UNITS SUB-Q (00:09)
[2024-08-15] MEDS: SODIUM CHLORIDE 0.9% IV 1,000 ML 250 ML IV CONT (00:12)
[2024-08-15 05:29] LABS: Basophils Percent Auto 0.3 % (0.2-1.2); Eosinophils Absolute Auto 0.3 K/mm3 (0-0.3); Eosinophils Percent Auto 2.8 % (0-4.4); Hematocrit 32.1 % (37.0-47.0); Hemoglobin 10.3 g/dL (12.0-15.0); Immature Granulocyte Absolute 0.11 K/mm3 (0.00-0.031); Immature Granulocyte Percent A 0.9 % (0-0.5); Lymphocytes Absolute Auto 2.03 K/mm3 (0.9-3.2); Lymphocytes Percent Auto 17.2 % (18.3-44.2); Mean Corpuscular HGB Conc 32.1 g/dl (32-36); Mean Corpuscular Hemoglobin 28.1 pg (26-34); Mean Corpuscular Volume 87.7 fl (80-100); Mean Platelet Volume 9.6 fl (7.4-10.4); Monocytes Absolute Auto 0.8 K/mm3 (0.1-0.6); Monocytes Percent Auto 6.5 % (2.6-8.5); Neutrophils Absolute Auto 8.5 K/mm3 (1.3-6.7); Neutrophils Percent Auto 72.3 % (45.5-73.1); Platelet Count Result 295 k/mm3 (150-375); Red Blood Count 3.66 M/mm3 (4.2-5.4); Red Cell Distribution Width 14.1 % (11.5-14.5); White Blood Count 11.8 K/mm3 (4.5-10.0)
[2024-08-15 05:46] LABS: Anion Gap 9 mmol/L (4-12); Blood Urea Nitrogen 9 mg/dL (7-17); Calcium 7.8 mg/dL (8.4-10.2); Carbon Dioxide 24 mmol/L (22-30); Chloride 107 mmol/L (98-107); Estimated CRCL calculation 126 ml/min; Estimated Glomerular Filt Rate > 60; Glucose 156 mg/dL (65-110); Potassium 3.6 mmol/L (3.4-5.0); Sodium 140 mmol/L (137-145)
[2024-08-15 05:52] LABS: Iron 34 ug/dL (37-170)
[2024-08-15 06:02] LABS: Percent Iron Saturation 18 % (20-50)
[2024-08-15 06:24] LABS: Thyroid Stimulating Hormone Reflex 0.264 uIU/mL (0.465-4.68)
[2024-08-15 06:47] LABS: Folic Acid 19.1 ng/mL (2.76->20)
[2024-08-15 07:15] LABS: Free T4 Free Thyroxine Reflex 1.79 ng/dL (0.78-2.19)
[2024-08-15 07:49] LABS: Glucose Point of Care 135 mg/dl (65-105)
--- NOTE | 2024-08-15 08:06 | P.PNIM_ITS ---
Progress Note: A&P Assessment and Plan (1) Pneumonia: Qualifiers: Laterality: bilateral Lung location: lower lobe of lung Pneumonia type: due to unspecified organism Qualified Code(s): J18.9 - Pneumonia, unspecified organism Code(s): J18.9 - Pneumonia, unspecified organism Status: Acute (2) Hypoxia: Code(s): R09.02 - Hypoxemia Status: Acute (3) Sepsis: Qualifiers: Sepsis acute organ dysfunction status: without acute organ dysfunction Sepsis type: sepsis due to unspecified organism Qualified Code(s): A41.9 - Sepsis, unspecified organism Code(s): A41.9 - Sepsis, unspecified organism Status: Acute (4) Insulin dependent diabetes mellitus: Status: Acute (5) Continuous tobacco abuse: Code(s): Z72.0 - Tobacco use Status: Chronic (6) Acute anemia: Code(s): D64.9 - Anemia, unspecified Status: Acute Plan 58-year-old female with a past medical history prior CVA, type 2 diabetes mellitus, migraines, essential hypertension, tobacco dependence GERD, urge urinary incontinence and major depressive disorder who is been in a retirement since December 2020 due to inability to care for self who admitted for cough and congestion for 1 week. Aizth/ceftriaxone started-will continue - wean off o2 if able - legionella/pneumococcal tests ordered -albuterol prn -IS, ambulation - lantus 20 unis, SS, accuchecks ac/hs Time Spent With Patient Time with patient: 25 - 35 minutes Subjective Date/time seen: 08/15/24 08:06 Interval history: 58-year-old female with a past medical history prior CVA (lt leg weakness), type 2 diabetes mellitus, migraines, essential hypertension, tobacco dependence GERD, urge urinary incontinence and major depressive disorder ( retirement since December 2020) admitted for cough and congestion for 1 week. Pt is seen and examined. She is on oxygen- (not typically wearing o2). no sob, no chest pain, she is doing ok this am. Stepmother at a bedside. Review of Systems Review of Systems: All systems reviewed & are unremarkable except as noted in HPI and below Exam Narrative: Weight 97.2 kg BMI 32.6 Const: General: comfortable Resp: Effort & Inspection: normal respiratory effort Auscultation: diminished lung sounds Cardio: Rate: regular rate Rhythm: regular rhythm GI: GI Palp: Yes Soft to palpation Auscultation: normal bowel sounds Skin: General skin exam: normal color Objective Data Vital Signs Vital Signs: Vital Signs - 24 hr 08/14/24 14:48 08/14/24 14:51 08/14/24 14:51 Temperature 98.5 F Pulse Rate 103 H Respiratory Rate 18 Blood Pressure 129/70 Pulse Oximetry 85 L 94 95 Oxygen Delivery Room Air Nasal Cannula Room Air Oxygen Flow Rate 3 Fraction of Inspired Oxygen 08/14/24 14:56 08/14/24 18:09 08/14/24 20:11 Temperature 99.7 F H Pulse Rate 101 H 89 100 Respiratory Rate 15 20 18 Blood Pressure 122/66 116/57 L 112/56 L Pulse Oximetry 93 88 L 98 Oxygen Delivery Oxygen Flow Rate Fraction of Inspired Oxygen 08/14/24 20:42 08/14/24 20:42 08/14/24 23:09 Temperature Pulse Rate 95 95 Respiratory Rate 20 Blood Pressure Pulse Oximetry 93 93 Oxygen Delivery Nasal Cannula Nasal Cannula Oxygen Flow Rate 2 2 Fraction of Inspired Oxygen 28 08/14/24 23:17 08/15/24 04:06 08/15/24 04:22 Temperature 98.0 F 98.1 F Pulse Rate 109 H 91 96 Respiratory Rate 16 16 20 Blood Pressure 126/56 L 118/61 Pulse Oximetry 94 94 92 Oxygen Delivery Nasal Cannula Oxygen Flow Rate 2 Fraction of Inspired Oxygen 28 Intake/Output Intake/Output: Intake & Output 08/12/24 08/13/24 08/14/24 08/15/24 23:59 23:59 23:59 23:59 Intake Total 300 350 Output Total 500 Balance 300 -150 Meds/Results Medications: Active Medications Generic Name Dose Route Start Last Admin Trade Name Freq PRN Reason Stop Dose Admin Amlodipine Besylate 10 mg 08/15/24 09:00 Amlodipine Besylate 10 Mg Tablet PO DAILY [facility] Aspirin 81 mg 08/15/24 09:00 Aspirin 81 Mg Enteric Tablet PO QAM [facility] Atorvastatin Calcium 40 mg 08/15/24 09:00 Atorvastatin 40 Mg Tablet PO DAILY [facility] Calcium Carbonate 400 mg 08/14/24 22:43 Calcium Carbonate (Tums) 500 Mg (200 Mg Elemental) PO QID PRN dyspepsia Clonazepam 1 mg 08/14/24 22:45 08/14/24 23:08 Clonazepam (*Crx) 0.5 Mg Tablet PO 1 mg Q12HR [facility] Administration Dextrose 12.5 gm 08/14/24 20:19 Dextrose 50% 25 Gm/50 Ml Syringe IV PUSH PRN PRN Hypoglycemia Protocol Enoxaparin Sodium 40 mg 08/15/24 09:00 Enoxaparin 40 Mg/0.4 Ml Syringe SUB-Q DAILY [facility] Fish Oil 1 gm 08/14/24 22:55 08/14/24 23:08 Rodessa 3 Polyunsat Fatty Acids 1 Gm Cap PO 1 gm BID [facility] Administration Fluticasone Propionate 1 spray 08/14/24 22:45 08/14/24 23:06 Fluticasone Propionate 0.05% Na Spr 16 Gm Btl (*Bkc) NASAL 1 spray Q12HR [facility] Administration Gabapentin 400 mg 08/14/24 22:55 08/14/24 23:09 Gabapentin 400 Mg Capsule PO 400 mg BID [facility] Administration Glucagon 1 mg 08/14/24 20:19 Glucagon For Inj 1 Mg Vial IM PRN PRN Hypoglycemia Protocol Glucose 15 gm 08/14/24 20:19 Glucose Oral Gel 15 Gm Of Glucse In 37.5 Gm Tube PO PRN PRN Hypoglycemia Protocol Guaifenesin 600 mg 08/14/24 22:55 08/14/24 23:08 Guaifenesin 12 Hr 600 Mg Tabcr PO 600 mg Q12HR [facility] Administration Hydroxyzine HCl 50 mg 08/14/24 22:55 08/14/24 23:07 Hydroxyzine Hcl 25 Mg Tablet PO 50 mg BID [facility] Administration Ceftriaxone Sodium 1 gm in 50 mls @ 100 mls/hr 08/15/24 21:00 Rocephin 1 Gm/Ns 50 Ml IVPB Q24H [facility] Azithromycin 500 mg in 250 mls @ 250 mls/hr 08/15/24 21:00 Zithromax IVPB Q24H [facility] Dextrose 1,000 mls @ 100 mls/hr 08/14/24 20:19 Dextrose 5% 1,000 Ml IVPB PRN PRN Hypoglycemia Protocol Insulin Aspart 2 - 5 units 08/15/24 08:00 Insulin Aspart (*Bkc) 100 Units/Ml SUB-Q TIDWM [facility] Protocol Insulin Glargine 20 units 08/14/24 22:55 08/15/24 00:02 Insulin Glargine (*Bkc) 100 Units/Ml SUB-Q Not Given HS [facility] Lisinopril 20 mg 08/15/24 09:00 Lisinopril 20 Mg Tablet PO DAILY [facility] Loratadine 10 mg 08/15/24 09:00 Loratadine 10 Mg Tablet PO DAILY [facility] Melatonin 3 mg 08/14/24 22:55 08/14/24 23:09 Melatonin 3 Mg Tablet PO 3 mg HS [facility] Administration Meloxicam 7.5 mg 08/14/24 22:55 08/14/24 23:07 Meloxicam 7.5 Mg Tablet PO 7.5 mg HS [facility] Administration Miconazole Nitrate 1 applic 08/14/24 22:55 08/14/24 23:18 Miconazole Nitrate 2% Cream 30 Gm Tube TOPICAL 1 applic Q12HR [facility] Administration Multivitamins Therapeutic 1 tablet 08/15/24 09:00 Multivitamins Therapeutic Tab (*Bkc) PO DAILY [facility] Oxybutynin Chloride 5 mg 08/14/24 22:55 08/14/24 23:08 Oxybutynin Chloride 5 Mg Tablet PO 5 mg TID [facility] Administration Pantoprazole Sodium 40 mg 08/15/24 09:00 Pantoprazole 40 Mg Tablet PO QAM [facility] Primidone 25 mg 08/14/24 22:55 08/14/24 23:17 Primidone 25 Mg Tablet PO 25 mg HS [facility] Administration Propranolol HCl 20 mg 08/14/24 22:45 08/14/24 23:09 Propranolol Hcl 20 Mg Tablet PO 20 mg Q12HR [facility] Administration Sumatriptan Succinate 50 mg 08/14/24 22:43 Sumatriptan Succinate 25 Mg Tablet PO DAILY PRN migraine headache Tramadol HCl 100 mg 08/14/24 22:43 Tramadol Hcl (*Crx) 50 Mg Tablet PO Q8H PRN Pain 4-10 Trazodone HCl 100 mg 08/14/24 22:50 08/14/24 23:08 Trazodone Hcl 50 Mg Tablet PO 100 mg HS [facility] Administration Radiology Results: ITS Impressions Chest X-Ray 08/14/24 18:40 IMPRESSION: Segmental left basilar and subsegmental right basilar atelectasis/consolidation. Possible trace bilateral pleural effusions. Labs Labs: Laboratory Results - last 24 hr 08/14/24 08/14/24 08/14/24 15:15 17:47 22:33 WBC 15.5 H RBC 3.76 L Hgb 10.5 L D Hct 33.2 L MCV 88.3 MCH 27.9 MCHC 31.6 L RDW 14.5 Plt Count 290 MPV 10.4 Immature Gran % (Auto) Not Reportable Neut % (Auto) Not Reportable Lymph % (Auto) Not Reportable Villalba % (Auto) Not Reportable Eos % (Auto) Not Reportable Baso % (Auto) Not Reportable Lymph # (Auto) Not Reportable Villalba # (Auto) Not Reportable Eos # (Auto) Not Reportable Baso # (Auto) Not Reportable Abs Immat Gran (auto) Not Reportable Absolute Neuts (auto) Not Reportable Absolute Nucleated RBC Not Reportable Total Counted 100 Neutrophils % (Manual) 66 Band Neutrophils % 11 H Lymphocytes % (Manual) 18.0 Monocytes % (Manual) 4 Eosinophils % (Manual) 1 Nucleated RBC % Not Reportable Abs Neuts (Manual) 11.93 H Abs Lymphs (Manual) 2.79 Abs Monocytes (Manual) 0.62 Absolute Eos (Manual) 0.15 Platelet Estimate Adequate % Immature Plt Fraction 3.6 Hypochromasia 1+ Schistocytes None seen Sodium 137 Potassium 3.6 Chloride 102 Carbon Dioxide 27 Anion Gap 8 BUN 15 D Creatinine 0.65 L Estim Creat Clear Calc 102 Estimated GFR > 60 Glucose 133 H POC Capillary Glucose 134 H Calcium 8.1 L Iron TIBC % Saturation Ferritin Total Bilirubin 0.7 AST 18 ALT 12 Alkaline Phosphatase 110 Total Protein 7.0 Albumin 3.6 Vitamin B12 Folate TSH (Reflex) Free T4 Influenza A (RT-PCR) Negative Influenza B (RT-PCR) Negative RSV (RT-PCR) Negative SARS-CoV-2 RNA (RT-PCR) Negative 08/15/24 08/15/24 05:09 07:38 WBC 11.8 H RBC 3.66 L Hgb 10.3 L Hct 32.1 L MCV 87.7 MCH 28.1 MCHC 32.1 RDW 14.1 Plt Count 295 MPV 9.6 Immature Gran % (Auto) 0.9 H Neut % (Auto) 72.3 Lymph % (Auto) 17.2 L Villalba % (Auto) 6.5 Eos % (Auto) 2.8 Baso % (Auto) 0.3 Lymph # (Auto) 2.03 Villalba # (Auto) 0.8 H Eos # (Auto) 0.3 Baso # (Auto) 0.0 Abs Immat Gran (auto) 0.11 H Absolute Neuts (auto) 8.5 H Absolute Nucleated RBC 0.000 Total Counted Neutrophils % (Manual) Band Neutrophils % Lymphocytes % (Manual) Monocytes % (Manual) Eosinophils % (Manual) Nucleated RBC % 0.0 Abs Neuts (Manual) Abs Lymphs (Manual) Abs Monocytes (Manual) Absolute Eos (Manual) Platelet Estimate % Immature Plt Fraction Hypochromasia Schistocytes Sodium 140 Potassium 3.6 Chloride 107 Carbon Dioxide 24 Anion Gap 9 BUN 9 D Creatinine 0.50 L Estim Creat Clear Calc 126 Estimated GFR > 60 Glucose 156 H POC Capillary Glucose 135 H Calcium 7.8 L Iron 34 L TIBC 185 L % Saturation 18 L Ferritin 142.00 Total Bilirubin AST ALT Alkaline Phosphatase Total Protein Albumin Vitamin B12 726.0 Folate 19.1 TSH (Reflex) 0.264 L Free T4 1.79 Influenza A (RT-PCR) Influenza B (RT-PCR) RSV (RT-PCR) SARS-CoV-2 RNA (RT-PCR) Quality VTE Prophylaxis VTE prophylaxis: pharmacologic ordered (Lovenox 40 mg subQ daily.)
[2024-08-15 08:27] LABS: Total Triiodothyronine (T3) 0.93 NG/ML (0.97-1.69)
[2024-08-15] MEDS: amLODIPine BESYLATE 10 MG TABLET PO (09:21)
[2024-08-15] MEDS: GABAPENTIN 400 MG CAPSULE PO ×2 (09:22→16:59)
[2024-08-15] MEDS: guaiFENesin 12 HR 600 MG TABCR PO ×2 (09:22→20:20)
[2024-08-15] MEDS: ASPIRIN 81 MG ENTERIC TABLET PO (09:22)
[2024-08-15] MEDS: clonazePAM (*CRX) 0.5 MG TABLET 1 MG PO ×2 (09:22→20:20)
[2024-08-15] MEDS: ATORVASTATIN 40 MG TABLET PO (09:22)
[2024-08-15] MEDS: hydrOXYzine HCL 25 MG TABLET 50 MG PO ×2 (09:23→16:59)
[2024-08-15] MEDS: lisinopriL 20 MG TABLET PO (09:23)
[2024-08-15] MEDS: LORATADINE 10 MG TABLET PO (09:23)
[2024-08-15] MEDS: MULTIVITAMINS THERAPEUTIC TAB (*BKC) 1 TABLET PO (09:24)
[2024-08-15] MEDS: oxyBUTYnin CHLORIDE 5 MG TABLET PO ×3 (09:24→16:59)
[2024-08-15] MEDS: PANTOPRAZOLE 40 MG TABLET PO (09:24)
[2024-08-15] MEDS: OMEGA 3 POLYUNSAT FATTY ACIDS 1 GM CAP PO ×2 (09:24→16:59)
[2024-08-15] MEDS: PROPRANOLOL HCL 20 MG TABLET PO ×2 (09:24→20:20)
[2024-08-15] MEDS: MICONAZOLE NITRATE 2% CREAM 30 GM TUBE 1 APPLIC TOPICAL ×2 (09:26→20:21)
[2024-08-15] MEDS: ENOXAPARIN 40 MG/0.4 ML SYRINGE SUB-Q (09:26)
[2024-08-15] MEDS: FLUTICASONE PROPIONATE 0.05% NA SPR 16 GM BTL (*BKC) 1 SPRAY NASAL ×2 (09:26→20:21)
[2024-08-15] MEDS: traMADol HCL (*CRX) 50 MG TABLET 100 MG PO ×2 (09:34→20:26)
[2024-08-15 11:50] LABS: Glucose Point of Care 189 mg/dl (65-105)
[2024-08-15 16:35] LABS: Glucose Point of Care 170 mg/dl (65-105)
[2024-08-15] MEDS: traZODone HCL 50 MG TABLET 100 MG PO (20:19)
[2024-08-15] MEDS: MELATONIN 3 MG TABLET PO (20:20)
[2024-08-15] MEDS: PRIMIDONE 25 MG TABLET PO (20:20)
[2024-08-15] MEDS: MELOXICAM 7.5 MG TABLET PO (20:20)
[2024-08-15] MEDS: INSULIN GLARGINE (*BKC) 100 UNITS/ML 20 UNITS SUB-Q (20:35)
[2024-08-15 20:50] LABS: Glucose Point of Care 204 mg/dl (65-105)
[2024-08-15] MEDS: AZITHROMYCIN 500 MG/NS 250 ML 500 MG/250 ML BAG 250 MG IVPB (21:04)
[2024-08-15] MEDS: oxyCODONE/ACETAMINOPHEN (*CRX) 5-325 MG TABLET 1 TABLET PO (23:20)
[2024-08-16] VITALS (8 sets, daily range): BP systolic 110–130; BP diastolic 60–76; PULSE 68–96; RESP 18–22; TEMP 36.4–36.8; O2SAT 93–100
--- NOTE | 2024-08-16 07:39 | PM.IMPN ---
Progress Note: A&P Assessment and Plan (1) Sepsis: Qualifiers: Sepsis acute organ dysfunction status: without acute organ dysfunction Sepsis type: sepsis due to unspecified organism Qualified Code(s): A41.9 - Sepsis, unspecified organism Code(s): A41.9 - Sepsis, unspecified organism Status: Acute Assessment and Plan: Meets SIRS criteria: tachycardia, tachypnea leukocytosis with bandemia - 2L IV fluids given on admission - suspected source: pneumonia - blood cultures drawn on 08/14: pending - CXR: Segmental left basilar and subsegmental right basilar atelectasis/consolidation. Possible trace bilateral pleural effusions. - See plan below. Afebrile. Vitals remain stable. WBC improving. (2) Hypoxia: Code(s): R09.02 - Hypoxemia Status: Acute Assessment and Plan: - Weaned back to baseline room air. Oxygen via NC; wean as tolerated. Keep SpO2 greater than 90% - Suspected cause: pneumonia - See plan below (3) Pneumonia: Qualifiers: Laterality: bilateral Lung location: lower lobe of lung Pneumonia type: due to unspecified organism Qualified Code(s): J18.9 - Pneumonia, unspecified organism Code(s): J18.9 - Pneumonia, unspecified organism Status: Acute Assessment and Plan: CXR: Segmental left basilar and subsegmental right basilar atelectasis/consolidation. Possible trace bilateral pleural effusions. - started on CAP tx: azithromycin ceftriaxone on 08/14 - Weaned back to baseline room air. Oxygen via NC; wean as tolerated. Keep SpO2 greater than 90% - Viral PCR: negative for Flu/COVID/RSV - legionella, mycoplasma and pneumococcal pending - Monitor vital signs, I&Os, neuro status and patient is a fall risk - Follow WBC, serum electrolytes, temperature curves and cultures - Send sputum cultures (4) Acute anemia: Code(s): D64.9 - Anemia, unspecified Status: Acute Assessment and Plan: Anemia on admission with H/H 10.5/33.2. Previously Hgb WNL. Iron panel showing deficiency, started on supplementation B12 and folate WNL TSH 0.264, T4 1.79, T3 0.93. Thyroid US ordered as patient had prior nodule. (5) Insulin dependent diabetes mellitus: Status: Acute Assessment and Plan: - hypoglycemia protocol - POC blood glucose ACHS - home medication - lantus 30 units - correct regimen ordered - lantus 20 units and SSI - A1C 6.5 (6) Hypertension: Qualifiers: Hypertension type: primary hypertension Qualified Code(s): I10 - Essential (primary) hypertension Code(s): I10 - Essential (primary) hypertension Status: Chronic Assessment and Plan: Chronic, continue home medications - amlodipine 10 mg daily - lasix 20 mg daily, on hold - lisinopril 20 mg daily - propranolol 20 mg BID - blood pressures remain stable, continue to monitor (7) Continuous tobacco abuse: Code(s): Z72.0 - Tobacco use Status: Chronic Assessment and Plan: 3-4 cigarettes per day Encouraged cessation Time Spent With Patient Time with patient: 25 - 35 minutes Subjective Date/time seen: 08/16/24 07:39 Interval history: 58-year-old female with a past medical history prior CVA, type 2 diabetes mellitus, migraines, essential hypertension, tobacco dependence GERD, urge urinary incontinence and major depressive disorder who is been in a intermediate since December 2020 due to inability to care for self who presented to the ER for cough and congestion. Patient is pleasant sitting up comfortably in bed. She states that her shortness of breath has improved. She has no other complaints denying chest pain, palpitations, nausea/vomiting, abdominal pain. Review of Systems Review of Systems: All systems reviewed & are unremarkable except as noted in HPI and below Exam Narrative: AF HR 89 RR 22 SPO2 93 BP 110/62 General: female in no acute respiratory distress who is nontoxic appearing, lying semi recumbent in bed. HEENT: Normocephalic. Atraumatic. Extraocular movement intact. Sclera clear and anicteric.No facial asymmetry. Chest: Lungs are slight coarse to bases to auscultation bilaterally. No wheezes. CV: Heart was regular rate and rhythm. Abd: Abdomen was soft. Nontender. Nondistended. Positive bowel sounds. Ext: No clubbing, cyanosis, or edema. DP pulses bilaterally. Neuro: Patient is alert and oriented x4. Speech is clear. Objective Data Vital Signs Vital Signs: Vital Signs - 24 hr 08/15/24 09:19 08/15/24 09:20 08/15/24 09:24 Temperature Pulse Rate 107 H 107 H Respiratory Rate Blood Pressure 127/72 Pulse Oximetry 96 97 Oxygen Delivery Nasal Cannula Oxygen Flow Rate 2 Fraction of Inspired Oxygen 04/29/25 14:00 08/15/24 20:00 08/15/24 20:20 Temperature 97.8 F Pulse Rate 87 87 Respiratory Rate 16 Blood Pressure 94/50 L Pulse Oximetry 100 93 Oxygen Delivery Nasal Cannula Oxygen Flow Rate 2 Fraction of Inspired Oxygen 08/15/24 21:03 08/15/24 22:10 08/16/24 06:00 Temperature 98.0 F 97.5 F L Pulse Rate 81 77 68 Respiratory Rate 16 20 18 Blood Pressure 112/59 L 113/60 Pulse Oximetry 97 93 96 Oxygen Delivery Nasal Cannula Oxygen Flow Rate 1 Fraction of Inspired Oxygen 21 Intake/Output Intake/Output: Intake & Output 08/13/24 08/14/24 08/15/24 08/16/24 23:59 23:59 23:59 23:59 Intake Total 300 1003 425 Output Total 1250 600 Balance 384 -320 -035 Meds/Results Medications: Active Medications Generic Name Dose Route Start Last Admin Trade Name Freq PRN Reason Stop Dose Admin Amlodipine Besylate 10 mg 08/15/24 09:00 08/15/24 09:21 Amlodipine Besylate 10 Mg Tablet PO 10 mg DAILY [facility] Administration Aspirin 81 mg 08/15/24 09:00 08/15/24 09:22 Aspirin 81 Mg Enteric Tablet PO 81 mg QAM [facility] Administration Atorvastatin Calcium 40 mg 08/15/24 09:00 08/15/24 09:22 Atorvastatin 40 Mg Tablet PO 40 mg DAILY [facility] Administration Calcium Carbonate 400 mg 08/14/24 22:43 Calcium Carbonate (Tums) 500 Mg (200 Mg Elemental) PO QID PRN dyspepsia Clonazepam 1 mg 08/14/24 22:45 08/15/24 20:20 Clonazepam (*Crx) 0.5 Mg Tablet PO 1 mg Q12HR [facility] Administration Dextrose 12.5 gm 08/14/24 20:19 Dextrose 50% 25 Gm/50 Ml Syringe IV PUSH PRN PRN Hypoglycemia Protocol Enoxaparin Sodium 40 mg 08/15/24 09:00 08/15/24 09:26 Enoxaparin 40 Mg/0.4 Ml Syringe SUB-Q 40 mg DAILY [facility] Administration Fish Oil 1 gm 08/14/24 22:55 08/15/24 16:59 Pandora 3 Polyunsat Fatty Acids 1 Gm Cap PO 1 gm BID [facility] Administration Fluticasone Propionate 1 spray 08/14/24 22:45 08/15/24 20:21 Fluticasone Propionate 0.05% Na Spr 16 Gm Btl (*Bkc) NASAL 1 spray Q12HR [facility] Administration Gabapentin 400 mg 08/14/24 22:55 08/15/24 16:59 Gabapentin 400 Mg Capsule PO 400 mg BID [facility] Administration Glucagon 1 mg 08/14/24 20:19 Glucagon For Inj 1 Mg Vial IM PRN PRN Hypoglycemia Protocol Glucose 15 gm 08/14/24 20:19 Glucose Oral Gel 15 Gm Of Glucse In 37.5 Gm Tube PO PRN PRN Hypoglycemia Protocol Guaifenesin 600 mg 08/14/24 22:55 08/15/24 20:20 Guaifenesin 12 Hr 600 Mg Tabcr PO 600 mg Q12HR [facility] Administration Hydroxyzine HCl 50 mg 08/14/24 22:55 08/15/24 16:59 Hydroxyzine Hcl 25 Mg Tablet PO 50 mg BID [facility] Administration Ceftriaxone Sodium 1 gm in 50 mls @ 100 mls/hr 08/15/24 21:00 08/15/24 20:23 Rocephin 1 Gm/Ns 50 Ml IVPB 100 mls/hr Q24H [facility] Administration Azithromycin 500 mg in 250 mls @ 250 mls/hr 08/15/24 21:00 08/15/24 22:03 Zithromax IVPB 0 mls/hr Q24H [facility] Infusion Dextrose 1,000 mls @ 100 mls/hr 08/14/24 20:19 Dextrose 5% 1,000 Ml IVPB PRN PRN Hypoglycemia Protocol Insulin Aspart 2 - 5 units 08/15/24 08:00 08/15/24 16:58 Insulin Aspart (*Bkc) 100 Units/Ml SUB-Q Not Given TIDWM [facility] Protocol Insulin Glargine 20 units 08/14/24 22:55 08/15/24 20:35 Insulin Glargine (*Bkc) 100 Units/Ml SUB-Q 20 units HS [facility] Administration Lisinopril 20 mg 08/15/24 09:00 08/15/24 09:23 Lisinopril 20 Mg Tablet PO 20 mg DAILY [facility] Administration Loratadine 10 mg 08/15/24 09:00 08/15/24 09:23 Loratadine 10 Mg Tablet PO 10 mg DAILY [facility] Administration Melatonin 3 mg 08/14/24 22:55 08/15/24 20:20 Melatonin 3 Mg Tablet PO 3 mg HS [facility] Administration Meloxicam 7.5 mg 08/14/24 22:55 08/15/24 20:20 Meloxicam 7.5 Mg Tablet PO 7.5 mg HS [facility] Administration Miconazole Nitrate 1 applic 08/14/24 22:55 08/15/24 20:21 Miconazole Nitrate 2% Cream 30 Gm Tube TOPICAL 1 applic Q12HR [facility] Administration Multivitamins Therapeutic 1 tablet 08/15/24 09:00 08/15/24 09:24 Multivitamins Therapeutic Tab (*Bkc) PO 1 tablet DAILY [facility] Administration Oxybutynin Chloride 5 mg 08/14/24 22:55 08/15/24 16:59 Oxybutynin Chloride 5 Mg Tablet PO 5 mg TID [facility] Administration Pantoprazole Sodium 40 mg 08/15/24 09:00 08/15/24 09:24 Pantoprazole 40 Mg Tablet PO 40 mg QAM [facility] Administration Primidone 25 mg 08/14/24 22:55 08/15/24 20:20 Primidone 25 Mg Tablet PO 25 mg HS [facility] Administration Propranolol HCl 20 mg 08/14/24 22:45 08/15/24 20:20 Propranolol Hcl 20 Mg Tablet PO 20 mg Q12HR [facility] Administration Sumatriptan Succinate 50 mg 08/14/24 22:43 Sumatriptan Succinate 25 Mg Tablet PO DAILY PRN migraine headache Tramadol HCl 100 mg 08/14/24 22:43 08/15/24 20:26 Tramadol Hcl (*Crx) 50 Mg Tablet PO 100 mg Q8H PRN Administration Pain 4-10 Trazodone HCl 100 mg 08/14/24 22:50 08/15/24 20:19 Trazodone Hcl 50 Mg Tablet PO 100 mg HS [facility] Administration Radiology Results: ITS Impressions Chest X-Ray 08/14/24 18:40 IMPRESSION: Segmental left basilar and subsegmental right basilar atelectasis/consolidation. Possible trace bilateral pleural effusions. Labs Labs: Laboratory Results - last 24 hr 08/15/24 08/15/24 08/15/24 05:09 07:38 11:38 POC Capillary Glucose 135 H 189 H Total T3 0.93 L 08/15/24 08/15/24 16:21 20:37 POC Capillary Glucose 170 H 204 H Total T3 Quality VTE Prophylaxis VTE prophylaxis: pharmacologic ordered (Lovenox 40 mg subQ daily.)
[2024-08-16 08:08] LABS: Glucose Point of Care 108 mg/dl (65-105)
[2024-08-16 08:25] LABS: Hematocrit 30.1 % (37.0-47.0); Hemoglobin 9.6 g/dL (12.0-15.0); Mean Corpuscular HGB Conc 31.9 g/dl (32-36); Mean Corpuscular Hemoglobin 28.1 pg (26-34); Mean Platelet Volume 9.4 fl (7.4-10.4); Platelet Count Result 284 k/mm3 (150-375); Red Blood Count 3.42 M/mm3 (4.2-5.4); Red Cell Distribution Width 13.9 % (11.5-14.5); White Blood Count 10.1 K/mm3 (4.5-10.0)
[2024-08-16 08:32] LABS: Alanine Aminotransferase 14 U/L (6-35); Albumin Level 3.1 g/dL (3.5-5.1); Alkaline Phosphatase 98 U/L (38-126); Anion Gap 4 mmol/L (4-12); Aspartate Amino Transferase 20 U/L (14-36); Bilirubin,Total 0.3 mg/dL (0.2-1.3); Blood Urea Nitrogen 8 mg/dL (7-17); Calcium 8.3 mg/dL (8.4-10.2); Carbon Dioxide 32 mmol/L (22-30); Chloride 105 mmol/L (98-107); Estimated CRCL calculation 120 ml/min; Estimated Glomerular Filt Rate > 60; Glucose 114 mg/dL (65-110); Potassium 3.6 mmol/L (3.4-5.0); Sodium 141 mmol/L (137-145)
[2024-08-16 08:57] LABS: Hemoglobin A1C 6.5 % (<5.7)
[2024-08-16] MEDS: MULTIVITAMINS THERAPEUTIC TAB (*BKC) 1 TABLET PO (09:46)
[2024-08-16] MEDS: guaiFENesin 12 HR 600 MG TABCR PO ×2 (09:46→20:35)
[2024-08-16] MEDS: hydrOXYzine HCL 25 MG TABLET 50 MG PO ×2 (09:46→16:47)
[2024-08-16] MEDS: LORATADINE 10 MG TABLET PO (09:46)
[2024-08-16] MEDS: GABAPENTIN 400 MG CAPSULE PO ×2 (09:46→16:47)
[2024-08-16] MEDS: ASPIRIN 81 MG ENTERIC TABLET PO (09:46)
[2024-08-16] MEDS: clonazePAM (*CRX) 0.5 MG TABLET 1 MG PO ×2 (09:46→20:34)
[2024-08-16] MEDS: oxyBUTYnin CHLORIDE 5 MG TABLET PO ×3 (09:46→16:47)
[2024-08-16] MEDS: lisinopriL 20 MG TABLET PO (09:46)
[2024-08-16] MEDS: amLODIPine BESYLATE 10 MG TABLET PO (09:46)
[2024-08-16] MEDS: PANTOPRAZOLE 40 MG TABLET PO (09:46)
[2024-08-16] MEDS: PROPRANOLOL HCL 20 MG TABLET PO ×2 (09:46→20:34)
[2024-08-16] MEDS: OMEGA 3 POLYUNSAT FATTY ACIDS 1 GM CAP PO ×2 (09:46→16:47)
[2024-08-16] MEDS: ATORVASTATIN 40 MG TABLET PO (09:46)
[2024-08-16] MEDS: FLUTICASONE PROPIONATE 0.05% NA SPR 16 GM BTL (*BKC) 1 SPRAY NASAL ×2 (09:50→20:36)
[2024-08-16] MEDS: MICONAZOLE NITRATE 2% CREAM 30 GM TUBE 1 APPLIC TOPICAL ×2 (09:50→22:54)
[2024-08-16] MEDS: ENOXAPARIN 40 MG/0.4 ML SYRINGE SUB-Q (09:57)
[2024-08-16] MEDS: FERROUS SULFATE 325 MG TABLET DR PO ×2 (09:57→16:47)
[2024-08-16 12:04] LABS: Glucose Point of Care 181 mg/dl (65-105)
[2024-08-16 16:49] LABS: Glucose Point of Care 177 mg/dl (65-105)
[2024-08-16 20:20] LABS: Glucose Point of Care 195 mg/dl (65-105)
[2024-08-16] MEDS: PRIMIDONE 25 MG TABLET PO (20:33)
[2024-08-16] MEDS: MELOXICAM 7.5 MG TABLET PO (20:33)
[2024-08-16] MEDS: traZODone HCL 50 MG TABLET 100 MG PO (20:34)
[2024-08-16] MEDS: MELATONIN 3 MG TABLET PO (20:35)
[2024-08-16] MEDS: INSULIN GLARGINE (*BKC) 100 UNITS/ML 20 UNITS SUB-Q (20:37)
[2024-08-16] MEDS: AZITHROMYCIN 500 MG/NS 250 ML 500 MG/250 ML BAG 150 MG IVPB (21:04)
[2024-08-17 04:52] VITALS: BP 135/66; PULSE 77; RESP 17; TEMP 36.6; O2SAT 100
[2024-08-17 05:29] LABS: Hematocrit 33.3 % (37.0-47.0); Hemoglobin 10.5 g/dL (12.0-15.0); Mean Corpuscular HGB Conc 31.5 g/dl (32-36); Mean Corpuscular Hemoglobin 27.9 pg (26-34); Mean Corpuscular Volume 88.6 fl (80-100); Mean Platelet Volume 9.3 fl (7.4-10.4); Platelet Count Result 296 k/mm3 (150-375); Red Blood Count 3.76 M/mm3 (4.2-5.4); Red Cell Distribution Width 13.7 % (11.5-14.5); White Blood Count 8.3 K/mm3 (4.5-10.0)
[2024-08-17 05:42] LABS: Alanine Aminotransferase 16 U/L (6-35); Albumin Level 3.4 g/dL (3.5-5.1); Alkaline Phosphatase 102 U/L (38-126); Anion Gap 7 mmol/L (4-12); Aspartate Amino Transferase 23 U/L (14-36); Bilirubin,Total 0.3 mg/dL (0.2-1.3); Blood Urea Nitrogen 8 mg/dL (7-17); Calcium 8.7 mg/dL (8.4-10.2); Carbon Dioxide 31 mmol/L (22-30); Chloride 106 mmol/L (98-107); Estimated CRCL calculation 122 ml/min; Estimated Glomerular Filt Rate > 60; Glucose 154 mg/dL (65-110); Potassium 4.1 mmol/L (3.4-5.0); Sodium 144 mmol/L (137-145)
[2024-08-17 07:56] LABS: Glucose Point of Care 171 mg/dl (65-105)
[2024-08-17 08:23] VITALS: PULSE 77
[2024-08-17] MEDS: PROPRANOLOL HCL 20 MG TABLET PO (08:23)
[2024-08-17] MEDS: ASPIRIN 81 MG ENTERIC TABLET PO (08:23)
[2024-08-17] MEDS: guaiFENesin 12 HR 600 MG TABCR PO (08:23)
[2024-08-17] MEDS: ATORVASTATIN 40 MG TABLET PO (08:23)
[2024-08-17] MEDS: OMEGA 3 POLYUNSAT FATTY ACIDS 1 GM CAP PO (08:23)
[2024-08-17] MEDS: clonazePAM (*CRX) 0.5 MG TABLET 1 MG PO (08:24)
[2024-08-17] MEDS: MULTIVITAMINS THERAPEUTIC TAB (*BKC) 1 TABLET PO (08:24)
[2024-08-17] MEDS: hydrOXYzine HCL 25 MG TABLET 50 MG PO (08:24)
[2024-08-17] MEDS: lisinopriL 20 MG TABLET PO (08:24)
[2024-08-17] MEDS: amLODIPine BESYLATE 10 MG TABLET PO (08:24)
[2024-08-17] MEDS: oxyBUTYnin CHLORIDE 5 MG TABLET PO ×2 (08:24→12:02)
[2024-08-17] MEDS: GABAPENTIN 400 MG CAPSULE PO (08:24)
[2024-08-17] MEDS: FERROUS SULFATE 325 MG TABLET DR PO (08:25)
[2024-08-17] MEDS: ENOXAPARIN 40 MG/0.4 ML SYRINGE SUB-Q (08:25)
[2024-08-17] MEDS: LORATADINE 10 MG TABLET PO (08:25)
[2024-08-17] MEDS: PANTOPRAZOLE 40 MG TABLET PO (08:25)
[2024-08-17] MEDS: FLUTICASONE PROPIONATE 0.05% NA SPR 16 GM BTL (*BKC) 1 SPRAY NASAL (08:26)
[2024-08-17] MEDS: MICONAZOLE NITRATE 2% CREAM 30 GM TUBE 1 APPLIC TOPICAL (08:30)
[2024-08-17 11:44] LABS: Glucose Point of Care 202 mg/dl (65-105)
[2024-08-17] MEDS: INSULIN ASPART (*BKC) 100 UNITS/ML SUB-Q (12:02)
--- NOTE | 2024-08-17 13:37 | P.DS_ITS ---
DS: Admitting Diagnosis Discharge Date 08/17/2024 Admitting Diagnosis sepsis hypoxia pneumonia acute anemia insulin dependent dm htn tobacco abuse DS: Discharge Diagnosis Discharge Diagnosis (1) Sepsis: Qualifiers: Sepsis acute organ dysfunction status: without acute organ dysfunction Sepsis type: sepsis due to unspecified organism Qualified Code(s): A41.9 - Sepsis, unspecified organism Code(s): A41.9 - Sepsis, unspecified organism Status: Acute (2) Hypoxia: Code(s): R09.02 - Hypoxemia Status: Acute (3) Pneumonia: Qualifiers: Laterality: bilateral Lung location: lower lobe of lung Pneumonia type: due to unspecified organism Qualified Code(s): J18.9 - Pneumonia, unspecified organism Code(s): J18.9 - Pneumonia, unspecified organism Status: Acute (4) Acute anemia: Code(s): D64.9 - Anemia, unspecified Status: Acute (5) Insulin dependent diabetes mellitus: Status: Acute (6) Hypertension: Qualifiers: Hypertension type: primary hypertension Qualified Code(s): I10 - Essential (primary) hypertension Code(s): I10 - Essential (primary) hypertension Status: Chronic (7) Continuous tobacco abuse: Code(s): Z72.0 - Tobacco use Status: Chronic DS: Summary Hospital Course Reason for hospitalization: sepsis hypoxia pneumonia acute anemia insulin dependent dm htn tobacco abuse Hospital Course: 58-year-old female with a past medical history prior CVA, type 2 diabetes mellitus, migraines, essential hypertension, tobacco dependence GERD, urge urinary incontinence and major depressive disorder who is been in a group home since December 2020 due to inability to care for self who presented to the ER for cough and congestion. Patient was meeting sepsis criteria with tachycardia, tachypnea, leukocytosis with bandemia on admission. Blood cultures were obtained and show no growth to date since 08/14. Patient was also hypoxic on arrival requiring oxygen supplementation however during admission she was able to wean back to room air. Patient's chest x-ray showed segmental left basilar and subsegmental right basilar atelectasis/consolidation. Possible trace bilateral pleural effusions. She received sepsis bolus and was started on iv antibiotics for pneumonia. Patient was transition to oral antibiotics to complete the pneumonia course at time of discharge. Patient continued to be slightly anemic throughout admission. Iron panel was obtained and showed deficiency anemia. Patient was started on supplementation. B12 folate were within normal limits. Patient was noted to have abnormal thyroid panel however she notes that she has had prior thyroid test done by her primary care provider in the past due to a known thyroid nodule. Thyroid ultrasound was obtained and showed nodule. Discussed with patient she is to follow up with primary care provider about a biopsy to further evaluate this nodule. Patient stated understanding at that time. Patient had no complaints at time of discharge stating that she felt she was back to her baseline and denied any chest pain, shortness a breath, palpitations, nausea/vomiting, and abdominal pain. Patient discharged back to long term group home in a stable condition. She is to follow up with her primary care provider in 1 week. Status at Discharge Functional status at discharge: wheelchair bound Time Spent with Patient Time attestation: Total time spent providing and/or coordinating discharge services: Time spent: Greater than 30 minutes Exam Narrative: AF HR 77 RR 17 Spo2 100 BP 135/66 General: female in no acute respiratory distress who is nontoxic appearing, sitting up in chair HEENT: Normocephalic. Atraumatic. Extraocular movement intact. Sclera clear and anicteric.No facial asymmetry. Chest: Lungs are clear to auscultation bilaterally. No wheezes. CV: Heart was regular rate and rhythm. Abd: Abdomen was soft. Nontender. Nondistended. Positive bowel sounds. Ext: No clubbing, cyanosis, or edema. DP pulses bilaterally. Neuro: Patient is alert. Speech is clear. DS: Data Data Completed and Pending Completed studies during hospitalization: thyroid us chest xr Labs on day of discharge: Labs from last 24 hours 08/17/24 08/17/24 08/17/24 11:40 07:29 05:16 WBC 8.3 RBC 3.76 L Hgb 10.5 L Hct 33.3 L MCV 88.6 MCH 27.9 MCHC 31.5 L RDW 13.7 Plt Count 296 MPV 9.3 Sodium 144 Potassium 4.1 Chloride 106 Carbon Dioxide 31 H Anion Gap 7 BUN 8 Creatinine 0.52 L Estim Creat Clear Calc 122 Estimated GFR > 60 Glucose 154 H POC Capillary Glucose 202 H 171 H Calcium 8.7 Total Bilirubin 0.3 AST 23 ALT 16 Alkaline Phosphatase 102 Total Protein 7.0 Albumin 3.4 L 08/16/24 08/16/24 19:39 16:43 WBC RBC Hgb Hct MCV MCH MCHC RDW Plt Count MPV Sodium Potassium Chloride Carbon Dioxide Anion Gap BUN Creatinine Estim Creat Clear Calc Estimated GFR Glucose POC Capillary Glucose 195 H 177 H Calcium Total Bilirubin AST ALT Alkaline Phosphatase Total Protein Albumin Preliminary micro results at discharge 08/14/24 17:47 Blood Culture - Preliminary Blood 08/14/24 17:48 Blood Culture - Preliminary Blood Discharge Plan Discharge Attending physician on discharge: Subhash Ricks Discharging Clinician: Loraine Romo Anticipated Discharge Date/Time: 08/17/24 13:24 Patient Disposition: NH Jail/Asst Living Activity: as tolerated Diet: as tolerated and diabetic Discharge Instructions: Discharge disposition: Patient admitted to the hospital for shortness of breath with cough and congestion Diagnosed with pneumonia Originally requiring oxygen, however has been weaned back to room air Continue Azithromycin and Augmentin, course to be completed on 08/20 Attached is information on this medication Patient continues to be anemic, levels remain stable Started on iron supplementation Patient had slightly abnormal thyroid panel Thyroid US showing known nodule Follow up with primary care provider in regards to a biopsy of the nodule Monitor blood pressures Take caution while standing, rising, or moving Change positions slowly taking a break between each position change If you standing feel dizzy sit back down and take a break Encouraged to continue with yearly vaccinations Return to the emergency department if he developed sudden shortness of breath, chest pain, nausea, vomiting, upset stomach or intractable diarrhea Return to the emergency department if you develop fever greater than 101.5 Follow-up with the primary care physician within 1-2 weeks Thank you for choosing [facility] for your healthcare needs Patient Instructions: Antibiotic Form, Iron Supplements (By mouth), Amoxicillin/Clavulanate Potassium (By mouth), Azithromycin (By mouth), Bacterial Pneumonia (DC), Anemia (DC) Patient Language: Guinean Stand Alone Forms: General Discharge Information Follow-up/Referrals: Baljinder,MD Nguyễn [Primary Care Provider] - 1 Week Discharge Medications: New ferrous sulfate 325 mg (65 mg iron) Tablet,Delayed Release (Dr/Ec) 325 mg PO BID Qty: 60 0RF amoxicillin-pot clavulanate 875-125 mg tablet 1 tablet PO Q12H Qty: 8 0RF azithromycin 500 mg tablet 500 mg PO DAILY Qty: 4 0RF Continued lisinopril 20 mg Tablet 20 mg PO DAILY tramadol 50 mg Tablet 100 mg PO Q8H PRN (Reason: Pain (Scale Score 4-6)) oxybutynin chloride 5 mg Tablet 5 mg PO TID insulin glargine 100 unit/mL (3 mL) Insulin Pen 30 unit SUBCUT HS Emgality Pen 120 mg/mL Pen Injector 120 mg SUBCUT MONTHLY Rx Instructions: takes on the 4th of each month gabapentin 400 mg capsule 400 mg PO BID amlodipine 10 mg Tablet 10 mg PO DAILY primidone 50 mg Tablet 25 mg PO HS metformin 1,000 mg Tablet 1,000 mg PO DAILY melatonin 3 mg PO HS atorvastatin 40 mg Tablet 40 mg PO DAILY Fetzima 120 mg Capsule,Extended Release 24 Hr 120 mg PO DAILY acetaminophen 650 mg Tablet 650 mg PO Q8H PRN (Reason: Pain (Scale Score 1-3)) multivitamin [Daily Multi-Vitamin] Tablet 1 tablet PO DAILY ascorbic acid (vitamin C) 500 mg Tablet 500 mg PO TID Rx Instructions: With meals propranolol 20 mg Tablet 20 mg PO Q12H Rx Instructions: Hold if B/P <100/50 aspirin 81 mg Tablet,Delayed Release (Dr/Ec) 81 mg PO QAM Qty: 30 0RF omega-3 acid ethyl esters [Lovaza] 1 gram capsule 1 cap PO BID Qty: 60 0RF loratadine [Claritin] 10 mg tablet 10 mg PO DAILY clonazepam 1 mg tablet 1 mg PO Q12H fluticasone propionate 50 mcg/actuation spray,suspension 1 spray INTRANASAL Q12H furosemide 20 mg tablet 20 mg PO DAILY clotrimazole 1 % cream 1 applic topical Q12H Patient Comments: to right big toe and right heel meloxicam 7.5 mg tablet 7.5 mg PO HS guaifenesin [Mucinex] 600 mg tablet extended release 12hr 600 mg PO BID omeprazole 20 mg capsule,delayed release(DR/EC) 20 mg PO DAILY sumatriptan succinate 50 mg tablet 50 mg PO DAILY PRN (Reason: migraine headache) trazodone 100 mg tablet 100 mg PO HS calcium carbonate [Tums] 200 mg calcium (500 mg) tablet,chewable 400 mg PO QID PRN (Reason: dyspepsia) hydroxyzine HCl 50 mg tablet 50 mg PO BID Date of admission: 08/14/24 19:18 Primary Care Provider: Nguyễn Rodas Admitting Provider: Anni Ponce Attending physician on admission: Loraine Romo Condition: Stable Hospitalist MIPS Heart Failure (Exclusion) Patient has history of Heart Transplant or Left Ventricular Assistive Device?: No IF YES, STOP HERE Heart Failure (Qualifier) Patient has current or prior documentation of LVEF less than or equal to 40%, or mod/servere depressed LVSF?: No IF NO, STOP HERE
[2024-08-17 13:56] VITALS: BP 115/70; PULSE 91; RESP 16; TEMP 36.9; O2SAT 94
[2024-08-17 15:45] LABS: SARS-CoV-2 RNA PCR Negative (Negative)
[2024-08-18 16:13] LABS: Pneumococcal Antigen Urine NOT DETECTED
[2024-08-24 18:59] LABS: Legionella pneumophila Ag Ur NOT DETECTED
== END 2024-08-17 16:28 | DRG 871 ==
LOC: ANHED 19:10 → ANH2MED 20:08
PROVIDERS: Emergency Medicine; Admitting Provider Internal Medicine; Emergency Provider Emergency Medicine; PCP Internal Medicine; Visit Provider Student in an Organized Health Care Education/Training Program
DX: A41.9 Sepsis, unspecified organism (principal); J18.9 Pneumonia, unspecified organism; I69.354 Hemiplegia and hemiparesis following cerebral infarction affecting left non-dominant side; R09.02 Hypoxemia; Z11.52 Encounter for screening for COVID-19; E11.42 Type 2 diabetes mellitus with diabetic polyneuropathy; N32.81 Overactive bladder; K21.9 Gastro-esophageal reflux disease without esophagitis; E78.5 Hyperlipidemia, unspecified; D50.9 Iron deficiency anemia, unspecified; I10 Essential (primary) hypertension; E04.1 Nontoxic single thyroid nodule; N39.41 Urge incontinence; B37.31 Acute candidiasis of vulva and vagina; F32.9 Major depressive disorder, single episode, unspecified; F17.210 Nicotine dependence, cigarettes, uncomplicated; Z90.710 Acquired absence of both cervix and uterus
CPT/HCPCS: 36415; 71045; 76536; 80048; 80053; 82607; 82728; 82746; 82948; 83036; 83540; 83550; 84439; 84443; 84480; 85025; 85027; 85055; 87040; 87070; 87205; 87449; 87635; 87637; 87899; 94667; 94668; 99285; A9270; J0456; J0696; J1650; J1815; J7030

== ENCOUNTER 2024-08-23 12:16 | Emergency (ER) | payer MEDICARE, MEDICAID, SELFPAY ==
[2024-08-23] VITALS (8 sets, daily range): BP systolic 115–130; BP diastolic 68–81; PULSE 77–97; RESP 12–17; TEMP 36.4–36.6; O2SAT 96–100
--- NOTE | ~2024-08-23 | CT_ITS ---
CTA chest PE protocol Ordering provider: Kevon Jameson MD History: 58 years Female with . CP/SOA . Comparison: None. Technique: CT angiogram chest was performed following timed intravenous injection of contrast. Thin s lice axial images and reformatted coronal images were obtained. Three dimensional reformatted images of the chest were also obtained using a [employer] workstation. . Automated exposure control and iterati ve reconstruction technique were employed. The dose-length product was 836.74 mGy-cm. 100 mL Omnipaqu e 350 was given IV. Findings: PULMONARY ARTERIES: No pulmonary embolus. VISUALIZED THORACIC INLET: Normal. Small focus of calcification seen in the left thyroid lobe. MEDIASTINUM: Aorta/coronary arteries: Mild atheromatous disease. Heart/other: The heart is not enlarged. Lymph nodes: No mediastinal or hilar adenopathy. LUNGS: Bilateral basal pneumonia is noted more on the left side. Follow-up to resolution is advised. No pulm onary nodules or masses. No effusions. No pneumothorax. VISUALIZED UPPER ABDOMEN: Slightly atrophic pancreas. Otherwise, the visualized upper abdomen is norm al. MUSCULOSKELETAL: Soft tissues: The superficial soft tissues are normal. Bones: Age appropriate degenerative changes of the spine. Postoperative changes in the thoracolumbar area. IMPRESSION: 1. No pulmonary embolism. 2. Bilateral basal pneumonia more on the left side. Reviewed, dictated and finalized at location A.
--- NOTE | ~2024-08-23 | CT_ITS ---
CT brain wo con Ordering provider: Kevon Jameson MD History: 58 years Female with . dizziness . Comparison: April 27, 2023 Technique: CT of the head without contrast. FINDINGS: BRAIN PARENCHYMA AND CSF SPACES: No midline shift, mass effect or hemorrhage. Old lacunar infarct in the right basal ganglia. The brain parenchyma and CSF spaces are otherwise normal. VISUALIZED PARANASAL SINUSES: Left maxillary sinus disease. Left nasal septal deviation. Old fracture s of the nasal bones are noted. MASTOIDS: Well aerated. BONES: The bones appear intact. SOFT TISSUES: Visualized nasopharynx is normal. Superficial soft tissues are normal. IMPRESSION: No acute intracranial findings. Reviewed, dictated and finalized at location A.
--- NOTE | ~2024-08-23 | XR_ITS ---
Clinical Indication: Chest pain PA and lateral views of the chest: Comparison: 08/14/2024 Findings: The lungs are clear, without evidence of focal consolidation or pleural effusion. Cardiome diastinal silhouette is within normal limits. Thoracolumbar spinal fixation hardware noted. Impression: Clear lungs. Reviewed, dictated and finalized at location . Impression: Clear lungs.
--- NOTE | 2024-08-23 12:24 | ECG_ITS ---
Test Date: 2024-08-23 12:21:46 Measurements Intervals [place] Rate: 77 P: 53 MO: 146 QRS: -30 QRSD: 80 T: -11 QT: 377 QTc: 428 Interpretive Statements SINUS RHYTHM LOW QRS VOLTAGE IN PRECORDIAL LEADS [QRS DEFLECTION < 1.0 mV IN CHEST LEADS] BASELINE ARTIFACT PRESENT No previous ECG available for comparison Electronically Signed On 08-23-2024 14:18:30 CDT by Louie Colbert M.D.
--- OUTSIDE RECORDS SUMMARY | 2024-08-23 12:48 | XMS_ITS ---
Author Name Auto Generated, Auto Generated Organization [facility] Address [address] [place] [address] Phone [phone] Functional Status No Results Mental Status No Results Allergies and Intolerances Name Onset Date Reaction Severity TOPAMAX (Allergy) WedMay 05 07:00:00 2018 Other o r Unspecified Severe TAPE (Allergy) WedMay 05:00:00 2018 Rash/Hives Moderate Problems Active Concerns * Major depressive disorder, recurrent, moderate* Code: [id number] * Start Date: WedMay 05 07:00:00 2018 * End Date: * Text: * PTSD (post-traumatic stress disorder)* Code: [id number] * Start Date: WedMay 05 07:00:00 2018 * End Date: * Text: * DIXIE (generalised anxiety disorder)* Code: [id number] * Start Date: WedMay 05 07:00:00 2018 * End Date: * Text: * Insomnia, psychophysiological* Code: 733286647 * Start Date: WedMay 05 07:00:00 2018 * End Date: * Text: * Tobacco dependence* Code: 93361296 * Start Date: WedMay 05 07:00:00 2018 * End Date: * Text: * Essential (primary) hypertension* Code: [id number] * Start Date: WedMay 05 07:00:00 2018 * End Date: * Text: * Transient cerebral ischemic attack, unspecified* Code: 970950598 * Start Date: WedMay 05 07:00:00 2018 * End Date: * Text: * Chronic migraine* Code: 84813036 * Start Date: WedMay 05 07:00:00 2018 * End Date: * Text: * Chronic back pain greater than 3 months duration* Code: 193622675 * Start Date: WedMay 05 07:00:00 2018 * End Date: * Text: * Essential tremor* Code: [id number] * Start Date: WedMay 05 07:00:00 2018 * End Date: * Text: * Diverticulosis of colon* Code: [id number] * Start Date: WedMay 05 07:00:00 2018 * End Date: * Text: Reason for Referral Past Medical History
--- OUTSIDE RECORDS SUMMARY | 2024-08-23 12:48 | XMS_ITS | Clinical Summary ---
Author Organization [facility] Address [address] [place] [id number] Phone Care Team Providers Care Dietary Services Manager Name Role Phone Nguyễn Gale MD Primary Care Provider [phone] Allergies Active Allergy Reactions Criticality Noted Date [...] Comments Blood Pressure 136/72 02/26/2021 2:39 PM FILTER TENDER Pulse - - Temperature 36.5 C (97.7 F) 02/26/2021 2:39 PM FILTER TENDER Respiratory Rate 18 02/26/2021 2:39 PM FILTER TENDER Oxygen Saturation - - Inhaled Oxygen Concentration - - Weight 88.9 kg (196 lb) 02/26/2021 2:39 PM FILTER TENDER Height 172.7 cm (5' 8 ) 02/26/2021 2:39 PM FILTER TENDER Body Mass Index 29.8 02/26/2021 2:39 PM FILTER TENDER Plan of Treatment Health Maintenance Due Date Last Done Comments Diabetic Foot Exam 1976 Ophthalmology Exam 1976 Pneumococcal PPSV23 Highest Risk Adult (1 of 3 - PCV13 ) 1985 Influenza Vaccine (Season Ended) 2024 Insurance MEDICAID - [place] [employer] MEDICARE Care Teams Dietary Services Manager Relationship Specialty Start Date End Date Nguyễn Gale MD [address] [place] [address] PCP - General Internal Medicine 02/03/21
--- OUTSIDE RECORDS SUMMARY | 2024-08-23 12:48 | XMS_ITS | Clinical Summary ---
Author Organization [facility] Address [address] [place] [address] Care Team Providers Care Knot Cutter Name Role Phone Hitesh Bell MD Primary Care Provider Unavailab francis Source Comments [facility],non-owned Affiliates and Associated Physician Practices is amultiple site organization consisting of ambulatory clinics and hospital sitesin [place], [place], [place] and [place]. This disclosure is being madepursuant to the Care Everywhere program and may not contain all information available regarding this patient. Last updated 18.[facility] [employer] Allergies Active Allergy Reactions Criticality Noted Date Comments Adhesive Sensitivity Other Low 08/30/2009 Red area on skin Red area on skin Red area on skin Azithromycin Unknown 09/20/2002 Latex Rash,Unknown Medium 05/26/2017 rash rash Nsaids Unknown 12/08/2012 Topiramate Psychiatric,HEADER SETUP OPERATOR Dysfunction,Other,Unk nown,Vomiting Medium 01/20/2017 confusion Reaction: Nausea, [...] times daily 15 capsule 08/12/19 24 Active Augusta-3 Fatty Acids (Augusta-3 Fish Oil) 1000 MG capsuleIndicatio ns:Type 2 [...] tablet 08/12/19 24 Active rizatriptan, disintegrating, (Maxalt GENERAL CARGO CLERK) 10 MG tabletIndication s:Cerebrovascula r accident (CVA), [...] Recorded Patient Health Questionnaire-2 Score 0 04/17/2023 [facility] of Occupat ional Health - Occupational Stress [...] place to sleep or slept in a senior care (including now)? No 04/16/2023 Comments No Sex and Gender Information Value Date Recorded Sex Assigned at Not on file Legal Sex Female 6:07 AM UPSET OPERATOR Gender Identity Not on file Sexual Orientation Not on file Last Filed Vital Signs Vital Sign Reading Time Taken Comments Blood Pressure 120/83 08/12/2023 3:20 PM CDT Pulse 99 08/12/2023 3:20 PM CDT Temperature 36.8 C (98.3 F) 04/20/2023 8:00 AM UPSET OPERATOR Respiratory Rate 19 04/20/2023 2:00 PM UPSET OPERATOR Oxygen Saturation 92% 08/12/2023 3:20 PM CDT Inhaled Oxygen Concentration - - Weight 102.5 kg (226 lb) 04/16/2023 12:30 AM UPSET OPERATOR Height 172.7 cm (5' 8 ) 08/12/2023 3:20 PM CDT Body Mass Index 37.61 04/16/2023 12:30 AM UPSET OPERATOR Plan of Treatment Health Maintenance Due Date [...] this topic Medical Devices Implanted Type Area Pigeon Fancier Device Identifier Shelf Expiration Date Model / Serial / Lot Floseal 10ml Implanted:Qty: 1 on 05/26/2017 by Nguyễn Lott MD at [facility] Sp[facility] Lumbar [employer] 09/29/2018 [id number] / / [id number] 6.5 X 45mm Firebird Screw Implanted:Qty: 6 on 05/26/2017 by Nguyễn Lott MD at [facility] Lumbar [employer] [id number] / / 6.5 X 50 Mm Firebird Screw Implanted:Qty: 1 on 05/26/2017 by Nguyễn Lott MD at [facility] Lumbar [employer] [id number] / / 7.5 X 40mm Firedbird Screw Implanted:Qty: 4 on 05/26/2017 by Nguyễn Lott MD at [facility] Lumbar [employer] [id number] / / 7.5 X 45mm Firebird Screw Implanted:Qty: 2 on 05/26/2017 by Nguyễn Lott MD at [facility] Lumbar [employer] [id number] / / 8.5 X 80 Mm Illiac Screw Implanted:Qty: 2 on 05/26/2017 by Nguyễn Lott MD at [facility] Lumbar [employer] [id number] / / Top Loading Body Implanted:Qty: 20 on 05/26/2017 by Nguyễn Lott MD at [facility] Lumbar [employer] [id number] / / Set Screws Implanted:Qty: 20 on 05/26/2017 by Nguyễn Lott MD at [facility] Lumbar [employer] [id number] / / 10mm Pilar Tl Vbr Implanted:Qty: 1 on 05/26/2017 by Nguyễn Lott MD at [facility] Lumbar [employer] [id number] / / 450mm Hex End Hector Implanted:Qty: 3 on 05/26/2017 by Nguyễn Lott MD at [facility] Lumbar [employer] [id number] / / Hector To Hector Connectors Implanted:Qty: 8 on 05/26/2017 by Nguyễn Lott MD at [facility] Lumbar [employer] [id number] / / Floseal 10ml Implanted:Qty: 1 on 05/26/2017 by Nguyễn Lott MD at [facility] [employer]bar [employer] 08/09/2018 [id number] / / [id number] Graft Bone Canc 30ml Frzdr Crsh 1-4mm Implanted:Qty: 1 on 05/26/2017 by Nguyễn Lott MD at [facility] Lumbar [employer] 02/04/2022 [id number] / / [id number] Graft Bone Canc 30ml Frzdr Crsh 1-4mm Implanted:Qty: 1 on 05/26/2017 by Nguyễn Lott MD at [facility] Lumbar [employer] 02/07/2022 [id number] / / [id number] 21mm Cross Connector Implanted:Qty: 1 on 05/26/2017 by Nguyễn Lott MD at [facility] Lumbar [employer] [id number] / / 30mm Cross Connector Implanted:Qty: 1 on 05/26/2017 by Nguyễn Lott MD at [facility] Lumbar [employer] [id number] / / Graft Bone Canc 30ml Frzdr Crsh 1-4mm Implanted:Qty: 1 on 05/26/2017 by Nguyễn Lott MD at [facility] Lumbar [employer] 02/07/2022 [id number] / / [id number] Graft Tissue Drgn + Bvn Clgn Mtrx 3x3in Implanted:Qty: 1 on 05/26/2017 by Nguyễn Lott MD at [facility] Lumbar [employer] 10/17/2019 [id number] / / [id number] Re-Live Multi-Point Structural Allograft Implanted:Qty: 1 on 05/26/2017 by Nguyễn Lott MD at [facility] Lumbar [employer] 12/24/2021 [id number] / / [id number] Re-Live Multi-Point Structural Allograft Implanted:Qty: 1 on 05/26/2017 by Nguyễn Lott MD at [facility] Lumbar [employer] 12/18/2021 [id number] / / [id number] Re-Live Multi-Point Structural Allograft Implanted:Qty: 1 on 05/26/2017 by Nguyễn Lott MD at [facility] Lumbar [employer] 12/18/2021 [id number] / / [id number] Re-Live Multi-Point Structural Allograft Implanted:Qty: 1 on 05/26/2017 by Nguyễn Lott MD at [facility] Lumbar [employer] 12/18/2021 [id number] / / [id number] Allofuse Fibers 10ml Implanted:Qty: 1 on 05/26/2017 by Nguyễn Lott MD at [facility] [employer]bar [employer] 02/23/2019 [id number] / / [id number] 6.5x40mm Firebird Screw Implanted:Qty: 5 on 05/26/2017 by Nguyễn Lott MD at [facility] Lumbar [employer] [id number] / / Sys Cath Ps Mdcl [id number] 2o 84 Implanted:Qty: 1 on 06/04/2017 by Nguyễn Lott MD at [facility] N/A: Spine [employer] 09/16/2020 [id number] / / [id number] Procedures Procedure Name Priority Date/Time Associated Diagnosis Comments BASIC METABOLIC PANEL (CALCIUM TOTAL) Routine 04/20/2023 3:38 AM UPSET OPERATOR HEMOGLOBIN A1C Add on 04/16/2023 1:14 AM UPSET OPERATOR from Last 3 Months or Most Recently Relevant to Health Maintenance Results * (ABNORMAL) BASIC METABOLIC PANEL (CALCIUM TOTAL) (04/20/2023 3:38 AM UPSET OPERATOR) [facility] BUN 17 7 - 26 mg/dL 04/20/2023 4:19 AM UPSET OPERATOR [facility] Creatinine 0.50(L) 0.56 - 0.96 mg/dL 04/20/2023 4:19 AM [facility] Sodium 139 136 - 145 mmol/L 04/20/2023 4:19 AM [facility] Potassium 3.8 3.5 - 4.5 mmol/L 04/20/2023 4:19 AM [facility] Chloride 104 98 - 107 mmol/L 04/20/2023 4:19 AM [facility] CO2 26 22 - 29 mmol/L 04/20/2023 4:19 AM [facility] Glucose 282(H) 70 - 115 mg/dL 04/20/2023 4:19 AM [facility] Calcium 9.2 8.4 - 10.2 mg/dL 04/20/2023 4:19 AM [facility] Anion Gap 9 6 - 16 04/20/2023 4:19 AM [facility] BUN/Creatinine Ratio 34(H) 7 - 23 04/20/2023 4:19 AM [facility] Osmolality Calculated 300(H) 275 - 295 mOsm/kg 04/20/2023 4:19 AM [facility] eGFR by CKD-EPI >90 >=90 mL/min/1.7 3 m2 04/20/2023 4:19 AM [facility] Blood BLOOD SPECIMEN / Unknown Venipuncture / Unknown 04/20/2023 3:38 AM UPSET OPERATOR 04/20/2023 3:49 AM [facility] Delmer Horn MD LAB - CHEMISTRY ORDERABLES Fin al Result Performing Organization Address City/State/[facility] Co de Phone Number [facility] [address] [place] [phone], [facility] [phone] * (ABNORMAL) HEMOGLOBIN A1C (04/16/2023 1:14 AM [facility]) Hemoglobin A1c 9.2(H) <=5.6 % 04/16/2023 8:50 AM [facility] Estimated Average Glucose 217 mg/dL 04/16/2023 8:50 AM [facility] Comment: HbA1c Interpretation: Normal : < 5.7% Pre-diabetes: 5.7-6.4% Diabetes: Equal to or greater than 6.5% Test results diagnostic of diabetes should be repeated for confirmation. Treatment target values recommended by ADA and other clinical organizations should be used to evaluate metabolic control in patients. Reference: [place] Diabetes Association, Standards of Care in Diabetes -2020 In patients 70 years and older consider HbA1c target range of 7.0-7.5% (Reference: Mihir Jones et al. JAMDA. 2012) The Sebia assay for the measurement of HbA1c is a National Glycohemoglobin Standardization Program (NGSP) certified method. Blood BLOOD SPECIMEN / Unknown Venipuncture / Unknown 04/16/2023 1:14 AM UPSET OPERATOR 04/16/2023 1:31 AM UPSET OPERATOR Rishabh Savage MD LAB - CHEMISTRY ORDERABLES F inal Result [id number] [place] [address], [facility] [phone] from Last 3 Months or Most Recently [...] 12:10 AM 11/25/2010 3:41 AM Care Teams Knot Cutter Relationship Specialty Start Date End Date Hitesh Bell MD PCP - General Internal Medicine 05/08/20
--- OUTSIDE RECORDS SUMMARY | 2024-08-23 12:48 | XMS_ITS | Clinical Summary ---
Author Organization [facility] Address [address] [place] [address] Care Team Providers Care Strategies Analyst Name Role Phone Brian Hodges MD Primary Care Provider [phone] Allergies Active Allergy Reactions Criticality Noted Date [...] - 07/27/2024 11:59 PM CDT Hospital Encounter [facility] [address] [place] [address] Abdominal hernia without obstruction and without gangrene, recurrence not specified, unspecified hernia type Discharge Disposition: Discharge to home or self care 07/26/2024 Telephone [facility] [address] [place] [address] Shagufta Lamb 06/13/2024 Telephone [facility] Advanced [facility] ([facility] - [facility] Minimally Invasive Surgery [address] [facility] Advanced Medicine [address]th [address], [place] [address] Rojelio Herrera MD Medical Question/Miscellane [...] Date Comments Depression Depression Parkinson's disease (HCC) 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 Family History Medical History Relation [...] on file Legal Sex Female 6:08 AM DIRECTOR OF RESERVATIONS Gender Identity Not on file Sexual Orientation Not on file Obstetrics History Last Filed Vital Signs Vital Sign Reading Time Taken Comments Blood Pressure 125/75 03/01/2023 10:02 AM DIRECTOR OF RESERVATIONS Pulse 95 03/01/2023 10:02 AM DIRECTOR OF RESERVATIONS Temperature - - Respiratory Rate 20 12/29/2022 10:26 AM CDT Oxygen Saturation 96% 03/01/2023 10:02 AM DIRECTOR OF RESERVATIONS Inhaled Oxygen Concentration - - Weight 98.9 kg (218 lb) 03/01/2023 10:02 AM DIRECTOR OF RESERVATIONS Height 172.7 cm (5' 8 ) 03/01/2023 10:02 AM DIRECTOR OF RESERVATIONS Body Mass Index 33.15 03/01/2023 10:02 AM DIRECTOR OF RESERVATIONS Plan of Treatment Health Maintenance Due Date [...] by Lobito Schwarz M.D. CH: Report ID: [id number] Reading Location: [id number] Procedure Note Lobito Schwarz Jr., MD - [...] Schwarz M.D. CH: PEDRO PABLO Report ID: [id number] Reading Location: [place] [address] Brian Hodges MD IMG CT PROCEDURES Final Result from Last 3 Months Insurance [facility] MEDICARE ADVANTAGE [facility] MEDICARE [employer] ID[employer] MEDICARE Care Teams Strategies Analyst Relationship Specialty Start Date End Date Brian Hodges MD [address] [facility] [place] [address] PCP - General 07/27/24
--- OUTSIDE RECORDS SUMMARY | 2024-08-23 12:48 | XMS_ITS ---
Author Name Auto Generated, Auto Generated Organization [facility] Address [address] [place] [address] Phone [phone] Functional Status No Results Mental Status No Results Allergies and Intolerances Name Onset Date Reaction Severity TOPAMAX (Allergy) WedMay 05 07:00:00 2018 Other o r Unspecified Severe TAPE (Allergy) WedMay 05:00:00 2018 Rash/Hives Moderate Problems Active Concerns * Major depressive disorder, recurrent, moderate* Code: 002646013 * Start Date: WedMay 05 07:00:00 2018 * End Date: * Text: * PTSD (post-traumatic stress disorder)* Code: [id number] * Start Date: WedMay 05 07:00:00 2018 * End Date: * Text: * DIXIE (generalised anxiety disorder)* Code: 60427354 * Start Date: WedMay 05 07:00:00 2018 * End Date: * Text: * Insomnia, psychophysiological* Code: 618076540 * Start Date: WedMay 05 07:00:00 2018 * End Date: * Text: * Tobacco dependence* Code: [id number] * Start Date: WedMay 05 07:00:00 2018 * End Date: * Text: * Essential (primary) hypertension* Code: 31097857 * Start Date: WedMay 05 07:00:00 2018 * End Date: * Text: * Transient cerebral ischemic attack, unspecified* Code: 921868493 * Start Date: WedMay 05 07:00:00 2018 * End Date: * Text: * Chronic migraine* Code: 55891277 * Start Date: WedMay 05 07:00:00 2018 * End Date: * Text: * Chronic back pain greater than 3 months duration* Code: 297196361 * Start Date: WedMay 05 07:00:00 2018 * End Date: * Text: * Essential tremor* Code: 907511710 * Start Date: WedMay 05 07:00:00 2018 * End Date: * Text: * Diverticulosis of colon* Code: 348379219 * Start Date: WedMay 05 07:00:00 2018 * End Date: * Text: Reason for Referral Past Medical History
--- OUTSIDE RECORDS SUMMARY | 2024-08-23 12:48 | XMS_ITS | Referral Summary ---
Author Organization [facility] Address [address] [place] [address] Care Team Providers Care It Application Administrator Name Role Phone Brian Hodges MD Primary Care Provider Encounters Date Type Department Care Team Description 07/27/2024 1:06 PM CDT - 07/27/2024 11:59 PM CDT Hospital Encounter [facility] [address] [place] [address] Abdominal hernia without obstruction and without gangrene, recurrence not specified, unspecified hernia type Discharge Disposition: Discharge to home or self care 07/26/2024 Telephone [facility] [address] [place] [address] Shagufta Lamb 06/13/2024 Telephone [facility] - [facility] Minimally Invasive Surgery [address] [place] [address] [facility] 12th Floor, [place] [address] Rojelio Herrera MD Medical Question/Miscellane [...] on file Legal Sex Female 6:08 AM SNUFF GRINDER AND SCREENER Gender Identity Not on file Sexual Orientation Not on file Last Filed Vital Signs Vital Sign Reading Time Taken Comments Blood Pressure 125/75 03/01/2023 10:02 AM SNUFF GRINDER AND SCREENER Pulse 95 03/01/2023 10:02 AM SNUFF GRINDER AND SCREENER Temperature - - Respiratory Rate 20 12/29/2022 10:26 AM CDT Oxygen Saturation 96% 03/01/2023 10:02 AM SNUFF GRINDER AND SCREENER Inhaled Oxygen Concentration - - Weight 98.9 kg (218 lb) 03/01/2023 10:02 AM SNUFF GRINDER AND SCREENER Height 172.7 cm (5' 8 ) 03/01/2023 10:02 AM SNUFF GRINDER AND SCREENER Body Mass Index 33.15 03/01/2023 10:02 AM SNUFF GRINDER AND SCREENER Plan of Treatment Not on file Procedures [...] Schwarz M.D. CH: PEDRO PABLO Report ID: [id number] Reading Location: [id number] Procedure Note Lobito Schwarz Jr., MD - [...] Schwarz M.D. CH: PEDRO PABLO Report ID: [id number] Reading Location: [place] [address] Brian Hodges MD IMG CT PROCEDURES Final Result from Last 3 Months Insurance [facility] MEDICARE ADVANTAGE [facility] [place] [address] [address] [facility] MEDICARE Care Teams It Application Administrator Relationship Specialty Start Date End Date Brian Hodges MD [address] [place] [address] PCP - General 07/27/24
[2024-08-23 13:11] LABS: Basophils Percent Auto 0.3 % (0.2-1.2); Eosinophils Absolute Auto 0.3 K/mm3 (0-0.3); Eosinophils Percent Auto 3.7 % (0-4.4); Hematocrit 35.4 % (37.0-47.0); Hemoglobin 11.2 g/dL (12.0-15.0); Immature Granulocyte Absolute 0.03 K/mm3 (0.00-0.031); Immature Granulocyte Percent A 0.3 % (0-0.5); Lymphocytes Percent Auto 32.2 % (18.3-44.2); Mean Corpuscular HGB Conc 31.6 g/dl (32-36); Mean Corpuscular Volume 88.5 fl (80-100); Mean Platelet Volume 9.4 fl (7.4-10.4); Monocytes Absolute Auto 0.5 K/mm3 (0.1-0.6); Monocytes Percent Auto 5.9 % (2.6-8.5); Neutrophils Absolute Auto 5.2 K/mm3 (1.3-6.7); Neutrophils Percent Auto 57.6 % (45.5-73.1); Platelet Count Result 335 k/mm3 (150-375); Red Cell Distribution Width 14.3 % (11.5-14.5)
[2024-08-23 13:21] LABS: INR 0.9; Partial Thromboplastin Time 30.4 Seconds (22.3-36.8); Prothrombin Time 13.1 Seconds (11.1-14.7)
[2024-08-23 13:27] LABS: Alanine Aminotransferase 22 U/L (6-35); Albumin Level 3.7 g/dL (3.5-5.1); Alkaline Phosphatase 98 U/L (38-126); Anion Gap 7 mmol/L (4-12); Aspartate Amino Transferase 26 U/L (14-36); Bilirubin,Total 0.3 mg/dL (0.2-1.3); Blood Urea Nitrogen 10 mg/dL (7-17); Calcium 8.7 mg/dL (8.4-10.2); Carbon Dioxide 29 mmol/L (22-30); Chloride 105 mmol/L (98-107); Estimated CRCL calculation 110 ml/min; Estimated Glomerular Filt Rate > 60; Glucose 120 mg/dL (65-110); Lipase 19 U/L (23-300); Potassium 3.9 mmol/L (3.4-5.0); Sodium 141 mmol/L (137-145)
[2024-08-23] MEDS: SODIUM CHLORIDE 0.9% IV 1,000 ML 999 ML IV CONT (13:28)
[2024-08-23] MEDS: ASPIRIN 81 MG CHEWABLE TABLET 324 MG PO (13:29)
[2024-08-23] MEDS: MECLIZINE HCL 25 MG TABLET PO (13:30)
[2024-08-23] MEDS: MORPHINE SULFATE (*CRX) 2 MG/ML INJ IV PUSH (13:31)
[2024-08-23 13:39] LABS: Troponin I < 0.012 ng/mL (0.000-0.034)
[2024-08-23] MEDS: MORPHINE SULFATE (*CRX) 2 MG/ML INJ (14:45)
[2024-08-23 16:25] LABS: Troponin I < 0.012 ng/mL (0.000-0.034)
--- NOTE | 2024-08-23 16:50 | ED_ITS ---
HPI - Chest Pain General Chief Complaint: Chest Pain Stated Complaint: Chest Pain Time Seen by Provider: 08/23/24 12:36 History of Present Illness HPI narrative: Patient is a 58-year-old female who presents ER with multiple complaints. Recently hospitalized here for pneumonia. She has reported she is having some chest pain as sharp and left-sided today. Worse with deep breath and also feels it in her left back. She also is having some stuttering. She has history of stroke in the past with chronic left-sided deficits but has strength in feeling at baseline. No nausea or vomiting. No fevers or chills or sweats. Patient is stuttering but family reports patient stutters intermittently since having a stroke. Patient also reporting intermittent dizziness but cannot report aggravating or alleviating factors. Related Data Home Medications ?Medication ?Instructions ?Recorded ?Confirmed ?Last Taken ?Type atorvastatin 40 mg tablet 40 mg PO DAILY 12/31/20 08/14/24 Unknown History levomilnacipran 120 mg capsule,24 120 mg PO DAILY 12/31/20 08/14/24 Unknown History hr,extended release (Fetzima) acetaminophen 650 mg tablet 650 mg PO Q8H PRN Pain (Scale 02/06/21 08/14/24 Unknown History Score 1-3) ascorbic acid (vitamin C) 500 mg 500 mg PO TID 06/24/22 08/14/24 Unknown History tablet multivitamin (Daily Multi-Vitamin 1 tablet PO DAILY 06/24/22 08/14/24 Unknown History tablet) propranolol 20 mg tablet 20 mg PO Q12H 06/24/22 08/14/24 Unknown History gabapentin 400 mg capsule 400 mg PO BID 04/28/23 08/14/24 Unknown History galcanezumab-gnlm 120 mg/mL 120 mg subcut MONTHLY 04/28/23 08/14/24 04/19/23 History subcutaneous pen injector (Emgality Pen) insulin glargine 100 unit/mL (3 30 unit subcut HS 04/28/23 08/14/24 Unknown History mL) subcutaneous pen lisinopril 20 mg tablet 20 mg PO DAILY 04/28/23 08/14/24 Unknown History oxybutynin chloride 5 mg tablet 5 mg PO TID 04/28/23 08/14/24 Unknown History tramadol 50 mg tablet 100 mg PO Q8H PRN Pain (Scale 04/28/23 08/14/24 Unknown History Score 4-6) amlodipine 10 mg tablet 10 mg PO DAILY 09/01/23 08/14/24 Unknown History melatonin 3 mg PO HS 09/01/23 08/14/24 Unknown History metformin 1,000 mg tablet 1,000 mg PO DAILY 09/01/23 08/14/24 Unknown History primidone 50 mg tablet 25 mg PO HS 09/01/23 08/14/24 Unknown History calcium carbonate (Tums) 400 mg PO QID PRN dyspepsia 08/14/24 08/14/24 Unknown History clonazepam 1 mg tablet 1 mg PO Q12H 08/14/24 08/14/24 Unknown History clotrimazole 1 % topical cream 1 applic topical Q12H 08/14/24 08/14/24 Unknown History fluticasone propionate 50 1 spray intranasal Q12H 08/14/24 08/14/24 Unknown History mcg/actuation nasal spray,suspension furosemide 20 mg tablet 20 mg PO DAILY 08/14/24 08/14/24 Unknown History guaifenesin 600 mg tablet, 600 mg PO BID 08/14/24 08/14/24 Unknown History extended release 12 hr (Mucinex) hydroxyzine HCl 50 mg tablet 50 mg PO BID 08/14/24 08/14/24 Unknown History loratadine 10 mg tablet (Claritin) 10 mg PO DAILY 08/14/24 08/14/24 Unknown History meloxicam 7.5 mg tablet 7.5 mg PO HS 08/14/24 08/14/24 Unknown History omeprazole 20 mg capsule,delayed 20 mg PO DAILY 08/14/24 08/14/24 Unknown History release sumatriptan succinate 50 mg tablet 50 mg PO DAILY PRN migraine 08/14/24 08/14/24 Unknown History headache trazodone 100 mg tablet 100 mg PO HS 08/14/24 08/14/24 Unknown History Allergies Allergy/AdvReac Type Severity Reaction Status Date / Time latex Allergy Unknown Verified 11/29/23 19:25 topiramate (From Topamax) Allergy Unknown Verified 11/29/23 19:25 olanzapine (From Zyprexa) AdvReac Unknown Verified 11/29/23 19:25 Review of Systems 2 Review of Systems: All systems reviewed & are unremarkable except as noted in HPI and below Constitutional: Constitutional: Reports no additional constitutional complaints Cardiovascular: Cardiovascular: Reports no additional cardiovascular complaints Respiratory: Respiratory: Reports no additional respiratory complaints Gastrointestinal: Gastrointestinal: Reports no additional gastrointestinal complaints [facility] Past Medical History Medical History (Updated 08/23/24 @ 17:27 by Kevon Jameson MD) Insulin dependent diabetes mellitus Diabetic peripheral neuropathy Overactive bladder GERD (gastroesophageal reflux disease) Recurrent UTI Narcotic dependence Chronic back pain Incarcerated incisional hernia Anxiety Depression Migraines 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 Hypomagnesemia Continuous tobacco abuse Hyperlipidemia Essential hypertension Surgical History Surgical History (Updated 08/14/24 @ 22:34 by Anni Ponce DO) History of hysterectomy History of sinus surgery H/O cervical spine surgery History of bowel resection Due to diverticulitis/colitis History of back surgery X2 Family History Family History Father Diabetes mellitus Congestive heart failure Mother Unknown family medical history Social History Social History (Updated 08/15/24 @ 08:45 by Anni Ponce DO) Social History: Patient is resided at [facility] since December 2020 when she was brought here to be care for after living a transient lifestyle and not being able to take care of herself. She has smoked anywhere between 1-4 packs of cigarettes per day since she was 16 but has cut back to 3-4 cigarettes a day since moving to the retirement. She denies any alcohol use or drug use. She did have a history of opiate dependence due to chronic pain. She reports that she can ambulate around her bed at the retirement to use the bedside commode but to go any further she uses a wheelchair. Code status: Full code Surrogate decision maker: Amanda San (stepmother) Smoking packs per day: 1 Smoking cigarettes per day: 20.0 Years smoked: 40 Smoking pack-years: 40.00 Smoking status: Current every day smoker Tobacco type: cigarettes Additional smoking assessment comments: hx of smoking up to 4 packs per day Alcohol intake: never Substance use: never Substance use type: does not use Do You Feel Safe in your Home?: Yes Lack of Transportation: No Lack of Food: Never True Current Housing: I Have Housing Concerned About Future Housing: No Difficulty Paying Gas/Electric Bills: No Difficulty Paying for Meds: No Currently Unemployed: No Education: High School Diploma/GED Difficulty w/ Childcare or Family Care: No Living arrangements: retirement Spiritual care concerns: No Exam 2 Narrative: GENERAL: Well-appearing, well-nourished, and in no acute distress. HEAD: Normocephalic, atraumatic. ENT: Mucous membranes moist. NECK: Supple. CHEST: Clear to auscultation. No respiratory distress. HEART: Regular rate and rhythm. Normal peripheral pulses. ABDOMEN: Soft, nontender, nondistended. EXTREMITIES: Normal range of motion. No edema. SKIN: Warm, dry, no rash. NEURO: Alert and oriented x3. NIH stroke scale 0. PSYCH: Normal mood and affect. Course Course Emergency Course: Pain improves with morphine. Troponin negative x2. Workup unremarkable. Appropriate for discharge. Vital Signs Vital signs: Vital Signs Oxygen Delivery Room Air 08/23/24 12:18 Temperature 97.8 F 08/23/24 17:00 Pulse Rate 80 08/23/24 17:00 Respiratory Rate 12 08/23/24 17:00 Blood Pressure 126/80 08/23/24 17:00 Pulse Oximetry 96 08/23/24 17:00 Oxygen Delivery Room Air 08/23/24 12:19 MDM - Chest Pain Lab Data 08/23/24 12:59 08/23/24 12:59 Labs: Lab Results 08/23/24 08/23/24 08/23/24 Range/Units 12:59 12:59 12:59 WBC 9.0 (4.5-10.0) K/mm3 RBC 4.00 L (4.2-5.4) M/mm3 Hgb 11.2 L (12.0-15.0) g/dL Hct 35.4 L (37.0-47.0) % MCV 88.5 (80-100) fl MCH 28.0 (26-34) pg MCHC 31.6 L (32-36) g/dl RDW 14.3 (11.5-14.5) % Plt Count 335 (150-375) k/mm3 MPV 9.4 (7.4-10.4) fl Immature Gran % (Auto) 0.3 (0-0.5) % Neut % (Auto) 57.6 (45.5-73.1) % Lymph % (Auto) 32.2 (18.3-44.2) % Mclennan % (Auto) 5.9 (2.6-8.5) % Eos % (Auto) 3.7 (0-4.4) % Baso % (Auto) 0.3 (0.2-1.2) % Lymph # (Auto) 2.90 (0.9-3.2) K/mm3 Mclennan # (Auto) 0.5 (0.1-0.6) K/mm3 Eos # (Auto) 0.3 (0-0.3) K/mm3 Baso # (Auto) 0.0 (0.0-0.1) K/mm3 Abs Immat Gran (auto) 0.03 (0.00-0.031) K/mm3 Absolute Neuts (auto) 5.2 (1.3-6.7) K/mm3 Absolute Nucleated RBC 0.000 (0.0-0.012) K/mm3 Nucleated RBC % 0.0 (0.0-0.2) % PT 13.1 (11.1-14.7) Seconds INR 0.9 APTT 30.4 (22.3-36.8) Seconds Sodium 141 Cancelled (137-145) mmol/L Potassium 3.9 Cancelled (3.4-5.0) mmol/L Chloride 105 (98-107) mmol/L Carbon Dioxide (22-30) mmol/L Anion Gap (4-12) mmol/L BUN (7-17) mg/dL Creatinine (0.7-1.0) mg/dL Estim Creat Clear Calc ml/min Estimated GFR (59 - ) Glucose (65-110) mg/dL Calcium (8.4-10.2) mg/dL Total Bilirubin (0.2-1.3) mg/dL AST (14-36) U/L ALT (6-35) U/L Alkaline Phosphatase (38-126) U/L Troponin I (0.000-0.034) ng/mL Total Protein (6.3-8.2) g/dL Albumin (3.5-5.1) g/dL Lipase (23-300) U/L 08/23/24 08/23/24 08/23/24 Range/Units 12:59 12:59 12:59 WBC (4.5-10.0) K/mm3 RBC (4.2-5.4) M/mm3 Hgb (12.0-15.0) g/dL Hct (37.0-47.0) % MCV (80-100) fl MCH (26-34) pg MCHC (32-36) g/dl RDW (11.5-14.5) % Plt Count (150-375) k/mm3 MPV (7.4-10.4) fl Immature Gran % (Auto) (0-0.5) % Neut % (Auto) (45.5-73.1) % Lymph % (Auto) (18.3-44.2) % Mclennan % (Auto) (2.6-8.5) % Eos % (Auto) (0-4.4) % Baso % (Auto) (0.2-1.2) % Lymph # (Auto) (0.9-3.2) K/mm3 Mclennan # (Auto) (0.1-0.6) K/mm3 Eos # (Auto) (0-0.3) K/mm3 Baso # (Auto) (0.0-0.1) K/mm3 Abs Immat Gran (auto) (0.00-0.031) K/mm3 Absolute Neuts (auto) (1.3-6.7) K/mm3 Absolute Nucleated RBC (0.0-0.012) K/mm3 Nucleated RBC % (0.0-0.2) % PT (11.1-14.7) Seconds INR APTT (22.3-36.8) Seconds Sodium (137-145) mmol/L Potassium (3.4-5.0) mmol/L Chloride Cancelled (98-107) mmol/L Carbon Dioxide 29 Cancelled (22-30) mmol/L Anion Gap 7 Cancelled (4-12) mmol/L BUN 10 (7-17) mg/dL Creatinine (0.7-1.0) mg/dL Estim Creat Clear Calc ml/min Estimated GFR (59 - ) Glucose (65-110) mg/dL Calcium (8.4-10.2) mg/dL Total Bilirubin (0.2-1.3) mg/dL AST (14-36) U/L ALT (6-35) U/L Alkaline Phosphatase (38-126) U/L Troponin I (0.000-0.034) ng/mL Total Protein (6.3-8.2) g/dL Albumin (3.5-5.1) g/dL Lipase (23-300) U/L 08/23/24 08/23/24 08/23/24 Range/Units 12:59 12:59 12:59 WBC (4.5-10.0) K/mm3 RBC (4.2-5.4) M/mm3 Hgb (12.0-15.0) g/dL Hct (37.0-47.0) % MCV (80-100) fl MCH (26-34) pg MCHC (32-36) g/dl RDW (11.5-14.5) % Plt Count (150-375) k/mm3 MPV (7.4-10.4) fl Immature Gran % (Auto) (0-0.5) % Neut % (Auto) (45.5-73.1) % Lymph % (Auto) (18.3-44.2) % Mclennan % (Auto) (2.6-8.5) % Eos % (Auto) (0-4.4) % Baso % (Auto) (0.2-1.2) % Lymph # (Auto) (0.9-3.2) K/mm3 Mclennan # (Auto) (0.1-0.6) K/mm3 Eos # (Auto) (0-0.3) K/mm3 Baso # (Auto) (0.0-0.1) K/mm3 Abs Immat Gran (auto) (0.00-0.031) K/mm3 Absolute Neuts (auto) (1.3-6.7) K/mm3 Absolute Nucleated RBC (0.0-0.012) K/mm3 Nucleated RBC % (0.0-0.2) % PT (11.1-14.7) Seconds INR APTT (22.3-36.8) Seconds Sodium (137-145) mmol/L Potassium (3.4-5.0) mmol/L Chloride (98-107) mmol/L Carbon Dioxide (22-30) mmol/L Anion Gap (4-12) mmol/L BUN Cancelled (7-17) mg/dL Creatinine 0.59 L Cancelled (0.7-1.0) mg/dL Estim Creat Clear Calc 110 Cancelled ml/min Estimated GFR > 60 (59 - ) Glucose (65-110) mg/dL Calcium (8.4-10.2) mg/dL Total Bilirubin (0.2-1.3) mg/dL AST (14-36) U/L ALT (6-35) U/L Alkaline Phosphatase (38-126) U/L Troponin I (0.000-0.034) ng/mL Total Protein (6.3-8.2) g/dL Albumin (3.5-5.1) g/dL Lipase (23-300) U/L 08/23/24 08/23/24 08/23/24 Range/Units 12:59 12:59 12:59 WBC (4.5-10.0) K/mm3 RBC (4.2-5.4) M/mm3 Hgb (12.0-15.0) g/dL Hct (37.0-47.0) % MCV (80-100) fl MCH (26-34) pg MCHC (32-36) g/dl RDW (11.5-14.5) % Plt Count (150-375) k/mm3 MPV (7.4-10.4) fl Immature Gran % (Auto) (0-0.5) % Neut % (Auto) (45.5-73.1) % Lymph % (Auto) (18.3-44.2) % Mclennan % (Auto) (2.6-8.5) % Eos % (Auto) (0-4.4) % Baso % (Auto) (0.2-1.2) % Lymph # (Auto) (0.9-3.2) K/mm3 Mclennan # (Auto) (0.1-0.6) K/mm3 Eos # (Auto) (0-0.3) K/mm3 Baso # (Auto) (0.0-0.1) K/mm3 Abs Immat Gran (auto) (0.00-0.031) K/mm3 Absolute Neuts (auto) (1.3-6.7) K/mm3 Absolute Nucleated RBC (0.0-0.012) K/mm3 Nucleated RBC % (0.0-0.2) % PT (11.1-14.7) Seconds INR APTT (22.3-36.8) Seconds Sodium (137-145) mmol/L Potassium (3.4-5.0) mmol/L Chloride (98-107) mmol/L Carbon Dioxide (22-30) mmol/L Anion Gap (4-12) mmol/L BUN (7-17) mg/dL Creatinine (0.7-1.0) mg/dL Estim Creat Clear Calc ml/min Estimated GFR Cancelled (59 - ) Glucose 120 H Cancelled (65-110) mg/dL Calcium 8.7 Cancelled (8.4-10.2) mg/dL Total Bilirubin 0.3 (0.2-1.3) mg/dL AST (14-36) U/L ALT (6-35) U/L Alkaline Phosphatase (38-126) U/L Troponin I (0.000-0.034) ng/mL Total Protein (6.3-8.2) g/dL Albumin (3.5-5.1) g/dL Lipase (23-300) U/L 08/23/24 08/23/24 08/23/24 Range/Units 12:59 12:59 12:59 WBC (4.5-10.0) K/mm3 RBC (4.2-5.4) M/mm3 Hgb (12.0-15.0) g/dL Hct (37.0-47.0) % MCV (80-100) fl MCH (26-34) pg MCHC (32-36) g/dl RDW (11.5-14.5) % Plt Count (150-375) k/mm3 MPV (7.4-10.4) fl Immature Gran % (Auto) (0-0.5) % Neut % (Auto) (45.5-73.1) % Lymph % (Auto) (18.3-44.2) % Mclennan % (Auto) (2.6-8.5) % Eos % (Auto) (0-4.4) % Baso % (Auto) (0.2-1.2) % Lymph # (Auto) (0.9-3.2) K/mm3 Mclennan # (Auto) (0.1-0.6) K/mm3 Eos # (Auto) (0-0.3) K/mm3 Baso # (Auto) (0.0-0.1) K/mm3 Abs Immat Gran (auto) (0.00-0.031) K/mm3 Absolute Neuts (auto) (1.3-6.7) K/mm3 Absolute Nucleated RBC (0.0-0.012) K/mm3 Nucleated RBC % (0.0-0.2) % PT (11.1-14.7) Seconds INR APTT (22.3-36.8) Seconds Sodium (137-145) mmol/L Potassium (3.4-5.0) mmol/L Chloride (98-107) mmol/L Carbon Dioxide (22-30) mmol/L Anion Gap (4-12) mmol/L BUN (7-17) mg/dL Creatinine (0.7-1.0) mg/dL Estim Creat Clear Calc ml/min Estimated GFR (59 - ) Glucose (65-110) mg/dL Calcium (8.4-10.2) mg/dL Total Bilirubin Cancelled (0.2-1.3) mg/dL AST 26 Cancelled (14-36) U/L ALT 22 Cancelled (6-35) U/L Alkaline Phosphatase 98 (38-126) U/L Troponin I (0.000-0.034) ng/mL Total Protein (6.3-8.2) g/dL Albumin (3.5-5.1) g/dL Lipase (23-300) U/L 08/23/24 08/23/24 08/23/24 Range/Units 12:59 12:59 12:59 WBC (4.5-10.0) K/mm3 RBC (4.2-5.4) M/mm3 Hgb (12.0-15.0) g/dL Hct (37.0-47.0) % MCV (80-100) fl MCH (26-34) pg MCHC (32-36) g/dl RDW (11.5-14.5) % Plt Count (150-375) k/mm3 MPV (7.4-10.4) fl Immature Gran % (Auto) (0-0.5) % Neut % (Auto) (45.5-73.1) % Lymph % (Auto) (18.3-44.2) % Mclennan % (Auto) (2.6-8.5) % Eos % (Auto) (0-4.4) % Baso % (Auto) (0.2-1.2) % Lymph # (Auto) (0.9-3.2) K/mm3 Mclennan # (Auto) (0.1-0.6) K/mm3 Eos # (Auto) (0-0.3) K/mm3 Baso # (Auto) (0.0-0.1) K/mm3 Abs Immat Gran (auto) (0.00-0.031) K/mm3 Absolute Neuts (auto) (1.3-6.7) K/mm3 Absolute Nucleated RBC (0.0-0.012) K/mm3 Nucleated RBC % (0.0-0.2) % PT (11.1-14.7) Seconds INR APTT (22.3-36.8) Seconds Sodium (137-145) mmol/L Potassium (3.4-5.0) mmol/L Chloride (98-107) mmol/L Carbon Dioxide (22-30) mmol/L Anion Gap (4-12) mmol/L BUN (7-17) mg/dL Creatinine (0.7-1.0) mg/dL Estim Creat Clear Calc ml/min Estimated GFR (59 - ) Glucose (65-110) mg/dL Calcium (8.4-10.2) mg/dL Total Bilirubin (0.2-1.3) mg/dL AST (14-36) U/L ALT (6-35) U/L Alkaline Phosphatase Cancelled (38-126) U/L Troponin I < 0.012 Cancelled (0.000-0.034) ng/mL Total Protein 7.0 Cancelled (6.3-8.2) g/dL Albumin 3.7 (3.5-5.1) g/dL Lipase (23-300) U/L 08/23/24 08/23/24 08/23/24 Range/Units 12:59 12:59 15:57 WBC (4.5-10.0) K/mm3 RBC (4.2-5.4) M/mm3 Hgb (12.0-15.0) g/dL Hct (37.0-47.0) % MCV (80-100) fl MCH (26-34) pg MCHC (32-36) g/dl RDW (11.5-14.5) % Plt Count (150-375) k/mm3 MPV (7.4-10.4) fl Immature Gran % (Auto) (0-0.5) % Neut % (Auto) (45.5-73.1) % Lymph % (Auto) (18.3-44.2) % Mclennan % (Auto) (2.6-8.5) % Eos % (Auto) (0-4.4) % Baso % (Auto) (0.2-1.2) % Lymph # (Auto) (0.9-3.2) K/mm3 Mclennan # (Auto) (0.1-0.6) K/mm3 Eos # (Auto) (0-0.3) K/mm3 Baso # (Auto) (0.0-0.1) K/mm3 Abs Immat Gran (auto) (0.00-0.031) K/mm3 Absolute Neuts (auto) (1.3-6.7) K/mm3 Absolute Nucleated RBC (0.0-0.012) K/mm3 Nucleated RBC % (0.0-0.2) % PT (11.1-14.7) Seconds INR APTT (22.3-36.8) Seconds Sodium (137-145) mmol/L Potassium (3.4-5.0) mmol/L Chloride (98-107) mmol/L Carbon Dioxide (22-30) mmol/L Anion Gap (4-12) mmol/L BUN (7-17) mg/dL Creatinine (0.7-1.0) mg/dL Estim Creat Clear Calc ml/min Estimated GFR (59 - ) Glucose (65-110) mg/dL Calcium (8.4-10.2) mg/dL Total Bilirubin (0.2-1.3) mg/dL AST (14-36) U/L ALT (6-35) U/L Alkaline Phosphatase (38-126) U/L Troponin I < 0.012 (0.000-0.034) ng/mL Total Protein (6.3-8.2) g/dL Albumin Cancelled (3.5-5.1) g/dL Lipase 19 L Cancelled (23-300) U/L Imaging Data Radiologist's impression: ITS Impressions Chest X-Ray 08/23/24 13:34 Impression: Clear lungs. Head CT 08/23/24 14:19 IMPRESSION: No acute intracranial findings. Chest CTA 08/23/24 14:29 IMPRESSION: 1. No pulmonary embolism. 2. Bilateral basal pneumonia more on the left side. ECG Data EKG #1: ECG completion date: 08/23/24 ECG completion time: 12:21 EKG Interpretation: normal rate (77), sinus rhythm, no ST changes, normal QRS, normal QT and other (Artifact in AVR/AVL/AVF) Discharge Plan Discharge Clinical Impression: Chest pain, pleuritic, Candidiasis of vagina Patient Disposition: Home Condition: Stable Instructions: Chest Wall Pain (ED) Additional Instructions: Please return to the emergency department if you develop severe and persistent chest pain, difficulty breathing, dizziness, leg swelling or if you are coughing up blood as these can be signs of a medical emergency. Please call your doctor for a follow up appointment to determine the need for further testing. It looks like you may have a fungal infection of your vagina however it is on left side. It is recommended you see a software test automation engineer in case biopsy or other treatment is needed. Patient Language: Greek Prescriptions: New clotrimazole 2 % cream 1 appful vaginal HS 3 Days Qty: 21 0RF No Action lisinopril 20 mg Tablet 20 mg PO DAILY tramadol 50 mg Tablet 100 mg PO Q8H PRN (Reason: Pain (Scale Score 4-6)) oxybutynin chloride 5 mg Tablet 5 mg PO TID insulin glargine 100 unit/mL (3 mL) Insulin Pen 30 unit SUBCUT HS Emgality Pen 120 mg/mL Pen Injector 120 mg SUBCUT MONTHLY Rx Instructions: takes on the 4th of each month gabapentin 400 mg capsule 400 mg PO BID amlodipine 10 mg Tablet 10 mg PO DAILY primidone 50 mg Tablet 25 mg PO HS metformin 1,000 mg Tablet 1,000 mg PO DAILY melatonin 3 mg PO HS atorvastatin 40 mg Tablet 40 mg PO DAILY Fetzima 120 mg Capsule,Extended Release 24 Hr 120 mg PO DAILY acetaminophen 650 mg Tablet 650 mg PO Q8H PRN (Reason: Pain (Scale Score 1-3)) multivitamin [Daily Multi-Vitamin] Tablet 1 tablet PO DAILY ascorbic acid (vitamin C) 500 mg Tablet 500 mg PO TID Rx Instructions: With meals propranolol 20 mg Tablet 20 mg PO Q12H Rx Instructions: Hold if B/P <100/50 aspirin 81 mg Tablet,Delayed Release (Dr/Ec) 81 mg PO QAM Qty: 30 0RF omega-3 acid ethyl esters [Lovaza] 1 gram capsule 1 cap PO BID Qty: 60 0RF loratadine [Claritin] 10 mg tablet 10 mg PO DAILY clonazepam 1 mg tablet 1 mg PO Q12H fluticasone propionate 50 mcg/actuation spray,suspension 1 spray INTRANASAL Q12H furosemide 20 mg tablet 20 mg PO DAILY clotrimazole 1 % cream 1 applic topical Q12H Patient Comments: to right big toe and right heel meloxicam 7.5 mg tablet 7.5 mg PO HS guaifenesin [Mucinex] 600 mg tablet extended release 12hr 600 mg PO BID omeprazole 20 mg capsule,delayed release(DR/EC) 20 mg PO DAILY sumatriptan succinate 50 mg tablet 50 mg PO DAILY PRN (Reason: migraine headache) trazodone 100 mg tablet 100 mg PO HS calcium carbonate [Tums] 200 mg calcium (500 mg) tablet,chewable 400 mg PO QID PRN (Reason: dyspepsia) hydroxyzine HCl 50 mg tablet 50 mg PO BID ferrous sulfate 325 mg (65 mg iron) Tablet,Delayed Release (Dr/Ec) 325 mg PO BID Qty: 60 0RF amoxicillin-pot clavulanate 875-125 mg tablet 1 tablet PO Q12H Qty: 8 0RF azithromycin 500 mg tablet 500 mg PO DAILY Qty: 4 0RF Follow-up/Referrals: Baljinder,MD Nguyễn [Primary Care Provider] - 1 Week Quality HEART score for chest pain patients History: slightly suspicious ECG: non specific repolarization disturbance/LBTB/PM Age: > 45 and < 65 years Risk factors: > or = to 3 risk factors of atherosclerotic disease Troponin: < or = to 1x normal limit Heart score: 4
--- NOTE | 2024-08-23 17:22 | PC.NURSE ---
standard regular diet dinner tray ordered
== END 2024-08-23 17:57 ==
PROVIDERS: Emergency Provider Emergency Medicine; PCP Internal Medicine
DX: R07.81 Pleurodynia (principal); B37.31 Acute candidiasis of vulva and vagina; J18.9 Pneumonia, unspecified organism; I69.954 Hemiplegia and hemiparesis following unspecified cerebrovascular disease affecting left non-dominant side; I10 Essential (primary) hypertension; E11.42 Type 2 diabetes mellitus with diabetic polyneuropathy; E78.5 Hyperlipidemia, unspecified; K21.9 Gastro-esophageal reflux disease without esophagitis; N32.81 Overactive bladder; F41.9 Anxiety disorder, unspecified; F32.A Depression, unspecified; F17.210 Nicotine dependence, cigarettes, uncomplicated; Z87.440 Personal history of urinary (tract) infections; Z90.710 Acquired absence of both cervix and uterus; Z90.49 Acquired absence of other specified parts of digestive tract; Z79.4 Long term (current) use of insulin; Z79.899 Other long term (current) drug therapy; Z79.84 Long term (current) use of oral hypoglycemic drugs; Z79.82 Long term (current) use of aspirin
CPT/HCPCS: 36415; 70450; 71046; 71275; 80053; 83690; 84484; 85025; 85610; 85730; 93005; 96361; 96374; 96376; 99284; A9270; J2270; J7030; Q9967